=== PATIENT | male | born 1960 | race Hispanic/Latino ===

== ENCOUNTER 2016-08-20 01:03 | Inpatient (IN) | payer MEDICARE ==
[2016-08-20 01:54] LABS: BASO # 0.1 K/uL (0.0-0.2); BASO % 0.5 % (0.0-2.0); EOS # 0.1 K/uL (0.0-0.7); EOS % 0.5 % (0.0-4.0); HEMATOCRIT 34.7 % (35.0-51.0); LYMPH # 2.7 K/uL (1.0-4.3); LYMPH % 17.9 % (20.0-40.0); MEAN CELL VOLUME 91.5 fl (80.0-94.0); MEAN CORPUSCULAR HEMOGLOBIN 30.5 pg (27.0-31.0); MEAN CORPUSCULAR HGB CONC 33.3 g/dL (33.0-37.0); MEAN PLATELET VOLUME 7.9 fl (7.2-11.7); MONO # 0.9 K/uL (0.0-0.8); NEUT # 11.5 K/uL (1.8-7.0); NEUT % 75.1 % (50.0-75.0); RED CELL DISTRIBUTION WIDTH 14.1 % (11.5-14.5); WHITE BLOOD COUNT 15.3 K/uL (4.8-10.8)
[2016-08-20 02:01] LABS: CHLORIDE 97 mmol/L (98-107)
[2016-08-20 02:02] LABS: POTASSIUM 3.1 MMOL/L (3.6-5.0); SODIUM 140 mmol/l (132-148)
[2016-08-20 02:04] LABS: ALB/GLOB RATIO 1.5 (1.0-2.1); ALKALINE PHOSPHATASE 80 U/L (38-126); ALT/SGPT 110 U/L (21-72); AST/SGOT 222 U/L (17-59); BILIRUBIN,TOTAL 0.6 mg/dl (0.2-1.3); BLOOD UREA NITROGEN 22 mg/dl (9-20); CARBON DIOXIDE 22 mmol/L (22-30); GFR AFRICAN-AMERICAN > 60; GLUCOSE,RANDOM 97 mg/dL (75-110); TOTAL PROTEIN 7.7 G/DL (6.3-8.2)
[2016-08-20 02:05] LABS: ALCOHOL SERUM 119 mg/dl (0-10); CALCIUM 8.9 mg/dL (8.4-10.2)
[2016-08-20 02:12] LABS: PARTIAL THROMBOPLASTIN TIME 21.2 SECONDS (23.3-32.5)
--- NOTE | 2016-08-20 02:25 | CT ---
EXAM: CT Head Without Intravenous Contrast CLINICAL HISTORY: 56 years old, male; Injury or trauma; Fall; Initial encounter; Concussion / head injury TECHNIQUE: Axial computed tomography images of the head/brain without intravenous contrast. This CT exam was performed using one or more of the following dose reduction techniques: automated exposure control, adjustment of the mA and/or kV according to patient size, and/or use of iterative reconstruction technique. Coronal and sagittal reformatted images were created and reviewed. COMPARISON: No relevant prior studies available. FINDINGS: Brain: Mild atrophy. No intracranial hemorrhage. No mass. Hugk-ch-lduzneun encephalomalacia within LEFT frontal region with associated calcifications. No edema. Ventricles: No hydrocephalus. Bones/joints: No calvarial fracture. Craniotomy. Soft tissues: Unremarkable. Sinuses: No acute sinusitis. Mastoid air cells: No mastoid effusion. Orbits: Unremarkable as visualized. IMPRESSION: 1. No intracranial hemorrhage. 2. Incidental/non-acute findings are described above.
--- NOTE | 2016-08-20 02:26 | ED PDOC ---
HPI: General Adult Time Seen by Provider: 08/20/16 01:30 Chief Complaint (Nursing): Trauma Chief Complaint (Provider): fall History Per: Patient (56 y/o male h/o craniectomy for SAH in past here for fall and injury to left shoulder today. States he could not lift himself up due to shoulder pain and dragged self to neighbor's door. Unsure of head injury. ADmits drinking etoh today.) Past Medical History Reviewed: Historical Data, Nursing Documentation, Vital Signs Vital Signs: Last Vital Signs Temp 97.5 F L 08/20/16 01:15 Pulse 70 08/20/16 03:48 Resp 16 08/20/16 03:48 BP 109/65 08/20/16 03:48 Pulse Ox 97 08/20/16 03:48 - Medical History PMH: Anxiety, Depression, HTN - Family History Family History: States: Unknown Family Hx - Home Medications Home Medications: Ambulatory Orders Medication Instructions Recorded Amlodipine Besylate/Benazepril 1 tab PO DAILY 08/20/16 [Amlodipine-Benazepril 10-40 mg] Ammonium Lactate 12% [Lac-Hydrin 1 appl TD DAILY 08/20/16 12% Cream (140 g)] Budesonide/Formoterol Fumarate 1 puff PO BID 08/20/16 [Symbicort 160-4.5 Mcg Inhaler] Ca/D3/Mag#11/Zinc/Conference Services Manager/Kelvin/Bor 1 tab PO BID 08/20/16 [Caltrate 600+D Plus Tablet] Carvedilol [Coreg] 1 tab PO BID 08/20/16 Cyanocobalamin [Vitamin B12 100 1 tab PO DAILY 08/20/16 mcg Tab] Duloxetine HCl [Duloxetine HCl] 60 mg PO DAILY 08/20/16 Ergocalciferol (Vitamin D2) 1 tab PO QWK 08/20/16 [Vitamin D2] Fluticasone Propionate [Aller-Deejay] 1 spray IH DAILY 08/20/16 Levocetirizine Dihydrochloride 1 tab PO DAILY 08/20/16 [Xyzal] Lubiprostone [Amitiza] 1 cap PO DAILY 08/20/16 Carney-3/Dha/Epa/Fish Oil [Carney-3 2 cap PO DAILY 08/20/16 EC Softgel] Omeprazole [Omeprazole] 20 mg PO BID 08/20/16 Oxcarbazepine [Trileptal] 2 tab PO DAILY 08/20/16 Rosuvastatin Calcium [Crestor] 10 mg PO DAILY 08/20/16 - Allergies Allergies/Adverse Reactions: Allergies Allergy/AdvReac Type Severity Reaction Status Date / Time No Known Allergies Allergy Verified 04/11/16 22:32 Review of Systems ROS Statement: Except As Marked, All Systems Reviewed And Found Negative Physical Exam - Reviewed Nursing Documentation Reviewed: Yes Vital Signs Reviewed: Yes - Physical Exam Appears: Positive for: Well, Non-toxic, No Acute Distress Head Exam: Positive for: NORMAL INSPECTION, NORMOCEPHALIC. Negative for: ATRAUMATIC (left ear with dried blood noted.) Skin: Positive for: Normal Color, Warm, DRY Eye Exam: Positive for: EOMI, Normal appearance, PERRL ENT: Positive for: Normal ENT Inspection Neck: Positive for: Normal, Painless ROM Cardiovascular/Chest: Positive for: Regular Rate, Rhythm Respiratory: Positive for: CNT, Normal Breath Sounds Gastrointestinal/Abdominal: Positive for: Normal Exam, Bowel Sounds, Soft Back: Positive for: Normal Inspection Extremity: Positive for: Tenderness, Swelling (left arm with obvious deformity by humerus. Ecchymosis/swelling noted.). Negative for: Normal ROM Neurologic/Psych: Positive for: Alert, Oriented - Laboratory Results Result Diagrams: 08/20/16 01:45 08/20/16 01:45 - ECG O2 Sat by Pulse Oximetry: 100 - Progress ED Course And Treament: morphine 4mg iv x 1 dose xry of left shoulder/humeru: (+) proximal humerus comminuted fx d/w Dr. Negrete NS 1 liter 500 ml per hour x 1 liter KDUR 40 meq for potassium of 3.1 ekg: nsr 62bp;m; t wave noted V3 and V4 d/w Dr. Kimbrough. Will place in posterior splint and shoulder sling. CT of shoulder pending. CPK noted elevated. Urine myoglobin ordered as well. Disposition - Clinical Impression Clinical Impression: Humerus fracture, Fall - Patient ED Disposition Is Patient to be Admitted: Yes - Disposition Disposition Time: 03:00 Condition: FAIR
[2016-08-20] MEDS ORDERED: Sodium Chloride 0.9% 1,000 ML IV STA (02:36)
[2016-08-20] MEDS ORDERED: Potassium Chloride 20 mEq ER Tab PO ONE ×2 (02:36→03:00)
--- NOTE | 2016-08-20 03:23 | CT ---
EXAM: CT Left Upper Extremity Without Intravenous Contrast, Shoulder CLINICAL HISTORY: 56 years old, male; Pain and injury or trauma; Fall; Initial encounter TECHNIQUE: Axial computed tomography images of the left shoulder without intravenous contrast. This CT exam was performed using one or more of the following dose reduction techniques: automated exposure control, adjustment of the mA and/or kV according to patient size, and/or use of iterative reconstruction technique. Coronal and sagittal reformatted images were created and reviewed. COMPARISON: No relevant prior studies available. FINDINGS: Bones/joints: Comminuted, displaced fracture of proximal humeral metaphysis. Impaction at fracture site. No dislocation. Rotation of humeral head. Chronic deformity LEFT distal clavicle. Soft tissues: Soft tissue swelling/stranding about LEFT shoulder girdle. Vasculature: Mild atherosclerotic disease. Lung apices: Mild peripheral atelectasis/scarring. Other findings: Mild cardiomegaly.1.2 x 1.5 x 2.0 cm cyst or nodule within LEFT lobe of thyroid. IMPRESSION: 1. LEFT proximal humeral fracture. 2. Thyroid nodule. Followup as clinically warranted. 3. Incidental/non-acute findings are described above.
--- NOTE | 2016-08-20 08:43 | CP.PCM.HP ---
History of Present Illness - History of Present Illness History of Present Illness: This is a 56 y/o male with hx of seizure, hx of SAH from fall had another fall again last night sustaining a left femoral fracture. He apparently started drinking alcoholic beverages again. He has a hx of seizure, HTN and depression. Alcohol level was 119. He was also noted to have elevated AST ALT and CPK. He has one episode of vomiting during evaluation. Present on Admission - Present on Admission Any Indicators Present on Admission: No History of DVT/PE: No History of Uncontrolled Diabetes: No Urinary Catheter: No Decubitus Ulcer Present: No Review of Systems - Respiratory Respiratory: Cough - Gastrointestinal Gastrointestinal: Abdominal Pain - Psychiatric Psychiatric: Anxiety, Depression Past Patient History - Past Medical History & Family History Past Medical History?: Yes - Past Social History Smoking Status: Heavy Smoker > 10 Cigarettes Daily - CARDIAC Hx Cardiac Disorders: Yes Hx Hypertension: Yes - PULMONARY Hx Respiratory Disorders: No - NEUROLOGICAL Hx Neurological Disorder: Yes Other/Comment: Hx craniotomy x SAH - HEENT Hx HEENT Problems: No - RENAL Hx Chronic Kidney Disease: No - ENDOCRINE/METABOLIC Hx Endocrine Disorders: No - HEMATOLOGICAL/ONCOLOGICAL Hx Blood Disorders: No - INTEGUMENTARY Hx Dermatological Problems: No - MUSCULOSKELETAL/RHEUMATOLOGICAL Hx Musculoskeletal Disorders: Yes Hx Falls: Yes - GASTROINTESTINAL Hx Gastrointestinal Disorders: No - GENITOURINARY/GYNECOLOGICAL Hx Genitourinary Disorders: No - PSYCHIATRIC Hx Psychophysiologic Disorder: Yes Hx Anxiety: Yes Hx Depression: Yes Hx Substance Use: Yes Other/Comment: ETOH abuse - SURGICAL HISTORY Hx Surgeries: Yes Other/Comment: Craniotomy for SAH - ANESTHESIA Hx Anesthesia: Yes Hx Anesthesia Reactions: No Hx Malignant Hyperthermia: No Has any member of the family had a problem w/ anesthesia?: No Meds Allergies/Adverse Reactions: Allergies Allergy/AdvReac Type Severity Reaction Status Date / Time No Known Allergies Allergy Verified 04/11/16 22:32 Physical Exam - Head Exam Head Exam: NORMAL INSPECTION - Eye Exam Eye Exam: Normal appearance - ENT Exam ENT Exam: Mucous Membranes Moist - Respiratory Exam Respiratory Exam: Clear to Auscultation Bilateral - Cardiovascular Exam Cardiovascular Exam: REGULAR RHYTHM - GI/Abdominal Exam GI & Abdominal Exam: Tenderness - Extremities Exam Extremities exam: Positive for: joint swelling Additional comments: swelling and tenderness and limited motion of the left humerus/ shoulder. - Neurological Exam Neurological exam: CN II-XII Intact, Oriented x3 - Psychiatric Exam Psychiatric exam: Normal Mood - Skin Skin Exam: Dry Results - Vital Signs Recent Vital Signs: Last Vital Signs Temp 98.0 F 08/20/16 07:40 Pulse 65 08/20/16 07:40 Resp 18 08/20/16 07:40 BP 100/57 L 08/20/16 07:40 Pulse Ox 100 08/20/16 07:40 - Labs Result Diagrams: 08/21/16 06:30 08/21/16 06:30 Labs: Laboratory Results - last 24 hr 08/20/16 02:56 Total Creatine Kinase 4206 H Assessment & Plan (1) Fall Status: Acute (2) Humerus fracture Status: Acute (3) Alcohol abuse with intoxication Status: Acute (4) Gastritis Status: Acute (5) Depression Status: Acute (6) Seizure disorder Status: Acute - Assessment and Plan (Free Text) Plan: NPO for now IV fluids Pantoprazole resume meds in AM Ortho eval.recheck cbc cmp cpk
[2016-08-20] MEDS: Dextrose 5%/0.45% NS 1,000 ML IV SCH ×3 (09:30→21:38)
--- NOTE | 2016-08-20 11:19 | RAD ---
PROCEDURE: Radiographs of the Left Shoulder HISTORY: SHOULDER INJURY COMPARISON: August 20, 2016. CT left shoulder. FINDINGS: BONES: Impacted, comminuted fracture extending from the humeral neck to the humeral head. JOINTS: Normal. Glenohumeral and acromioclavicular joints preserved. No osteoarthritis. SOFT TISSUES: Soft tissue swelling attests to the acuity of the fracture. OTHER FINDINGS: None. IMPRESSION: Confirmation of impacted, comminuted fracture proximal left humerus. Findings better appreciated on comparison CT left shoulder.
--- NOTE | 2016-08-20 11:20 | RAD ---
PROCEDURE: Left humerus HISTORY: FX ARM COMPARISON: August 20, 2016. TECHNIQUE: Standard protocol for this study/examination. FINDINGS: Confirmation of comminuted impacted/ displaced fracture proximal left humerus. Soft tissue swelling attests to the acuity of the fracture. No abnormalities distal humerus. IMPRESSION: Acute/comminuted fracture with displacement proximal left humerus including humeral neck and head.
--- NOTE | 2016-08-20 11:22 | RAD ---
PROCEDURE: CHEST RADIOGRAPH, 1 VIEW. Technique: Single view portable semi erect @ 02:40. HISTORY: routine COMPARISON: 07/01/2008. FINDINGS: LUNGS: Clear. PLEURA: No pneumothorax or pleural fluid seen. CARDIOVASCULAR: No radiographic findings to suggest acute or significant cardiovascular disease. OSSEOUS STRUCTURES: No significant abnormalities. VISUALIZED UPPER ABDOMEN: Normal. OTHER FINDINGS: None. IMPRESSION: No active disease. No acute/significant interval changes.
--- NOTE | 2016-08-20 19:18 | CARD ---
APPROVED REPORT EKG Measurement Heart [id number] NV [id number] <Conclusion> Normal sinus rhythm Left axis deviation Right bundle branch block Moderate voltage criteria for LVH, may be normal variant T wave abnormality, consider lateral ischemia Abnormal ECG
--- NOTE | 2016-08-20 19:46 | CON ---
DATE: 08/20/2016 CHIEF COMPLAINT: Left proximal humerus fracture. HISTORY OF PRESENT ILLNESS: The patient is a 56-year-old male who is consulted for left proximal hum erus fracture. The patient has a history of alcohol abuse. The patient on admission, alcohol level was elevated to 109. Currently, the patient is comfortable, lying in bed, not in any acute pain. De nies any paresthesias or motor weakness. The patient cannot recall the event. Denies pain in any ot her extremity or joint. PAST MEDICAL HISTORY: Hypertension, alcohol abuse. PAST SURGICAL HISTORY: Craniotomy some for hematoma. ALLERGIES: Denies. PHYSICAL EXAMINATION: Examination of the patient's left shoulder is currently in a sling. There is some bruising and ecchymoses. He is neurovascularly intact distally. IMAGING: X-rays and CT scan of the patient's left shoulder showing a displaced proximal humerus frac ture at the surgical neck. ASSESSMENT: A 56-year-old male with history of alcohol abuse and a displaced left proximal humerus f racture. TREATMENT: I had a detailed discussion with the patient including history, physical exam and CT scan finding. I presented the patient with different treatment options, of operative versus nonoperative management. Based on the displaced nature of the fracture, I am recommending open reduction interna l fixation left proximal humerus fracture; however, I explained to the patient the postoperative comp liance would be crucial in wound healing and successful outcome of the surgery. The patient would li ke to consider treatment options. Currently, the patient will remain in a sling. He will remain non weightbearing left upper extremity. Continue medical management. If the patient elects to proceed w ith surgery, we will proceed to the OR on Monday. Jese Kimbrough MD cc: [id number] TT: 08/20/2016 19:45:34 Confirmation # [id number] Dictation # [id number] rubi
[2016-08-21] MEDS: Dextrose 5%/0.45% NS 1,000 ML IV SCH ×2 (05:16→08:53)
[2016-08-21 08:09] LABS: BASO % 0.5 % (0.0-2.0); EOS # 0.1 K/uL (0.0-0.7); EOS % 1.3 % (0.0-4.0); LYMPH # 1.9 K/uL (1.0-4.3); LYMPH % 23.1 % (20.0-40.0); MEAN CELL VOLUME 90.8 fl (80.0-94.0); MEAN CORPUSCULAR HEMOGLOBIN 31.8 pg (27.0-31.0); MEAN PLATELET VOLUME 8.1 fl (7.2-11.7); MONO # 0.9 K/uL (0.0-0.8); MONO % 10.7 % (0.0-10.0); NEUT # 5.2 K/uL (1.8-7.0); NEUT % 64.4 % (50.0-75.0); RED CELL DISTRIBUTION WIDTH 13.8 % (11.5-14.5); WHITE BLOOD COUNT 8.1 K/uL (4.8-10.8)
[2016-08-21 08:14] LABS: ALB/GLOB RATIO 1.3 (1.0-2.1); ALKALINE PHOSPHATASE 84 U/L (38-126); ALT/SGPT 76 U/L (21-72); AST/SGOT 81 U/L (17-59); BILIRUBIN,TOTAL 1.1 mg/dl (0.2-1.3); BLOOD UREA NITROGEN 7 mg/dl (9-20); CALCIUM 8.5 mg/dL (8.4-10.2); CARBON DIOXIDE 28 mmol/L (22-30); CHLORIDE 100 mmol/L (98-107); GFR AFRICAN-AMERICAN > 60; GLUCOSE,RANDOM 124 mg/dL (75-110); SODIUM 140 mmol/l (132-148); TOTAL PROTEIN 6.1 G/DL (6.3-8.2)
[2016-08-21 09:56] LABS: POTASSIUM 2.4 MMOL/L (3.6-5.0)
--- NOTE | 2016-08-21 10:39 | CP.PCM.PN ---
Subjective - Date & Time of Evaluation Date of Evaluation: 08/21/16 Time of Evaluation: 10:36 - Subjective Subjective: Patient feels a lot better. Had few episodes o vomiting yesterday Potassium to day is low. K 2.4 has no fever Has no abdominal pain CPK decreased [id number] AST ALT decreased to 81/76 Objective - Vital Signs/Intake and Output Vital Signs (last 24 hours): Temp Pulse Resp BP Pulse Ox 98.1 F 89 20 118/75 97 08/21/16 07:37 08/21/16 07:37 08/21/16 07:37 08/21/16 07:37 08/21/16 07:37 - Medications Medications: Current Medications Lorazepam (Ativan) 0.5 mg IV Q6 PRN PRN Reason: Agitation Last Admin: 08/21/16 05:14 Dose: 0.5 mg Morphine Sulfate (Morphine) 2 mg IVP Q6 PRN PRN Reason: Pain, moderate (4-7) Last Admin: 08/21/16 08:50 Dose: 2 mg Ondansetron HCl (Zofran Inj) 4 mg IVP Q6 PRN PRN Reason: Nausea/Vomiting Last Admin: 08/20/16 10:14 Dose: 4 mg Oxcarbazepine (Trileptal) 150 mg PO BID KIMBERLY Last Admin: 08/21/16 08:56 Dose: 150 mg - Labs Labs: 08/21/16 06:30 08/21/16 06:30 PT 10.0 SECONDS (9.6-11.2) 08/20/16 01:45 INR 0.96 (0.92-1.08) 08/20/16 01:45 APTT 21.2 SECONDS (23.3-32.5) L 08/20/16 01:45 - Head Exam Head Exam: NORMAL INSPECTION - Eye Exam Eye Exam: Normal appearance - ENT Exam ENT Exam: Mucous Membranes Moist - Respiratory Exam Respiratory Exam: Clear to Ausculation Bilateral - Cardiovascular Exam Cardiovascular Exam: REGULAR RHYTHM - GI/Abdominal Exam GI & Abdominal Exam: Normal Bowel Sounds - Extremities Exam Extremities Exam: Joint Swelling Additional comments: swelling and tenderness on the left shoulder - Neurological Exam Neurological Exam: CN II-XII Intact, Oriented x3 Assessment and Plan (1) Fall Status: Acute (2) Humerus fracture Status: Acute (3) Alcohol abuse with intoxication Status: Acute (4) Gastritis Status: Acute (5) Depression Status: Acute (6) Seizure disorder Status: Acute (7) Abnormal liver enzymes Status: Acute (8) Elevated CPK Status: Acute - Assessment and Plan (Free Text) Plan: Cont medsCot tx Cont fluids start soft diet pantoprazole potassium replacement.
[2016-08-21] MEDS ORDERED: OXCARBAZEPINE PO SCH (10:45)
[2016-08-21] MEDS: Potassium CL 10mEq/100ml 100 ML IVPB SCH ×2 (12:50→12:51)
[2016-08-21] MEDS: Pantoprazole 40 mg EC Tab PO SCH (14:30)
[2016-08-21] MEDS ORDERED: Alum-Mag Hydrox-Simethicone Susp (30 mL) PO ONE (21:00)
--- NOTE | 2016-08-21 21:22 | CP.PCM.CON ---
History of Present Illness - History of Present Illness History of Present Illness: I was asked to evaluate patient by Dr. Negrete. Patient is a 56 year old male with a PMH HTN who presents with a fall. He suffered a Left humeral fracture. The patient denies syncope. He denies previous chest pain. Review of Systems - Constitutional Constitutional: absent: As Per HPI, Anorexia, Chills, Daytime Sleepiness, Excessive Sweating, Fatigue, Fever, Frequent Falls, Headache, Increased Appetite , Lethargy, Malaise, Night Sweats, Snoring, Sleep Apnea, Weight Gain, Weight Loss, Weakness, Other - EENT Eyes: absent: As Per HPI, Blind Spots, Blurred Vision, Change in Vision, Decreased Night Vision, Diplopia, Discharge, Dry Eye, Exophthalmos, Floaters, Irritation, Itchy Eyes, Loss of Peripheral Vision, Pain, Photophobia, Requires Corrective Lenses, Sees Flashes, Spots in Vision, Tunnel Vision, Other Visual Disturbances, Loss of Vision, Other Ears: absent: As Per HPI, Decreased Hearing, Ear Discharge, Ear Pain, Tinnitus, Abnormal Hearing, Disequilibrium, Dizziness, Other Nose/Mouth/Throat: absent: As Per HPI, Epistaxis, Nasal Congestion, Nasal Discharge, Nasal Obstruction, Nasal Trauma, Nose Pain, Post Nasal Drip, Sinus Pain, Sinus Pressure, Bleeding Gums, Change in Voice, Dental Pain, Dry Mouth, Dysphagia, Halitosis, Hoarsness, Lip Swelling, Mouth Lesions, Mouth Pain, Odynophagia, Sore Throat, Throat Swelling, Tongue Swelling, Facial Pain, Neck Pain, Neck Mass, Other - Cardiovascular Cardiovascular: absent: As Per HPI, Acrocyanosis, Chest Pain, Chest Pain at Rest , Chest Pain with Activity, Claudication, Diaphoresis, Dyspnea, Dyspnea on Exertion, Edema, Irregular Heart Rhythm, Pain Radiating to Arm/Neck/Jaw, Leg Edema, Leg Ulcers, Lightheadedness, Orthopnea, Palpitations, Paroxysmal Nocturnal Dyspnea, Pedal Edema, Radiating Pain, Rapid Heart Rate, Slow Heart Rate, Syncope, Other - Respiratory Respiratory: absent: As Per HPI, Cough, Dyspnea, Hemoptysis, Dyspnea on Exertion , Wheezing, Snoring, Stridor, Pain on Inspiration, Chest Congestion, Excessive Mucous Production, Change in Mucous Color, Pain with Coughing, Other - Gastrointestinal Gastrointestinal: absent: As Per HPI, Abdominal Pain, Belching, Bloating, Change in Bowel Habits, Change in Stool Character, Coffee Ground Emesis, Constipation, Cramping, Diarrhea, Dyspepsia, Dysphagia, Early Satiety, Excessive Flatus, Fecal Incontinence, Heartburn, Hematemesis, Hematochezia, Loose Stools, Melena, Nausea, Odynophagia, Temesmus, Vomiting, Other - Genitourinary Genitourinary: absent: As Per HPI, Change in Urinary Stream, Difficulty Urinating, Dysuria, Flank Pain, Hematuria, Pyuria, Nocturia, Urinary Incontinence, Urinary Frequency, Urinary Hesitance, Urinary Urgency, Voiding Freq/Small Amts, Freq UTI, Hx Renal/Bladder Calculi, Hx /Renal Surgery, Bladder Distension, Other - Musculoskeletal Musculoskeletal: Radiating Pain into Limb - Integumentary Integumentary: absent: As Per HPI, Acne, Alopecia, Bleeding Lesions, Change in Hair, Change in Nails, Change in Pigmentation, Changing Lesions, Dry Skin, Erythema, Furuncle, Hirsutism, Lesions, New Lesions, Non-Healing Lesions, Photosensitivity, Pruritus, Rash, Skin Pain, Skin Ulcer, Sores, Striae, Swelling , Unusual Bruising, Wounds, Jaundice, Other - Neurological Neurological: absent: As Per HPI, Abnormal Gait, Abnormal Hearing, Abnormal Movements, Abnormal Speech, Behavioral Changes, Burning Sensations, Confusion, Convulsions, Disequilibrium, Dizziness, Numbness, Focal Weakness, Frequent Falls , Headaches, Lack of Coordination, Loss of Vision, Memory Loss, Paresthesias, Radicular Pain, Restless Legs, Sensory Deficit, Syncope, Tingling, Tremor, Vertigo, Weakness, Other Visual Disturbances, Other - Psychiatric Psychiatric: absent: As Per HPI, Abnormal Sleep Pattern, Anhedonia, Anxiety, Auditory Hallucinations, Behavioral Changes, Change in Appetite, Change in Libido, Confusion, Depression, Difficulty Concentrating, Hallucinations, Homicidal Ideation, Hopelessness, Irritability, Memory Loss, Mood Swings, Panic Attacks, Paranoia, Suicidal Ideation, Visual Hallucinations, Tactile Hallucinations, Other - Endocrine Endocrine: absent: As Per HPI, Change in Body Appearance, Change in Libido, Cold Intolorance, Deepening of Voice, Excessive Sweating, Fatigue, Flushing, Heat Intolorance, Increase in Ring/Shoe/Hat Size, Palpitations, Polydipsia, Polyphagia, Polyuria, Other - Hematologic/Lymphatic Hematologic: absent: As Per HPI, Easy Bleeding, Easy Bruising, Lymphadenopathy, Other Past Patient History - Past Medical History & Family History Past Medical History?: Yes - Past Social History Smoking Status: Heavy Smoker > 10 Cigarettes Daily - CARDIAC Hx Cardiac Disorders: Yes Hx Hypertension: Yes - PULMONARY Hx Respiratory Disorders: No - NEUROLOGICAL Hx Neurological Disorder: Yes Other/Comment: Hx craniotomy x SAH - HEENT Hx HEENT Problems: No - RENAL Hx Chronic Kidney Disease: No - ENDOCRINE/METABOLIC Hx Endocrine Disorders: No - HEMATOLOGICAL/ONCOLOGICAL Hx Blood Disorders: No - INTEGUMENTARY Hx Dermatological Problems: No - MUSCULOSKELETAL/RHEUMATOLOGICAL Hx Musculoskeletal Disorders: Yes Hx Falls: Yes - GASTROINTESTINAL Hx Gastrointestinal Disorders: No - GENITOURINARY/GYNECOLOGICAL Hx Genitourinary Disorders: No - PSYCHIATRIC Hx Psychophysiologic Disorder: Yes Hx Anxiety: Yes Hx Depression: Yes Hx Substance Use: Yes Other/Comment: ETOH abuse - SURGICAL HISTORY Hx Surgeries: Yes Other/Comment: Craniotomy for SAH - ANESTHESIA Hx Anesthesia: Yes Hx Anesthesia Reactions: No Hx Malignant Hyperthermia: No Has any member of the family had a problem w/ anesthesia?: No Meds Allergies/Adverse Reactions: Allergies Allergy/AdvReac Type Severity Reaction Status Date / Time No Known Allergies Allergy Verified 04/11/16 22:32 - Medications Medications: Current Medications Amlodipine Besylate (Norvasc) 10 mg PO DAILY [facility] Last Admin: 08/21/16 14:31 Dose: 10 mg Atorvastatin Calcium (Lipitor) 20 mg PO HS [facility] Carvedilol (Coreg) 1 mg PO BID [facility] Duloxetine HCl (Cymbalta) 60 mg PO DAILY [facility] Last Admin: 08/21/16 12:51 Dose: 60 mg Home Med (Oxcarbazepine [Trileptal]) 2 tab PO DAILY [facility] Lisinopril (Zestril) 40 mg PO DAILY [facility] Last Admin: 08/21/16 14:32 Dose: 40 mg Lorazepam (Ativan) 0.5 mg IV Q6 PRN PRN Reason: Agitation Last Admin: 08/21/16 20:14 Dose: 0.5 mg Morphine Sulfate (Morphine) 2 mg IVP Q6 PRN PRN Reason: Pain, moderate (4-7) Last Admin: 08/21/16 16:38 Dose: 2 mg Ondansetron HCl (Zofran Inj) 4 mg IVP Q6 PRN PRN Reason: Nausea/Vomiting Last Admin: 08/20/16 10:14 Dose: 4 mg Oxcarbazepine (Trileptal) 150 mg PO BID [facility] Last Admin: 08/21/16 08:56 Dose: 150 mg Pantoprazole Sodium (Protonix Ec Tab) 40 mg PO DAILY [facility] Last Admin: 08/21/16 14:30 Dose: 40 mg Physical Exam - Constitutional Appears: Non-toxic - Head Exam Head Exam: NORMAL INSPECTION - Eye Exam Eye Exam: Normal appearance - ENT Exam ENT Exam: Mucous Membranes Moist - Neck Exam Neck exam: Positive for: Full Rom - Respiratory Exam Respiratory Exam: NORMAL BREATHING PATTERN - Cardiovascular Exam Cardiovascular Exam: REGULAR RHYTHM - GI/Abdominal Exam GI & Abdominal Exam: Normal Bowel Sounds - Rectal Exam Rectal Exam: Deferred - Extremities Exam Extremities exam: Negative for: pedal edema - Back Exam Back exam: NORMAL INSPECTION - Neurological Exam Neurological exam: Alert, Oriented x3 - Psychiatric Exam Psychiatric exam: Normal Affect - Skin Skin Exam: Normal Color Results - Vital Signs Recent Vital Signs: Last Vital Signs Temp 98.6 F 08/21/16 17:06 Pulse 102 H 08/21/16 17:06 Resp 20 08/21/16 17:06 BP 160/90 H 08/21/16 17:06 Pulse Ox 98 08/21/16 17:06 - Labs Result Diagrams: 08/21/16 06:30 08/21/16 06:30 Labs: Laboratory Results - last 24 hr 08/21/16 06:30 WBC 8.1 RBC 3.41 L Hgb 10.8 L Hct 31.0 L MCV 90.8 MCH 31.8 H MCHC 35.0 RDW 13.8 Plt Count 156 MPV 8.1 Neut % (Auto) 64.4 Lymph % (Auto) 23.1 [place] % (Auto) 10.7 H Eos % (Auto) 1.3 Baso % (Auto) 0.5 Neut # 5.2 Lymph # 1.9 [place] # 0.9 H Eos # 0.1 Baso # 0.0 Sodium 140 Potassium 2.4 L* D Chloride 100 Carbon Dioxide 28 Anion Gap 14 BUN 7 L Creatinine 0.4 L Est GFR ( Amer) > 60 Est GFR (Non-Af Amer) > 60 Random Glucose 124 H Calcium 8.5 Total Bilirubin 1.1 AST 81 H D ALT 76 H D Alkaline Phosphatase 84 Total Creatine Kinase 1173 H Total Protein 6.1 L Albumin 3.4 L D Globulin 2.7 Albumin/Globulin Ratio 1.3 - EKG Data EKG Interpreted by: Myself EKG shows normal: Sinus rhythm Assessment & Plan (1) RBBB Assessment and Plan: will need evaluatio of ventricular function. patient may need surgery. Status: Acute (2) HTN (hypertension) Assessment and Plan: blood pressure control Status: Acute (3) Hypercholesterolemia Assessment and Plan: caution with statin use Status: Acute
--- NOTE | 2016-08-22 08:56 | CP.PCM.PN ---
Subjective - Date & Time of Evaluation Date of Evaluation: 08/22/16 Time of Evaluation: 08:55 - Subjective Subjective: patient complains of pain in the epigastric area last night Already on Pantoprazole Has no fever. Advised to have full cardiac work up by Dr Ellison. Has no chest pain or SOB. Objective - Vital Signs/Intake and Output Vital Signs (last 24 hours): Temp Pulse Resp BP Pulse Ox 99.7 F H 87 20 157/97 H 98 08/22/16 07:37 08/22/16 07:37 08/22/16 07:37 08/22/16 07:37 08/22/16 07:37 - Medications Medications: Current Medications Amlodipine Besylate (Norvasc) 10 mg PO DAILY [facility] Last Admin: 08/21/16 14:31 Dose: 10 mg Atorvastatin Calcium (Lipitor) 20 mg PO HS [facility] Carvedilol (Coreg) 12.5 mg PO BID [facility] Duloxetine HCl (Cymbalta) 60 mg PO DAILY [facility] Last Admin: 08/21/16 12:51 Dose: 60 mg Home Med (Oxcarbazepine [Trileptal]) 2 tab PO DAILY [facility] Lisinopril (Zestril) 40 mg PO DAILY [facility] Last Admin: 08/21/16 14:32 Dose: 40 mg Lorazepam (Ativan) 0.5 mg IV Q6 PRN PRN Reason: Agitation Last Admin: 08/22/16 02:07 Dose: 0.5 mg Morphine Sulfate (Morphine) 2 mg IVP Q6 PRN PRN Reason: Pain, moderate (4-7) Last Admin: 08/22/16 04:22 Dose: 2 mg Ondansetron HCl (Zofran Inj) 4 mg IVP Q6 PRN PRN Reason: Nausea/Vomiting Last Admin: 08/20/16 10:14 Dose: 4 mg Oxcarbazepine (Trileptal) 150 mg PO BID [facility] Last Admin: 08/21/16 08:56 Dose: 150 mg Pantoprazole Sodium (Protonix Ec Tab) 40 mg PO DAILY [facility] Last Admin: 08/21/16 14:30 Dose: 40 mg - Labs Labs: 08/21/16 06:30 08/21/16 06:30 PT 10.0 SECONDS (9.6-11.2) 08/20/16 01:45 INR 0.96 (0.92-1.08) 08/20/16 01:45 APTT 21.2 SECONDS (23.3-32.5) L 08/20/16 01:45 - Head Exam Head Exam: NORMAL INSPECTION - Eye Exam Eye Exam: Normal appearance - ENT Exam ENT Exam: Mucous Membranes Moist - Respiratory Exam Respiratory Exam: Clear to Ausculation Bilateral - Cardiovascular Exam Cardiovascular Exam: REGULAR RHYTHM - GI/Abdominal Exam GI & Abdominal Exam: Normal Bowel Sounds - Neurological Exam Neurological Exam: CN II-XII Intact, Oriented x3 - Psychiatric Exam Psychiatric exam: Normal Mood Assessment and Plan (1) Fall Status: Acute (2) Humerus fracture Status: Acute (3) Alcohol abuse with intoxication Status: Acute (4) Gastritis Status: Acute (5) Depression Status: Acute (6) Seizure disorder Status: Acute (7) Abnormal liver enzymes Status: Acute (8) Elevated CPK Status: Acute - Assessment and Plan (Free Text) Plan: Cont meds Cont tx Cont pain meds carafate
[2016-08-22] MEDS: Pantoprazole 40 mg EC Tab PO SCH (09:05)
[2016-08-22 10:54] LABS: BASO % 0.4 % (0.0-2.0); EOS # 0.1 K/uL (0.0-0.7); EOS % 1.3 % (0.0-4.0); HEMATOCRIT 26.3 % (35.0-51.0); LYMPH # 1.7 K/uL (1.0-4.3); LYMPH % 17.8 % (20.0-40.0); MEAN CELL VOLUME 89.5 fl (80.0-94.0); MEAN CORPUSCULAR HEMOGLOBIN 32.2 pg (27.0-31.0); MEAN PLATELET VOLUME 7.9 fl (7.2-11.7); MONO # 1.2 K/uL (0.0-0.8); MONO % 12.6 % (0.0-10.0); NEUT # 6.4 K/uL (1.8-7.0); NEUT % 67.9 % (50.0-75.0); RED CELL DISTRIBUTION WIDTH 13.7 % (11.5-14.5); WHITE BLOOD COUNT 9.4 K/uL (4.8-10.8)
[2016-08-22 11:08] LABS: ALKALINE PHOSPHATASE 68 U/L (38-126); ALT/SGPT 65 U/L (21-72); AST/SGOT 58 U/L (17-59); BILIRUBIN,TOTAL 0.3 mg/dl (0.2-1.3); BLOOD UREA NITROGEN 5 mg/dl (9-20); CALCIUM 8.5 mg/dL (8.4-10.2); CARBON DIOXIDE 31 mmol/L (22-30); CHLORIDE 98 mmol/L (98-107); GFR AFRICAN-AMERICAN > 60; GLUCOSE,RANDOM 148 mg/dL (75-110); POTASSIUM 2.8 MMOL/L (3.6-5.0); SODIUM 141 mmol/l (132-148); TOTAL PROTEIN 5.8 G/DL (6.3-8.2)
[2016-08-22 11:10] LABS: ALB/GLOB RATIO 1.1 (1.0-2.1)
[2016-08-22] MEDS: Sucralfate 1 gm/10 ml Oral Susp UD PO SCH ×2 (12:11→16:10)
[2016-08-22] MEDS ORDERED: Potassium Chloride 20 mEq ER Tab PO STA (13:44)
--- NOTE | 2016-08-22 15:44 | CARD ---
APPROVED REPORT EXAM: Two-dimensional and M-mode echocardiogram with Doppler and color Doppler. Other Information Quality : AverageRhythm : INDICATION Dyspnea 2D DIMENSIONS IVSd1.04 (0.7-1.1cm)LVDd4.05 (3.9-5.9cm) LVOT Diameter2.07 (1.8-2.4cm)PWd1.14 (0.7-1.1cm) IVSs1.30 (0.8-1.2cm)LVDs2.59 (2.5-4.0cm) FS (%) 36.1 %PWs1.38 (0.8-1.2cm) M-Mode DIMENSIONS Left Atrium (MM)2.38 (2.5-4.0cm)IVSd1.00 (0.7-1.1cm) Aortic Root3.38 (2.2-3.7cm)LVDd5.15 (4.0-5.6cm) Aortic Cusp Exc.2.09 (1.5-2.0cm)PWd1.32 (0.7-1.1cm) IVSs1.71 cmFS (%) 62 % LVDs1.97 (2.0-3.8cm)PWs2.06 cm Mitral Valve E/A ratio0.0 TDI E/Lateral E'0.0E/Medial E'0.0 LEFT VENTRICLE The left ventricle is normal size. There is normal left ventricular wall thickness. The left ventricular function is normal. The left ventricular ejection fraction is 65-70% There is normal LV segmental wall motion. The left ventricular diastolic function is normal. No left ventricle thrombus noted on this study. There is no ventricular septal defect visualized. There is no left ventricular aneurysm. There is no mass noted in the left ventricle. RIGHT VENTRICLE The right ventricle is normal size. There is normal right ventricular wall thickness. The right ventricular systolic function is normal. ATRIA The left atrium size is normal. The right atrium size is normal. The interatrial septum is intact with no evidence for an atrial septal defect. AORTIC VALVE The aortic valve is normal in structure and function. No aortic regurgitation is present. There is no aortic valvular stenosis. There is no aortic valvular vegetation. MITRAL VALVE The mitral valve is normal in structure and function. There is no evidence of mitral valve prolapse. There is no mitral valve stenosis. There is no mitral valve regurgitation noted. TRICUSPID VALVE The tricuspid valve is normal in structure and function. There is no tricuspid valve regurgitation noted. There is no tricuspid valve prolapse or vegetation. There is no tricuspid valve stenosis. PULMONIC VALVE The pulmonary valve is normal in structure and function. There is no pulmonic valvular regurgitation. There is no pulmonic valvular stenosis. GREAT VESSELS The aortic root is normal in size. The ascending aorta is normal in size. The IVC is normal in size and collapses >50% with inspiration. PERICARDIAL EFFUSION The pericardium appears normal. There is no pleural effusion. <Conclusion> Normal Echocardiogram
[2016-08-22] MEDS: Potassium CL 10mEq/100ml 100 ML IVPB SCH ×4 (16:00→20:25)
--- NOTE | 2016-08-22 18:42 | CP.PCM.PN ---
Subjective - Date & Time of Evaluation Date of Evaluation: 08/22/16 Time of Evaluation: 18:25 - Subjective Subjective: pateint is s/p echocardiogram. No chest pain Objective - Vital Signs/Intake and Output Vital Signs (last 24 hours): Temp Pulse Resp BP Pulse Ox 98.3 F 83 20 152/85 H 97 08/22/16 17:00 08/22/16 17:00 08/22/16 17:00 08/22/16 17:00 08/22/16 17:00 - Medications Medications: Current Medications Amlodipine Besylate (Norvasc) 10 mg PO DAILY [facility] Last Admin: 08/22/16 09:02 Dose: 10 mg Atorvastatin Calcium (Lipitor) 20 mg PO [facility] Carvedilol (Coreg) 12.5 mg PO BID [facility] Last Admin: 08/22/16 16:08 Dose: 12.5 mg Duloxetine HCl (Cymbalta) 60 mg PO DAILY [facility] Last Admin: 08/22/16 09:01 Dose: 60 mg Lisinopril (Zestril) 40 mg PO DAILY [facility] Last Admin: 08/22/16 09:03 Dose: 40 mg Lorazepam (Ativan) 0.5 mg IV Q6 PRN PRN Reason: Agitation Last Admin: 08/22/16 15:20 Dose: 0.5 mg Morphine Sulfate (Morphine) 2 mg IVP Q6 PRN PRN Reason: Pain, moderate (4-7) Last Admin: 08/22/16 17:25 Dose: 2 mg Ondansetron HCl (Zofran Inj) 4 mg IVP Q6 PRN PRN Reason: Nausea/Vomiting Last Admin: 08/20/16 10:14 Dose: 4 mg Oxcarbazepine (Trileptal) 150 mg PO BID [facility] Last Admin: 08/22/16 16:08 Dose: 150 mg Pantoprazole Sodium (Protonix Ec Tab) 40 mg PO DAILY [facility] Last Admin: 08/22/16 09:05 Dose: 40 mg Sucralfate (Carafate Oral Susp) 1 gm PO BID [facility] Last Admin: 08/22/16 16:10 Dose: 1 gm Zolpidem Tartrate (Ambien) 5 mg PO ONCE ONE Stop: 08/22/16 22:01 - Labs Labs: 08/22/16 10:43 08/22/16 10:43 PT 10.0 SECONDS (9.6-11.2) 08/20/16 01:45 INR 0.96 (0.92-1.08) 08/20/16 01:45 APTT 21.2 SECONDS (23.3-32.5) L 08/20/16 01:45 - Constitutional Appears: Non-toxic - Head Exam Head Exam: NORMAL INSPECTION - Eye Exam Eye Exam: Normal appearance - ENT Exam ENT Exam: Mucous Membranes Moist - Neck Exam Neck Exam: Full ROM - Cardiovascular Exam Cardiovascular Exam: REGULAR RHYTHM - GI/Abdominal Exam GI & Abdominal Exam: Normal Bowel Sounds - Rectal Exam Rectal Exam: Deferred - Extremities Exam Extremities Exam: absent: Pedal Edema - Back Exam Back Exam: NORMAL INSPECTION - Neurological Exam Neurological Exam: Alert - Psychiatric Exam Psychiatric exam: Normal Affect - Skin Skin Exam: Normal Color Assessment and Plan (1) RBBB Assessment & Plan: no evidence of ischemia Status: Acute (2) HTN (hypertension) Assessment & Plan: continue medical therapy Status: Acute (3) Hypercholesterolemia Assessment & Plan: statin therapy Status: Acute (4) Preoperative cardiovascular examination Assessment & Plan: normal left ventricular function. no cardiovascular contraindication to surgery. Status: Acute
[2016-08-23 05:30] LABS: HEMATOCRIT 27.1 % (35.0-51.0); MEAN CELL VOLUME 92.3 fl (80.0-94.0); MEAN CORPUSCULAR HEMOGLOBIN 31.7 pg (27.0-31.0); MEAN CORPUSCULAR HGB CONC 34.3 g/dL (33.0-37.0); WHITE BLOOD COUNT 9.4 K/uL (4.8-10.8)
[2016-08-23] MEDS: Dextrose 5%/0.45% NS 1,000 ML IV SCH ×2 (05:39→21:39)
[2016-08-23 05:40] LABS: BLOOD UREA NITROGEN 7 mg/dl (9-20); CALCIUM 9.2 mg/dL (8.4-10.2); CARBON DIOXIDE 29 mmol/L (22-30); CHLORIDE 99 mmol/L (98-107); GFR AFRICAN-AMERICAN > 60; GLUCOSE,RANDOM 161 mg/dL (75-110); POTASSIUM 3.1 MMOL/L (3.6-5.0); SODIUM 141 mmol/l (132-148)
--- NOTE | 2016-08-23 08:19 | CP.PCM.PN ---
Subjective - Date & Time of Evaluation Date of Evaluation: 08/23/16 Time of Evaluation: 08:00 - Subjective Subjective: 56 yo M with pmhx of alcohol abuse, htn and several cardiac issues presented with left displaced proximal humerus fx Pt was seen and examined at bedside with Dr. Kimbrough, pt comfortable in bed, currently in LUE sling Pt denies any SOB, chest pain, N/V/D, numbness/tingling in LUE Pt is scheduled for OR today for ORIF left proximal humerus vs. Left shoulder hemiarthroplasty Objective - Vital Signs/Intake and Output Vital Signs (last 24 hours): Temp Pulse Resp BP Pulse Ox 98.7 F 82 18 166/95 H 100 08/23/16 04:25 08/23/16 08:10 08/23/16 04:25 08/23/16 08:10 08/23/16 04:25 - Medications Medications: Current Medications Amlodipine Besylate (Norvasc) 10 mg PO DAILY [facility] Last Admin: 08/23/16 08:08 Dose: 10 mg Atorvastatin Calcium (Lipitor) 20 mg PO HS [facility] Last Admin: 08/22/16 22:06 Dose: 20 mg Carvedilol (Coreg) 12.5 mg PO BID [facility] Last Admin: 08/23/16 08:09 Dose: 12.5 mg Duloxetine HCl (Cymbalta) 60 mg PO DAILY [facility] Last Admin: 08/22/16 09:01 Dose: 60 mg Dextrose/Sodium Chloride (Dextrose 5%/0.45% Ns 1000 Ml) 1,000 mls @ 80 mls/hr IV .[id number] [facility] Stop: 08/24/16 06:01 Last Admin: 08/23/16 05:39 Dose: 80 mls/hr Potassium Chloride (Potassium Chloride 10 Meq/100 Ml) 100 mls @ 100 mls/hr IVPB Q1 [facility] Stop: 08/23/16 12:59 Lisinopril (Zestril) 40 mg PO DAILY [facility] Last Admin: 08/23/16 08:10 Dose: 40 mg Lorazepam (Ativan) 0.5 mg IV Q6 PRN PRN Reason: Agitation Last Admin: 08/23/16 04:43 Dose: 0.5 mg Morphine Sulfate (Morphine) 2 mg IVP Q4 PRN PRN Reason: Pain, moderate (4-7) Ondansetron HCl (Zofran Inj) 4 mg IVP Q6 PRN PRN Reason: Nausea/Vomiting Last Admin: 08/20/16 10:14 Dose: 4 mg Oxcarbazepine (Trileptal) 150 mg PO BID [facility] Last Admin: 08/22/16 16:08 Dose: 150 mg Pantoprazole Sodium (Protonix Ec Tab) 40 mg PO DAILY [facility] Last Admin: 08/22/16 09:05 Dose: 40 mg Sucralfate (Carafate Oral Susp) 1 gm PO BID [facility] Last Admin: 08/22/16 16:10 Dose: 1 gm - Labs Labs: 08/23/16 04:35 08/23/16 04:35 PT 10.0 SECONDS (9.6-11.2) 08/20/16 01:45 INR 0.96 (0.92-1.08) 08/20/16 01:45 APTT 21.2 SECONDS (23.3-32.5) L 08/20/16 01:45 - Additional Findings Additional findings: LUE: Dressing/Sling C/D/I Pt currently in sling N/V intact distally Assessment and Plan - Assessment and Plan (Free Text) Assessment: 56 yo M with h/o alcohol abuse and htn presents with left displaced proximal humerus fx Pt is scheduled for OR today for ORIF left proximal humerus fx vs. Left shoulder hemiarthroplasty Ct scan left shoulder 3D recon views pending- radiology called Pt is medically/surgically cleared F/U potassium level - last lab 3.1 (up from 2.4 08/21/16) Pt is to receive 4 runs of K+ prior to sx- will recheck labs prior to sx Discussed with Dr. Kimbrough
[2016-08-23] MEDS: Potassium CL 10mEq/100ml 100 ML IVPB SCH ×2 (08:28→10:50)
[2016-08-23 09:02] LABS: MAGNESIUM 1.3 MG/DL (1.6-2.3)
--- NOTE | 2016-08-23 09:33 | CP.PCM.PN ---
<Suzanne Sood - Last Filed: 08/23/16 17:50> Subjective - Date & Time of Evaluation Date of Evaluation: 08/23/16 Time of Evaluation: 08:10 - Subjective Subjective: 56M seen and examined at bedside with attending. Has no other complaints than pain to his LEFT arm c/w humeral fracture. Denies SOB, chest pain. Objective - Vital Signs/Intake and Output Vital Signs (last 24 hours): Temp Pulse Resp BP Pulse Ox 37.1 C 82 20 166/95 H 100 08/23/16 08:32 08/23/16 08:32 08/23/16 08:32 08/23/16 08:32 08/23/16 08:32 - Medications Medications: Current Medications Amlodipine Besylate (Norvasc) 10 mg PO DAILY [facility] Last Admin: 08/23/16 08:08 Dose: 10 mg Atorvastatin Calcium (Lipitor) 20 mg PO HS [facility] Last Admin: 08/22/16 22:06 Dose: 20 mg Carvedilol (Coreg) 12.5 mg PO BID [facility] Last Admin: 08/23/16 08:09 Dose: 12.5 mg Duloxetine HCl (Cymbalta) 60 mg PO DAILY [facility] Last Admin: 08/22/16 09:01 Dose: 60 mg Dextrose/Sodium Chloride (Dextrose 5%/0.45% Ns 1000 Ml) 1,000 mls @ 80 mls/hr IV .[id number] [facility] Stop: 08/24/16 06:01 Last Admin: 08/23/16 05:39 Dose: 80 mls/hr Potassium Chloride (Potassium Chloride 10 Meq/100 Ml) 100 mls @ 100 mls/hr IVPB Q1 [facility] Stop: 08/23/16 12:59 Last Admin: 08/23/16 08:28 Dose: 100 mls/hr Lisinopril (Zestril) 40 mg PO DAILY [facility] Last Admin: 08/23/16 08:10 Dose: 40 mg Lorazepam (Ativan) 0.5 mg IV Q6 PRN PRN Reason: Agitation Last Admin: 08/23/16 04:43 Dose: 0.5 mg Morphine Sulfate (Morphine) 2 mg IVP Q4 PRN PRN Reason: Pain, moderate (4-7) Last Admin: 08/23/16 08:27 Dose: 2 mg Ondansetron HCl (Zofran Inj) 4 mg IVP Q6 PRN PRN Reason: Nausea/Vomiting Last Admin: 08/20/16 10:14 Dose: 4 mg Oxcarbazepine (Trileptal) 150 mg PO BID [facility] Last Admin: 08/22/16 16:08 Dose: 150 mg Pantoprazole Sodium (Protonix Ec Tab) 40 mg PO DAILY [facility] Last Admin: 08/22/16 09:05 Dose: 40 mg Sucralfate (Carafate Oral Susp) 1 gm PO BID [facility] Last Admin: 08/22/16 16:10 Dose: 1 gm - Labs Labs: 08/23/16 04:35 08/23/16 04:35 PT 10.0 SECONDS (9.6-11.2) 08/20/16 01:45 INR 0.96 (0.92-1.08) 08/20/16 01:45 APTT 21.2 SECONDS (23.3-32.5) L 08/20/16 01:45 Assessment and Plan - Assessment and Plan (Free Text) Assessment: 56M with humeral fracture, planned surgery today by Dr Kimbrough. Plan: - Pain medication - NPO/IVF for surgical repair of LEFT humeral fracture - Hypokalemia: repleting - Hypomagnesemia: repleting - HTN: c/w home medication - Seizures: c/w home medication - DVT Prophylaxis: SCDs <Jatinder Negrete - Last Filed: 08/24/16 09:32> Objective - Vital Signs/Intake and Output Vital Signs (last 24 hours): Temp Pulse Resp BP Pulse Ox 98.7 F 70 20 186/98 H 98 08/24/16 08:21 08/24/16 08:33 08/24/16 08:21 08/24/16 08:21 08/24/16 08:21 - Medications Medications: Current Medications Amlodipine Besylate (Norvasc) 10 mg PO DAILY [facility] Last Admin: 08/24/16 08:34 Dose: 10 mg Aspirin (Aspirin) 325 mg PO DAILY [facility] Last Admin: 08/24/16 08:38 Dose: 325 mg Atorvastatin Calcium (Lipitor) 20 mg PO HS [facility] Last Admin: 08/23/16 21:56 Dose: 20 mg Carvedilol (Coreg) 12.5 mg PO BID [facility] Last Admin: 08/24/16 08:33 Dose: 12.5 mg Duloxetine HCl (Cymbalta) 60 mg PO DAILY [facility] Last Admin: 08/24/16 08:34 Dose: 60 mg Hydralazine HCl (Apresoline) 50 mg PO TID [facility] Last Admin: 08/24/16 08:33 Dose: 50 mg Hydromorphone HCl (Dilaudid 0.2 Mg/Ml Suppression Crew Leader) 0 mg IV PRN PRN; Protocol PRN Reason: Pain, moderate (4-7) Last Admin: 08/24/16 05:12 Dose: 6 mg Lisinopril (Zestril) 40 mg PO DAILY [facility] Last Admin: 08/24/16 08:34 Dose: 40 mg Lorazepam (Ativan) 1 mg PO BID PRN PRN Reason: Anxiety Last Admin: 08/24/16 09:27 Dose: 1 mg Morphine Sulfate (Morphine) 2 mg IVP Q4 PRN PRN Reason: Pain, moderate (4-7) Last Admin: 08/24/16 02:47 Dose: 2 mg Ondansetron HCl (Zofran Inj) 4 mg IVP Q6 PRN PRN Reason: Nausea/Vomiting Last Admin: 08/20/16 10:14 Dose: 4 mg Oxcarbazepine (Trileptal) 150 mg PO BID [facility] Last Admin: 08/24/16 08:34 Dose: 150 mg Pantoprazole Sodium (Protonix Ec Tab) 40 mg PO DAILY [facility] Last Admin: 08/24/16 08:34 Dose: 40 mg Potassium Chloride (K-Dur 20 Meq Er Tab) 40 meq PO DAILY [facility] Last Admin: 08/24/16 09:27 Dose: 40 meq Sucralfate (Carafate Oral Susp) 1 gm PO BID [facility] Last Admin: 08/24/16 08:34 Dose: 1 gm - Labs Labs: 08/23/16 04:35 08/24/16 08:21 PT 10.0 SECONDS (9.6-11.2) 08/20/16 01:45 INR 0.96 (0.92-1.08) 08/20/16 01:45 APTT 21.2 SECONDS (23.3-32.5) L 08/20/16 01:45 Assessment and Plan (1) Fall Status: Acute (2) Humerus fracture Status: Acute (3) Alcohol abuse with intoxication Status: Acute (4) Gastritis Status: Acute (5) Depression Status: Acute (6) Seizure disorder Status: Acute (7) Abnormal liver enzymes Status: Acute (8) Elevated CPK Status: Acute (9) Anxiety Status: Acute (10) Chronic pain due to trauma Status: Acute - Assessment and Plan (Free Text) Plan: I examined patient and discussed with Dr Barrie toro plans of care. jatinder Negrete M.D.
[2016-08-23] MEDS ORDERED: Rocuronium 10 mg/ml (5 ml) ONE ×2 (10:38→11:53)
[2016-08-23] MEDS ORDERED: ePHEDrine 50 mg/ml Inj ONE ×2 (10:38→11:47)
[2016-08-23] MEDS ORDERED: Midazolam 2 MG/2 ML VIAL ONE (10:38)
[2016-08-23] MEDS ORDERED: Propofol 10 mg/ml Inj (20 ML) ONE (10:38)
[2016-08-23] MEDS ORDERED: Ropivacaine 0.5% 30ML IV ONE (10:44)
[2016-08-23] MEDS: Pantoprazole 40 mg EC Tab PO SCH ×2 (10:51→18:52)
[2016-08-23] MEDS: Sucralfate 1 gm/10 ml Oral Susp UD PO SCH ×2 (10:51→18:47)
[2016-08-23] MEDS ORDERED: Lactated Ringer's 1,000 ML IV ONE ×2 (11:18→13:00)
[2016-08-23] MEDS ORDERED: Bupivacaine 0.5% Inj(30mL) ONE (11:24)
[2016-08-23] MEDS ORDERED: Lidocaine 2% w Epi 1:100,000 Inj IJ ONE ×3 (11:39→12:25)
[2016-08-23] MEDS ORDERED: Desflurane Inhalation Anesthetic Liq (240 ml) ONE (12:47)
--- NOTE | 2016-08-23 12:53 | PCM.ANESB1 ---
Interscalene Block - Brachial Plexus Date of Procedure: 08/23/16 Anesthesiologist: Juan Jose Pre-Procedure Diagnosis: Left arm fracture Post-Procedure Diagnosis: Same Procedure Performed: Interscalene Block of Brachial Plexus Left - Procedure Interscalene Block of Brachial Plexus: This procedure was explained to the patient that it is for post-operative pain management. Consent was obtained after a thorough discussion with the patient regarding the benefits and possible complications of local anesthetic block of the Brachial Plexus at the Interscalene area. The patient was brought to the Operating Room and standard monitors were applied. Time out was held with the circulating nurse to confirm the correct surgery and appropriate block. After applying Oxygen by nasal cannula and administering IV Sedation, the patient's head was gently rotated away from the __left____operative shoulder and the anterior scalene groove was carefully palpated. The ultrasound transducer was then applied to the skin in the transverse plane and the brachial plexus was visualized lateral to the carotid artery and in between the anterior and middle scalene muscles. After identification,the anterior lateral portion of the neck was prepped with Betadine solution three times and Lidocaine 1% was injected subcutaneously for topical analgesia. At this point, a # 22 gauge Stimuplex 2 inches insulated needle was inserted into the interscalene groove and directed in a caudal and midline direction. The needle was inserted lateral to the ultrasound transducer in-plane towards the brachial plexus in a [id number] direction. Needle advancement was performed carefully under direct ultrasound visualization. Nerve stimulator was used and twitched of the affected extremity including the hand brachialis muscles, biceps and the deltoid was obtained at a current of __0.4___MA. After repeated negative aspiration,__20___cc of__.5%___,____Ropivacaine were injected. Under ultrasound guidance the local anesthetics were observed surrounding the roots of the brachial plexus. The needle was removed intact and sterile dressing was applied. The patient had stable vital signs, was conscious and in no apparent distress. The patient tolerated the interscalene block of the bracheal plexus well with stable vital signs and was prepared for subsequent surgery.
[2016-08-23] MEDS ORDERED: POTASSIUM CHLORIDE 20 MEQ/10 ML IV ONE (13:00)
[2016-08-23] MEDS ORDERED: Neostigmine Methylsulfate 2 MG/2 ML ML IV ONE (13:29)
[2016-08-23] MEDS ORDERED: Neostigmine Methylsulfate 3mg/3ml Syringe IV ONE (13:29)
--- NOTE | 2016-08-23 14:29 | PCM.SURG1 ---
Surgeon's Initial Post Op Note - Surgeon's Notes Surgeon: Jese Kimbrough MD Burn Out Scarfing Operator: Addison Brunner PA-C Type of Anesthesia: General Endo Pre-Operative Diagnosis: Left displaced proximal humerus fx Operative Findings: See op report Post-Operative Diagnosis: Same as pre-op dx Operation Performed: Left shoulder hemiarthroplasty Specimen/Specimens Removed: Left shoulder humeral head Estimated Blood Loss: EBL {In ML}: 100 Date of Surgery/Procedure: 08/23/16 Time of Surgery/Procedure: 11:45
[2016-08-23] MEDS ORDERED: MAGNESIUM SULFATE 2 GM/50 ML IVPB ONE (14:40)
[2016-08-23] MEDS ORDERED: WATER IVPB ONE (14:40)
[2016-08-23] MEDS: HYDROmorphone 0.5 mg/0.5 ml ISec IVP PRN ×4 (15:20→16:10)
--- NOTE | 2016-08-23 17:21 | RAD ---
PROCEDURE: Fluoroscopy over 1 hour. HISTORY: LEFT SHOULDER COMPARISON: Preoperative examination 08/20/2016 CT shoulder. TECHNIQUE: Standard protocol for this study/examination. FINDINGS: Total fluoroscopic time (continuous mode) utilized during the procedure: 19.8 seconds. IMPRESSION: Submitted images from the current procedure: 5.0
[2016-08-23] MEDS ORDERED: ceFAZolin 1 GM in Sodium Chloride 0.9% 100 ML IVPB ONE (20:15)
[2016-08-24] MEDS ORDERED: ceFAZolin 1 GM in Sodium Chloride 0.9% 100 ML IVPB ONE (04:15)
--- NOTE | 2016-08-24 07:52 | CP.PCM.PN ---
Subjective - Date & Time of Evaluation Date of Evaluation: 08/24/16 Time of Evaluation: 07:30 - Subjective Subjective: S/P Left shoulder hemiarthroplasty POD#1 Pt seen and examined at bedside, comfortable in bed Pt c/o moderate left shoulder pain, states it is not well controlled with DIE MAKER ELECTRONIC pump Pt denies any SOB, chest pain, N/V/D, numbness/tingling LUE Objective - Vital Signs/Intake and Output Vital Signs (last 24 hours): Temp Pulse Resp BP Pulse Ox 98.2 F 84 15 187/97 H 100 08/24/16 05:26 08/24/16 06:54 08/24/16 05:26 08/24/16 06:54 08/24/16 05:26 - Medications Medications: Current Medications Amlodipine Besylate (Norvasc) 10 mg PO DAILY [facility] Last Admin: 08/23/16 08:08 Dose: 10 mg Aspirin (Aspirin) 325 mg PO DAILY [facility] Atorvastatin Calcium (Lipitor) 20 mg PO HS [facility] Last Admin: 08/23/16 21:56 Dose: 20 mg Carvedilol (Coreg) 12.5 mg PO BID [facility] Last Admin: 08/23/16 18:49 Dose: 12.5 mg Duloxetine HCl (Cymbalta) 60 mg PO DAILY [facility] Last Admin: 08/23/16 10:51 Dose: Not Given Hydralazine HCl (Apresoline) 50 mg PO TID [facility] Last Admin: 08/24/16 06:54 Dose: 50 mg Hydromorphone HCl (Dilaudid 0.2 Mg/Ml Bush Hog Operator) 0 mg IV PRN PRN; Protocol PRN Reason: Pain, moderate (4-7) Last Admin: 08/24/16 05:12 Dose: 6 mg Lisinopril (Zestril) 40 mg PO DAILY [facility] Last Admin: 08/23/16 08:10 Dose: 40 mg Lorazepam (Ativan) 0.5 mg IV Q6 PRN PRN Reason: Agitation Last Admin: 08/24/16 00:42 Dose: 0.5 mg Morphine Sulfate (Morphine) 2 mg IVP Q4 PRN PRN Reason: Pain, moderate (4-7) Last Admin: 08/24/16 02:47 Dose: 2 mg Ondansetron HCl (Zofran Inj) 4 mg IVP Q6 PRN PRN Reason: Nausea/Vomiting Last Admin: 08/20/16 10:14 Dose: 4 mg Oxcarbazepine (Trileptal) 150 mg PO BID [facility] Last Admin: 08/23/16 18:51 Dose: 150 mg Pantoprazole Sodium (Protonix Ec Tab) 40 mg PO DAILY [facility] Last Admin: 08/23/16 18:52 Dose: 40 mg Sucralfate (Carafate Oral Susp) 1 gm PO BID [facility] Last Admin: 08/23/16 18:47 Dose: 1 gm - Labs Labs: 08/23/16 04:35 08/23/16 04:35 PT 10.0 SECONDS (9.6-11.2) 08/20/16 01:45 INR 0.96 (0.92-1.08) 08/20/16 01:45 APTT 21.2 SECONDS (23.3-32.5) L 08/20/16 01:45 - Extremities Exam Additional comments: LUE: Shoulder dressing C/D/I N/V intact Radial and ulna pulses 2+ Cap refill <2sec Assessment and Plan - Assessment and Plan (Free Text) Assessment: S/P Left Shoulder Hemiarthroplasty POD#1 Abx to be stopped within 24hrs post op Pain Control- adjust pain meds; recommend pain mangement consult DVT ppx- aspirin 325mg daily PT/OT- NWB LUE, keep in sling and keep elevated F/U labs Continue current management as per primary team Discussed with Dr. Kimbrough
[2016-08-24] MEDS: Pantoprazole 40 mg EC Tab PO SCH (08:34)
[2016-08-24] MEDS: Sucralfate 1 gm/10 ml Oral Susp UD PO SCH ×2 (08:34→16:25)
[2016-08-24 08:48] LABS: ALB/GLOB RATIO 1.1 (1.0-2.1); ALKALINE PHOSPHATASE 61 U/L (38-126); ALT/SGPT 51 U/L (21-72); AST/SGOT 38 U/L (17-59); BILIRUBIN,TOTAL 0.6 mg/dl (0.2-1.3); BLOOD UREA NITROGEN 8 mg/dl (9-20); CALCIUM 8.7 mg/dL (8.4-10.2); CARBON DIOXIDE 28 mmol/L (22-30); CHLORIDE 97 mmol/L (98-107); GFR AFRICAN-AMERICAN > 60; GLUCOSE,RANDOM 126 mg/dL (75-110); MAGNESIUM 1.4 MG/DL (1.6-2.3); POTASSIUM 3.4 MMOL/L (3.6-5.0); SODIUM 137 mmol/l (132-148)
[2016-08-24] MEDS: Potassium Chloride 20 mEq ER Tab PO SCH (09:27)
--- NOTE | 2016-08-24 09:30 | CP.PCM.PN ---
Subjective - Date & Time of Evaluation Date of Evaluation: 08/24/16 Time of Evaluation: 09:28 - Subjective Subjective: Patient is doig well post op except for pain. Currently on CHIEF DEPUTY at 0.2 mg Dilaudid q 8 min very anxious No PT yet No fever. Objective - Vital Signs/Intake and Output Vital Signs (last 24 hours): Temp Pulse Resp BP Pulse Ox 98.7 F 70 20 186/98 H 98 08/24/16 08:21 08/24/16 08:33 08/24/16 08:21 08/24/16 08:21 08/24/16 08:21 - Medications Medications: Current Medications Amlodipine Besylate (Norvasc) 10 mg PO DAILY [facility] Last Admin: 08/24/16 08:34 Dose: 10 mg Aspirin (Aspirin) 325 mg PO DAILY [facility] Last Admin: 08/24/16 08:38 Dose: 325 mg Atorvastatin Calcium (Lipitor) 20 mg PO HS [facility] Last Admin: 08/23/16 21:56 Dose: 20 mg Carvedilol (Coreg) 12.5 mg PO BID [facility] Last Admin: 08/24/16 08:33 Dose: 12.5 mg Duloxetine HCl (Cymbalta) 60 mg PO DAILY [facility] Last Admin: 08/24/16 08:34 Dose: 60 mg Hydralazine HCl (Apresoline) 50 mg PO TID [facility] Last Admin: 08/24/16 08:33 Dose: 50 mg Hydromorphone HCl (Dilaudid 0.2 Mg/Ml Chemistry Technologist) 0 mg IV PRN PRN; Protocol PRN Reason: Pain, moderate (4-7) Last Admin: 08/24/16 05:12 Dose: 6 mg Lisinopril (Zestril) 40 mg PO DAILY [facility] Last Admin: 08/24/16 08:34 Dose: 40 mg Lorazepam (Ativan) 1 mg PO BID PRN PRN Reason: Anxiety Last Admin: 08/24/16 09:27 Dose: 1 mg Morphine Sulfate (Morphine) 2 mg IVP Q4 PRN PRN Reason: Pain, moderate (4-7) Last Admin: 08/24/16 02:47 Dose: 2 mg Ondansetron HCl (Zofran Inj) 4 mg IVP Q6 PRN PRN Reason: Nausea/Vomiting Last Admin: 08/20/16 10:14 Dose: 4 mg Oxcarbazepine (Trileptal) 150 mg PO BID [facility] Last Admin: 08/24/16 08:34 Dose: 150 mg Pantoprazole Sodium (Protonix Ec Tab) 40 mg PO DAILY [facility] Last Admin: 08/24/16 08:34 Dose: 40 mg Potassium Chloride (K-Dur 20 Meq Er Tab) 40 meq PO DAILY [facility] Last Admin: 08/24/16 09:27 Dose: 40 meq Sucralfate (Carafate Oral Susp) 1 gm PO BID [facility] Last Admin: 08/24/16 08:34 Dose: 1 gm - Labs Labs: 08/23/16 04:35 08/24/16 08:21 PT 10.0 SECONDS (9.6-11.2) 08/20/16 01:45 INR 0.96 (0.92-1.08) 08/20/16 01:45 APTT 21.2 SECONDS (23.3-32.5) L 08/20/16 01:45 - Head Exam Head Exam: NORMAL INSPECTION - Eye Exam Eye Exam: Normal appearance - Respiratory Exam Respiratory Exam: Clear to Ausculation Bilateral - Cardiovascular Exam Cardiovascular Exam: REGULAR RHYTHM - GI/Abdominal Exam GI & Abdominal Exam: Normal Bowel Sounds - Extremities Exam Additional comments: left shoulder wound clean on dressing. - Neurological Exam Neurological Exam: Awake, Oriented x3 - Psychiatric Exam Psychiatric exam: Anxious Assessment and Plan (1) Fall Status: Acute (2) Humerus fracture Status: Acute (3) Alcohol abuse with intoxication Status: Acute (4) Gastritis Status: Acute (5) Depression Status: Acute (6) Seizure disorder Status: Acute (7) Abnormal liver enzymes Status: Acute (8) Elevated CPK Status: Acute (9) Anxiety Status: Acute (10) Chronic pain due to trauma Status: Acute - Assessment and Plan (Free Text) Plan: cont pain meds try to switch to po meds start PT subacute rehab eval.
[2016-08-24 09:53] LABS: HEMATOCRIT 26.4 % (35.0-51.0); MEAN CELL VOLUME 92.6 fl (80.0-94.0); MEAN CORPUSCULAR HGB CONC 34.5 g/dL (33.0-37.0); RED CELL DISTRIBUTION WIDTH 14.1 % (11.5-14.5); WHITE BLOOD COUNT 9.1 K/uL (4.8-10.8)
--- NOTE | 2016-08-24 10:50 | RAD ---
Indication: Postop Comparison: Left shoulder radiograph performed 08/20/16 One view, left shoulder Findings: The patient is status post left total shoulder arthroplasty. Alignment cannot be adequately assessed without orthogonal views. Soft tissue swelling and surgical claritza compatible with recent postoperative history. Small probable ossific fragments noted medial to the proximal humerus. Impression: Status post left shoulder arthroplasty as above.
[2016-08-24] MEDS: HYDROmorphone 0.5 mg/0.5 ml ISec IVP PRN ×3 (11:21→20:03)
[2016-08-24] MEDS: Magnesium Oxide 400 mg Tab UD PO SCH (12:45)
[2016-08-24] MEDS ORDERED: Oxycodone/Acetaminophen 5/325 mg Tab PO PRN (13:33)
--- NOTE | 2016-08-24 17:09 | OP ---
PROCEDURE DATE: 08/24/2016 ATTENDING PHYSICIAN: Jese Kimbrough MD RUG CLEANER HELPER: Addison Rasmussen PA-C PREOPERATIVE DIAGNOSIS: Left shoulder 4 part proximal humerus fracture. POSTOPERATIVE DIAGNOSIS: Left shoulder 4 part proximal humerus fracture. PROCEDURE: Left shoulder hemiarthroplasty. ANESTHESIA TYPE: General. ESTIMATED BLOOD LOSS: 200 mL. IMPLANT SIZES: 1. BAKER left shoulder system, 19 mm pressfit humeral stem. 2. Medium proximal body. 3. A 48 mm humeral head. 4. Standard humeral head offset. COMPLICATIONS: None. HISTORY: The patient is a 56-year-old male, right hand dominant, who has a history of alcohol abuse, had a fall, landing onto his left shoulder. The patient was seen in the Emergency Room with the x-ray and CT scan showing a displaced 4 part proximal humerus fracture. The patient was admitted for preoperative clearance and optimization. I had explained the complex nature of the procedure to the patient. I had presented patient with the options of nonoperative management versus open reduction internal fixation versus hemiarthroplasty. I reviewed the risks and benefits of all treatment options with the patient and patient opted to proceed with the surgical management. I explained to the patient due to displaced nature, we will attempt reduction and fixation. However, if this poor bone quality and significant comminution, we will switch to hemiarthroplasty. I reviewed the risks and benefits of the surgery with the patient in detail. The risks included but not limited to bleeding, infection, nerve/vessel damage, continued pain, instability, need for further surgery, stiffness among others. The patient fully understood the risks and benefit and opted to proceed with the surgery. PROCEDURE: On the day of the surgery, patient was brought to preop holding area. A laterality sheet was completed, confirming patient's left side to be correct operative site. The patient was consented for open reduction internal fixation versus hemiarthroplasty. Informed consent was signed from the patient , once again reviewing the risks and benefits. Left shoulder was marked. The patient was brought on to operating room table. He underwent general anesthesia. The patient's left shoulder was draped and prepped in standard sterile manner. He was secured in a beachchair position with the head of bed at about 50 degrees. Further radiographs were taken showing the displaced nature of the humeral head in a varus collapse. Timeout was completed, confirming patient's left shoulder to be correct operative site. We proceeded with standard deltopectoral approach. The fracture was identified. There was significant comminution with poor bone quality and a posterior varus collapse of the humeral head. Due to poor quality, a decision was made to proceed with hemiarthroplasty. The humeral head was removed and it was noted that the size was determined to be 48. Multiple sutures were placed in the lesser tuberosity and the greater tuberosity for fixation. The humeral stem size was noted to be size 19 and a size 19 stem was pressfit in the humeral canal with medium proximal body and the trial head was placed. The head was reduced, taken through range of motion and the radiographs showing appropriate fit. Finally, the actual implants of 19 mm humeral stem with medium proximal body and a 48 mm head was secured into the stem and using multiple heavy fiber FiberWire sutures , the tuberosities were affixed to the humeral stem. Final radiographs were taken. Adequate reduction of tuberosity. The wound was copiously irrigated and all the debris was removed. The deep tissue was closed with #1 Vicryl suture, skin edges were brought together using 2-0 Vicryl and skin was closed using claritza. A sterile dressing was applied. The patient was extubated. He was placed in a sling. His postop instructions included nonweightbearing, pain control. There were no complications of surgery. Addison Rasmussen is a certified physician's assistant manager trainee who was present for the entirety of the case as her participation was crucial in patient positioning, retraction, protection of critical neurovascular structures and successful completion of the surgery. Jese Kimbrough MD cc: [id number] TT: 08/24/2016 17:08:53 sn OLIVARES
[2016-08-25] MEDS: HYDROmorphone 0.5 mg/0.5 ml ISec IVP PRN (00:53)
[2016-08-25 07:26] LABS: BLOOD UREA NITROGEN 8 mg/dl (9-20); CARBON DIOXIDE 26 mmol/L (22-30); CHLORIDE 97 mmol/L (98-107); GFR AFRICAN-AMERICAN > 60; GLUCOSE,RANDOM 109 mg/dL (75-110); MAGNESIUM 1.3 MG/DL (1.6-2.3); POTASSIUM 3.9 MMOL/L (3.6-5.0); SODIUM 136 mmol/l (132-148)
[2016-08-25 07:28] LABS: HEMATOCRIT 24.6 % (35.0-51.0); MEAN CELL VOLUME 92.5 fl (80.0-94.0); MEAN CORPUSCULAR HEMOGLOBIN 32.2 pg (27.0-31.0); MEAN CORPUSCULAR HGB CONC 34.8 g/dL (33.0-37.0); RED CELL DISTRIBUTION WIDTH 14.2 % (11.5-14.5); WHITE BLOOD COUNT 10.7 K/uL (4.8-10.8)
[2016-08-25 08:13] VITALS: RESP 20; TEMP 99; O2SAT 97
[2016-08-25] MEDS: Magnesium Oxide 400 mg Tab UD PO SCH (08:50)
[2016-08-25] MEDS: Potassium Chloride 20 mEq ER Tab PO SCH (08:51)
[2016-08-25] MEDS: Pantoprazole 40 mg EC Tab PO SCH (08:51)
[2016-08-25] MEDS: Sucralfate 1 gm/10 ml Oral Susp UD PO SCH (08:52)
[2016-08-25] MEDS ORDERED: Ferrous Sulfate 220 MG/5 ML PO SCH (09:30)
[2016-08-25] MEDS ORDERED: oxyCODONE 10 mg ER Tab (oxyCONTIN) PO SCH (10:15)
[2016-08-25 12:46] VITALS: BP 147/75; PULSE 81
--- NOTE | 2016-08-30 09:31 | CP.PCM.DIS ---
Provider - Provider Date of Admission: 08/20/16 02:45 Attending physician: Simone Negrete MD Time Spent in preparation of Discharge (in minutes): 30 Diagnosis - Discharge Diagnosis (1) Alcohol abuse with intoxication Status: Acute (2) Humerus fracture Status: Acute (3) Fall Status: Acute (4) Depression Status: Acute (5) Gastritis Status: Acute (6) Seizure disorder Status: Acute (7) Elevated CPK Status: Acute (8) Abnormal liver enzymes Status: Acute (9) Anxiety Status: Acute (10) Chronic pain due to trauma Status: Acute Hospital Course - Lab Results Lab Results: Most Recent Lab Values WBC 10.7 K/uL (4.8-10.8) 08/25/16 06:44 RBC 2.66 Mil/uL (4.40-5.90) L 08/25/16 06:44 Hgb 8.6 g/dL (12.0-18.0) L 08/25/16 06:44 Hct 24.6 % (35.0-51.0) L 08/25/16 06:44 MCV 92.5 fl (80.0-94.0) 08/25/16 06:44 MCH 32.2 pg (27.0-31.0) H 08/25/16 06:44 MCHC 34.8 g/dL (33.0-37.0) 08/25/16 06:44 RDW 14.2 % (11.5-14.5) 08/25/16 06:44 Plt Count 258 K/uL (130-400) 08/25/16 06:44 MPV 7.9 fl (7.2-11.7) 08/22/16 10:43 Neut % (Auto) 67.9 % (50.0-75.0) 08/22/16 10:43 Lymph % (Auto) 17.8 % (20.0-40.0) L 08/22/16 10:43 [place] % (Auto) 12.6 % (0.0-10.0) H 08/22/16 10:43 Eos % (Auto) 1.3 % (0.0-4.0) 08/22/16 10:43 Baso % (Auto) 0.4 % (0.0-2.0) 08/22/16 10:43 Neut # 6.4 K/uL (1.8-7.0) 08/22/16 10:43 Lymph # 1.7 K/uL (1.0-4.3) 08/22/16 10:43 [place] # 1.2 K/uL (0.0-0.8) H 08/22/16 10:43 Eos # 0.1 K/uL (0.0-0.7) 08/22/16 10:43 Baso # 0.0 K/uL (0.0-0.2) 08/22/16 10:43 PT 10.0 SECONDS (9.6-11.2) 08/20/16 01:45 INR 0.96 (0.92-1.08) 08/20/16 01:45 APTT 21.2 SECONDS (23.3-32.5) L 08/20/16 01:45 Sodium 136 mmol/l (132-148) 08/25/16 06:44 Potassium 3.9 MMOL/L (3.6-5.0) 08/25/16 06:44 Chloride 97 mmol/L (98-107) L 08/25/16 06:44 Carbon Dioxide 26 mmol/L (22-30) 08/25/16 06:44 Anion Gap 17 (10-20) 08/25/16 06:44 BUN 8 mg/dl (9-20) L 08/25/16 06:44 Creatinine 0.4 mg/dL (0.8-1.5) L 08/25/16 06:44 Est GFR ( Amer) > 60 08/25/16 06:44 Est GFR (Non-Af Amer) > 60 08/25/16 06:44 Random Glucose 109 mg/dL (75-110) 08/25/16 06:44 Calcium 9.0 mg/dL (8.4-10.2) 08/25/16 06:44 Magnesium 1.3 MG/DL (1.6-2.3) L 08/25/16 06:44 Total Bilirubin 0.6 mg/dl (0.2-1.3) 08/24/16 08:21 AST 38 U/L (17-59) 08/24/16 08:21 ALT 51 U/L (21-72) 08/24/16 08:21 Alkaline Phosphatase 61 U/L (38-126) 08/24/16 08:21 Total Creatine Kinase 762 U/L (55-170) H 08/22/16 10:43 Total Protein 6.0 G/DL (6.3-8.2) L 08/24/16 08:21 Albumin 3.1 g/dL (3.5-5.0) L 08/24/16 08:21 Globulin 2.8 gm/dL (2.2-3.9) 08/24/16 08:21 Albumin/Globulin Ratio 1.1 (1.0-2.1) 08/24/16 08:21 Urine Myoglobin TNP 08/20/16 09:01 Alcohol, Quantitative 119 mg/dl (0-10) H 08/20/16 01:45 Blood Type A POSITIVE 08/23/16 08:35 Blood Type Confirm A POSITIVE 08/23/16 10:48 Antibody Screen Negative 08/23/16 08:35 Crossmatch See Detail 08/23/16 08:35 BBK History Checked No verified bt 08/23/16 08:35 - Hospital Course Hospital Course: This is a 56 y/o male with hx of HTN seizure disorder anxiety and depression and on a lot of medications who had a binging episode ith alcohol and had a fall and sustained a fracture of the left humerus. He was stabilized and observed and finally had a surgery of the left humeral fracture. Postop period was uncomplicated except for increased need for pain medications. Eventually pain meds was switched to po and physical therapy was started and patient was transferred to TCU for further therapy. Discharge Exam - Head Exam Head Exam: NORMAL INSPECTION - Eye Exam Eye Exam: Normal appearance - Respiratory Exam Respiratory Exam: NORMAL BREATHING PATTERN - Cardiovascular Exam Cardiovascular Exam: REGULAR RHYTHM - GI/Abdominal Exam GI & Abdominal Exam: Normal Bowel Sounds - Neurological Exam Neurological exam: CN II-XII Intact - Psychiatric Exam Psychiatric exam: Normal Mood Discharge Plan - Discharge Medications Prescriptions: Aspirin 325 mg PO DAILY #30 tab LORazepam [Ativan] 1 mg PO BID PRN #20 tab PRN Reason: Anxiety Docusate [Colace] 100 mg PO BID #30 cap Ferrous Sulfate [Feosol] 325 mg PO BID #60 tab Potassium Chloride [K-Dur 20 mEq ER Tab] 40 meq PO DAILY #10 tab Magnesium Oxide [Mag-Ox] 400 mg PO DAILY #10 tab oxyCODONE [oxyCONTIN Extended Release Tab] 10 mg PO Q12 #14 tabsr oxyCODONE/Acetaminophen [Percocet 5/325 mg Tab] 2 tab PO Q4 PRN #20 tab PRN Reason: Pain, Moderate (4-7) - Follow Up Plan Condition: FAIR Disposition: TRANSF TO SNF Instructions: Arm Fracture in Adults (DC), Fall Prevention for Older Adults ( GEN) Additional Instructions: No Weight Bearing to left arm
== END 2016-08-25 13:46 | DRG 483 ==
LOC: H.ER 01:03 → H.ERHOLD 02:45 → H.MEDSURG1 04:37
PROVIDERS: ADMIT Family Medicine; ATTEND Family Medicine
PROC: 0RRK0J6 Replacement of Left Shoulder Joint with Synthetic Substitute, Humeral Surface, Open Approach (ICD-10-PCS; principal; 2016-08-23 13:30)
DX: S42.292A Other displaced fracture of upper end of left humerus, initial encounter for closed fracture (principal); I10 Essential (primary) hypertension; W19.XXXA Unspecified fall, initial encounter; G40.909 Epilepsy, unspecified, not intractable, without status epilepticus; Y93.9 Activity, unspecified; Y92.9 Unspecified place or not applicable; Y99.9 Unspecified external cause status; Z87.891 Personal history of nicotine dependence; F10.129 Alcohol abuse with intoxication, unspecified; Y90.5 Blood alcohol level of 100-119 mg/100 ml; F41.9 Anxiety disorder, unspecified; F32.9 Major depressive disorder, single episode, unspecified; K29.70 Gastritis, unspecified, without bleeding; I45.10 Unspecified right bundle-branch block; E78.00 Pure hypercholesterolemia, unspecified; Z91.81 History of falling

== ENCOUNTER 2017-10-07 04:16 | Emergency (ER) | payer MEDICARE, OTHER ==
[2017-10-07 04:16] VITALS: BMI 24.3
[2017-10-07 04:45] VITALS: RESP 14
[2017-10-07] MEDS ORDERED: Tdap Vaccine 0.5 ml Vial (10-64 yrs) IM ONE (04:55)
--- NOTE | 2017-10-07 04:55 | ED PDOC ---
HPI: Trauma/Fall - HPI Chief Complaint (Provider): Head trauma History Per: Patient History/Exam Limitations: no limitations Onset/Duration Of Symptoms: Hrs (x1 prior to arrival) Additional Complaint(s): 57 year old male presents to the emergency department complaining of sustaining a laceration to his right forehead after hitting it on a cabinet or wall corner one hour prior to arrival. He also notes feeling off balance after the incident. Patient admits to drinking last night. Otherwise, (-) loss of consciousness, (-) headache, (-) neck pain, (-) back pain, (-) other injuries, ( -) other complaints. Tetanus shot is not up to date. PMD: none provided <Farzana Braun PA-C - Last Filed: 10/07/17 05:36> <Rosendo Curran - Last Filed: 10/07/17 06:43> - HPI Time Seen by Provider: 10/07/17 04:37 Chief Complaint (Nursing): Trauma Past Medical History Reviewed: Historical Data, Nursing Documentation, Vital Signs Vital Signs: Last Vital Signs Temp 97.6 F 10/07/17 04:36 Pulse 77 10/07/17 04:36 Resp 14 10/07/17 04:36 BP 160/89 H 10/07/17 04:36 Pulse Ox 97 10/07/17 04:36 - Medical History PMH: Anxiety, Depression, HTN, Hypercholesterolemia Denies: Chronic Kidney Disease - Surgical History Other surgeries: Craniotomy for SAH - Family History Family History: States: Unknown Family Hx - Social History Current smoker - smoking cessation education provided: Yes (light <10 cigarettes daily) Alcohol: Social - Immunization History Hx Tetanus Toxoid Vaccination: No <Farzana Braun PA-C - Last Filed: 10/07/17 05:36> Vital Signs: Last Vital Signs Temp 97.6 F 10/07/17 04:36 Pulse 77 10/07/17 04:36 Resp 14 10/07/17 04:36 BP 160/89 H 10/07/17 04:36 Pulse Ox 97 10/07/17 05:39 <Rosendo Curran - Last Filed: 10/07/17 06:43> - Home Medications Home Medications: Ambulatory Orders Medication Instructions Recorded Amlodipine Besylate/Benazepril 1 tab PO DAILY 04/15/17 [Amlodipine-Benazepril 10-40 mg] Ammonium Lactate 12% [Lac-Hydrin 1 appl TD DAILY 08/20/16 12% Cream (140 g)] Budesonide/Formoterol Fumarate 1 puff PO BID 08/20/16 [Symbicort 160-4.5 Mcg Inhaler] Ca/D3/Mag#11/Zinc/Special Day Class Teacher/Kelvin/Bor 1 tab PO BID 08/20/16 [Caltrate 600+D Plus Tablet] Carvedilol [Coreg] 1 tab PO BID 08/20/16 Cyanocobalamin [Vitamin B12 100 1 tab PO DAILY 08/20/16 mcg Tab] Duloxetine HCl 60 mg PO DAILY 08/20/16 Ergocalciferol (Vitamin D2) 1 tab PO QWK 08/20/16 [Vitamin D2] Fluticasone Propionate [Aller-Deejay] 1 spray IH DAILY 08/20/16 Levocetirizine Dihydrochloride 1 tab PO DAILY 08/20/16 [Xyzal] Lubiprostone [Amitiza] 1 cap PO DAILY 08/20/16 [place]-3/Dha/Epa/Fish Oil [[place]-3 2 cap PO DAILY 08/20/16 EC Softgel] Omeprazole 20 mg PO BID 08/20/16 Oxcarbazepine [Trileptal] 2 tab PO DAILY 08/20/16 Rosuvastatin Calcium [Crestor] 10 mg PO DAILY 08/20/16 Zolpidem [Ambien] 10 mg PO HS 08/22/16 Aspirin 325 mg PO DAILY #30 tab 08/25/16 Docusate [Colace] 100 mg PO BID #30 cap 08/25/16 Ferrous Sulfate [Feosol] 325 mg PO BID #60 tab 08/25/16 LORazepam [Ativan] 1 mg PO BID PRN #20 tab 08/25/16 Magnesium Oxide [Mag-Ox] 400 mg PO DAILY #10 tab 08/25/16 Potassium Chloride [K-Dur 20 mEq 40 meq PO DAILY #10 tab 08/25/16 ER Tab] oxyCODONE [oxyCONTIN Extended 10 mg PO Q12 #14 tabsr 08/25/16 Release Tab] oxyCODONE/Acetaminophen [Percocet 2 tab PO Q4 PRN #20 tab 08/25/16 5/325 mg Tab] - Allergies Allergies/Adverse Reactions: Allergies Allergy/AdvReac Type Severity Reaction Status Date / Time seasonal Allergy ITCHING Uncoded 08/25/16 14:18 Review of Systems ROS Statement: Except As Marked, All Systems Reviewed And Found Negative Musculoskeletal: Negative for: Neck Pain, Back Pain Skin: Positive for: Other (laceration to right side of forehead) Neurological: Positive for: Incoordination (feels off balance). Negative for: Headache, Other (loss of consciousness) <Farzana Braun PA-C - Last Filed: 10/07/17 05:36> Physical Exam - Reviewed Nursing Documentation Reviewed: Yes Vital Signs Reviewed: Yes - Physical Exam Comments: GENERAL APPEARANCE: Patient is awake, alert, oriented x 3, in no acute distress. SKIN: Warm, dry; (-) cyanosis. HEAD: (-) swelling and tenderness, with no palpable bony defect, (+) 4cm superficial laceration to right forehead. EYES: (-) conjunctival pallor, (-) scleral icterus, (-) nystagmus. ENMT: Mucous membranes moist. Nose: (-) tenderness. No oral trauma. Pharynx clear. Airway patent: (-) stridor. Full ROM of mandible without pain. NECK: (-) tenderness, (-) lymphadenopathy. CHEST AND RESPIRATORY: (-) chest wall tenderness. Lungs: (-) rales, (-) rhonchi , (-) wheezes; breath sounds equal bilaterally. HEART AND CARDIOVASCULAR: (-) irregularity; (-) murmur, (-) gallop. ABDOMEN AND GI: Soft; (-) tenderness. BACK: (-) tenderness. EXTREMITIES: (-) deformity, (-) tenderness, (-) edema, (-) ecchymosis, (-) limitation of motion, distal pulses 2+. NEURO AND PSYCH: GCS=15. Mental status as above. 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 EOMI. (-) facial asymmetry. Tongue and uvula midline. Strength 5/5 in all extremities. No gross sensory deficits. (+) Unsteady gait <Farzana Braun PA-C - Last Filed: 10/07/17 05:36> - ECG O2 Sat by Pulse Oximetry: 97 (RA) Pulse Ox Interpretation: Normal <Farzana Braun PA-C - Last Filed: 10/07/17 05:36> - Laboratory Results Result Diagrams: 10/07/17 05:42 10/07/17 05:42 <MagdyRosendo - Last Filed: 10/07/17 06:43> Medical Decision Making Medical Decision Making: Time: 04:54 Initial Impression: Head trauma Initial Plan: --Head CT w/o contrast --Alcohol serum --CMP --CBC with differential --Tetanus/ Reduced Dipht/ Acell Pe 0.5ml IM --Dermabond Routine 0530 Laceration repair performed by LATESHA, patient tolerated the procedure well. CT head still pending. Lab results still pending. Scribe Attestation: Documented by Shanelle Segura, acting as a scribe for Farzana Braun PA-C. Provider Scribe Attestation: All medical record entries made by the Scribe were at my direction and personally dictated by me. I have reviewed the chart and agree that the record accurately reflects my personal performance of the history, physical exam, medical decision making, and the department course for this patient. I have also personally directed, reviewed, and agree with the discharge instructions and disposition. <Farzana Braun PA-C - Last Filed: 10/07/17 05:36> Medical Decision Makin EXAM: CT Head Without Intravenous Contrast CLINICAL HISTORY: 57 years old, male; Injury or trauma; Injury Head trauma; Initial encounter; Concussion / head injury; Consciousness not specified TECHNIQUE: Axial computed tomography images of the head/brain without intravenous contrast. All CT scans at this facility use one or more dose reduction techniques, viz.: automated exposure control; ma/kV adjustment per patient size (including targeted exams where dose is matched to indication; i.e. head); or iterative reconstruction technique. 298 images are submitted. Axial images are submitted in brain and bone windows. Coronal and sagittal reformatted images were created and reviewed. Axial reformatted images were created and reviewed. COMPARISON: No relevant prior studies available. FINDINGS: Brain: Left frontal encephalomalacia with dystrophic calcification. Prominent cisterna magna. Cerebral and cerebellar volume loss. Patchy hypodensity is seen in the periventricular and subcortical white matter. No hemorrhage. Ventricles: Unremarkable. No ventriculomegaly. Bones/joints: Left frontal craniectomy with osseous hardware. No acute fracture. Soft tissues: Unremarkable. Sinuses: Patchy sinus disease. Mastoid air cells: Unremarkable. No mastoid effusion. Orbits: The globe and lens are intact. IMPRESSION: No evidence of an acute intracranial hemorrhage, midline shift or mass effect is identified. Patient now stable, clinically sober, well appearing, gait normal, will d/c home. <Rosendo Curran - Last Filed: 10/07/17 06:43> Procedures - Laceration/Wound Repair Right Head Wound Length (cm): 4 Wound's Depth, Shape: superficial Wound Explored: clean Wound Repaired With: Skin adhesive Wound Complexity: Simple Progress: The wound was copiously irrigated with normal saline. The wound was prepped and draped in the normal sterile fashion. The wound was explored for foreign bodies and none were found. No anaesthetics were used and Dermabond was applied to the area. The patient tolerated the procedure well. <Farzana Braun PA-C - Last Filed: 10/07/17 05:36> Disposition - Disposition Disposition Time: 06:00 <Farzana Braun PA-C - Last Filed: 10/07/17 05:36> - Disposition Disposition: Routine/Home Disposition Time: 06:42 <Rosendo Curran - Last Filed: 10/07/17 06:43> - Clinical Impression Clinical Impression: Facial laceration, Head injury, Alcohol abuse - Disposition Condition: STABLE Instructions: Laceration Repair, Closed Head Injury, Effects of Alcohol on Your Health Forms: [facility] ([place])
[2017-10-07 05:48] LABS: BASO # 0.1 K/uL (0.0-0.2); BASO % 1.1 % (0.0-2.0); EOS # 0.1 K/uL (0.0-0.7); EOS % 1.5 % (0.0-4.0); HEMOGLOBIN 11.7 g/dL (12.0-18.0); LYMPH # 2.5 K/uL (1.0-4.3); LYMPH % 30.1 % (20.0-40.0); MEAN CELL VOLUME 94.8 fl (80.0-94.0); MEAN CORPUSCULAR HEMOGLOBIN 33.4 pg (27.0-31.0); MEAN CORPUSCULAR HGB CONC 35.2 g/dL (33.0-37.0); MEAN PLATELET VOLUME 8.7 fl (7.2-11.7); MONO # 0.8 K/uL (0.0-0.8); NEUT # 4.8 K/uL (1.8-7.0); NEUT % 57.3 % (50.0-75.0); NRBC % 0.1 % (0.0-0.0); RBC 3.51 Mil/uL (4.40-5.90); RED CELL DISTRIBUTION WIDTH 12.8 % (11.5-14.5); WHITE BLOOD COUNT 8.4 K/uL (4.8-10.8)
[2017-10-07 05:55] LABS: GFR AFRICAN-AMERICAN > 60; GFR NON-AFRICAN AMERICAN > 60
[2017-10-07 06:01] LABS: ALB/GLOB RATIO 1.2 (1.0-2.1); ALBUMIN 4.1 g/dL (3.5-5.0); ALT/SGPT 43 U/L (21-72); AST/SGOT 51 U/L (17-59); BLOOD UREA NITROGEN 17 mg/dl (9-20)
--- NOTE | 2017-10-07 06:33 | CT ---
EXAM: CT Head Without Intravenous Contrast CLINICAL HISTORY: 57 years old, male; Injury or trauma; Injury Head trauma; Initial encounter; Concussion / head injury; Consciousness not specified TECHNIQUE: Axial computed tomography images of the head/brain without intravenous contrast. All CT scans at this facility use one or more dose reduction techniques, viz.: automated exposure control; ma/kV adjustment per patient size (including targeted exams where dose is matched to indication; i.e. head); or iterative reconstruction technique. 298 images are submitted. Axial images are submitted in brain and bone windows. Coronal and sagittal reformatted images were created and reviewed. Axial reformatted images were created and reviewed. COMPARISON: No relevant prior studies available. FINDINGS: Brain: Left frontal encephalomalacia with dystrophic calcification. Prominent cisterna magna. Cerebral and cerebellar volume loss. Patchy hypodensity is seen in the periventricular and subcortical white matter. No hemorrhage. Ventricles: Unremarkable. No ventriculomegaly. Bones/joints: Left frontal craniectomy with osseous hardware. No acute fracture. Soft tissues: Unremarkable. Sinuses: Patchy sinus disease. Mastoid air cells: Unremarkable. No mastoid effusion. Orbits: The globe and lens are intact. IMPRESSION: No evidence of an acute intracranial hemorrhage, midline shift or mass effect is identified.
[2017-10-07 06:59] VITALS: BP 135/74; PULSE 87; TEMP 97.9; O2SAT 98
== END 2017-10-07 06:59 | disposition home or self-care (01) ==
LOC: H.ER 04:16
DX: S01.81XA Laceration without foreign body of other part of head, initial encounter (principal); F10.10 Alcohol abuse, uncomplicated; F17.210 Nicotine dependence, cigarettes, uncomplicated; Z86.59 Personal history of other mental and behavioral disorders; E78.00 Pure hypercholesterolemia, unspecified; I10 Essential (primary) hypertension; Z79.82 Long term (current) use of aspirin
CPT/HCPCS: 12013; 70450; 80053; 85025; 99284; G0480

== ENCOUNTER 2018-06-22 15:24 | Emergency (ER) | payer MEDICARE ==
[2018-06-22 15:24] VITALS: BMI 24.3
--- NOTE | 2018-06-22 16:10 | ED PDOC ---
HPI: Trauma/Fall - HPI Time Seen by Provider: 06/22/18 15:50 Chief Complaint (Nursing): Trauma Chief Complaint (Provider): Trauma History Per: Patient History/Exam Limitations: no limitations Onset/Duration Of Symptoms: Hrs (prior to arrival) Associated Symptoms: denies: Dizziness, LOC Additional Complaint(s): Mikel Villa is a 58 year old male, with a past medical history of HTN, who presents to the emergency department complaining of pain to hip and pelvis s/p fall prior to arrival. Patient states he was trying to catch up with the bus but it kept going, and he accidentally slipped and fell backwards. He hit the back of his head but did not lose consciousness. Patient admits drinking alcohol. He denies any back pain, leg pain, chest pain, abdominal pain, nausea, vomit, diarrhea, dizziness, neck pain, vision changes, weakness, numbness or tingling. No further medical complaints. PMD: None provided. - Fall Fall:Prior To Injury: Slipped Past Medical History Reviewed: Historical Data, Nursing Documentation, Vital Signs Vital Signs: Last Vital Signs Temp 98.0 F 06/22/18 15:42 Pulse 72 06/22/18 15:42 Resp 18 06/22/18 15:42 BP 105/72 06/22/18 15:42 Pulse Ox 99 06/22/18 15:42 - Medical History PMH: Anxiety, Depression, HTN, Hypercholesterolemia Denies: Chronic Kidney Disease - Surgical History Surgical History: No Surg Hx - Family History Family History: States: Unknown Family Hx - Social History Alcohol: Social - Immunization History Hx Tetanus Toxoid Vaccination: No - Home Medications Home Medications: Ambulatory Orders Medication Instructions Recorded Amlodipine Besylate/Benazepril 1 tab PO DAILY 08/20/16 [Amlodipine-Benazepril 10-40 mg] Ammonium Lactate 12% [Lac-Hydrin 1 appl TD DAILY 08/20/16 12% Cream (140 g)] Budesonide/Formoterol Fumarate 1 puff PO BID 08/20/16 [Symbicort 160-4.5 Mcg Inhaler] Ca/D3/Mag#11/Zinc/Unit Aid/Kelvin/Bor 1 tab PO BID 08/20/16 [Caltrate 600+D Plus Tablet] Carvedilol [Coreg] 1 tab PO BID 08/20/16 Cyanocobalamin [Vitamin B12 100 1 tab PO DAILY 08/20/16 mcg Tab] Duloxetine HCl 60 mg PO DAILY 08/20/16 Ergocalciferol (Vitamin D2) 1 tab PO QWK 08/20/16 [Vitamin D2] Fluticasone Propionate [Aller-Deejay] 1 spray IH DAILY 08/20/16 Levocetirizine Dihydrochloride 1 tab PO DAILY 08/20/16 [Xyzal] Lubiprostone [Amitiza] 1 cap PO DAILY 08/20/16 [place]-3/Dha/Epa/Fish Oil [[place]-3 2 cap PO DAILY 08/20/16 EC Softgel] Omeprazole 20 mg PO BID 08/20/16 Oxcarbazepine [Trileptal] 2 tab PO DAILY 08/20/16 Rosuvastatin Calcium [Crestor] 10 mg PO DAILY 08/20/16 Zolpidem [Ambien] 10 mg PO HS 08/22/16 Aspirin 325 mg PO DAILY #30 tab 08/25/16 Docusate [Colace] 100 mg PO BID #30 cap 08/25/16 Ferrous Sulfate [Feosol] 325 mg PO BID #60 tab 08/25/16 LORazepam [Ativan] 1 mg PO BID PRN #20 tab 08/25/16 Magnesium Oxide [Mag-Ox] 400 mg PO DAILY #10 tab 08/25/16 Potassium Chloride [K-Dur 20 mEq 40 meq PO DAILY #10 tab 08/25/16 ER Tab] oxyCODONE [oxyCONTIN Extended 10 mg PO Q12 #14 tabsr 08/25/16 Release Tab] oxyCODONE/Acetaminophen [Percocet 2 tab PO Q4 PRN #20 tab 08/25/16 5/325 mg Tab] - Allergies Allergies/Adverse Reactions: Allergies Allergy/AdvReac Type Severity Reaction Status Date / Time seasonal Allergy ITCHING Uncoded 06/22/18 15:42 Review of Systems ROS Statement: Except As Marked, All Systems Reviewed And Found Negative Eyes: Negative for: Vision Change Cardiovascular: Negative for: Chest Pain Respiratory: Negative for: Shortness of Breath Gastrointestinal: Negative for: Nausea, Vomiting, Abdominal Pain, Diarrhea Musculoskeletal: Positive for: Other (pelvic and hip pain). Negative for: Neck Pain, Back Pain, Leg Pain Neurological: Negative for: Weakness, Numbness (tingling), Dizziness Physical Exam - Reviewed Vital Signs Reviewed: Yes - Physical Exam Appears: Positive for: No Acute Distress Head Exam: Positive for: ATRAUMATIC (No signs of gross trauma), NORMAL INSPECTION, NORMOCEPHALIC Skin: Positive for: Normal Color, Warm, Dry Eye Exam: Positive for: Normal appearance, EOMI, PERRL ENT: Positive for: Normal ENT Inspection Neck: Positive for: Normal, Painless ROM, Supple Cardiovascular/Chest: Positive for: Regular Rate, Rhythm. Negative for: Murmur Respiratory: Positive for: Normal Breath Sounds. Negative for: Respiratory Distress Gastrointestinal/Abdominal: Positive for: Normal Exam, Soft. Negative for: Tenderness, Guarding, Rebound Back: Positive for: Normal Inspection (Lower back nontender). Negative for: L CVA Tenderness, R CVA Tenderness, Vertebral Tenderness Extremity: Positive for: Normal ROM (Full ROM with pain to hip), Tenderness (Right sided hip tenderness. No knee or left hip tenderness.), Other (6-7cm in diameter abrasions across right lower aspect of hip. ). Negative for: Deformity, Swelling Neurologic/Psych: Positive for: Alert, order department supervisor II-XII, Oriented. Negative for: Motor/Sensory Deficits, Aphasia - ECG O2 Sat by Pulse Oximetry: 99 (RA) Pulse Ox Interpretation: Normal - CT Scan/US ct Other Rad Studies (CT/US): Read By Radiologist Other Rad Interpretation: no acute - Progress ED Course And Treament: 165: Stable. AAOx3. Pain free. Tolerated PO. Ambulated with no issues. Medical Decision Making Medical Decision Making: Time: 15:50 Initial Impression: Hip pain s/p fall Initial Plan: --Head w/o contrast [CT] --Tylenol 325mg tab 975 mg PO --Hip Min 5V w/ Pelvis SIMONE [RAD] --Reevaluation Scribe Attestation: Documented by Albaro Sarabia, acting as a scribe for Jace Ugarte MD Provider Scribe Attestation: All medical record entries made by the Scribe were at my direction and personally dictated by me. I have reviewed the chart and agree that the record accurately reflects my personal performance of the history, physical exam, medical decision making, and the department course for this patient. I have also personally directed, reviewed, and agree with the discharge instructions and disposition. Disposition - Clinical Impression Clinical Impression: Fall - Patient ED Disposition Is Patient to be Admitted: Transfer of Care - Disposition Disposition: Transfer of Care Disposition Time: 16:04 Condition: STABLE Patient Signed Over To: Sam Busby III
--- NOTE | 2018-06-22 16:42 | CT ---
Date of service: 06/22/2018 PROCEDURE: CT HEAD WITHOUT CONTRAST. HISTORY: headache COMPARISON: 10/07/2017 TECHNIQUE: Axial computed tomography images were obtained through the head/brain without intravenous contrast. Radiation dose: Total exam DLP = 792.13 mGy-cm. This CT exam was performed using one or more of the following dose reduction techniques: Automated exposure control, adjustment of the mA and/or kV according to patient size, and/or use of iterative reconstruction technique. FINDINGS: HEMORRHAGE: No intracranial hemorrhage. BRAIN: There is left frontal encephalomalacia. The patient is status post left frontal craniotomy. No mass effect or edema. Mild diffuse atrophy slightly greater than expected for patient age. No evidence of acute infarct. VENTRICLES: No hydrocephalus. Minimal dilatation of the frontal horn of the left lateral ventricle secondary to left frontal encephalomalacia. CALVARIUM: Old left frontal craniotomy. No calvarial fracture. PARANASAL SINUSES: Unremarkable as visualized. No significant inflammatory changes. MASTOID AIR CELLS: Unremarkable as visualized. No inflammatory changes. OTHER FINDINGS: None. IMPRESSION: No intracranial mass, hemorrhage or evidence of acute infarct. Left frontal encephalomalacia status post left frontal craniotomy. Mild atrophy greater than expected for patient age. No additional abnormality.
--- NOTE | 2018-06-22 17:12 | ED PDOC ---
- Laboratory Results Result Diagrams: 06/22/18 21:17 06/22/18 19:01 - ECG O2 Sat by Pulse Oximetry: 99 (RA) Medical Decision Making Medical Decision Making: Time: 1700 --Patient endorsed to provider by Dr. Ugarte. CT head reviewed: no significant abnormality. Pending XR bilateral hip results and clinical sobriety. Time: 1734 --XR bilateral hip FINDINGS: Cortical disruption left pelvic ring. The finding is marked on the study for review. IMPRESSION: Acute fracture left pelvic ring including ischium and pubis. labs and CT abd pelv ordered additional pain meds ordered Abdominal exam mild LLQ tenderness no distension endorse Dr Curran 7[address] abd pelv and dispo Scribe Attestation: Documented by Jael Molina, acting as a scribe for Sam Busby III, DO. Provider Scribe Attestation: All medical record entries made by the Scribe were at my direction and personally dictated by me. I have reviewed the chart and agree that the record accurately reflects my personal performance of the history, physical exam, medical decision making, and the department course for this patient. I have also personally directed, reviewed, and agree with the discharge instructions and disposition. Disposition Counseled Patient/Family Regarding: Studies Performed, Diagnosis - Clinical Impression Clinical Impression: Fall, Pelvic fracture, Intraperitoneal hematoma - POA Present On Arrival: Falls Or Trauma - Disposition Disposition: Transfer of Care Disposition Time: 18:49 Condition: SERIOUS Forms: [facility] ([place]) Patient Signed Over To: Rosendo Curran
--- NOTE | 2018-06-22 17:37 | RAD ---
Date of service: 06/22/2018 PROCEDURE: Pelvis bilateral hips HISTORY: Posttraumatic pain COMPARISON: None TECHNIQUE: Standard protocol for this study/examination. FINDINGS: Cortical disruption left pelvic ring. The finding is marked on the study for review. IMPRESSION: Acute fracture left pelvic ring including ischium and pubis.
[2018-06-22] MEDS ORDERED: Iohexol 300 100 ML IJ ONE (19:04)
[2018-06-22] MEDS ORDERED: Sodium Chloride 0.9% 50 ML IV ONE (19:05)
[2018-06-22 19:10] LABS: BASO # 0.1 K/uL (0.0-0.2); BASO % 0.4 % (0.0-2.0); EOS % 0.1 % (0.0-4.0); HEMOGLOBIN 11.4 g/dL (12.0-18.0); LYMPH # 1.7 K/uL (1.0-4.3); LYMPH % 11.9 % (20.0-40.0); MEAN CELL VOLUME 98.5 fl (80.0-94.0); MEAN CORPUSCULAR HEMOGLOBIN 33.3 pg (27.0-31.0); MEAN CORPUSCULAR HGB CONC 33.8 g/dL (33.0-37.0); MEAN PLATELET VOLUME 8.2 fl (7.2-11.7); MONO # 0.7 K/uL (0.0-0.8); MONO % 5.1 % (0.0-10.0); NEUT % 82.5 % (50.0-75.0); RBC 3.41 Mil/uL (4.40-5.90); RED CELL DISTRIBUTION WIDTH 13.7 % (11.5-14.5); WHITE BLOOD COUNT 14.5 K/uL (4.8-10.8)
[2018-06-22 19:16] LABS: ALB/GLOB RATIO 1.5 (1.0-2.1); ALBUMIN 4.3 g/dL (3.5-5.0); ALT/SGPT 93 U/L (21-72); AST/SGOT 213 U/L (17-59); BLOOD UREA NITROGEN 21 mg/dl (9-20); CALCIUM 9.6 mg/dL (8.4-10.2); GFR NON-AFRICAN AMERICAN > 60; PROTHROMBIN TIME 11.4 Seconds (9.8-13.1)
[2018-06-22 19:18] LABS: PARTIAL THROMBOPLASTIN TIME 25.9 Seconds (25.6-37.1)
[2018-06-22] MEDS ORDERED: Morphine 4 MG/ML VIAL IVP STA ×2 (20:57→22:54)
[2018-06-22] MEDS ORDERED: Morphine 4 MG/ML VIAL ONE ×2 (21:01→22:51)
[2018-06-22 21:38] LABS: HEMOGLOBIN 10.4 g/dL (12.0-18.0); MEAN CELL VOLUME 96.7 fl (80.0-94.0); MEAN CORPUSCULAR HEMOGLOBIN 33.2 pg (27.0-31.0); MEAN CORPUSCULAR HGB CONC 34.3 g/dL (33.0-37.0); RBC 3.13 Mil/uL (4.40-5.90); RED CELL DISTRIBUTION WIDTH 13.3 % (11.5-14.5); WHITE BLOOD COUNT 12.1 K/uL (4.8-10.8)
[2018-06-22] MEDS ORDERED: Sodium Chloride 0.9% 1,000 ML IV STA (22:05)
[2018-06-22 23:08] VITALS: TEMP 99
--- NOTE | 2018-06-23 00:39 | ED PDOC ---
- Laboratory Results Result Diagrams: 06/22/18 21:17 06/22/18 19:01 Lab Results: PT 11.4 Seconds (9.8-13.1) 06/22/18 19: INR 1.0 06/22/18 19: APTT 25.9 Seconds (25.6-37.1) 06/22/18 19: Total Bilirubin 1.2 mg/dl (0.2-1.3) 06/22/18 19: AST 213 U/L (17-59) H D 06/22/18 19: ALT 93 U/L (21-72) H D 06/22/18 19: Alkaline Phosphatase 98 U/L (38-126) 06/22/18 19: Total Protein 7.2 G/DL (6.3-8.2) 06/22/18 19: Albumin 4.3 g/dL (3.5-5.0) 06/22/18 19: Globulin 2.8 gm/dL (2.2-3.9) 06/22/18: Albumin/Globulin Ratio 1.5 (1.0-2.1) 06/22/18 19: - ECG O2 Sat by Pulse Oximetry: 97 (RA) Pulse Ox Interpretation: Normal Medical Decision Making Medical Decision Making: Time: 1899 -- Patient endorsed to me by Dr. Busby, pending CT, re-evaluation and final ER disposition. Time: 2029 CT ABD/PELVIS COMMENTS: There is hepatic hypoattenuation compatible with fatty infiltration. Note is made of hypo-enhancing area in the anterior segment of the right hepatic lobe measuring approximately 2.5 x 2 cm of unclear etiology consider follow-up with CT or MRI hepatic protocol. There is no intra or extrahepatic biliary ductal dilatation. The spleen is normal. The gallbladder is within normal limits. The pancreas is of normal contour and attenuation characteristics. There is no evidence of adrenal mass. Both kidneys are markedly lobulated demonstrating cortical thinning and cortical scarring. Small fat containing umbilical hernia is seen. There is a large intraperitoneal hematoma involving the lower abdomen and pelvis which measures approximately 20 cm in transverse x 7 cm in AP x 10 cm in craniocaudal dimension. No evidence for appendicitis. There is no bowel wall thickening. No evidence for small or large bowel obstruction. There is no evidence of abdominal ascites or lymphadenopathy. There is no pelvic ascites or lymphadenopathy. Images of the lung bases show no evidence of pleural or parenchymal mass. There are no pleural effusions. Small hiatal hernia is seen. Increased interstitial lung markings present right greater than left suggesting pulmonary fibrosis. Note is made of comminuted fractures involving the left inferior and superior pubic rami which are displaced. Urinary bladder injury is not excluded. IMPRESSION: 1. Comminuted fractures involving the left inferior and superior pubic rami which are displaced. Urinary bladder injury is not excluded. Large intraperitoneal hematoma involving the lower abdomen and pelvis. 2. Both kidneys are markedly lobulated demonstrating cortical thinning and cortical scarring. 3. Small fat containing umbilical hernia. 4. Pulmonary fibrosis. 5. Fatty liver with hypo-enhancing area in the anterior segment of the right hepatic lobe of unclear etiology consider follow-up with CT or MRI hepatic protocol. Discussed with Dr. Busby 8-40pm EST. Electronically signed on Jun 22, 2018 8:46:50 PM EST by: Jerry Cordero M.D., MBA Certified By ABR & CBCCT Fellowship Trained MRI and CT Specialist -- On re-evaluation, patient reports of persistent abdominal pain. Patient is stable with normal vital signs. Repeat CBC ordered. Patient to be transferred [place] [facility] Time: 2057 Plan: -- NPO Diet -- CBC -- CXR Portable -- Morphine 4 mg IVP -- Toradol 15 mg IVP Time: 2101 Plan: -- Type and Screen -- CT Cervical Spine w/o contrast Time: 2129 Plan: -- Spoke with Asim CHARLTON who directly spoke with attending Dr. Ahumada regarding case. LATESHA states that Dr. Ahumada did not require further discussion with me at this time. Time: 2232 Plan: -- Morphine 4 mg IVP -- Transfer to [facility] Time: 2250 CT CERVICAL RESULTS FINDINGS: ALIGNMENT: Bony alignment is anatomic. DEGENERATIVE CHANGES: No significant canal stenosis or neural foraminal narrowing evident. Some bilateral uncovertebral facet arthropathy is noted at C3-4, C4-5, C5-6, C6-7. 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 Marginal hyperostotic osteophytic spurring arises from the C5-C7 vertebrae. SOFT TISSUES: The prevertebral soft tissues are within normal limits. BONES: No acute fracture or aggressive appearing osseous lesion. IMPRESSION: 1. No acute cervical spine abnormality. 2. Some bilateral uncovertebral facet arthropathy is noted at C3-4, C4-5, C5-6, C6-7. 3. Hyperostotic spurring arises from the C5, C6, C7 vertebrae. 4. 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 Electronically signed on Jun 22, 2018 10:51:23 PM EST by: Jerry Cordero M.D., MBA Certified By ABR & CBCCT Fellowship Trained MRI and CT Specialist Time: 38 -- Patient transferred and in stable condition. Scribe Attestation: Documented by Liseth Oliveros, acting as a scribe for Rosendo Curran MD. Provider Scribe Attestation: All medical record entries made by the Scribe were at my direction and personally dictated by me. I have reviewed the chart and agree that the record accurately reflects my personal performance of the history, physical exam, medical decision making, and the department course for this patient. I have also personally directed, reviewed, and agree with the discharge instructions and disposition. Disposition Counseled Patient/Family Regarding: Studies Performed, Diagnosis - Clinical Impression Clinical Impression: Fall, Pelvic fracture, Intraperitoneal hematoma - POA Present On Arrival: None, Falls Or Trauma - Disposition Disposition: Other Institution ([facility] Disposition Time: 00:39 Condition: SERIOUS Forms: [employer] (Kyrgyz)
[2018-06-23] MEDS ORDERED: Morphine 4 MG/ML VIAL IVP ONE (01:05)
[2018-06-23 01:08] VITALS: RESP 16
[2018-06-23] MEDS ORDERED: Morphine 4 MG/ML VIAL ONE ×2 (01:19→03:17)
[2018-06-23 01:56] LABS: SQUAMOUS EPITHIAL 2 /hpf (0-5); URINE BACTERIA RARE (<OCC); URINE BILIRUBIN NEGATIVE (NEGATIVE); URINE BLOOD NEGATIVE (NEGATIVE); URINE CLARITY CLOUDY (Clear); URINE COLOR AMBER (YELLOW); URINE GLUCOSE (UA) NEG (NEGATIVE); URINE LEUKOCYTE ESTERASE NEG Leu/uL (Negative); URINE PROTEIN 100 mg/dL (NEGATIVE)
[2018-06-23 03:01] VITALS: BP 115/77; PULSE 81
[2018-06-23] MEDS ORDERED: Morphine 4 MG/ML VIAL IVP STA (03:13)
--- NOTE | 2018-06-23 07:41 | CT ---
Date of service: 06/22/2018 PROCEDURE: CT Cervical Spine without contrast HISTORY: fracture COMPARISON: None available. TECHNIQUE: Axial computed tomography images were obtained of the cervical spine without the use of intravenous contrast. Coronal and sagittal reformatted images were created and reviewed. Radiation dose: Total exam DLP = 320.94 mGy-cm. This CT exam was performed using one or more of the following dose reduction techniques: Automated exposure control, adjustment of the mA and/or kV according to patient size, and/or use of iterative reconstruction technique. FINDINGS: VERTEBRAE: No fracture. Normal alignment. No destructive bony lesion. DISCS/SPINAL CANAL/NEURAL FORAMINA: Multilevel severe degenerative disc disease and spondylosis. Spondylotic foraminal stenosis most notably at C6-7. PARASPINAL SOFT TISSUES: Unremarkable. OTHER FINDINGS: None. IMPRESSION: No acute fracture.
--- NOTE | 2018-06-23 07:45 | CT ---
Date of service: 06/22/2018 PROCEDURE: CT Abdomen and Pelvis with contrast HISTORY: pelvic fracture COMPARISON: None. TECHNIQUE: Contrast dose: Radiation dose: Total exam DLP = 611.2 mGy-cm. This CT exam was performed using one or more of the following dose reduction techniques: Automated exposure control, adjustment of the mA and/or kV according to patient size, and/or use of iterative reconstruction technique. FINDINGS: LOWER THORAX: Unremarkable. LIVER: Fatty liver. Hypodense region near the falciform ligament, unchanged from prior examination, nonspecific in appearance. GALLBLADDER AND BILE DUCTS: Unremarkable. PANCREAS: Unremarkable. No gross lesion or ductal dilatation. SPLEEN: Unremarkable. ADRENALS: Unremarkable. No mass. KIDNEYS AND URETERS: Unremarkable. No hydronephrosis. No solid mass. VASCULATURE: Unremarkable. No aortic aneurysm. No aortic atherosclerotic calcification or mural plaque present. BOWEL: Unremarkable. No obstruction. No gross mural thickening. APPENDIX: Normal appendix. PERITONEUM: Unremarkable. No free fluid. No free air. LYMPH NODES: Unremarkable. No enlarged lymph nodes. BLADDER: Unremarkable. REPRODUCTIVE: Unremarkable. BONES: Comminuted fractures of the left inferior and superior pubic rami with displacement. Urinary bladder injury not excluded. Intraperitoneal hematoma involving the lower abdomen pelvis. OTHER FINDINGS: None. IMPRESSION: Comminuted fractures of the left inferior and superior pubic rami with displacement. Urinary bladder injury not excluded. Intraperitoneal hematoma involving the lower abdomen pelvis.
--- NOTE | 2018-06-23 08:28 | RAD ---
Date of service: 06/22/2018 HISTORY: fall COMPARISON: No prior. FINDINGS: LUNGS: No active pulmonary disease. PLEURA: No significant pleural effusion identified, no pneumothorax apparent. CARDIOVASCULAR: No aortic atherosclerotic calcification present. Normal cardiac size. No pulmonary vascular congestion. OSSEOUS STRUCTURES: No significant abnormalities. VISUALIZED UPPER ABDOMEN: Normal. OTHER FINDINGS: None. IMPRESSION: No active disease.
[2018-06-23 15:49] VITALS: O2SAT 99
--- NOTE | 2018-06-24 01:22 | CARD ---
APPROVED REPORT Date of service: 06/22/2018 EKG Measurement Heart [id number] <Conclusion> Normal sinus rhythm Left axis deviation Right bundle branch block Abnormal ECG
== END 2018-06-23 03:25 | disposition home or self-care (01) ==
LOC: H.ER 15:24
DX: S32.592A Other specified fracture of left pubis, initial encounter for closed fracture (principal); K66.1 Hemoperitoneum; W19.XXXA Unspecified fall, initial encounter; Y92.89 Other specified places as the place of occurrence of the external cause; E78.00 Pure hypercholesterolemia, unspecified; I10 Essential (primary) hypertension; J84.10 Pulmonary fibrosis, unspecified; K42.9 Umbilical hernia without obstruction or gangrene; Z79.899 Other long term (current) drug therapy
CPT/HCPCS: 70450; 71045; 72125; 73523; 74177; 80053; 81003; 85025; 85027; 85610; 85730; 86850; 86900; 93005; 96372; 96374; 96375; 96376; 99285; G0480; J1885; J2270; J7030; Q9967

== ENCOUNTER 2018-06-27 16:10 | Inpatient (IN) | payer MEDICARE ==
[2018-06-27] MEDS ORDERED: Albuterol-Ipratrop 3 mg / 0.5 (3 ml) UD IH PRN (22:31)
[2018-06-27] MEDS ORDERED: oxyCODONE 5 mg Immediate Release Tab PO PRN (22:40)
[2018-06-27] MEDS ORDERED: Ergocalciferol 50,000 Intl Units Cap PO SCH (22:45)
[2018-06-27] MEDS: oxyCODONE 10 mg ER Tab (oxyCONTIN) PO SCH (23:08)
[2018-06-28] MEDS ORDERED: Ergocalciferol 50,000 Intl Units Cap PO SCH ×2 (00:27→05:15)
[2018-06-28] MEDS: Oxycodone/Acetaminophen 5/325 mg Tab PO PRN ×4 (02:11→16:37)
[2018-06-28 06:22] LABS: HEMOGLOBIN 9.3 g/dL (12.0-18.0); MEAN CELL VOLUME 96.8 fl (80.0-94.0); MEAN CORPUSCULAR HEMOGLOBIN 32.7 pg (27.0-31.0); MEAN CORPUSCULAR HGB CONC 33.8 g/dL (33.0-37.0); RBC 2.85 Mil/uL (4.40-5.90); RED CELL DISTRIBUTION WIDTH 15.4 % (11.5-14.5); WHITE BLOOD COUNT 7.9 K/uL (4.8-10.8)
[2018-06-28 06:58] LABS: ALB/GLOB RATIO 1.2 (1.0-2.1); ALBUMIN 3.6 g/dL (3.5-5.0); ALT/SGPT 86 U/L (21-72); AST/SGOT 86 U/L (17-59); BLOOD UREA NITROGEN 8 mg/dl (9-20); CALCIUM 9.3 mg/dL (8.4-10.2); GFR NON-AFRICAN AMERICAN > 60
[2018-06-28] MEDS: Fluticasone-Salmeterol 250-50mcg Diskus IH SCH ×2 (08:15→16:39)
[2018-06-28] MEDS: Multivitamin With Minerals Tab PO SCH (08:16)
[2018-06-28] MEDS: Magnesium Oxide 400 mg Tab UD PO SCH (08:16)
[2018-06-28] MEDS: Potassium Chloride 10 mEq ER Tab PO SCH (08:17)
[2018-06-28] MEDS: Lidocaine 5% Patch TD SCH (08:19)
[2018-06-28] MEDS: oxyCODONE 10 mg ER Tab (oxyCONTIN) PO SCH (08:21)
[2018-06-28] MEDS: Ergocalciferol 50,000 Intl Units Cap PO SCH (08:34)
[2018-06-28] MEDS: Ammonium Lactate 12% Cream (140 g) TOP SCH (09:49)
[2018-06-28] MEDS: Methocarbamol 500 MG Tab PO SCH ×3 (09:50→16:41)
--- NOTE | 2018-06-28 17:54 | PCM.OPOC ---
Physiatry Overall Plan of Care - Overall Plan of Care Estimated Length of Stay in Weeks: 2 Rehab Impairment: Mobility, Gait, Balance, Coordination Etiologic Diagnosis: Other (pelvic fracture) Rehab/Medical Prognosis: Good - Anticipated Interventions Physical Therapy:: Yes Occupational Therapy:: Yes Speech Therapy:: No Recreational Therapy:: Yes - Therapy Goals Bed Mobility: Independent Ambulation: Independent Functional Positional Changes:: Independent - Discharge Plan Identification of Barriers to Discharge: Home Situation Discharge Destination: Home
--- NOTE | 2018-06-28 17:57 | CP.PCM.CON ---
History of Present Illness - History of Present Illness History of Present Illness: Dr Bear PMR consultation on Mikel Villa, born 1960 who has been admitted to [facility] for acute inpatient rehabilitation. He had been known to me for many years for chronic pain. He suffered multiple closed pubic fractures after a fall. Non-operative treatment. Has right lumbar radicular pain and pelvic pain with significant ecchymosis on the left flank. Review of Systems - Constitutional Constitutional: absent: Chills - EENT Eyes: absent: Blurred Vision, Change in Vision Ears: absent: Ear Discharge, Ear Pain Nose/Mouth/Throat: absent: Nasal Congestion, Nasal Discharge - Cardiovascular Cardiovascular: absent: Chest Pain, Chest Pain at Rest - Respiratory Respiratory: absent: Cough, Dyspnea, Dyspnea on Exertion - Gastrointestinal Gastrointestinal: absent: Coffee Ground Emesis, Cramping, Diarrhea, Fecal Incontinence - Musculoskeletal Musculoskeletal: Back Pain - Neurological Neurological: Burning Sensations. absent: Disequilibrium, Dizziness - Psychiatric Psychiatric: absent: Anxiety Past Patient History - Infectious Disease Hx of Infectious Diseases: None - Past Medical History & Family History Past Medical History?: Yes - Past Social History Smoking Status: Light Smoker < 10 Cigarettes Daily Alcohol: < 2 Drinks/Day (but can be more) Drugs: Denies Home Situation {Lives}: Alone - CARDIAC Hx Cardiac Disorders: Yes Hx Hypercholesterolemia: Yes Hx Hypertension: Yes - PULMONARY Hx Respiratory Disorders: No - NEUROLOGICAL Hx Neurological Disorder: Yes Other/Comment: Hx craniotomy x SAH - HEENT Hx HEENT Problems: No - RENAL Hx Chronic Kidney Disease: No - ENDOCRINE/METABOLIC Hx Endocrine Disorders: No - HEMATOLOGICAL/ONCOLOGICAL Hx AIDS: No Hx Blood Transfusions: Yes Hx Blood Transfusion Reaction: No Hx Human Immunodeficiency Virus (HIV): No - INTEGUMENTARY Hx Dermatological Problems: No - MUSCULOSKELETAL/RHEUMATOLOGICAL Hx Falls: Yes Hx Fractures: Yes (Left pubic fracture) - GASTROINTESTINAL Hx Gastrointestinal Disorders: No - GENITOURINARY/GYNECOLOGICAL Hx Genitourinary Disorders: No - PSYCHIATRIC Hx Substance Use: No - SURGICAL HISTORY Hx Surgeries: Yes Other/Comment: Craniotomy for SAH - ANESTHESIA Hx Anesthesia: Yes Hx Anesthesia Reactions: No Hx Malignant Hyperthermia: No Meds Allergies/Adverse Reactions: Allergies Allergy/AdvReac Type Severity Reaction Status Date / Time seasonal Allergy Mild ITCHING Uncoded 06/27/18 20:21 - Medications Medications: Current Medications Acetaminophen (Tylenol 325mg Tab) 650 mg PO Q6 PRN PRN Reason: pain 1-3 Albuterol/Ipratropium (Duoneb 3 Mg/0.5 Mg (3 Ml) Ud) 3 ml IH RTID PRN PRN Reason: SOB Amlodipine Besylate (Norvasc) 10 mg PO DAILY [facility] Last Admin: 06/28/18 08:17 Dose: 10 mg Aspirin (Aspirin) 325 mg PO DAILY [facility] Last Admin: 06/28/18 08:17 Dose: 325 mg Atorvastatin Calcium (Lipitor) 40 mg PO HS [facility] Last Admin: 06/27/18 23:07 Dose: 40 mg Carvedilol (Coreg) 12.5 mg PO Q12 [facility] Last Admin: 06/28/18 08:17 Dose: 12.5 mg Docusate Sodium (Colace) 100 mg PO BID [facility] Last Admin: 06/28/18 16:40 Dose: 100 mg Duloxetine HCl (Cymbalta) 60 mg PO DAILY [facility] Last Admin: 06/28/18 12:24 Dose: 60 mg Ergocalciferol (Drisdol 50,000 Intl Units Cap) 1 cap PO Th [facility] Last Admin: 06/28/18 08:34 Dose: 1 cap Ferrous Sulfate (Feosol) 325 mg PO BID [facility] Last Admin: 06/28/18 16:40 Dose: 325 mg Folic Acid (Folic Acid) 1 mg PO DAILY [facility] Last Admin: 06/28/18 08:17 Dose: 1 mg Gabapentin (Neurontin) 300 mg PO TID [facility] Last Admin: 06/28/18 17:13 Dose: 300 mg Lactic Acid (Lac-Hydrin 12% Cream (140 G)) 1 ea TOP DAILY [facility] Last Admin: 06/28/18 09:49 Dose: 1 applic Lidocaine (Lidoderm) 1 ea TD DAILY [facility] Last Admin: 06/28/18 08:19 Dose: 1 ea Lisinopril (Zestril) 40 mg PO DAILY [facility] Last Admin: 06/28/18 09:51 Dose: 40 mg Lorazepam (Ativan) 1 mg PO BID PRN PRN Reason: Anxiety Last Admin: 06/28/18 09:57 Dose: 1 mg Magnesium Oxide (Mag-Ox) 400 mg PO DAILY [facility] Last Admin: 06/28/18 08:16 Dose: 400 mg Methocarbamol (Robaxin) 500 mg PO TID [facility] Last Admin: 06/28/18 16:41 Dose: 500 mg Montelukast Sodium (Singulair) 10 mg PO DAILY [facility] Last Admin: 06/28/18 08:15 Dose: 10 mg Multivitamins/Minerals (Therapeutic-M Tab) 1 tab PO DAILY [facility] Last Admin: 06/28/18 08:16 Dose: 1 tab Oxcarbazepine (Trileptal) 900 mg PO DAILY [facility] Last Admin: 06/28/18 08:18 Dose: 900 mg Oxycodone HCl (Oxycodone Immediate Release Tab) 5 mg PO Q4 PRN PRN Reason: pain 4-7 Oxycodone HCl (Oxycontin Extended Release Tab) 20 mg PO Q12 [facility] Oxycodone/Acetaminophen (Percocet 5/325 Mg Tab) 2 tab PO Q4 PRN PRN Reason: pain 8-10 Stop: 06/30/18 22:32 Last Admin: 06/28/18 16:37 Dose: 2 tab Polyethylene Glycol (Miralax) 17 gm PO DAILY PRN PRN Reason: Constipation Potassium Chloride (Klor-Con 10) 10 meq PO DAILY [facility] Last Admin: 06/28/18 08:17 Dose: 10 meq Prednisone (Prednisone Tab) 40 mg PO Q24H [facility] Stop: 06/29/18 18:01 Prednisone (Prednisone Tab) 30 mg PO Q24H [facility] Stop: 07/01/18 17:52 Prednisone (Prednisone Tab) 20 mg PO Q24H [facility] Stop: 07/03/18 17:52 Prednisone (Prednisone Tab) 10 mg PO Q24H [facility] Stop: 07/05/18 17:53 Fluticasone/Salmeterol (Advair Diskus 250/50) 1 puff IH BID [facility] Last Admin: 06/28/18 16:39 Dose: 1 puff Thiamine HCl (Vitamin B1 Tab) 100 mg PO DAILY [facility] Last Admin: 06/28/18 08:18 Dose: 100 mg Zolpidem Tartrate (Ambien) 5 mg PO HS PRN PRN Reason: for sleep Last Admin: 06/27/18 23:42 Dose: 5 mg Physical Exam - Constitutional Appears: Non-toxic, No Acute Distress - Head Exam Head Exam: ATRAUMATIC, NORMAL INSPECTION, NORMOCEPHALIC - Eye Exam Eye Exam: Normal appearance, Periorbital swelling, PERRL - Respiratory Exam Respiratory Exam: NORMAL BREATHING PATTERN - Cardiovascular Exam Cardiovascular Exam: REGULAR RHYTHM. absent: Bradycardia - GI/Abdominal Exam GI & Abdominal Exam: absent: Distended, Firm Results - Vital Signs Recent Vital Signs: Last Vital Signs Temp 97.8 F 06/28/18 09:42 Pulse 82 06/28/18 11:50 Resp 20 06/28/18 09:42 BP 133/77 06/28/18 09:51 Pulse Ox 100 06/28/18 11:50 - Labs Result Diagrams: 06/28/18 06:00 06/28/18 06:00 Labs: Laboratory Results - last 24 hr 06/28/18 06/28/18 06:00 06:00 WBC 7.9 RBC 2.85 L Hgb 9.3 L Hct 27.6 L MCV 96.8 H MCH 32.7 H MCHC 33.8 RDW 15.4 H Plt Count 225 Sodium 133 Potassium 4.3 Chloride 95 L Carbon Dioxide 29 Anion Gap 13 BUN 8 L Creatinine 0.5 L Est GFR ( Amer) > 60 Est GFR (Non-Af Amer) > 60 Random Glucose 117 H Calcium 9.3 Total Bilirubin 0.8 AST 86 H D ALT 86 H Alkaline Phosphatase 149 H D Total Protein 6.4 Albumin 3.6 Globulin 2.9 Albumin/Globulin Ratio 1.2 Assessment & Plan - Assessment and Plan (Free Text) Assessment: 58 year old male with mechanical fall and pubic fracture. Chronic pain issues I will start prednisone for the radicular pain on the right I will increase oxycontin to 20mg q12 no GI disturbance
[2018-06-28] MEDS: oxyCODONE 20 mg ER Tab (oxyCONTIN) PO SCH (21:01)
[2018-06-29] MEDS: Oxycodone/Acetaminophen 5/325 mg Tab PO PRN ×3 (00:46→13:19)
[2018-06-29] MEDS: Fluticasone-Salmeterol 250-50mcg Diskus IH SCH ×2 (08:14→17:00)
[2018-06-29] MEDS: Multivitamin With Minerals Tab PO SCH (08:16)
[2018-06-29] MEDS: Lidocaine 5% Patch TD SCH (08:17)
[2018-06-29] MEDS: Magnesium Oxide 400 mg Tab UD PO SCH (08:17)
[2018-06-29] MEDS: Ammonium Lactate 12% Cream (140 g) TOP SCH (08:18)
[2018-06-29] MEDS: Potassium Chloride 10 mEq ER Tab PO SCH (08:19)
[2018-06-29] MEDS: Methocarbamol 500 MG Tab PO SCH ×3 (08:20→17:03)
[2018-06-29] MEDS: oxyCODONE 20 mg ER Tab (oxyCONTIN) PO SCH ×2 (08:24→21:59)
--- NOTE | 2018-06-29 18:39 | CP.PCM.PN ---
Subjective - Date & Time of Evaluation Date of Evaluation: 06/29/18 Time of Evaluation: 18:36 - Subjective Subjective: pain, can you increase my narcotics Objective - Vital Signs/Intake and Output Vital Signs (last 24 hours): Temp Pulse Resp BP Pulse Ox 98.1 F 73 18 122/70 99 06/29/18 08:57 06/29/18 10:42 06/29/18 08:57 06/29/18 08:57 06/29/18 10:42 - Medications Medications: Current Medications Acetaminophen (Tylenol 325mg Tab) 650 mg PO Q6 PRN PRN Reason: pain 1-3 Albuterol/Ipratropium (Duoneb 3 Mg/0.5 Mg (3 Ml) Ud) 3 ml IH RTID PRN PRN Reason: SOB Amlodipine Besylate (Norvasc) 10 mg PO DAILY [facility] Last Admin: 06/29/18 08:19 Dose: 10 mg Aspirin (Aspirin) 325 mg PO DAILY [facility] Last Admin: 06/29/18 08:15 Dose: 325 mg Atorvastatin Calcium (Lipitor) 40 mg PO HS [facility] Last Admin: 06/28/18 21:00 Dose: 40 mg Carvedilol (Coreg) 12.5 mg PO Q12 [facility] Last Admin: 06/29/18 08:16 Dose: 12.5 mg Docusate Sodium (Colace) 100 mg PO BID [facility] Last Admin: 06/29/18 17:02 Dose: 100 mg Duloxetine HCl (Cymbalta) 60 mg PO DAILY [facility] Last Admin: 06/29/18 08:20 Dose: 60 mg Ergocalciferol (Drisdol 50,000 Intl Units Cap) 1 cap PO Th [facility] Last Admin: 06/28/18 08:34 Dose: 1 cap Ferrous Sulfate (Feosol) 325 mg PO BID [facility] Last Admin: 06/29/18 17:02 Dose: 325 mg Folic Acid (Folic Acid) 1 mg PO DAILY [facility] Last Admin: 06/29/18 08:19 Dose: 1 mg Gabapentin (Neurontin) 300 mg PO TID [facility] Last Admin: 06/29/18 17:02 Dose: 300 mg Lactic Acid (Lac-Hydrin 12% Cream (140 G)) 1 ea TOP DAILY [facility] Last Admin: 06/29/18 08:18 Dose: 1 applic Lidocaine (Lidoderm) 1 ea TD DAILY [facility] Last Admin: 06/29/18 08:17 Dose: 1 ea Lisinopril (Zestril) 40 mg PO DAILY [facility] Last Admin: 06/29/18 08:21 Dose: 40 mg Lorazepam (Ativan) 1 mg PO BID PRN PRN Reason: Anxiety Last Admin: 06/28/18 09:57 Dose: 1 mg Magnesium Oxide (Mag-Ox) 400 mg PO DAILY [facility] Last Admin: 06/29/18 08:17 Dose: 400 mg Methocarbamol (Robaxin) 500 mg PO TID [facility] Last Admin: 06/29/18 17:03 Dose: 500 mg Montelukast Sodium (Singulair) 10 mg PO DAILY [facility] Last Admin: 06/29/18 08:20 Dose: 10 mg Multivitamins/Minerals (Therapeutic-M Tab) 1 tab PO DAILY [facility] Last Admin: 06/29/18 08:16 Dose: 1 tab Oxcarbazepine (Trileptal) 900 mg PO DAILY [facility] Last Admin: 06/29/18 08:20 Dose: 900 mg Oxycodone HCl (Oxycodone Immediate Release Tab) 5 mg PO Q4 PRN PRN Reason: pain 4-7 Oxycodone HCl (Oxycontin Extended Release Tab) 20 mg PO Q12 [facility] Last Admin: 06/29/18 08:24 Dose: 20 mg Oxycodone/Acetaminophen (Percocet 5/325 Mg Tab) 2 tab PO Q4 PRN PRN Reason: pain 8-10 Stop: 06/30/18 22:32 Last Admin: 06/29/18 13:19 Dose: 2 tab Polyethylene Glycol (Miralax) 17 gm PO DAILY PRN PRN Reason: Constipation Potassium Chloride (Klor-Con 10) 10 meq PO DAILY [facility] Last Admin: 06/29/18 08:19 Dose: 10 meq Prednisone (Prednisone Tab) 30 mg PO Q24H [facility] Stop: 07/01/18 17:52 Prednisone (Prednisone Tab) 20 mg PO Q24H [facility] Stop: 07/03/18 17:52 Prednisone (Prednisone Tab) 10 mg PO Q24H [facility] Stop: 07/05/18 17:53 Fluticasone/Salmeterol (Advair Diskus 250/50) 1 puff IH BID [facility] Last Admin: 06/29/18 17:00 Dose: 1 puff Thiamine HCl (Vitamin B1 Tab) 100 mg PO DAILY [facility] Last Admin: 06/29/18 08:21 Dose: 100 mg Zolpidem Tartrate (Ambien) 5 mg PO HS PRN PRN Reason: for sleep Last Admin: 06/28/18 21:00 Dose: 5 mg - Labs Labs: 06/28/18 06:00 06/28/18 06:00 - Constitutional Appears: Well, Non-toxic, No Acute Distress - Head Exam Head Exam: ATRAUMATIC, NORMAL INSPECTION, NORMOCEPHALIC - Eye Exam Eye Exam: EOMI - ENT Exam ENT Exam: Mucous Membranes Moist - Respiratory Exam Respiratory Exam: NORMAL BREATHING PATTERN - GI/Abdominal Exam GI & Abdominal Exam: absent: Distended (has ecchymosis in flank) - Neurological Exam Neurological Exam: Alert, Awake, CN II-XII Intact, Oriented x3 - Psychiatric Exam Psychiatric exam: Normal Affect, Normal Mood - Skin Skin Exam: Warm Assessment and Plan - Assessment and Plan (Free Text) Assessment: Patient is 58 year old male with fall and non-displaced pelvic fracture PT/OT to continue to help increase functional independence Team conference for d/c planning Pain: controlled in spite of patient's request for more narcotics. I know him from outpatient chronic pain management and the combination of steroid and Oxycontin is more than sufficient for this injury Vascular: no evidence of DVT GI: No evidence of constipation or diarrhea Patient continues to be an excellent acute rehabilitation candidate and will have continued PT, OT and recreational therapy to help facilitate a safe and appropriate d/c plan
[2018-06-30] MEDS: Oxycodone/Acetaminophen 5/325 mg Tab PO PRN ×3 (03:16→14:20)
[2018-06-30] MEDS: oxyCODONE 20 mg ER Tab (oxyCONTIN) PO SCH ×2 (08:23→21:29)
[2018-06-30] MEDS: Fluticasone-Salmeterol 250-50mcg Diskus IH SCH ×2 (08:26→17:16)
[2018-06-30] MEDS: POLYETHYLENE GLYCOL 3350 17 GM/Dose PACKET PO PRN (08:26)
[2018-06-30] MEDS: Methocarbamol 500 MG Tab PO SCH ×3 (08:27→17:16)
[2018-06-30] MEDS: Lidocaine 5% Patch TD SCH (08:28)
[2018-06-30] MEDS: Ammonium Lactate 12% Cream (140 g) TOP SCH (08:30)
[2018-06-30] MEDS: Multivitamin With Minerals Tab PO SCH (08:30)
[2018-06-30] MEDS: Potassium Chloride 10 mEq ER Tab PO SCH (08:31)
[2018-06-30] MEDS: Magnesium Oxide 400 mg Tab UD PO SCH (08:33)
--- NOTE | 2018-06-30 10:39 | CP.PCM.HP ---
History of Present Illness - History of Present Illness History of Present Illness: 58 yo male admitted due to pelvic fracture, non operative treatment to acute rehab for further rehabilitations patient states feels well though requests increase in pain medications history of chronic pain managed by dr valdez denies chest pain, sob, abdominal pain, headache. allergies: as per chart meds: as per chart fam hx: non contributory Present on Admission - Present on Admission Any Indicators Present on Admission: No Review of Systems - Review of Systems All systems: reviewed and no additional remarkable complaints except (mentioned above) Past Patient History - Infectious Disease Hx of Infectious Diseases: None - Past Medical History & Family History Past Medical History?: Yes - Past Social History Smoking Status: Light Smoker < 10 Cigarettes Daily Alcohol: < 2 Drinks/Day (but can be more) Drugs: Denies Home Situation {Lives}: Alone - CARDIAC Hx Cardiac Disorders: Yes Hx Hypercholesterolemia: Yes Hx Hypertension: Yes - PULMONARY Hx Respiratory Disorders: No - NEUROLOGICAL Hx Neurological Disorder: Yes Other/Comment: Hx craniotomy x SAH - HEENT Hx HEENT Problems: No - RENAL Hx Chronic Kidney Disease: No - ENDOCRINE/METABOLIC Hx Endocrine Disorders: No - HEMATOLOGICAL/ONCOLOGICAL Hx AIDS: No Hx Blood Transfusions: Yes Hx Blood Transfusion Reaction: No Hx Human Immunodeficiency Virus (HIV): No - INTEGUMENTARY Hx Dermatological Problems: No - MUSCULOSKELETAL/RHEUMATOLOGICAL Hx Falls: Yes Hx Fractures: Yes (Left pubic fracture) - GASTROINTESTINAL Hx Gastrointestinal Disorders: No - GENITOURINARY/GYNECOLOGICAL Hx Genitourinary Disorders: No - PSYCHIATRIC Hx Substance Use: No - SURGICAL HISTORY Hx Surgeries: Yes Other/Comment: Craniotomy for SAH - ANESTHESIA Hx Anesthesia: Yes Hx Anesthesia Reactions: No Hx Malignant Hyperthermia: No Meds Allergies/Adverse Reactions: Allergies Allergy/AdvReac Type Severity Reaction Status Date / Time seasonal Allergy Mild ITCHING Uncoded 06/27/18 20:21 Physical Exam - Constitutional Appears: Non-toxic, No Acute Distress - Head Exam Head Exam: NORMAL INSPECTION - Eye Exam Eye Exam: Normal appearance - Respiratory Exam Respiratory Exam: NORMAL BREATHING PATTERN - Cardiovascular Exam Cardiovascular Exam: +S1, +S2 - GI/Abdominal Exam GI & Abdominal Exam: Soft - Neurological Exam Neurological exam: Alert, Oriented x3 - Psychiatric Exam Psychiatric exam: Normal Affect, Normal Mood - Skin Skin Exam: Normal Color, Warm Results - Vital Signs Recent Vital Signs: Last Vital Signs Temp 98.4 F 06/30/18 07:30 Pulse 67 06/30/18 08:33 Resp 20 06/30/18 07:30 BP 153/86 H 06/30/18 08:33 Pulse Ox 97 06/30/18 07:30 - Labs Result Diagrams: 06/28/18 06:00 06/28/18 06:00 Assessment & Plan (1) Pelvic fracture Status: Acute - Assessment and Plan (Free Text) Assessment: cont therapy dr valdez consulted pain management meds reconciled monitor vitals rest of plan as ordered
--- NOTE | 2018-06-30 17:54 | CP.PCM.PN ---
Subjective - Date & Time of Evaluation Date of Evaluation: 06/30/18 Time of Evaluation: 11:00 - Subjective Subjective: patient seen and examined at bedside. Interim events noted No complaints offered at this time, requests increase of pain meds denies cp/sob/fever/chills. available diagnostic data reviewed Review of Systems All systems: reviewed and no additional remarkable complaints except mentioned above Objective Vital Signs Stable - Constitutional Appears: Non-toxic, No Acute Distress Head Exam: NORMAL INSPECTION Eye Exam: Normal appearance Respiratory Exam: NORMAL BREATHING PATTERN Cardiovascular Exam: +S1, +S2 GI & Abdominal Exam: Soft Neurological Exam: Alert, Awake Psychiatric exam: Normal Affect, Normal Mood Skin Exam: Normal Color, Warm Assessment and Plan monitor vitals monitor labs Cont meds Cont tx consultants appreciated input increase gabapentin will defer further pain medication recommendations to dr valdez rest of plan as ordered Assessment and Plan (1) Pelvic fracture Status: Acute
[2018-07-01] MEDS ORDERED: Oxycodone/Acetaminophen 5/325 mg Tab PO PRN (01:55)
[2018-07-01] MEDS: Oxycodone/Acetaminophen 5/325 mg Tab PO PRN ×4 (02:17→18:57)
[2018-07-01] MEDS: oxyCODONE 20 mg ER Tab (oxyCONTIN) PO SCH ×2 (08:55→21:13)
[2018-07-01] MEDS: Fluticasone-Salmeterol 250-50mcg Diskus IH SCH ×2 (08:55→17:34)
[2018-07-01] MEDS: Multivitamin With Minerals Tab PO SCH (08:55)
[2018-07-01] MEDS: Ammonium Lactate 12% Cream (140 g) TOP SCH (08:56)
[2018-07-01] MEDS: Lidocaine 5% Patch TD SCH (08:56)
[2018-07-01] MEDS: Magnesium Oxide 400 mg Tab UD PO SCH (08:57)
[2018-07-01] MEDS: Potassium Chloride 10 mEq ER Tab PO SCH (08:57)
[2018-07-01] MEDS: Methocarbamol 500 MG Tab PO SCH ×3 (08:58→17:37)
[2018-07-01] MEDS: POLYETHYLENE GLYCOL 3350 17 GM/Dose PACKET PO PRN (09:00)
[2018-07-02] MEDS: Oxycodone/Acetaminophen 5/325 mg Tab PO PRN ×3 (02:56→17:35)
--- NOTE | 2018-07-02 07:38 | CP.PCM.PN ---
Subjective - Date & Time of Evaluation Date of Evaluation: 06/29/18 Time of Evaluation: 10:45 - Subjective Subjective: Patient is doing well with PT Asks for a lot of pain meds Has no headaches no chest pain or dizziness or SOB Noted elevated liver enzymes Objective - Vital Signs/Intake and Output Vital Signs (last 24 hours): Temp Pulse Resp BP Pulse Ox 97.9 F 63 20 130/78 95 07/01/18 21:16 07/01/18 21:16 07/01/18 21:16 07/01/18 21:16 07/01/18 21:16 - Medications Medications: Current Medications Acetaminophen (Tylenol 325mg Tab) 650 mg PO Q6 PRN PRN Reason: pain 1-3 Albuterol/Ipratropium (Duoneb 3 Mg/0.5 Mg (3 Ml) Ud) 3 ml IH RTID PRN PRN Reason: SOB Amlodipine Besylate (Norvasc) 10 mg PO DAILY [facility] Last Admin: 07/01/18 08:59 Dose: 10 mg Aspirin (Aspirin) 325 mg PO DAILY [facility] Last Admin: 07/01/18 09:00 Dose: 325 mg Atorvastatin Calcium (Lipitor) 40 mg PO HS [facility] Last Admin: 07/01/18 21:16 Dose: 40 mg Carvedilol (Coreg) 12.5 mg PO Q12 [facility] Last Admin: 07/01/18 21:16 Dose: 12.5 mg Docusate Sodium (Colace) 100 mg PO BID [facility] Last Admin: 07/01/18 17:34 Dose: 100 mg Duloxetine HCl (Cymbalta) 60 mg PO DAILY [facility] Last Admin: 07/01/18 08:57 Dose: 60 mg Ergocalciferol (Drisdol 50,000 Intl Units Cap) 1 cap PO Th [facility] Last Admin: 06/28/18 08:34 Dose: 1 cap Ferrous Sulfate (Feosol) 325 mg PO BID [facility] Last Admin: 07/01/18 17:35 Dose: 325 mg Folic Acid (Folic Acid) 1 mg PO DAILY [facility] Last Admin: 07/01/18 08:59 Dose: 1 mg Gabapentin (Neurontin) 600 mg PO TID [facility] Last Admin: 07/01/18 17:35 Dose: 600 mg Lactic Acid (Lac-Hydrin 12% Cream (140 G)) 1 ea TOP DAILY [facility] Last Admin: 07/01/18 08:56 Dose: 1 applic Lidocaine (Lidoderm) 1 ea TD DAILY [facility] Last Admin: 07/01/18 08:56 Dose: 1 ea Lisinopril (Zestril) 40 mg PO DAILY [facility] Last Admin: 07/01/18 09:01 Dose: 40 mg Lorazepam (Ativan) 1 mg PO BID PRN PRN Reason: Anxiety Last Admin: 06/28/18 09:57 Dose: 1 mg Magnesium Oxide (Mag-Ox) 400 mg PO DAILY [facility] Last Admin: 07/01/18 08:57 Dose: 400 mg Methocarbamol (Robaxin) 500 mg PO TID [facility] Last Admin: 07/01/18 17:37 Dose: 500 mg Montelukast Sodium (Singulair) 10 mg PO DAILY [facility] Last Admin: 07/01/18 08:56 Dose: 10 mg Multivitamins/Minerals (Therapeutic-M Tab) 1 tab PO DAILY [facility] Last Admin: 07/01/18 08:55 Dose: 1 tab Oxcarbazepine (Trileptal) 900 mg PO DAILY [facility] Last Admin: 07/01/18 08:57 Dose: 900 mg Oxycodone HCl (Oxycontin Extended Release Tab) 20 mg PO Q12 [facility] Last Admin: 07/01/18 21:13 Dose: 20 mg Oxycodone/Acetaminophen (Percocet 5/325 Mg Tab) 2 tab PO Q4 PRN PRN Reason: Pain, severe (8-10) Stop: 07/04/18 14:29 Last Admin: 07/02/18 07:31 Dose: 2 tab Polyethylene Glycol (Miralax) 17 gm PO DAILY PRN PRN Reason: Constipation Last Admin: 07/01/18 09:00 Dose: 17 gm Potassium Chloride (Klor-Con 10) 10 meq PO DAILY [facility] Last Admin: 07/01/18 08:57 Dose: 10 meq Prednisone (Prednisone Tab) 20 mg PO Q24H [facility] Stop: 07/03/18 17:52 Prednisone (Prednisone Tab) 10 mg PO Q24H [facility] Stop: 07/05/18 17:53 Fluticasone/Salmeterol (Advair Diskus 250/50) 1 puff IH BID [facility] Last Admin: 07/01/18 17:34 Dose: 1 puff Thiamine HCl (Vitamin B1 Tab) 100 mg PO DAILY [facility] Last Admin: 07/01/18 08:58 Dose: 100 mg Zolpidem Tartrate (Ambien) 5 mg PO HS PRN PRN Reason: for sleep Last Admin: 07/01/18 22:56 Dose: 5 mg - Labs Labs: 06/28/18 06:00 06/28/18 06:00 - Head Exam Head Exam: NORMAL INSPECTION - Eye Exam Eye Exam: Normal appearance - ENT Exam ENT Exam: Mucous Membranes Moist - Respiratory Exam Respiratory Exam: Clear to Ausculation Bilateral - GI/Abdominal Exam GI & Abdominal Exam: Normal Bowel Sounds Assessment and Plan (1) Pelvic fracture Status: Acute (2) Abnormal liver enzymes Status: Acute (3) Anxiety Status: Acute (4) Depression Status: Acute (5) HTN (hypertension) Status: Acute (6) Hypercholesterolemia Status: Acute - Assessment and Plan (Free Text) Plan: Cont meds decrease atorvastatin zetia US of the liver gb
[2018-07-02] MEDS: oxyCODONE 20 mg ER Tab (oxyCONTIN) PO SCH ×2 (08:43→21:35)
[2018-07-02] MEDS: Methocarbamol 500 MG Tab PO SCH ×3 (08:45→17:37)
[2018-07-02] MEDS: Fluticasone-Salmeterol 250-50mcg Diskus IH SCH ×2 (08:46→17:37)
[2018-07-02] MEDS: Multivitamin With Minerals Tab PO SCH (08:46)
[2018-07-02] MEDS: Magnesium Oxide 400 mg Tab UD PO SCH (08:49)
[2018-07-02] MEDS: Ammonium Lactate 12% Cream (140 g) TOP SCH (08:49)
[2018-07-02] MEDS: Lidocaine 5% Patch TD SCH (08:50)
[2018-07-02 09:07] LABS: ALB/GLOB RATIO 1.2 (1.0-2.1); ALT/SGPT 56 U/L (21-72); AST/SGOT 48 U/L (17-59); BLOOD UREA NITROGEN 15 mg/dl (9-20); CALCIUM 9.8 mg/dL (8.4-10.2); GFR NON-AFRICAN AMERICAN > 60
[2018-07-02 13:33] LABS: HEPATITIS C ANTIBODY NEGATIVE (NEGATIVE)
--- NOTE | 2018-07-02 15:50 | CP.PCM.PN ---
Subjective - Date & Time of Evaluation Date of Evaluation: 07/02/18 Time of Evaluation: 10:00 - Subjective Subjective: patient seen and examined at bedside. Interim events noted No complaints offered at this time, requests increase of pain meds due to right ankle pain denies cp/sob/fever/chills. available diagnostic data reviewed Review of Systems All systems: reviewed and no additional remarkable complaints except mentioned above Objective Vital Signs Stable - Constitutional Appears: Non-toxic, No Acute Distress Head Exam: NORMAL INSPECTION Eye Exam: Normal appearance Respiratory Exam: NORMAL BREATHING PATTERN Cardiovascular Exam: +S1, +S2 GI & Abdominal Exam: Soft Neurological Exam: Alert, Awake Psychiatric exam: Normal Affect, Normal Mood Skin Exam: Normal Color, Warm Assessment and Plan monitor vitals monitor labs Cont meds Cont therapy consultants appreciated input increased gabapentin, will defer further pain medication recommendations to dr valdez rest of plan as ordered Assessment and Plan (1) Pelvic fracture Status: Acute
[2018-07-02] MEDS: Potassium Chloride 10 mEq ER Tab PO SCH (17:36)
--- NOTE | 2018-07-02 17:45 | CP.PCM.PN ---
Subjective - Date & Time of Evaluation Date of Evaluation: 07/02/18 Time of Evaluation: 17:44 - Subjective Subjective: Patient seen in the room still c/o pain I do not want to increase narcotics he appears quite comfortable I will increase neurontin to 800mg tid as his pain is more burning in nature Prednisone taper has not seemingly been that beneficial Objective - Vital Signs/Intake and Output Vital Signs (last 24 hours): Temp Pulse Resp BP Pulse Ox 97.9 F 68 20 146/87 98 07/02/18 07:40 07/02/18 08:52 07/02/18 07:40 07/02/18 08:52 07/02/18 07:40 - Medications Medications: Current Medications Acetaminophen (Tylenol 325mg Tab) 650 mg PO Q6 PRN PRN Reason: pain 1-3 Albuterol/Ipratropium (Duoneb 3 Mg/0.5 Mg (3 Ml) Ud) 3 ml IH RTID PRN PRN Reason: SOB Amlodipine Besylate (Norvasc) 10 mg PO DAILY [facility] Last Admin: 07/02/18 08:49 Dose: 10 mg Aspirin (Aspirin) 325 mg PO DAILY [facility] Last Admin: 07/02/18 08:46 Dose: 325 mg Carvedilol (Coreg) 12.5 mg PO Q12 [facility] Last Admin: 07/02/18 08:52 Dose: 12.5 mg Docusate Sodium (Colace) 100 mg PO BID [facility] Last Admin: 07/02/18 17:37 Dose: 100 mg Duloxetine HCl (Cymbalta) 60 mg PO DAILY [facility] Last Admin: 07/02/18 08:52 Dose: 60 mg Ezetimibe (Zetia) 10 mg PO DAILY [facility] Last Admin: 07/02/18 17:36 Dose: 10 mg Ergocalciferol (Drisdol 50,000 Intl Units Cap) 1 cap PO Th [facility] Last Admin: 06/28/18 08:34 Dose: 1 cap Ferrous Sulfate (Feosol) 325 mg PO BID [facility] Last Admin: 07/02/18 17:37 Dose: 325 mg Folic Acid (Folic Acid) 1 mg PO DAILY [facility] Last Admin: 07/02/18 08:47 Dose: 1 mg Lactic Acid (Lac-Hydrin 12% Cream (140 G)) 1 ea TOP DAILY [facility] Last Admin: 07/02/18 08:49 Dose: 1 applic Lidocaine (Lidoderm) 1 ea TD DAILY [facility] Last Admin: 07/02/18 08:50 Dose: 1 ea Lisinopril (Zestril) 40 mg PO DAILY [facility] Last Admin: 07/02/18 08:48 Dose: 40 mg Lorazepam (Ativan) 1 mg PO BID PRN PRN Reason: Anxiety Last Admin: 06/28/18 09:57 Dose: 1 mg Magnesium Oxide (Mag-Ox) 400 mg PO DAILY [facility] Last Admin: 07/02/18 08:49 Dose: 400 mg Methocarbamol (Robaxin) 500 mg PO TID [facility] Last Admin: 07/02/18 17:37 Dose: 500 mg Montelukast Sodium (Singulair) 10 mg PO DAILY [facility] Last Admin: 07/02/18 08:49 Dose: 10 mg Multivitamins/Minerals (Therapeutic-M Tab) 1 tab PO DAILY [facility] Last Admin: 07/02/18 08:46 Dose: 1 tab Oxcarbazepine (Trileptal) 900 mg PO DAILY [facility] Last Admin: 07/02/18 08:46 Dose: 900 mg Oxycodone HCl (Oxycontin Extended Release Tab) 20 mg PO Q12 [facility] Last Admin: 07/02/18 08:43 Dose: 20 mg Oxycodone/Acetaminophen (Percocet 5/325 Mg Tab) 2 tab PO Q4 PRN PRN Reason: Pain, severe (8-10) Stop: 07/04/18 14:29 Last Admin: 07/02/18 17:35 Dose: 2 tab Polyethylene Glycol (Miralax) 17 gm PO DAILY PRN PRN Reason: Constipation Last Admin: 07/01/18 09:00 Dose: 17 gm Potassium Chloride (Klor-Con 10) 10 meq PO DAILY [facility] Last Admin: 07/02/18 17:36 Dose: 10 meq Prednisone (Prednisone Tab) 20 mg PO Q24H [facility] Stop: 07/03/18 17:52 Last Admin: 07/02/18 17:38 Dose: 20 mg Prednisone (Prednisone Tab) 10 mg PO Q24H [facility] Stop: 07/05/18 17:53 Fluticasone/Salmeterol (Advair Diskus 250/50) 1 puff IH BID [facility] Last Admin: 07/02/18 17:37 Dose: 1 puff Thiamine HCl (Vitamin B1 Tab) 100 mg PO DAILY [facility] Last Admin: 07/02/18 08:48 Dose: 100 mg Zolpidem Tartrate (Ambien) 5 mg PO HS PRN PRN Reason: for sleep Last Admin: 07/01/18 22:56 Dose: 5 mg - Labs Labs: 06/28/18 06:00 07/02/18 08:37
[2018-07-03] MEDS: Oxycodone/Acetaminophen 5/325 mg Tab PO PRN ×4 (01:47→18:37)
[2018-07-03] MEDS: oxyCODONE 20 mg ER Tab (oxyCONTIN) PO SCH ×2 (08:14→21:25)
[2018-07-03] MEDS: Lidocaine 5% Patch TD SCH (08:15)
[2018-07-03] MEDS: Potassium Chloride 10 mEq ER Tab PO SCH (08:16)
[2018-07-03] MEDS: Methocarbamol 500 MG Tab PO SCH ×3 (08:16→17:26)
[2018-07-03] MEDS: Multivitamin With Minerals Tab PO SCH (08:17)
[2018-07-03] MEDS: Fluticasone-Salmeterol 250-50mcg Diskus IH SCH ×2 (08:19→17:26)
[2018-07-03] MEDS: Magnesium Oxide 400 mg Tab UD PO SCH (08:20)
[2018-07-03] MEDS: POLYETHYLENE GLYCOL 3350 17 GM/Dose PACKET PO PRN (08:20)
[2018-07-03] MEDS: Ammonium Lactate 12% Cream (140 g) TOP SCH (08:21)
--- NOTE | 2018-07-03 12:00 | US ---
Date of service: 07/02/2018 HISTORY: abnormal liver enzymes COMPARISON: None. TECHNIQUE: Sonographic evaluation of the abdomen. FINDINGS: LIVER: Measures 17.8 cm. Hepatopedal blood flow. Fatty infiltration manifest ultrasonographically as increased echogenicity of the liver parenchyma. No mass. No intrahepatic bile duct dilatation. GALLBLADDER: Unremarkable. No gallstones. COMMON BILE DUCT: Measures 3.2 mm. No stones. No dilatation. PANCREAS: Unremarkable as visualized. No mass. No ductal dilatation. RIGHT KIDNEY: Measures 5.0 x 10.0cm. Normal echogenicity. No calculus, mass, or hydronephrosis. LEFT KIDNEY: Measures 5.9 x 11.5cm. Normal echogenicity. No calculus, mass, or hydronephrosis. SPLEEN: Normal in size and contour. No mass. AORTA: No aneurysmal dilatation. IVC: Unremarkable. OTHER FINDINGS: None. IMPRESSION: Unremarkable abdominal sonogram.
--- NOTE | 2018-07-03 13:17 | PCM.PSYTMC ---
Acute Rehab Team Conference - - Vital Signs: Vital Signs (Last 8 Hours): Vital Signs 07/03/18 07/03/18 07/03/18 07:35 08:18 08:19 Temperature 97.9 F Pulse Rate 74 74 74 Respiratory 18 Rate Blood Pressure 152/93 H 152/93 H 152/93 H O2 Sat by Pulse 100 Oximetry 07/03/18 07/03/18 08:22 09:00 Temperature 97.9 F Pulse Rate 74 74 Respiratory 18 Rate Blood Pressure 152/93 H 152/93 H O2 Sat by Pulse Oximetry Pain: 8 - Precautions: Precautions: Fall Prevention, Hip Precautions - Medications/Other Issues: Comment: patient have pain all the time especially when sitting in the chair sometimes pain goes to 15 as said, awaiting for abdominal ultrasound report for elevated liver enzymes - Consults: Comment: Dr Bear - Toileting: Toileting: Supervision - Bladder Management: Bladder Pattern: Normal Voiding Method: Toilet, Urinal Bladder Management: Modified Independent - Transfers: Transfers: Supervision - ADL's: ADL's: Supervision - Pain Management: Other Intervention:: patient on oxycontin extended release ,percocet 2 tab breakthrough pain neurontin ,robaxin lidoderm - Patient/Family Teaching: Other Intervention:: medication teaching ,safety fall precaution pain management - Goals/Time Frame: Comment: as per multidiciplinary plan of care - Provider: Registered Nurse:: Joan Bauer Physical Therapy - Bed Mobility Bed Mobility: Verbal Cues, Minimal Assistance Comment: Pt w/ difficulty sequencing during bed mob due to pain and weakness. Pt used trapeze during sit to supine - Transfers Wheelchair to Mat: Verbal Cues, Minimal Assistance Sit to Stand: Verbal Cues, Contact Guard Comment: mod vc for safe hand placement during t/f - Ambulation Level of Assistance: Supervision, Verbal Cues, Contact Guard Distance (ft.): 200 Orthoses: N/A Comment: x6, w/ w/c follow iniitally discontinued. CG/CS. vc/tc to incr B step length, initial contact B heel strike, upright posture, decr'd excessive WB BUE. Quality of gait improved w/ incr amb. distance and bouts. Pt requested to incr bouts of amb secondary to decr'd pain during amb compared to sitting in w/c. - Stair Negotiation Stairs: Level of Assistance: Verbal Cues, Minimal Assistance Number of Stairs: 4 Comment: 4-6 in steps, step to pattern. asc leading w/ LLE, desc leading w/ RLE provided less pain compared to traditional method (asc w/ RLE, desc w/ LLE) - Standing Balance Static Stand: Contact Guard Assist Comment: w/ RW - Pain Pain (assessed during therapy session): 10 Alleviating Techniques: Medication, Ice, Position Change, Distraction, Relaxation Techniques, Exercise, Inactivity Comment: pt dx L pubic fx. pt c/o pain BLE (pelvic/hip region) R > L and coccyx - Insight/Carryover Insight/Carryover: Good - Patient/Family Education Comment: pain mgmt, edema mgmt, pelvic fx recovery related topics, posture, DME, fxnl mob, PT goals, balance, activity pacing, effects of prolonged bed rest - Assessment/Plan Assessment: 58 yo male admitted to [facility] acute rehab s/p L pelvic fx. Currently, pt requires CG/CS for RW, CG/min A for t/f and bed mob and min A for stairs. Pt cont's to complain of severe pain (coccyx and B pelvis R > L), which is worse during fxnl mob and when sitting upright (w/c, EOB). Pt has multiple pain medications being used to address sx, but sx persist. Pt likely has poor tolerance to pain meds due to hx of ETOH abuse possibly exacerbated by use of psych meds. Pt also presents w/ significant edema/inflammation, B ecchymosis and intraperitoneal hematoma from L pelvic fx and subsequent soft tissue injuries. Pt w/ large quanity of increased fluids in his abdominal/pelvic regions due to the aforementioned issues. This may be causing excess pressure on all the structures in these areas, further exacerbating his pain. Pt may also benefit from lumbar MRI to r/o disc pathology. The above issues are negatively impacting pt's tolerance to sessions and his progress. Pt requires freq extended rest periods and multiple interventions to address pain each session. Cont'd skilled PT recommended to maximize fxnl mob, balance, activity tolerance and safety awareness. - Goals Timeframe: 3 weeks Goals: Sit < > supine mod I. All functional tranfsers mod I. Pt will ambulate 1000 ft mod I with SPC. Pt will ascend/descend flight of stairs mod I with handrail - Provider Physical Therapist:: Deedee Rodriguez License Number:: [id number] Occupational Therapy - Arousal/Attention/Orientation Level of Consciousness: Awake, Alert Patient Orientation: Person, Place, Time, Appropriate to Age, Appropriate to Situation Assessment Comment: +anxious - ADL/IADL Self Feeding: Modified Independent Grooming: Set-up Help Bathing-Upper Ext: Supervision, Verbal Cues, Set-up Help Bathing-Lower Ext: Contact Guard, Minimal Assistance Dressing-Upper Ext: Set-up Help Dressing-Lower Ext: Set-up Help, Contact Guard, Minimal Assistance - Sitting Balance Static Sitting: Independent with upper extremity support Dynamic Sitting: Reaches across midline, Reaches out of base of support, Reaches within base of support, Requires supervision, Contact Guard Assist Comment: limited by BLES pain - Transfers Wheelchair to Bed Transfers: Supervision, Verbal Cues, Set-up Help Toilet Transfers: Supervision, Verbal Cues, Set-up Help Comment: shower transfers: CS - Upper Extremity Status Right Upper Extremity Comment: AROM is WNLS Left Upper Extremity Comment: L shoulder flex/abduction limited by old injury, L elbow, L forearm/L wrist & L hand WFLS - Pain Pain (assessed during therapy session): 10 Alleviating Techniques: Medication, Heat, Ice, Massage, Position Change, Inactivity Comment: R low back, Hip, coccyx - Insight/Carryover Insight/Carryover: Fair - Patient/Family Education Comment: -adl, transfer/mobility training with compesnsatory/adaptive strategies. -pain management. -w/c and bed positioning to alleviate pain. - adl particiation encouragement. -rehab/OT goals, plan of care. -encourage OOB activities for recovery process. -further training /education warranted to increase carryover - Assessment/Plan Assessment: Pt continues to have difficulty maintaining seated position in w/c 2' cocccyx pain, R low back pain . Pt mentions more comfortable standing OR supine in bed. Pt needs encouragement to fully engage in therapy. Pt with increase comfort with bolster under B LES to off load back. Pt will continue skilled OT for adls/transfers/mobillity & homemaking training using compensatory strtategies/adaptive devices, pain manangement, DME needs assessment for safe transition home. Pt may benefit from psychology consult for coping strategies. Pt responds well to biofreeze massage & moist heat R low back area. Pt may like ly need 3 in one commode, RW, transfer tub bench and hip kit. Pt's insurance does not cover bathing equipment thus pt can sponge bathe for safety since unable to step in tub. To further assess needs as pt progresses. *PROGRESS LIMITED BY PAIN AND ANXIETY - Goals Timeframe: 8 days Comment: *GROOMING: Supervision/standing at sink. *UPPER BODY DRESSING: I/setup. *LOWER BODY DRESSING: Supervision with assistive devices. *TOILETING: Supervision & verbal cues. *TRANSFERS:<->bed, commode, chair and other surfaces with Supervision with RW. *BATHING: Supervision and verbal cues seated intermittently - Provider Occupational Therapist:: Yanet Livingston License Number: [id number] Recreational Therapy - Participation Participation: Participates in Individual and/or Group Sessions - Attendance Attendance: 3-5 times per week - Activities Leisure Activities: Reading - Socialization Level of Socialization: Initiates/interacts freely with care givers and peer - Diversional Time Diversional Time: reading, television - Assessment Assessment/Plan: Pt receives daily room visits for social support and encouragement to participate in recreation therapy sessions. Pt enjoys socializing with therapists and peers during room visits or therapy sessions. Pt provided with book to read during his free time as well. Pt's barriers to participation are pain and decrease activity tolerance level. Pt will continue t o be encouraged to participate in sessions to improve diversion from pain and activity tolerance level. Problems Currently Limiting Participation: Pt will be encouraged to participate and tolerate at least 20 minutes of leisure task for diversion purposes and improve leisure awareness level for two consecutive days by date of discharge. Goals and Time Frame: Pt will be encouraged to participate and tolerate at least 20 minutes of leisure task for diversion purposes and improve leisure awareness level for two consecutive days by date of discharge. - Provider Therapist: Dorothy Kruse Nutrition - Current Diet Current Diet/Supplement/Feedings: 2 gram Na diet - Appetite Percent Meal Consumed: 75-100% - Assessment/Goals/Time Frame Assessments/Goals/Time Frame: Pt at moderate nutritional risk. goal: 1. Pt to consume 75-100% of meals. Follow-up due on 07/05/2018 - Provider Provider: Suzanne Goncalves Case Management - Psychosocial Assessment Support Systems: Presley donis) - [phone] Psychological Interventions/Needs: Patient is AAOx3 and able to verbalize needs. Discharge Concerns: Patient lives alone in a building with 8 steps to enter and elevator access. Patient/Family Meeting: CM met with patient and rehab team. Intervention/Goal/Outcome: 1. Goal: Intermittent Supervision 2. Plan: home with VNS 3. DME needs 4. schedule follow up appts 5. continued emotional support - Discharge Plan Discharge Plan: Home with services Home Services: [facility] - Provider Provider: Chari Delaney License Number: [id number] Rehabilitation Plan - Treatment Plan Treatment Plan: Physical Therapy, Occupational Therapy, Dietary, Pain Management, Patient/Family Education - Discharge Plan Estimated Date of Discharge: 07/09/18 Discharge to: Home
--- NOTE | 2018-07-03 13:42 | CP.PCM.PN ---
Subjective - Date & Time of Evaluation Date of Evaluation: 07/03/18 Time of Evaluation: 13:39 - Subjective Subjective: Patient with non-displaced pelvic fracture. Pain and numbness radiating into the right leg though. He has increased pain as steroid taper has worn off Objective - Vital Signs/Intake and Output Vital Signs (last 24 hours): Temp Pulse Resp BP Pulse Ox 97.9 F 74 18 152/93 H 100 07/03/18 09:00 07/03/18 09:00 07/03/18 09:00 07/03/18 09:00 07/03/18 07:35 - Medications Medications: Current Medications Acetaminophen (Tylenol 325mg Tab) 650 mg PO Q6 PRN PRN Reason: pain 1-7 Albuterol/Ipratropium (Duoneb 3 Mg/0.5 Mg (3 Ml) Ud) 3 ml IH RTID PRN PRN Reason: SOB Amlodipine Besylate (Norvasc) 10 mg PO DAILY [facility] Last Admin: 07/03/18 08:19 Dose: 10 mg Aspirin (Aspirin) 325 mg PO DAILY [facility] Last Admin: 07/03/18 08:21 Dose: 325 mg Carvedilol (Coreg) 12.5 mg PO Q12 [facility] Last Admin: 07/03/18 08:18 Dose: 12.5 mg Docusate Sodium (Colace) 100 mg PO BID [facility] Last Admin: 07/03/18 08:17 Dose: 100 mg Duloxetine HCl (Cymbalta) 60 mg PO DAILY [facility] Last Admin: 07/03/18 08:21 Dose: 60 mg Ezetimibe (Zetia) 10 mg PO DAILY [facility] Last Admin: 07/03/18 09:00 Dose: 10 mg Ergocalciferol (Drisdol 50,000 Intl Units Cap) 1 cap PO Th [facility] Last Admin: 06/28/18 08:34 Dose: 1 cap Ferrous Sulfate (Feosol) 325 mg PO BID [facility] Last Admin: 07/03/18 08:20 Dose: 325 mg Folic Acid (Folic Acid) 1 mg PO DAILY [facility] Last Admin: 07/03/18 08:20 Dose: 1 mg Gabapentin (Neurontin) 800 mg PO TID [facility] Last Admin: 07/03/18 08:16 Dose: 800 mg Lactic Acid (Lac-Hydrin 12% Cream (140 G)) 1 ea TOP DAILY [facility] Last Admin: 07/03/18 08:21 Dose: 1 applic Lidocaine (Lidoderm) 1 ea TD DAILY [facility] Last Admin: 07/03/18 08:15 Dose: 1 ea Lisinopril (Zestril) 40 mg PO DAILY [facility] Last Admin: 07/03/18 08:22 Dose: 40 mg Lorazepam (Ativan) 1 mg PO BID PRN PRN Reason: Anxiety Last Admin: 06/28/18 09:57 Dose: 1 mg Magnesium Oxide (Mag-Ox) 400 mg PO DAILY [facility] Last Admin: 07/03/18 08:20 Dose: 400 mg Methocarbamol (Robaxin) 500 mg PO TID [facility] Last Admin: 07/03/18 08:16 Dose: 500 mg Montelukast Sodium (Singulair) 10 mg PO DAILY [facility] Last Admin: 07/03/18 08:16 Dose: 10 mg Multivitamins/Minerals (Therapeutic-M Tab) 1 tab PO DAILY [facility] Last Admin: 07/03/18 08:17 Dose: 1 tab Oxcarbazepine (Trileptal) 900 mg PO DAILY [facility] Last Admin: 07/03/18 08:17 Dose: 900 mg Oxycodone HCl (Oxycontin Extended Release Tab) 20 mg PO Q12 [facility] Last Admin: 07/03/18 08:14 Dose: 20 mg Oxycodone/Acetaminophen (Percocet 5/325 Mg Tab) 2 tab PO Q4 PRN PRN Reason: Pain, severe (8-10) Stop: 07/04/18 14:29 Last Admin: 07/03/18 12:17 Dose: 2 tab Polyethylene Glycol (Miralax) 17 gm PO DAILY PRN PRN Reason: Constipation Last Admin: 07/03/18 08:20 Dose: 17 gm Potassium Chloride (Klor-Con 10) 10 meq PO DAILY [facility] Last Admin: 07/03/18 08:16 Dose: 10 meq Prednisone (Prednisone Tab) 60 mg PO Q24H [facility] Stop: 07/04/18 13:46 Prednisone (Prednisone Tab) 50 mg PO Q24H [facility] Stop: 07/06/18 13:38 Prednisone (Prednisone Tab) 40 mg PO Q24H [facility] Stop: 07/08/18 13:38 Prednisone (Prednisone Tab) 30 mg PO Q24H [facility] Stop: 07/10/18 13:38 Prednisone (Prednisone Tab) 20 mg PO Q24H [facility] Stop: 07/12/18 13:38 Prednisone (Prednisone Tab) 10 mg PO Q24H [facility] Stop: 07/14/18 13:38 Fluticasone/Salmeterol (Advair Diskus 250/50) 1 puff IH BID [facility] Last Admin: 07/03/18 08:19 Dose: 1 puff Thiamine HCl (Vitamin B1 Tab) 100 mg PO DAILY [facility] Last Admin: 07/03/18 08:17 Dose: 100 mg Zolpidem Tartrate (Ambien) 5 mg PO HS PRN PRN Reason: for sleep Last Admin: 07/02/18 21:35 Dose: 5 mg - Labs Labs: 06/28/18 06:00 07/02/18 08:37 - Constitutional Appears: Non-toxic, No Acute Distress - Head Exam Head Exam: ATRAUMATIC, NORMAL INSPECTION - Eye Exam Eye Exam: EOMI - ENT Exam ENT Exam: Mucous Membranes Moist - Respiratory Exam Respiratory Exam: NORMAL BREATHING PATTERN - GI/Abdominal Exam GI & Abdominal Exam: absent: Distended (+ ecchymosis) - Neurological Exam Neurological Exam: Alert, Awake, CN II-XII Intact, Oriented x3 - Psychiatric Exam Psychiatric exam: Normal Affect, Normal Mood - Skin Skin Exam: Warm Assessment and Plan - Assessment and Plan (Free Text) Assessment: 58 year old non-displaced pelvic fracture PT/OT to continue to help increase functional independence Team conference for d/c planning Pain: notes right radicular symptoms I will restart a higher prednisone taper. Marked ETOH abuse in the past drinking 2 pints of ETOH and has an admission in ER 04/2016 Vascular: no evidence of DVT GI: No evidence of constipation or diarrhea Patient is an excellent acute rehabilitation candidate and will have focused pain management, wound care, PT, OT and recreational therapy to help facilitate a safe and appropriate d/c plan
--- NOTE | 2018-07-03 18:29 | CP.PCM.PN ---
Subjective - Date & Time of Evaluation Date of Evaluation: 07/03/18 Time of Evaluation: 12:00 - Subjective Subjective: Patient is doing well with PT. However noted to have right foot drop. Has no chest pain or SOB. Objective - Vital Signs/Intake and Output Vital Signs (last 24 hours): Temp Pulse Resp BP Pulse Ox 97.9 F 74 18 152/93 H 100 07/03/18 09:00 07/03/18 09:00 07/03/18 09:00 07/03/18 09:00 07/03/18 07:35 - Medications Medications: Current Medications Acetaminophen (Tylenol 325mg Tab) 650 mg PO Q6 PRN PRN Reason: pain 1-7 Albuterol/Ipratropium (Duoneb 3 Mg/0.5 Mg (3 Ml) Ud) 3 ml IH RTID PRN PRN Reason: SOB Amlodipine Besylate (Norvasc) 10 mg PO DAILY [facility] Last Admin: 07/03/18 08:19 Dose: 10 mg Aspirin (Aspirin) 325 mg PO DAILY [facility] Last Admin: 07/03/18 08:21 Dose: 325 mg Carvedilol (Coreg) 12.5 mg PO Q12 [facility] Last Admin: 07/03/18 08:18 Dose: 12.5 mg Docusate Sodium (Colace) 100 mg PO BID [facility] Last Admin: 07/03/18 17:33 Dose: 100 mg Duloxetine HCl (Cymbalta) 60 mg PO DAILY [facility] Last Admin: 07/03/18 08:21 Dose: 60 mg Ezetimibe (Zetia) 10 mg PO DAILY [facility] Last Admin: 07/03/18 09:00 Dose: 10 mg Ergocalciferol (Drisdol 50,000 Intl Units Cap) 1 cap PO Th [facility] Last Admin: 06/28/18 08:34 Dose: 1 cap Ferrous Sulfate (Feosol) 325 mg PO BID [facility] Last Admin: 07/03/18 17:26 Dose: 325 mg Folic Acid (Folic Acid) 1 mg PO DAILY [facility] Last Admin: 07/03/18 08:20 Dose: 1 mg Gabapentin (Neurontin) 800 mg PO TID [facility] Last Admin: 07/03/18 17:27 Dose: 800 mg Lactic Acid (Lac-Hydrin 12% Cream (140 G)) 1 ea TOP DAILY [facility] Last Admin: 07/03/18 08:21 Dose: 1 applic Lidocaine (Lidoderm) 1 ea TD DAILY [facility] Last Admin: 07/03/18 08:15 Dose: 1 ea Lisinopril (Zestril) 40 mg PO DAILY [facility] Last Admin: 07/03/18 08:22 Dose: 40 mg Lorazepam (Ativan) 1 mg PO BID PRN PRN Reason: Anxiety Last Admin: 06/28/18 09:57 Dose: 1 mg Magnesium Oxide (Mag-Ox) 400 mg PO DAILY [facility] Last Admin: 07/03/18 08:20 Dose: 400 mg Methocarbamol (Robaxin) 500 mg PO TID [facility] Last Admin: 07/03/18 17:26 Dose: 500 mg Montelukast Sodium (Singulair) 10 mg PO DAILY [facility] Last Admin: 07/03/18 08:16 Dose: 10 mg Multivitamins/Minerals (Therapeutic-M Tab) 1 tab PO DAILY [facility] Last Admin: 07/03/18 08:17 Dose: 1 tab Oxcarbazepine (Trileptal) 900 mg PO DAILY [facility] Last Admin: 07/03/18 08:17 Dose: 900 mg Oxycodone HCl (Oxycontin Extended Release Tab) 20 mg PO Q12 [facility] Last Admin: 07/03/18 08:14 Dose: 20 mg Oxycodone/Acetaminophen (Percocet 5/325 Mg Tab) 2 tab PO Q4 PRN PRN Reason: Pain, severe (8-10) Stop: 07/04/18 14:29 Last Admin: 07/03/18 12:17 Dose: 2 tab Polyethylene Glycol (Miralax) 17 gm PO DAILY PRN PRN Reason: Constipation Last Admin: 07/03/18 08:20 Dose: 17 gm Potassium Chloride (Klor-Con 10) 10 meq PO DAILY [facility] Last Admin: 07/03/18 08:16 Dose: 10 meq Prednisone (Prednisone Tab) 60 mg PO Q24H [facility] Stop: 07/04/18 13:46 Last Admin: 07/03/18 15:00 Dose: 60 mg Prednisone (Prednisone Tab) 50 mg PO Q24H [facility] Stop: 07/06/18 13:38 Prednisone (Prednisone Tab) 40 mg PO Q24H [facility] Stop: 07/08/18 13:38 Prednisone (Prednisone Tab) 30 mg PO Q24H [facility] Stop: 07/10/18 13:38 Prednisone (Prednisone Tab) 20 mg PO Q24H [facility] Stop: 07/12/18 13:38 Prednisone (Prednisone Tab) 10 mg PO Q24H [facility] Stop: 07/14/18 13:38 Fluticasone/Salmeterol (Advair Diskus 250/50) 1 puff IH BID [facility] Last Admin: 07/03/18 17:26 Dose: 1 puff Thiamine HCl (Vitamin B1 Tab) 100 mg PO DAILY [facility] Last Admin: 07/03/18 08:17 Dose: 100 mg Zolpidem Tartrate (Ambien) 5 mg PO HS PRN PRN Reason: for sleep Last Admin: 07/02/18 21:35 Dose: 5 mg - Labs Labs: 06/28/18 06:00 07/02/18 08:37 - Head Exam Head Exam: NORMAL INSPECTION - Eye Exam Eye Exam: Normal appearance - ENT Exam ENT Exam: Mucous Membranes Moist - Respiratory Exam Respiratory Exam: Clear to Ausculation Bilateral - Cardiovascular Exam Cardiovascular Exam: REGULAR RHYTHM - GI/Abdominal Exam GI & Abdominal Exam: Normal Bowel Sounds Assessment and Plan (1) Pelvic fracture Status: Acute (2) Abnormal liver enzymes Status: Acute (3) Anxiety Status: Acute (4) Depression Status: Acute (5) HTN (hypertension) Status: Acute (6) Hypercholesterolemia Status: Acute - Assessment and Plan (Free Text) Plan: Cont meds Follow up with Dr Marianela Cordero PT cont meds.
[2018-07-04] MEDS: Oxycodone/Acetaminophen 5/325 mg Tab PO PRN ×5 (00:12→23:46)
[2018-07-04] MEDS: oxyCODONE 20 mg ER Tab (oxyCONTIN) PO SCH ×2 (08:42→21:26)
[2018-07-04] MEDS: Multivitamin With Minerals Tab PO SCH (08:43)
[2018-07-04] MEDS: Fluticasone-Salmeterol 250-50mcg Diskus IH SCH ×2 (08:43→16:45)
[2018-07-04] MEDS: Methocarbamol 500 MG Tab PO SCH ×3 (08:44→16:45)
[2018-07-04] MEDS: Lidocaine 5% Patch TD SCH ×2 (08:46→12:26)
[2018-07-04] MEDS: Magnesium Oxide 400 mg Tab UD PO SCH (08:46)
[2018-07-04] MEDS: Potassium Chloride 10 mEq ER Tab PO SCH (08:47)
[2018-07-04] MEDS: Ammonium Lactate 12% Cream (140 g) TOP SCH (08:50)
--- NOTE | 2018-07-04 15:25 | CT ---
Date of service: 07/04/2018 PROCEDURE: CT pelvis HISTORY: r/o pelvic fracture COMPARISON: CT abdomen/pelvis 04/21/2019 TECHNIQUE: 2.5 mm contiguous axial sections were acquired through the pelvis. Sagittal and coronal images were reformatted from the axial scan. Total exam DLP: 424.73 mGy-cm. This CT exam was performed using 1 or more of the following dose reduction techniques: Automated exposure control, adjustment of the mA and/or kV according to patient size, and/or use of iterative reconstruction technique. FINDINGS: There is a nondisplaced fracture through the right sacral ala possibly extending through the S2 and S3 foraminae as well. No other sacral fracture is appreciated. The sacroiliac joints appear preserved. There is a comminuted fracture through the left superior pubic ramus and left pubic symphysis. There is a minimally displaced fracture through the left inferior pubic ramus. There is no additional fracture identified. IMPRESSION: Nondisplaced right sacral ala fracture. This may extend through the S2 and S3 sacral foramina E. comminuted fracture left superior pubic ramus and left pubic symphysis. Minimally displaced fracture left inferior pubic ramus.
--- NOTE | 2018-07-04 19:21 | CP.PCM.PN ---
Subjective - Date & Time of Evaluation Date of Evaluation: 07/04/18 Time of Evaluation: 19:20 - Subjective Subjective: Patient seen in the room had some relief with the prednisone but still with right radicular symptoms and has right ankle weakness will get MRI ortho has been called given sacral fracture and ankle weakness Objective - Vital Signs/Intake and Output Vital Signs (last 24 hours): Temp Pulse Resp BP Pulse Ox 97.9 F 86 20 151/87 H 98 07/04/18 08:04 07/04/18 08:50 07/04/18 08:04 07/04/18 08:50 07/04/18 08:41 - Medications Medications: Current Medications Acetaminophen (Tylenol 325mg Tab) 650 mg PO Q6 PRN PRN Reason: pain 1-7 Albuterol/Ipratropium (Duoneb 3 Mg/0.5 Mg (3 Ml) Ud) 3 ml IH RTID PRN PRN Reason: SOB Amlodipine Besylate (Norvasc) 10 mg PO DAILY [facility] Last Admin: 07/04/18 08:47 Dose: 10 mg Aspirin (Aspirin) 325 mg PO DAILY [facility] Last Admin: 07/04/18 08:49 Dose: 325 mg Carvedilol (Coreg) 12.5 mg PO Q12 [facility] Last Admin: 07/04/18 08:49 Dose: 12.5 mg Docusate Sodium (Colace) 100 mg PO BID [facility] Last Admin: 07/04/18 16:46 Dose: 100 mg Duloxetine HCl (Cymbalta) 60 mg PO DAILY [facility] Last Admin: 07/04/18 08:49 Dose: 60 mg Ezetimibe (Zetia) 10 mg PO DAILY [facility] Last Admin: 07/04/18 08:49 Dose: 10 mg Ergocalciferol (Drisdol 50,000 Intl Units Cap) 1 cap PO Th [facility] Last Admin: 06/28/18 08:34 Dose: 1 cap Ferrous Sulfate (Feosol) 325 mg PO BID [facility] Last Admin: 07/04/18 16:45 Dose: 325 mg Folic Acid (Folic Acid) 1 mg PO DAILY [facility] Last Admin: 07/04/18 08:43 Dose: 1 mg Gabapentin (Neurontin) 800 mg PO TID [facility] Last Admin: 07/04/18 16:45 Dose: 800 mg Lactic Acid (Lac-Hydrin 12% Cream (140 G)) 1 ea TOP DAILY [facility] Last Admin: 07/04/18 08:50 Dose: 1 applic Lidocaine (Lidoderm) 2 ea TD DAILY [facility] Last Admin: 07/04/18 12:26 Dose: Not Given Lisinopril (Zestril) 40 mg PO DAILY [facility] Last Admin: 07/04/18 08:50 Dose: 40 mg Lorazepam (Ativan) 1 mg PO BID PRN PRN Reason: Anxiety Last Admin: 06/28/18 09:57 Dose: 1 mg Magnesium Oxide (Mag-Ox) 400 mg PO DAILY [facility] Last Admin: 07/04/18 08:46 Dose: 400 mg Methocarbamol (Robaxin) 500 mg PO TID [facility] Last Admin: 07/04/18 16:45 Dose: 500 mg Montelukast Sodium (Singulair) 10 mg PO DAILY [facility] Last Admin: 07/04/18 08:43 Dose: 10 mg Multivitamins/Minerals (Therapeutic-M Tab) 1 tab PO DAILY [facility] Last Admin: 07/04/18 08:43 Dose: 1 tab Oxcarbazepine (Trileptal) 900 mg PO DAILY [facility] Last Admin: 07/04/18 08:44 Dose: 900 mg Oxycodone HCl (Oxycontin Extended Release Tab) 20 mg PO Q12 [facility] Last Admin: 07/04/18 08:42 Dose: 20 mg Oxycodone/Acetaminophen (Percocet 5/325 Mg Tab) 2 tab PO Q4 PRN PRN Reason: Pain, severe (8-10) Stop: 07/07/18 09:21 Last Admin: 07/04/18 17:27 Dose: 2 tab Polyethylene Glycol (Miralax) 17 gm PO DAILY PRN PRN Reason: Constipation Last Admin: 07/03/18 08:20 Dose: 17 gm Potassium Chloride (Klor-Con 10) 10 meq PO DAILY [facility] Last Admin: 07/04/18 08:47 Dose: 10 meq Prednisone (Prednisone Tab) 50 mg PO Q24H [facility] Stop: 07/06/18 13:38 Prednisone (Prednisone Tab) 40 mg PO Q24H [facility] Stop: 07/08/18 13:38 Prednisone (Prednisone Tab) 30 mg PO Q24H [facility] Stop: 07/10/18 13:38 Prednisone (Prednisone Tab) 20 mg PO Q24H [facility] Stop: 07/12/18 13:38 Prednisone (Prednisone Tab) 10 mg PO Q24H [facility] Stop: 07/14/18 13:38 Fluticasone/Salmeterol (Advair Diskus 250/50) 1 puff IH BID [facility] Last Admin: 07/04/18 16:45 Dose: 1 puff Thiamine HCl (Vitamin B1 Tab) 100 mg PO DAILY [facility] Last Admin: 07/04/18 08:44 Dose: 100 mg Zolpidem Tartrate (Ambien) 5 mg PO HS PRN PRN Reason: for sleep Last Admin: 07/03/18 21:25 Dose: 5 mg - Labs Labs: 06/28/18 06:00 07/02/18 08:37
[2018-07-05] MEDS: Oxycodone/Acetaminophen 5/325 mg Tab PO PRN ×4 (03:49→22:05)
[2018-07-05] MEDS: oxyCODONE 20 mg ER Tab (oxyCONTIN) PO SCH ×2 (08:53→21:14)
[2018-07-05] MEDS: Ammonium Lactate 12% Cream (140 g) TOP SCH (08:54)
[2018-07-05] MEDS: Fluticasone-Salmeterol 250-50mcg Diskus IH SCH ×2 (08:54→16:27)
[2018-07-05] MEDS: Multivitamin With Minerals Tab PO SCH (08:54)
[2018-07-05] MEDS: Lidocaine 5% Patch TD SCH (08:55)
[2018-07-05] MEDS: Ergocalciferol 50,000 Intl Units Cap PO SCH (08:56)
[2018-07-05] MEDS: Magnesium Oxide 400 mg Tab UD PO SCH (08:57)
[2018-07-05] MEDS: Potassium Chloride 10 mEq ER Tab PO SCH (08:57)
[2018-07-05] MEDS: Methocarbamol 500 MG Tab PO SCH ×3 (08:57→16:27)
--- NOTE | 2018-07-05 09:42 | MRI ---
Date of service: 07/05/2018 PROCEDURE: MR LUMBAR SPINE WITHOUT CONTRAST HISTORY: right foot drop COMPARISON: Pelvis CT without contrast 07/04/2018. TECHNIQUE: Multiecho multiplanar sequences were performed through the lumbar spine without the use of intravenous contrast. FINDINGS: Normal lumbar lordosis. Vertebral body heights are preserved. Abnormal Marrow signal change identified at the mid to inferior sacrum suspicious for potential contusions related to known sacral ala fractures. Presacral soft tissue thickening is suggested as well may reflect hematoma. Conus medullaris unremarkable at the level of L1. T12-L1: No disc herniation, spinal canal stenosis or neural foraminal narrowing. L1-2: No disc herniation, spinal canal stenosis or neural foraminal narrowing. L2-3: No disc herniation, spinal canal stenosis or neural foraminal narrowing. L3-4: No disc herniation. Minimal circumferential disc bulge is appreciated with moderate facet degenerative changes resulting in borderline central stenosis. Borderline bilateral neural foraminal stenosis also evident. L4-5: No disc herniation. A large circumferential disc bulge combines with marked facet joint degenerative changes to cause moderate central canal stenosis and moderate bilateral neural foraminal stenosis. L5-S1: No disc herniation. A large circumferential disc osteophyte complex results in moderate bilateral neural foraminal stenosis and only encroaching the bilateral lateral recesses with rather capacious central canal nevertheless identified. OTHER FINDINGS: None. IMPRESSION: 1. Moderate degenerative central stenosis L4-5. No severe stenosis or definite disc herniation throughout the examination. Multilevel degenerative neural foraminal stenoses bilateral inferior lumbar spine. 2. Posttraumatic contusions involving the bilateral sacrum, some of which is likely related to sacral ala fractures and others reflecting simply posttraumatic contusions. Presacral hematoma/edema identified. Posterior paraspinal hematoma is also likely overlying the left stephen sacrum related to sacral ala fracture.
--- NOTE | 2018-07-05 13:55 | CP.PCM.CON ---
History of Present Illness - History of Present Illness History of Present Illness: Orthopedic consultation Dr. Kimbrough 58M complains of back pain and left groin pain after fall whle trying to catch bus 06/22/18. He says that he fell backwards and was unable to walk due to pain after the fall. He has been in rehab slowly progressing with PT, but starting approx 6 days ago he started to notice his right foot was feeling different little by little and now he is unable to move his ankle. He did not have this problem in the past. He has a history of cervical stenosis and surgery by Dr. Madeline Correa in the past. He says his neck pain is chronic and no increase in neck pain after fall. Denies any upper extremity symptoms. No change in bowel/bladder. THe bruising to his sides and leg is improving. Review of Systems - Review of Systems All systems: reviewed and no additional remarkable complaints except - Constitutional Additional comments: no fever/chills - Genitourinary Genitourinary: As Per HPI - Musculoskeletal Musculoskeletal: As Per HPI - Integumentary Integumentary: As Per HPI - Neurological Neurological: As Per HPI - Hematologic/Lymphatic Additional comments: bruising after fall Past Patient History - Infectious Disease Hx of Infectious Diseases: None - Past Medical History & Family History Past Medical History?: Yes Past Family History: Reviewed and not pertinent - Past Social History Smoking Status: Light Smoker < 10 Cigarettes Daily Alcohol: < 2 Drinks/Day (but can be more) Drugs: Denies Home Situation {Lives}: Alone - CARDIAC Hx Cardiac Disorders: Yes Hx Hypercholesterolemia: Yes Hx Hypertension: Yes - PULMONARY Hx Respiratory Disorders: No - NEUROLOGICAL Hx Neurological Disorder: Yes Other/Comment: Hx craniotomy x SAH - HEENT Hx HEENT Problems: No - RENAL Hx Chronic Kidney Disease: No - ENDOCRINE/METABOLIC Hx Endocrine Disorders: No - HEMATOLOGICAL/ONCOLOGICAL Hx AIDS: No Hx Blood Transfusions: Yes Hx Blood Transfusion Reaction: No Hx Human Immunodeficiency Virus (HIV): No - INTEGUMENTARY Hx Dermatological Problems: No - MUSCULOSKELETAL/RHEUMATOLOGICAL Hx Falls: Yes Hx Fractures: Yes (Left pubic fracture) - GASTROINTESTINAL Hx Gastrointestinal Disorders: No - GENITOURINARY/GYNECOLOGICAL Hx Genitourinary Disorders: No - PSYCHIATRIC Hx Substance Use: No - SURGICAL HISTORY Hx Surgeries: Yes Other/Comment: Craniotomy for SAH - ANESTHESIA Hx Anesthesia: Yes Hx Anesthesia Reactions: No Hx Malignant Hyperthermia: No Meds Allergies/Adverse Reactions: Allergies Allergy/AdvReac Type Severity Reaction Status Date / Time seasonal Allergy Mild ITCHING Uncoded 06/27/18 20:21 - Medications Medications: Current Medications Acetaminophen (Tylenol 325mg Tab) 650 mg PO Q6 PRN PRN Reason: pain 1-7 Albuterol/Ipratropium (Duoneb 3 Mg/0.5 Mg (3 Ml) Ud) 3 ml IH RTID PRN PRN Reason: SOB Amlodipine Besylate (Norvasc) 10 mg PO DAILY [facility] Last Admin: 07/05/18 08:56 Dose: 10 mg Aspirin (Aspirin) 325 mg PO DAILY [facility] Last Admin: 07/05/18 08:57 Dose: 325 mg Carvedilol (Coreg) 12.5 mg PO Q12 [facility] Last Admin: 07/05/18 08:58 Dose: 12.5 mg Docusate Sodium (Colace) 100 mg PO BID [facility] Last Admin: 07/05/18 08:58 Dose: 100 mg Duloxetine HCl (Cymbalta) 60 mg PO DAILY [facility] Last Admin: 07/05/18 08:57 Dose: 60 mg Ezetimibe (Zetia) 10 mg PO DAILY [facility] Last Admin: 07/05/18 08:57 Dose: 10 mg Ergocalciferol (Drisdol 50,000 Intl Units Cap) 1 cap PO Th [facility] Last Admin: 07/05/18 08:56 Dose: 1 cap Ferrous Sulfate (Feosol) 325 mg PO BID [facility] Last Admin: 07/05/18 08:58 Dose: 325 mg Folic Acid (Folic Acid) 1 mg PO DAILY [facility] Last Admin: 07/05/18 08:57 Dose: 1 mg Gabapentin (Neurontin) 800 mg PO TID [facility] Last Admin: 07/05/18 12:32 Dose: 800 mg Lactic Acid (Lac-Hydrin 12% Cream (140 G)) 1 ea TOP DAILY [facility] Last Admin: 07/05/18 08:54 Dose: 1 applic Lidocaine (Lidoderm) 2 ea TD DAILY [facility] Last Admin: 07/05/18 08:55 Dose: 2 ea Lisinopril (Zestril) 40 mg PO DAILY [facility] Last Admin: 07/05/18 10:00 Dose: 40 mg Lorazepam (Ativan) 1 mg PO BID PRN PRN Reason: Anxiety Last Admin: 06/28/18 09:57 Dose: 1 mg Magnesium Oxide (Mag-Ox) 400 mg PO DAILY [facility] Last Admin: 07/05/18 08:57 Dose: 400 mg Methocarbamol (Robaxin) 500 mg PO TID [facility] Last Admin: 07/05/18 12:32 Dose: 500 mg Montelukast Sodium (Singulair) 10 mg PO DAILY [facility] Last Admin: 07/05/18 08:59 Dose: 10 mg Multivitamins/Minerals (Therapeutic-M Tab) 1 tab PO DAILY [facility] Last Admin: 07/05/18 08:54 Dose: 1 tab Oxcarbazepine (Trileptal) 900 mg PO DAILY [facility] Last Admin: 07/05/18 08:56 Dose: 900 mg Oxycodone HCl (Oxycontin Extended Release Tab) 20 mg PO Q12 [facility] Last Admin: 07/05/18 08:53 Dose: 20 mg Oxycodone/Acetaminophen (Percocet 5/325 Mg Tab) 2 tab PO Q4 PRN PRN Reason: Pain, severe (8-10) Stop: 07/07/18 09:21 Last Admin: 07/05/18 10:00 Dose: 2 tab Polyethylene Glycol (Miralax) 17 gm PO DAILY PRN PRN Reason: Constipation Last Admin: 07/03/18 08:20 Dose: 17 gm Potassium Chloride (Klor-Con 10) 10 meq PO DAILY [facility] Last Admin: 07/05/18 08:57 Dose: 10 meq Prednisone (Prednisone Tab) 50 mg PO Q24H [facility] Stop: 07/06/18 13:38 Last Admin: 07/05/18 12:37 Dose: 50 mg Prednisone (Prednisone Tab) 40 mg PO Q24H [facility] Stop: 07/08/18 13:38 Prednisone (Prednisone Tab) 30 mg PO Q24H [facility] Stop: 07/10/18 13:38 Prednisone (Prednisone Tab) 20 mg PO Q24H [facility] Stop: 07/12/18 13:38 Prednisone (Prednisone Tab) 10 mg PO Q24H [facility] Stop: 07/14/18 13:38 Pregabalin (Lyrica) 50 mg PO BID [facility] Fluticasone/Salmeterol (Advair Diskus 250/50) 1 puff IH BID [facility] Last Admin: 07/05/18 08:54 Dose: 1 puff Thiamine HCl (Vitamin B1 Tab) 100 mg PO DAILY [facility] Last Admin: 07/05/18 08:57 Dose: 100 mg Zolpidem Tartrate (Ambien) 5 mg PO HS PRN PRN Reason: for sleep Last Admin: 07/04/18 22:15 Dose: 5 mg Physical Exam - Constitutional Appears: Well, In Acute Distress (during exam and when moving in bed patient complains of back and RLE pain) - Head Exam Additional comments: old healed scars to head - Respiratory Exam Respiratory Exam: NORMAL BREATHING PATTERN - Cardiovascular Exam Additional comments: +DP/PT pulses - Extremities Exam Additional comments: sensation intact to LLE c/o numbness to right 1st dorsal webspace and lateral foot, plantar aspect of foot. admits to tingling to medial foot and medial lower leg, tingling to l ateral lower leg, intact to thigh - Expanded Lower Extremities Exam Right Ankle exam: NORMAL INSPECTION (no active DF of ankle or great toe extension, +PF, +Knee flexion/extension/hip flex/ext) Gait: antalgic (able to ambulate with walker) - Expanded Back Exam Expanded Back exam: Negative Straight Leg Raising: Right, Sciatic Notch Tenderness: Right (c/o tingling to r gluteal area) - Neurological Exam Neurological exam: Alert, Oriented x3 - Psychiatric Exam Psychiatric exam: Normal Affect, Normal Mood - Skin Skin Exam: Dry, Intact, Warm Additional comments: ecchymosis (resolving) to posterior medial left leg, left and right flank Results - Vital Signs Recent Vital Signs: Last Vital Signs Temp 97.7 F 07/05/18 10:00 Pulse 85 07/05/18 10:00 Resp 18 07/05/18 10:00 BP 136/73 07/05/18 10:00 Pulse Ox 96 07/05/18 10:00 - Labs Result Diagrams: 06/28/18 06:00 07/02/18 08:37 - Impressions Impression: atient Name / ID : JENAE DRUMMOND / [id number] Exam Date : 07/04/2018 14:47:36 ( Approved ) Study Comment : Sex / Age : M / 58Y Creator : Arnaldo Wilhelm MD Dictator : Arnaldo Wilhelm MD Seo Associate : Dry Cleaning Checker : Arnaldo Wilhelm MD Approver2 : Report Date : 07/04/2018 15:19:45 My Comment : Date of service: 07/04/2018 PROCEDURE: CT pelvis HISTORY: r/o pelvic fracture COMPARISON: CT abdomen/pelvis 04/21/2019 TECHNIQUE: 2.5 mm contiguous axial sections were acquired through the pelvis. Sagittal and coronal images were reformatted from the axial scan. Total exam DLP: 424.73 mGy-cm. This CT exam was performed using 1 or more of the following dose reduction techniques: Automated exposure control, adjustment of the mA and/or kV according to patient size, and/or use of iterative reconstruction technique. FINDINGS: There is a nondisplaced fracture through the right sacral ala possibly extending through the S2 and S3 foraminae as well. No other sacral fracture is appreciated. The sacroiliac joints appear preserved. There is a comminuted fracture through the left superior pubic ramus and left pubic symphysis. There is a minimally displaced fracture through the left inferior pubic ramus. There is no additional fracture identified. IMPRESSION: Nondisplaced right sacral ala fracture. This may extend through the S2 and S3 sacral foramina E. comminuted fracture left superior pubic ramus and left pubic symphysis. Minimally displaced fracture left inferior pubic ramus. atient Name / ID : JENAE DRUMMOND / [id number] Exam Date : 07/05/2018 07:37:37 ( Approved ) Study Comment : Sex / Age : M / 58Y Creator : Jerry Harmon MD Dictator : Jerry Harmon MD Seo Associate : Dry Cleaning Checker : Jerry Harmon MD Approver2 : Report Date : 07/05/2018 09:38:40 My Comment : Date of service: 07/05/2018 PROCEDURE: MR LUMBAR SPINE WITHOUT CONTRAST HISTORY: right foot drop COMPARISON: Pelvis CT without contrast 07/04/2018. TECHNIQUE: Multiecho multiplanar sequences were performed through the lumbar spine without the use of intravenous contrast. FINDINGS: Normal lumbar lordosis. Vertebral body heights are preserved. Abnormal Marrow signal change identified at the mid to inferior sacrum suspicio us for potential contusions related to known sacral ala fractures. Presacral soft tissue thickening is suggested as well may reflect hematoma. Conus medullaris unremarkable at the level of L1. T12-L1: No disc herniation, spinal canal stenosis or neural foraminal narrowing. L1-2: No disc herniation, spinal canal stenosis or neural foraminal narrowing. L2-3: No disc herniation, spinal canal stenosis or neural foraminal narrowing. L3-4: No disc herniation. Minimal circumferential disc bulge is appreciated with moderate facet degenerative changes resulting in borderline central stenosis. Borderline bilateral neural foraminal stenosis also evident. L4-5: No disc herniation. A large circumferential disc bulge combines with marked facet joint degenerative changes to cause moderate central canal stenosis and moderate bilateral neural foraminal stenosis. L5-S1: No disc herniation. A large circumferential disc osteophyte complex results in moderate bilateral neural foraminal stenosis and only encroaching the bilateral lateral recesses with rather capacious central canal nevertheless identified. OTHER FINDINGS: None. IMPRESSION: 1. Moderate degenerative central stenosis L4-5. No severe stenosis or definite disc herniation throughout the examination. Multilevel degenerative neural foraminal stenoses bilateral inferior lumbar spine. 2. Posttraumatic contusions involving the bilateral sacrum, some of which is likely related to sacral ala fractures and others reflecting simply posttraumatic contusions. Presacral hematoma/edema identified. Posterior paraspinal hematoma is also likely overlying the left stephen sacrum related to sacral ala fracture. Assessment & Plan (1) Fracture of sacrum Assessment and Plan: non operative sacral and rami fractures pain mgmt PT/OT d/w Dr. Ugarte radiologist regarding left flank indurated area, she states it appears hematoma (which correlates with history of fall) and will f/u addendum by radiologist who read study when in house (Dr. Peterson) new onset drop foot and RLE numbness recommend neurosurgery/spine consult (Dr. Gutierrez consultation ordered this am) as this is outside scope of Dr. Kimbrough No orthopedic intervention indicated monitor ecchymosis, VTE proph/PT/OT from ortho standpoint d/w Dr. Kimbrough, agrees with above Status: Acute (2) Fracture of left superior pubic ramus Status: Acute (3) Fracture of left inferior pubic ramus Status: Acute (4) Right leg weakness Assessment and Plan: new onset drop foot recommend spine consult per Dr. Kimbrough Status: Acute
--- NOTE | 2018-07-05 18:19 | CP.PCM.PN ---
Subjective - Date & Time of Evaluation Date of Evaluation: 07/05/18 Time of Evaluation: 11:00 - Subjective Subjective: patient seen and examined at bedside. Interim events noted No complaints offered at this time, requests increase of pain meds denies cp/sob/fever/chills. available diagnostic data reviewed Review of Systems All systems: reviewed and no additional remarkable complaints except mentioned above Objective Vital Signs Stable - Constitutional Appears: Non-toxic, No Acute Distress Head Exam: NORMAL INSPECTION Eye Exam: Normal appearance Respiratory Exam: NORMAL BREATHING PATTERN Cardiovascular Exam: +S1, +S2 GI & Abdominal Exam: Soft Neurological Exam: Alert, Awake Psychiatric exam: Normal Affect, Normal Mood Skin Exam: Normal Color, Warm Assessment and Plan monitor vitals monitor labs Cont meds Cont therapy consultants appreciated input gabapentin now 800mg tid, add lyrica 50mg bid, will defer further pain medication recommendations to dr valdez neurosurgery and ortho consulted rest of plan as ordered Assessment and Plan (1) Pelvic fracture Status: Acute (2) Right leg weakness Status: Acute (3) Spinal stenosis Status: Acute
[2018-07-05] MEDS: POLYETHYLENE GLYCOL 3350 17 GM/Dose PACKET PO PRN (18:21)
[2018-07-06] MEDS: Oxycodone/Acetaminophen 5/325 mg Tab PO PRN ×4 (02:22→23:10)
[2018-07-06] MEDS: Lidocaine 5% Patch TD SCH (08:34)
[2018-07-06] MEDS: oxyCODONE 20 mg ER Tab (oxyCONTIN) PO SCH ×2 (08:35→21:23)
[2018-07-06] MEDS: Fluticasone-Salmeterol 250-50mcg Diskus IH SCH ×2 (08:37→17:25)
[2018-07-06] MEDS: Potassium Chloride 10 mEq ER Tab PO SCH (08:38)
[2018-07-06] MEDS: Magnesium Oxide 400 mg Tab UD PO SCH (08:40)
[2018-07-06] MEDS: Multivitamin With Minerals Tab PO SCH (08:40)
[2018-07-06] MEDS: Methocarbamol 500 MG Tab PO SCH ×3 (08:40→17:24)
[2018-07-06] MEDS: Ammonium Lactate 12% Cream (140 g) TOP SCH (08:44)
[2018-07-06] MEDS: POLYETHYLENE GLYCOL 3350 17 GM/Dose PACKET PO PRN (09:37)
[2018-07-06] MEDS: Pantoprazole 40 mg EC Tab PO SCH (17:23)
--- NOTE | 2018-07-06 18:01 | CP.PCM.PN ---
Subjective - Date & Time of Evaluation Date of Evaluation: 07/06/18 Time of Evaluation: 18:00 - Subjective Subjective: Patient seen in the room appreciate ortho and neurosx consultations still with pain in spite of increase in neuropathic meds and prednisone pending conclusion of neurosx Objective - Vital Signs/Intake and Output Vital Signs (last 24 hours): Temp Pulse Resp BP Pulse Ox 98.8 F 82 21 142/81 98 07/06/18 10:00 07/06/18 10:00 07/06/18 10:00 07/06/18 10:00 07/06/18 10:00 - Medications Medications: Current Medications Acetaminophen (Tylenol 325mg Tab) 650 mg PO Q6 PRN PRN Reason: pain 1-7 Albuterol/Ipratropium (Duoneb 3 Mg/0.5 Mg (3 Ml) Ud) 3 ml IH RTID PRN PRN Reason: SOB Amlodipine Besylate (Norvasc) 10 mg PO DAILY [facility] Last Admin: 07/06/18 08:52 Dose: 10 mg Aspirin (Aspirin) 325 mg PO DAILY [facility] Last Admin: 07/06/18 08:37 Dose: 325 mg Carvedilol (Coreg) 12.5 mg PO Q12 [facility] Last Admin: 07/06/18 08:38 Dose: 12.5 mg Docusate Sodium (Colace) 100 mg PO BID [facility] Last Admin: 07/06/18 17:24 Dose: 100 mg Duloxetine HCl (Cymbalta) 60 mg PO DAILY [facility] Last Admin: 07/06/18 08:42 Dose: 60 mg Ezetimibe (Zetia) 10 mg PO DAILY [facility] Last Admin: 07/06/18 08:41 Dose: 10 mg Ergocalciferol (Drisdol 50,000 Intl Units Cap) 1 cap PO Th [facility] Last Admin: 07/05/18 08:56 Dose: 1 cap Ferrous Sulfate (Feosol) 325 mg PO BID [facility] Last Admin: 07/06/18 17:24 Dose: 325 mg Folic Acid (Folic Acid) 1 mg PO DAILY [facility] Last Admin: 07/06/18 08:41 Dose: 1 mg Gabapentin (Neurontin) 800 mg PO TID [facility] Last Admin: 07/06/18 17:24 Dose: 800 mg Lactic Acid (Lac-Hydrin 12% Cream (140 G)) 1 ea TOP DAILY [facility] Last Admin: 07/06/18 08:44 Dose: 1 applic Lidocaine (Lidoderm) 2 ea TD DAILY [facility] Last Admin: 07/06/18 08:34 Dose: 2 ea Lisinopril (Zestril) 40 mg PO DAILY [facility] Last Admin: 07/06/18 08:43 Dose: 40 mg Lorazepam (Ativan) 1 mg PO BID PRN PRN Reason: Anxiety Last Admin: 07/06/18 09:52 Dose: 1 mg Magnesium Oxide (Mag-Ox) 400 mg PO DAILY [facility] Last Admin: 07/06/18 08:40 Dose: 400 mg Methocarbamol (Robaxin) 500 mg PO TID [facility] Last Admin: 07/06/18 17:24 Dose: 500 mg Montelukast Sodium (Singulair) 10 mg PO DAILY [facility] Last Admin: 07/06/18 08:41 Dose: 10 mg Multivitamins/Minerals (Therapeutic-M Tab) 1 tab PO DAILY [facility] Last Admin: 07/06/18 08:40 Dose: 1 tab Oxcarbazepine (Trileptal) 900 mg PO DAILY [facility] Last Admin: 07/06/18 08:41 Dose: 900 mg Oxycodone HCl (Oxycontin Extended Release Tab) 20 mg PO Q12 [facility] Last Admin: 07/06/18 08:35 Dose: 20 mg Oxycodone/Acetaminophen (Percocet 5/325 Mg Tab) 2 tab PO Q4 PRN PRN Reason: Pain, severe (8-10) Stop: 07/07/18 09:21 Last Admin: 07/06/18 11:13 Dose: 2 tab Pantoprazole Sodium (Protonix Ec Tab) 40 mg PO DAILY [facility] Last Admin: 07/06/18 17:23 Dose: 40 mg Polyethylene Glycol (Miralax) 17 gm PO DAILY PRN PRN Reason: Constipation Last Admin: 07/06/18 09:37 Dose: 17 gm Potassium Chloride (Klor-Con 10) 10 meq PO DAILY [facility] Last Admin: 07/06/18 08:38 Dose: 10 meq Prednisone (Prednisone Tab) 40 mg PO Q24H [facility] Stop: 07/08/18 13:38 Prednisone (Prednisone Tab) 30 mg PO Q24H [facility] Stop: 07/10/18 13:38 Prednisone (Prednisone Tab) 20 mg PO Q24H [facility] Stop: 07/12/18 13:38 Prednisone (Prednisone Tab) 10 mg PO Q24H [facility] Stop: 07/14/18 13:38 Pregabalin (Lyrica) 50 mg PO BID [facility] Last Admin: 07/06/18 17:23 Dose: 50 mg Fluticasone/Salmeterol (Advair Diskus 250/50) 1 puff IH BID [facility] Last Admin: 07/06/18 17:25 Dose: 1 puff Thiamine HCl (Vitamin B1 Tab) 100 mg PO DAILY [facility] Last Admin: 07/06/18 08:39 Dose: 100 mg Zolpidem Tartrate (Ambien) 5 mg PO HS PRN PRN Reason: for sleep Last Admin: 07/05/18 22:38 Dose: 5 mg - Labs Labs: 06/28/18 06:00 07/02/18 08:37
[2018-07-07] MEDS: Oxycodone/Acetaminophen 5/325 mg Tab PO PRN ×2 (06:02→14:05)
[2018-07-07] MEDS: Fluticasone-Salmeterol 250-50mcg Diskus IH SCH ×2 (09:03→17:00)
[2018-07-07] MEDS: Pantoprazole 40 mg EC Tab PO SCH (09:04)
[2018-07-07] MEDS: Multivitamin With Minerals Tab PO SCH (09:08)
[2018-07-07] MEDS: Ammonium Lactate 12% Cream (140 g) TOP SCH (09:11)
[2018-07-07] MEDS: Potassium Chloride 10 mEq ER Tab PO SCH (09:11)
[2018-07-07] MEDS: Magnesium Oxide 400 mg Tab UD PO SCH (09:12)
[2018-07-07] MEDS: Methocarbamol 500 MG Tab PO SCH ×3 (09:12→18:22)
[2018-07-07] MEDS: Lidocaine 5% Patch TD SCH (09:17)
[2018-07-07] MEDS: oxyCODONE 20 mg ER Tab (oxyCONTIN) PO SCH ×2 (09:20→21:28)
[2018-07-08] MEDS: Oxycodone/Acetaminophen 5/325 mg Tab PO PRN ×5 (00:53→23:41)
[2018-07-08] MEDS: Fluticasone-Salmeterol 250-50mcg Diskus IH SCH ×2 (08:49→16:51)
[2018-07-08] MEDS: Magnesium Oxide 400 mg Tab UD PO SCH (08:49)
[2018-07-08] MEDS: Ammonium Lactate 12% Cream (140 g) TOP SCH (08:49)
[2018-07-08] MEDS: Potassium Chloride 10 mEq ER Tab PO SCH (08:50)
[2018-07-08] MEDS: Methocarbamol 500 MG Tab PO SCH ×3 (08:51→16:52)
[2018-07-08] MEDS: Pantoprazole 40 mg EC Tab PO SCH (08:51)
[2018-07-08] MEDS: Multivitamin With Minerals Tab PO SCH (08:51)
[2018-07-08] MEDS: oxyCODONE 20 mg ER Tab (oxyCONTIN) PO SCH ×2 (08:59→21:37)
[2018-07-08] MEDS: Lidocaine 5% Patch TD SCH (09:00)
--- NOTE | 2018-07-09 02:11 | CP.PCM.PN ---
Subjective - Date & Time of Evaluation Date of Evaluation: 07/04/18 Time of Evaluation: 07:45 - Subjective Subjective: Pt seen and assessed at bedside. 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 Of note, pt has a mild right foot drop. Review of Systems - Review of Systems All systems: reviewed and no additional remarkable complaints except (pain and insomnia) - Constitutional Constitutional: Weakness Objective - Vital Signs/Intake and Output Vital Signs (last 24 hours): Temp Pulse Resp BP Pulse Ox 98.2 F 77 20 117/66 97 07/08/18 20:36 07/08/18 21:37 07/08/18 20:36 07/08/18 21:37 07/08/18 20:36 - Medications Medications: Current Medications Acetaminophen (Tylenol 325mg Tab) 650 mg PO Q6 PRN PRN Reason: pain 1-7 Albuterol/Ipratropium (Duoneb 3 Mg/0.5 Mg (3 Ml) Ud) 3 ml IH RTID PRN PRN Reason: SOB Amlodipine Besylate (Norvasc) [address] [facility] Last Admin: 07/08/18 08:49 Dose: 10 mg Aspirin (Aspirin) [address] [facility] Last Admin: 07/08/18 08:49 Dose: 325 mg Carvedilol (Coreg) 12.[address] [facility] Last Admin: 07/08/18 21:37 Dose: 12.5 mg Docusate Sodium (Colace) [address] [facility] Last Admin: 07/08/18 16:52 Dose: 100 mg Duloxetine HCl (Cymbalta) [address] [facility] Last Admin: 07/08/18 08:51 Dose: 60 mg Ezetimibe (Zetia) [address] [facility] Last Admin: 07/08/18 08:49 Dose: 10 mg Ergocalciferol (Drisdol 50,000 Intl Units Cap) [address] [facility] Last Admin: 07/05/18 08:56 Dose: 1 cap Ferrous Sulfate (Feosol) [address] [facility] Last Admin: 07/08/18 16:52 Dose: 325 mg Folic Acid (Folic Acid) [address] [facility] Last Admin: 07/08/18 08:50 Dose: 1 mg Gabapentin (Neurontin) [address] [facility] Last Admin: 07/08/18 16:52 Dose: 800 mg Lactic Acid (Lac-Hydrin 12% Cream (140 G)) [address] [facility] Last Admin: 07/08/18 08:49 Dose: 1 applic Lidocaine (Lidoderm) [address] [facility] Last Admin: 07/08/18 09:00 Dose: 2 ea Lisinopril (Zestril) [address] [facility] Last Admin: 07/08/18 08:50 Dose: 40 mg Lorazepam (Ativan) 1 mg PO BID PRN PRN Reason: Anxiety Last Admin: 07/08/18 20:14 Dose: 1 mg Magnesium Oxide (Mag-Ox) [address] [facility] Last Admin: 07/08/18 08:49 Dose: 400 mg Methocarbamol (Robaxin) [address] [facility] Last Admin: 07/08/18 16:52 Dose: 500 mg Montelukast Sodium (Singulair) [address] [facility] Last Admin: 07/08/18 08:52 Dose: 10 mg Multivitamins/Minerals (Therapeutic-M Tab) [address] [facility] Last Admin: 07/08/18 08:51 Dose: 1 tab Oxcarbazepine (Trileptal) [address] [facility] Last Admin: 07/08/18 08:50 Dose: 900 mg Oxycodone HCl (Oxycontin Extended Release Tab) [address] [facility] Last Admin: 07/08/18 21:37 Dose: 20 mg Oxycodone/Acetaminophen (Percocet 5/325 Mg Tab) 2 tab PO Q4 PRN PRN Reason: for pain scale 8-10 Stop: 07/10/18 13:44 Last Admin: 07/08/18 23:41 Dose: 2 tab Pantoprazole Sodium (Protonix Ec Tab) [address] [facility] Last Admin: 07/08/18 08:51 Dose: 40 mg Polyethylene Glycol (Miralax) 17 gm PO DAILY PRN PRN Reason: Constipation Last Admin: 07/06/18 09:37 Dose: 17 gm Potassium Chloride (Klor-Con 10) [address] [facility] Last Admin: 07/08/18 08:50 Dose: 10 meq Prednisone (Prednisone Tab) [address] [facility] Stop: 07/10/18 13:38 Prednisone (Prednisone Tab) [address] [facility] Stop: 07/12/18 13:38 Prednisone (Prednisone Tab) [address] [facility] Stop: 07/14/18 13:38 Pregabalin (Lyrica) [address] [facility] Last Admin: 07/08/18 16:51 Dose: 50 mg Fluticasone/Salmeterol (Advair Diskus 250/50) [address] [facility] Last Admin: 07/08/18 16:51 Dose: 1 puff Thiamine HCl (Vitamin B1 Tab) [address] [facility] Last Admin: 07/08/18 08:48 Dose: 100 mg Trazodone HCl (Desyrel) [address] [facility] Last Admin: 07/08/18 21:36 Dose: 100 mg Zolpidem Tartrate (Ambien) 5 mg PO HS PRN PRN Reason: for sleep Last Admin: 07/08/18 21:36 Dose: 5 mg - Labs Labs: 06/28/18 06:00 07/02/18 08:37 - Head Exam Head Exam: ATRAUMATIC, NORMAL INSPECTION, NORMOCEPHALIC - Eye Exam Eye Exam: EOMI, Normal appearance, PERRL Pupil Exam: NORMAL ACCOMODATION, PERRL - ENT Exam ENT Exam: Mucous Membranes Moist - Neck Exam Neck Exam: Full ROM, Normal Inspection - Respiratory Exam Respiratory Exam: Clear to Ausculation Bilateral - Cardiovascular Exam Cardiovascular Exam: REGULAR RHYTHM, +S1, +S2 - GI/Abdominal Exam GI & Abdominal Exam: Soft, Normal Bowel Sounds - Extremities Exam Extremities Exam: Normal Capillary Refill, Normal Inspection Additional comments: right foot drop noted. Painful and weakened ROM to pelvis/hips, as well as lower back noted. Mild weakness to bilateral legs observed. - Back Exam Back Exam: NORMAL INSPECTION - Neurological Exam Neurological Exam: Alert, Awake, Oriented x3 - Psychiatric Exam Psychiatric exam: Normal Affect, Normal Mood - Skin Skin Exam: Dry, Normal Color, Warm Assessment and Plan (1) Pelvic fracture Assessment & Plan: 1.) pelvic fracture -persistent pain noted; on multiple pain meds. -consults input appreciated. -Pelvic CT ordered for futher evaluation of fracture. -Orthopedic consult added. -consider neurosurgery consult for evaluation of foot drop. -continue current tx and PT. Status: Acute
[2018-07-09] MEDS: Oxycodone/Acetaminophen 5/325 mg Tab PO PRN ×4 (05:03→22:35)
--- NOTE | 2018-07-09 08:10 | CON ---
DATE: 07/06/2018 REASON FOR CONSULTATION: Weakness, right leg. HISTORY OF PRESENT ILLNESS: The patient is a 58-year-old young gentleman who fell while trying to catch a bus two weeks ago on 06/22/2018. He is complaining lot of pelvic pain at the time. X-rays diagnosed a pubic ramus fracture and subsequently sacral ala fracture. The pubic ramus fracture is on the left, and the sacral ala is on the right. He was progressing with therapy, but last weekend, started to feel some tightness in his right ankle. It gradually progressed to the point that he cannot really actively move the ankle on the right side. He has no complaints at all on the left side. Does not describe any true radicular complaints. He complaints of lot of pain in the right side of his flank and lower back where he fell. No loss of bowel or bladder control. He has seen Dr. Bear for chronic neck pain, but has not had anything like this in the past. PAST MEDICAL HISTORY: Significant for hypertension as well as hypercholesterolemia. MEDICATIONS: As listed on the chart. ALLERGIES: HE IS NOT ALLERGIES TO ANY MEDICINES HE KNOWS OF. PAST SURGICAL HISTORY: Significant for craniotomy, for subarachnoid hemorrhage in the past. FAMILY HISTORY: He is a half pack a day smoker or so. He states he takes two drinks a day but it can be more at times. PHYSICAL EXAMINATION: On examination, he has negative straight leg raising bilaterally to 90 degrees. He has excellent sensation to light touch and strength in the left lower extremity. On the right side, he has weakness of his quads and hamstrings. He has decreased sensation to light touch over the first webspace of his foot as well as in the lateral border of his foot, but the medial border he states is ok compared to the left. Knee and ankle reflexes are present but definitely depressed compared to the left side. No clonus is present. Babinski shows toes are downgoing. He has no active dorsiflexion of the ankle nor of the great toe on the right side. I do not really see any changes in muscle tendon contraction either when I ask to try and dorsiflex it, cannot really invert or monica the ankle either compared to the left side. He had an MRI of the lumbar spine which is already showing moderate central stenosis at L4-5. However, while there is some facet hypertrophy and thickened ligamentum, the thecal sac itself is not really distorted at all. The neuroforamen do not look that bad if you go and cut it to above the disk where the L4 roots were exiting and even below where the 5 roots are. There is certainly nothing to explain how all three levels just on the right side would be affected. IMPRESSION: L4 through S1 right nerve root dysfunction. Obviously the question is something with a sacral fracture on the right side might be irritating or affecting the lumbar sacral plexus. I am going to get in touch with the radiologist to see if the studies he has done thus far (lumbar spine MRI, pelvic CT) might be able to give us any of that information or if he needs another study such as an MRI dedicated to the pelvis to look further into that. I am waiting his call back. In the meantime Mr. Villa can still be mobilized as tolerated, and we will follow up with him once we hear from the radiologist. Thank you for allowing me to participate in the care of your patient. Froylan Haynes MD
[2018-07-09] MEDS: oxyCODONE 20 mg ER Tab (oxyCONTIN) PO SCH ×2 (09:05→20:52)
[2018-07-09] MEDS: Fluticasone-Salmeterol 250-50mcg Diskus IH SCH ×2 (09:09→16:34)
[2018-07-09] MEDS: Ammonium Lactate 12% Cream (140 g) TOP SCH (09:10)
[2018-07-09] MEDS: Methocarbamol 500 MG Tab PO SCH ×3 (09:10→16:34)
[2018-07-09] MEDS: Multivitamin With Minerals Tab PO SCH (09:12)
[2018-07-09] MEDS: Potassium Chloride 10 mEq ER Tab PO SCH (09:12)
[2018-07-09] MEDS: Pantoprazole 40 mg EC Tab PO SCH (09:13)
[2018-07-09] MEDS: Magnesium Oxide 400 mg Tab UD PO SCH (09:14)
[2018-07-09] MEDS: Lidocaine 5% Patch TD SCH (09:14)
--- NOTE | 2018-07-09 11:29 | CP.PCM.PN ---
Subjective - Date & Time of Evaluation Date of Evaluation: 07/06/18 Time of Evaluation: 11:30 - Subjective Subjective: Patient feels a lot better with therapy. Still with a lot of neuropathic pain Has less foot drop. Has no headaches fever chest pain or SOB Sleeps well. Noted increasing demand for anxiolytics, pain meds. Objective - Vital Signs/Intake and Output Vital Signs (last 24 hours): Temp Pulse Resp BP Pulse Ox 98.1 F 72 19 134/83 98 07/09/18 07:57 07/09/18 09:14 07/09/18 07:57 07/09/18 09:14 07/09/18 07:57 - Medications Medications: Current Medications Acetaminophen (Tylenol 325mg Tab) 650 mg PO Q6 PRN PRN Reason: pain 1-7 Albuterol/Ipratropium (Duoneb 3 Mg/0.5 Mg (3 Ml) Ud) 3 ml IH RTID PRN PRN Reason: SOB Amlodipine Besylate (Norvasc) 10 mg PO DAILY [facility] Last Admin: 07/09/18 09:14 Dose: 10 mg Aspirin (Aspirin) 325 mg PO DAILY [facility] Last Admin: 07/09/18 09:11 Dose: 325 mg Carvedilol (Coreg) 12.5 mg PO Q12 [facility] Last Admin: 07/09/18 09:12 Dose: 12.5 mg Docusate Sodium (Colace) 100 mg PO BID [facility] Last Admin: 07/09/18 09:13 Dose: 100 mg Duloxetine HCl (Cymbalta) 60 mg PO DAILY [facility] Last Admin: 07/09/18 09:12 Dose: 60 mg Ezetimibe (Zetia) 10 mg PO DAILY [facility] Last Admin: 07/09/18 09:13 Dose: 10 mg Ergocalciferol (Drisdol 50,000 Intl Units Cap) 1 cap PO Th [facility] Last Admin: 07/05/18 08:56 Dose: 1 cap Ferrous Sulfate (Feosol) 325 mg PO BID [facility] Last Admin: 07/09/18 09:12 Dose: 325 mg Folic Acid (Folic Acid) 1 mg PO DAILY [facility] Last Admin: 07/09/18 09:11 Dose: 1 mg Gabapentin (Neurontin) 800 mg PO TID [facility] Last Admin: 07/09/18 09:10 Dose: 800 mg Lactic Acid (Lac-Hydrin 12% Cream (140 G)) 1 ea TOP DAILY [facility] Last Admin: 07/09/18 09:10 Dose: 1 applic Lidocaine (Lidoderm) 2 ea TD DAILY [facility] Last Admin: 07/09/18 09:14 Dose: 2 ea Lisinopril (Zestril) 40 mg PO DAILY [facility] Last Admin: 07/09/18 09:10 Dose: 40 mg Lorazepam (Ativan) 1 mg PO BID PRN PRN Reason: Anxiety Last Admin: 07/09/18 09:09 Dose: 1 mg Magnesium Oxide (Mag-Ox) 400 mg PO DAILY [facility] Last Admin: 07/09/18 09:14 Dose: 400 mg Methocarbamol (Robaxin) 500 mg PO TID [facility] Last Admin: 07/09/18 09:10 Dose: 500 mg Montelukast Sodium (Singulair) 10 mg PO DAILY [facility] Last Admin: 07/09/18 09:11 Dose: 10 mg Multivitamins/Minerals (Therapeutic-M Tab) 1 tab PO DAILY [facility] Last Admin: 07/09/18 09:12 Dose: 1 tab Oxcarbazepine (Trileptal) 900 mg PO DAILY [facility] Last Admin: 07/09/18 09:13 Dose: 900 mg Oxycodone HCl (Oxycontin Extended Release Tab) 20 mg PO Q12 [facility] Last Admin: 07/09/18 09:05 Dose: 20 mg Oxycodone/Acetaminophen (Percocet 5/325 Mg Tab) 2 tab PO Q4 PRN PRN Reason: for pain scale 8-10 Stop: 07/10/18 13:44 Last Admin: 07/09/18 05:03 Dose: 2 tab Pantoprazole Sodium (Protonix Ec Tab) 40 mg PO DAILY [facility] Last Admin: 07/09/18 09:13 Dose: 40 mg Polyethylene Glycol (Miralax) 17 gm PO DAILY PRN PRN Reason: Constipation Last Admin: 07/06/18 09:37 Dose: 17 gm Potassium Chloride (Klor-Con 10) 10 meq PO DAILY [facility] Last Admin: 07/09/18 09:12 Dose: 10 meq Prednisone (Prednisone Tab) 30 mg PO Q24H [facility] Stop: 07/10/18 13:38 Prednisone (Prednisone Tab) 20 mg PO Q24H [facility] Stop: 07/12/18 13:38 Prednisone (Prednisone Tab) 10 mg PO Q24H [facility] Stop: 07/14/18 13:38 Pregabalin (Lyrica) 50 mg PO BID [facility] Last Admin: 07/09/18 09:05 Dose: 50 mg Fluticasone/Salmeterol (Advair Diskus 250/50) 1 puff IH BID [facility] Last Admin: 07/09/18 09:09 Dose: 1 puff Thiamine HCl (Vitamin B1 Tab) 100 mg PO DAILY [facility] Last Admin: 07/09/18 09:12 Dose: 100 mg Trazodone HCl (Desyrel) 100 mg PO HS [facility] Last Admin: 07/08/18 21:36 Dose: 100 mg Zolpidem Tartrate (Ambien) 5 mg PO HS PRN PRN Reason: for sleep Last Admin: 07/08/18 21:36 Dose: 5 mg - Labs Labs: 06/28/18 06:00 07/02/18 08:37 - Head Exam Head Exam: NORMAL INSPECTION - Eye Exam Eye Exam: Normal appearance - ENT Exam ENT Exam: Mucous Membranes Moist - Respiratory Exam Respiratory Exam: Clear to Ausculation Bilateral - Cardiovascular Exam Cardiovascular Exam: REGULAR RHYTHM - GI/Abdominal Exam GI & Abdominal Exam: Normal Bowel Sounds Assessment and Plan (1) Pelvic fracture Status: Acute (2) Abnormal liver enzymes Status: Acute (3) Anxiety Status: Acute (4) Depression Status: Acute (5) HTN (hypertension) Status: Acute (6) Hypercholesterolemia Status: Acute - Assessment and Plan (Free Text) Plan: Cont meds Cont PT advised nurses to be mindful of patient's tendency to ask for more pain meds and anxiolytics.
--- NOTE | 2018-07-09 16:28 | RAD ---
Date of service: 07/09/2018 PROCEDURE: RIGHT HIP RADIOGRAPHS HISTORY: r/o fracture s/p fall COMPARISON: right hip radiographs 06/22/2018. TECHNIQUE: AP view of the right pelvis and hip joint of been submitted with frog-leg lateral view right hip. FINDINGS: No acute fracture or dislocation identified related to the right hip joint. Advanced osteoarthritis is reiterated manifest by articular cortical sclerosis and osteophyte development. Joint space narrowing is worse at the right than the left hip joint. Degenerative sacroiliac joint changes are also identified once again. Incidental note is made of fracture at intermediate stage of healing at the distal left horizontal and vertical pubic rami. Right-sided phlebolith like calcifications again seen the right pelvic soft tissues. IMPRESSION: No acute fracture or dislocation identified right hip joint with fracture of entered added intermediate stage of healing noted at the left pubic bones as discussed above. Degenerative changes are seen at the right greater than left hip joints and are again noted at the bilateral sacroiliac joints.
--- NOTE | 2018-07-09 17:12 | CP.PCM.PN ---
Subjective - Date & Time of Evaluation Date of Evaluation: 07/09/18 Time of Evaluation: 17:10 - Subjective Subjective: Patient seen in the room doing ok complaining of pain and again I told him that I do not feel comfortable increasing the dose of narcotics for him He is on prn and standing dose narcotics with prenisone and high dose neurontin improved right ankle strength had a fall today no acute injury noted Objective - Vital Signs/Intake and Output Vital Signs (last 24 hours): Temp Pulse Resp BP Pulse Ox 98.1 F 84 19 134/83 98 07/09/18 07:57 07/09/18 14:55 07/09/18 07:57 07/09/18 09:14 07/09/18 07:57 - Medications Medications: Current Medications Acetaminophen (Tylenol 325mg Tab) 650 mg PO Q6 PRN PRN Reason: pain 1-7 Albuterol/Ipratropium (Duoneb 3 Mg/0.5 Mg (3 Ml) Ud) 3 ml IH RTID PRN PRN Reason: SOB Amlodipine Besylate (Norvasc) 10 mg PO DAILY [facility] Last Admin: 07/09/18 09:14 Dose: 10 mg Aspirin (Aspirin) 325 mg PO DAILY [facility] Last Admin: 07/09/18 09:11 Dose: 325 mg Carvedilol (Coreg) 12.5 mg PO Q12 [facility] Last Admin: 07/09/18 09:12 Dose: 12.5 mg Docusate Sodium (Colace) 100 mg PO BID [facility] Last Admin: 07/09/18 16:35 Dose: 100 mg Duloxetine HCl (Cymbalta) 60 mg PO DAILY [facility] Last Admin: 07/09/18 09:12 Dose: 60 mg Ezetimibe (Zetia) 10 mg PO DAILY [facility] Last Admin: 07/09/18 09:13 Dose: 10 mg Ergocalciferol (Drisdol 50,000 Intl Units Cap) 1 cap PO Th [facility] Last Admin: 07/05/18 08:56 Dose: 1 cap Ferrous Sulfate (Feosol) 325 mg PO BID [facility] Last Admin: 07/09/18 16:34 Dose: 325 mg Folic Acid (Folic Acid) 1 mg PO DAILY [facility] Last Admin: 07/09/18 09:11 Dose: 1 mg Gabapentin (Neurontin) 800 mg PO TID [facility] Last Admin: 07/09/18 16:34 Dose: 800 mg Lactic Acid (Lac-Hydrin 12% Cream (140 G)) 1 ea TOP DAILY [facility] Last Admin: 07/09/18 09:10 Dose: 1 applic Lidocaine (Lidoderm) 2 ea TD DAILY [facility] Last Admin: 07/09/18 09:14 Dose: 2 ea Lisinopril (Zestril) 40 mg PO DAILY [facility] Last Admin: 07/09/18 09:10 Dose: 40 mg Lorazepam (Ativan) 1 mg PO BID PRN PRN Reason: Anxiety Last Admin: 07/09/18 09:09 Dose: 1 mg Magnesium Oxide (Mag-Ox) 400 mg PO DAILY [facility] Last Admin: 07/09/18 09:14 Dose: 400 mg Methocarbamol (Robaxin) 500 mg PO TID [facility] Last Admin: 07/09/18 16:34 Dose: 500 mg Montelukast Sodium (Singulair) 10 mg PO DAILY [facility] Last Admin: 07/09/18 09:11 Dose: 10 mg Multivitamins/Minerals (Therapeutic-M Tab) 1 tab PO DAILY [facility] Last Admin: 07/09/18 09:12 Dose: 1 tab Oxcarbazepine (Trileptal) 900 mg PO DAILY [facility] Last Admin: 07/09/18 09:13 Dose: 900 mg Oxycodone HCl (Oxycontin Extended Release Tab) 20 mg PO Q12 [facility] Last Admin: 07/09/18 09:05 Dose: 20 mg Oxycodone/Acetaminophen (Percocet 5/325 Mg Tab) 2 tab PO Q4 PRN PRN Reason: for pain scale 8-10 Stop: 07/10/18 13:44 Last Admin: 07/09/18 17:06 Dose: 2 tab Pantoprazole Sodium (Protonix Ec Tab) 40 mg PO DAILY [facility] Last Admin: 07/09/18 09:13 Dose: 40 mg Polyethylene Glycol (Miralax) 17 gm PO DAILY PRN PRN Reason: Constipation Last Admin: 07/06/18 09:37 Dose: 17 gm Potassium Chloride (Klor-Con 10) 10 meq PO DAILY [facility] Last Admin: 07/09/18 09:12 Dose: 10 meq Prednisone (Prednisone Tab) 30 mg PO Q24H [facility] Stop: 07/10/18 13:38 Last Admin: 07/09/18 13:02 Dose: 30 mg Prednisone (Prednisone Tab) 20 mg PO Q24H [facility] Stop: 07/12/18 13:38 Prednisone (Prednisone Tab) 10 mg PO Q24H [facility] Stop: 07/14/18 13:38 Pregabalin (Lyrica) 50 mg PO BID [facility] Last Admin: 07/09/18 16:34 Dose: 50 mg Fluticasone/Salmeterol (Advair Diskus 250/50) 1 puff IH BID [facility] Last Admin: 07/09/18 16:34 Dose: 1 puff Thiamine HCl (Vitamin B1 Tab) 100 mg PO DAILY [facility] Last Admin: 07/09/18 09:12 Dose: 100 mg Trazodone HCl (Desyrel) 100 mg PO HS [facility] Last Admin: 07/08/18 21:36 Dose: 100 mg Zolpidem Tartrate (Ambien) 5 mg PO HS PRN PRN Reason: for sleep Last Admin: 07/08/18 21:36 Dose: 5 mg - Labs Labs: 06/28/18 06:00 07/02/18 08:37
--- NOTE | 2018-07-09 18:42 | CP.PCM.PN ---
Subjective - Date & Time of Evaluation Date of Evaluation: 07/09/18 Time of Evaluation: 11:00 - Subjective Subjective: patient seen and examined at bedside. Interim events noted No complaints offered at this time, requests increase of pain meds due to vikki oting pain down right leg denies cp/sob/fever/chills. available diagnostic data reviewed Review of Systems All systems: reviewed and no additional remarkable complaints except mentioned above Objective Vital Signs Stable - Constitutional Appears: Non-toxic, No Acute Distress Head Exam: NORMAL INSPECTION Eye Exam: Normal appearance Respiratory Exam: NORMAL BREATHING PATTERN Cardiovascular Exam: +S1, +S2 GI & Abdominal Exam: Soft Neurological Exam: Alert, Awake Psychiatric exam: Normal Affect, Normal Mood Skin Exam: Normal Color, Warm Assessment and Plan monitor vitals monitor labs Cont meds Cont therapy consultants appreciated input patient on steroids, narcotics, lyrica, gabapentin, will defer further pain medication recommendations to dr valdez pending neurosurgery recommendations rest of plan as ordered Objective - Vital Signs/Intake and Output Vital Signs (last 24 hours): Temp Pulse Resp BP Pulse Ox 98.1 F 84 19 134/83 98 07/09/18 07:57 07/09/18 14:55 07/09/18 07:57 07/09/18 09:14 07/09/18 07:57 - Medications Medications: Current Medications Acetaminophen (Tylenol 325mg Tab) 650 mg PO Q6 PRN PRN Reason: pain 1-7 Albuterol/Ipratropium (Duoneb 3 Mg/0.5 Mg (3 Ml) Ud) 3 ml IH RTID PRN PRN Reason: SOB Amlodipine Besylate (Norvasc) 10 mg PO DAILY [facility] Last Admin: 07/09/18 09:14 Dose: 10 mg Aspirin (Aspirin) 325 mg PO DAILY [facility] Last Admin: 07/09/18 09:11 Dose: 325 mg Carvedilol (Coreg) 12.5 mg PO Q12 [facility] Last Admin: 07/09/18 09:12 Dose: 12.5 mg Docusate Sodium (Colace) 100 mg PO BID [facility] Last Admin: 07/09/18 16:35 Dose: 100 mg Duloxetine HCl (Cymbalta) 60 mg PO DAILY [facility] Last Admin: 07/09/18 09:12 Dose: 60 mg Ezetimibe (Zetia) 10 mg PO DAILY [facility] Last Admin: 07/09/18 09:13 Dose: 10 mg Ergocalciferol (Drisdol 50,000 Intl Units Cap) 1 cap PO Th [facility] Last Admin: 07/05/18 08:56 Dose: 1 cap Ferrous Sulfate (Feosol) 325 mg PO BID [facility] Last Admin: 07/09/18 16:34 Dose: 325 mg Folic Acid (Folic Acid) 1 mg PO DAILY [facility] Last Admin: 07/09/18 09:11 Dose: 1 mg Gabapentin (Neurontin) 800 mg PO TID [facility] Last Admin: 07/09/18 16:34 Dose: 800 mg Lactic Acid (Lac-Hydrin 12% Cream (140 G)) 1 ea TOP DAILY [facility] Last Admin: 07/09/18 09:10 Dose: 1 applic Lidocaine (Lidoderm) 2 ea TD DAILY [facility] Last Admin: 07/09/18 09:14 Dose: 2 ea Lisinopril (Zestril) 40 mg PO DAILY [facility] Last Admin: 07/09/18 09:10 Dose: 40 mg Lorazepam (Ativan) 1 mg PO BID PRN PRN Reason: Anxiety Last Admin: 07/09/18 09:09 Dose: 1 mg Magnesium Oxide (Mag-Ox) 400 mg PO DAILY [facility] Last Admin: 07/09/18 09:14 Dose: 400 mg Methocarbamol (Robaxin) 500 mg PO TID [facility] Last Admin: 07/09/18 16:34 Dose: 500 mg Montelukast Sodium (Singulair) 10 mg PO DAILY [facility] Last Admin: 07/09/18 09:11 Dose: 10 mg Multivitamins/Minerals (Therapeutic-M Tab) 1 tab PO DAILY [facility] Last Admin: 07/09/18 09:12 Dose: 1 tab Oxcarbazepine (Trileptal) 900 mg PO DAILY [facility] Last Admin: 07/09/18 09:13 Dose: 900 mg Oxycodone HCl (Oxycontin Extended Release Tab) 20 mg PO Q12 [facility] Last Admin: 07/09/18 09:05 Dose: 20 mg Oxycodone/Acetaminophen (Percocet 5/325 Mg Tab) 2 tab PO Q4 PRN PRN Reason: for pain scale 8-10 Stop: 07/10/18 13:44 Last Admin: 07/09/18 17:06 Dose: 2 tab Pantoprazole Sodium (Protonix Ec Tab) 40 mg PO DAILY [facility] Last Admin: 07/09/18 09:13 Dose: 40 mg Polyethylene Glycol (Miralax) 17 gm PO DAILY PRN PRN Reason: Constipation Last Admin: 07/06/18 09:37 Dose: 17 gm Potassium Chloride (Klor-Con 10) 10 meq PO DAILY [facility] Last Admin: 07/09/18 09:12 Dose: 10 meq Prednisone (Prednisone Tab) 30 mg PO Q24H [facility] Stop: 07/10/18 13:38 Last Admin: 07/09/18 13:02 Dose: 30 mg Prednisone (Prednisone Tab) 20 mg PO Q24H [facility] Stop: 07/12/18 13:38 Prednisone (Prednisone Tab) 10 mg PO Q24H [facility] Stop: 07/14/18 13:38 Pregabalin (Lyrica) 50 mg PO BID [facility] Last Admin: 07/09/18 16:34 Dose: 50 mg Fluticasone/Salmeterol (Advair Diskus 250/50) 1 puff IH BID [facility] Last Admin: 07/09/18 16:34 Dose: 1 puff Thiamine HCl (Vitamin B1 Tab) 100 mg PO DAILY [facility] Last Admin: 07/09/18 09:12 Dose: 100 mg Trazodone HCl (Desyrel) 100 mg PO HS [facility] Last Admin: 07/08/18 21:36 Dose: 100 mg Zolpidem Tartrate (Ambien) 5 mg PO HS PRN PRN Reason: for sleep Last Admin: 07/08/18 21:36 Dose: 5 mg - Labs Labs: 06/28/18 06:00 07/02/18 08:37 Assessment and Plan (1) Pelvic fracture Status: Acute (2) Right leg weakness Status: Acute (3) Spinal stenosis Status: Acute
[2018-07-09] MEDS: POLYETHYLENE GLYCOL 3350 17 GM/Dose PACKET PO PRN (22:38)
--- NOTE | 2018-07-10 00:07 | CP.PCM.PN ---
Subjective - Date & Time of Evaluation Date of Evaluation: 07/07/18 Time of Evaluation: 13:30 - Subjective Subjective: Pt seen and assessed at bedside. Reports chronic pain, however the pt states he is having more neuropathy in recent days- he is currently on gabapentin TID. Right foot drop is noted, orthopedics and neurosurgery have both been consulted. Review of Systems - Review of Systems All systems: reviewed and no additional remarkable complaints except (neuropathy and right foot drop) Objective - Vital Signs/Intake and Output Vital Signs (last 24 hours): Temp Pulse Resp BP Pulse Ox 98.2 F 81 20 129/74 97 07/09/18 22:00 07/09/18 22:00 07/09/18 22:00 07/09/18 22:00 07/09/18 22:00 - Medications Medications: Current Medications Acetaminophen (Tylenol 325mg Tab) 650 mg PO Q6 PRN PRN Reason: pain 1-7 Albuterol/Ipratropium (Duoneb 3 Mg/0.5 Mg (3 Ml) Ud) 3 ml IH RTID PRN PRN Reason: SOB Amlodipine Besylate (Norvasc) 10 mg PO DAILY [facility] Last Admin: 07/09/18 09:14 Dose: 10 mg Aspirin (Aspirin) 325 mg PO DAILY [facility] Last Admin: 07/09/18 09:11 Dose: 325 mg Carvedilol (Coreg) 12.5 mg PO Q12 [facility] Last Admin: 07/09/18 20:52 Dose: 12.5 mg Docusate Sodium (Colace) 100 mg PO BID [facility] Last Admin: 07/09/18 16:35 Dose: 100 mg Duloxetine HCl (Cymbalta) 60 mg PO DAILY [facility] Last Admin: 07/09/18 09:12 Dose: 60 mg Ezetimibe (Zetia) 10 mg PO DAILY [facility] Last Admin: 07/09/18 09:13 Dose: 10 mg Ergocalciferol (Drisdol 50,000 Intl Units Cap) 1 cap PO Th [facility] Last Admin: 07/05/18 08:56 Dose: 1 cap Ferrous Sulfate (Feosol) 325 mg PO BID [facility] Last Admin: 07/09/18 16:34 Dose: 325 mg Folic Acid (Folic Acid) 1 mg PO DAILY [facility] Last Admin: 07/09/18 09:11 Dose: 1 mg Gabapentin (Neurontin) 800 mg PO TID [facility] Last Admin: 07/09/18 16:34 Dose: 800 mg Lactic Acid (Lac-Hydrin 12% Cream (140 G)) 1 ea TOP DAILY [facility] Last Admin: 07/09/18 09:10 Dose: 1 applic Lidocaine (Lidoderm) 2 ea TD DAILY [facility] Last Admin: 07/09/18 09:14 Dose: 2 ea Lisinopril (Zestril) 40 mg PO DAILY [facility] Last Admin: 07/09/18 09:10 Dose: 40 mg Lorazepam (Ativan) 1 mg PO BID PRN PRN Reason: Anxiety Last Admin: 07/09/18 09:09 Dose: 1 mg Magnesium Oxide (Mag-Ox) 400 mg PO DAILY [facility] Last Admin: 07/09/18 09:14 Dose: 400 mg Methocarbamol (Robaxin) 500 mg PO TID [facility] Last Admin: 07/09/18 16:34 Dose: 500 mg Montelukast Sodium (Singulair) 10 mg PO DAILY [facility] Last Admin: 07/09/18 09:11 Dose: 10 mg Multivitamins/Minerals (Therapeutic-M Tab) 1 tab PO DAILY [facility] Last Admin: 07/09/18 09:12 Dose: 1 tab Oxcarbazepine (Trileptal) 900 mg PO DAILY [facility] Last Admin: 07/09/18 09:13 Dose: 900 mg Oxycodone HCl (Oxycontin Extended Release Tab) 20 mg PO Q12 [facility] Last Admin: 07/09/18 20:52 Dose: 20 mg Oxycodone/Acetaminophen (Percocet 5/325 Mg Tab) 2 tab PO Q4 PRN PRN Reason: for pain scale 8-10 Stop: 07/10/18 13:44 Last Admin: 07/09/18 22:35 Dose: 2 tab Pantoprazole Sodium (Protonix Ec Tab) 40 mg PO DAILY [facility] Last Admin: 07/09/18 09:13 Dose: 40 mg Polyethylene Glycol (Miralax) 17 gm PO DAILY PRN PRN Reason: Constipation Last Admin: 07/09/18 22:38 Dose: 17 gm Potassium Chloride (Klor-Con 10) 10 meq PO DAILY [facility] Last Admin: 07/09/18 09:12 Dose: 10 meq Prednisone (Prednisone Tab) 30 mg PO Q24H [facility] Stop: 07/10/18 13:38 Last Admin: 07/09/18 13:02 Dose: 30 mg Prednisone (Prednisone Tab) 20 mg PO Q24H [facility] Stop: 07/12/18 13:38 Prednisone (Prednisone Tab) 10 mg PO Q24H [facility] Stop: 07/14/18 13:38 Pregabalin (Lyrica) 50 mg PO BID [facility] Last Admin: 07/09/18 16:34 Dose: 50 mg Fluticasone/Salmeterol (Advair Diskus 250/50) 1 puff IH BID [facility] Last Admin: 07/09/18 16:34 Dose: 1 puff Thiamine HCl (Vitamin B1 Tab) 100 mg PO DAILY [facility] Last Admin: 07/09/18 09:12 Dose: 100 mg Trazodone HCl (Desyrel) 100 mg PO HS [facility] Last Admin: 07/09/18 21:39 Dose: 100 mg Zolpidem Tartrate (Ambien) 5 mg PO HS PRN PRN Reason: for sleep Last Admin: 07/09/18 21:39 Dose: 5 mg - Labs Labs: 06/28/18 06:00 07/02/18 08:37 - Head Exam Head Exam: ATRAUMATIC, NORMAL INSPECTION, NORMOCEPHALIC - Eye Exam Eye Exam: EOMI, Normal appearance, PERRL Pupil Exam: NORMAL ACCOMODATION - ENT Exam ENT Exam: Mucous Membranes Moist, Normal Exam - Neck Exam Neck Exam: Full ROM, Normal Inspection - Respiratory Exam Respiratory Exam: Clear to Ausculation Bilateral, NORMAL BREATHING PATTERN - Cardiovascular Exam Cardiovascular Exam: REGULAR RHYTHM, +S1, +S2 - GI/Abdominal Exam GI & Abdominal Exam: Soft, Normal Bowel Sounds - Extremities Exam Extremities Exam: Normal Capillary Refill, Normal Inspection Additional comments: right foot drop. - Back Exam Additional comments: weakness and tenderness to cervical and lumbar spine. - Neurological Exam Neurological Exam: Alert, Awake, CN II-XII Intact, Oriented x3 - Psychiatric Exam Psychiatric exam: Normal Affect, Normal Mood - Skin Skin Exam: Dry, Normal Color, Warm Assessment and Plan (1) Pelvic fracture Assessment & Plan: 1.) pelvic fracture -persistent pain noted. Pt is on multiple pain meds and neuropathic medication. -consults input appreciated. -Pelvic CT showed pubic rami fractures, right sacral fracture extending through the S2 and S3 foraminae. -Neurosurgery consult for evaluation of foot drop. -It is my recommendation that an EMG study be done. -r/o potential lumbar/sacral nerve injury as etiology of right foot drop. -continue current tx and Physical therapy as tolerated. Status: Acute
--- NOTE | 2018-07-10 00:15 | CP.PCM.PN ---
Subjective - Date & Time of Evaluation Date of Evaluation: 07/08/18 Time of Evaluation: 14:50 - Subjective Subjective: Pt seen and assessed at bedside. No new changes. Pelvic + back pain, as well as right foot drop remain. Review of Systems - Review of Systems All systems: reviewed and no additional remarkable complaints except Review of Systems: neuropathy to BLE, widespread body pain, right foot drop. Objective - Vital Signs/Intake and Output Vital Signs (last 24 hours): Temp Pulse Resp BP Pulse Ox 98.2 F 81 20 129/74 97 07/09/18 22:00 07/09/18 22:00 07/09/18 22:00 07/09/18 22:00 07/09/18 22:00 - Medications Medications: Current Medications Acetaminophen (Tylenol 325mg Tab) 650 mg PO Q6 PRN PRN Reason: pain 1-7 Albuterol/Ipratropium (Duoneb 3 Mg/0.5 Mg (3 Ml) Ud) 3 ml IH RTID PRN PRN Reason: SOB Amlodipine Besylate (Norvasc) 10 mg PO DAILY [facility] Last Admin: 07/09/18 09:14 Dose: 10 mg Aspirin (Aspirin) 325 mg PO DAILY [facility] Last Admin: 07/09/18 09:11 Dose: 325 mg Carvedilol (Coreg) 12.5 mg PO Q12 [facility] Last Admin: 07/09/18 20:52 Dose: 12.5 mg Docusate Sodium (Colace) 100 mg PO BID [facility] Last Admin: 07/09/18 16:35 Dose: 100 mg Duloxetine HCl (Cymbalta) 60 mg PO DAILY [facility] Last Admin: 07/09/18 09:12 Dose: 60 mg Ezetimibe (Zetia) 10 mg PO DAILY [facility] Last Admin: 07/09/18 09:13 Dose: 10 mg Ergocalciferol (Drisdol 50,000 Intl Units Cap) 1 cap PO Th [facility] Last Admin: 07/05/18 08:56 Dose: 1 cap Ferrous Sulfate (Feosol) 325 mg PO BID [facility] Last Admin: 07/09/18 16:34 Dose: 325 mg Folic Acid (Folic Acid) 1 mg PO DAILY [facility] Last Admin: 07/09/18 09:11 Dose: 1 mg Gabapentin (Neurontin) 800 mg PO TID [facility] Last Admin: 07/09/18 16:34 Dose: 800 mg Lactic Acid (Lac-Hydrin 12% Cream (140 G)) 1 ea TOP DAILY [facility] Last Admin: 07/09/18 09:10 Dose: 1 applic Lidocaine (Lidoderm) 2 ea TD DAILY [facility] Last Admin: 07/09/18 09:14 Dose: 2 ea Lisinopril (Zestril) 40 mg PO DAILY [facility] Last Admin: 07/09/18 09:10 Dose: 40 mg Lorazepam (Ativan) 1 mg PO BID PRN PRN Reason: Anxiety Last Admin: 07/09/18 09:09 Dose: 1 mg Magnesium Oxide (Mag-Ox) 400 mg PO DAILY [facility] Last Admin: 07/09/18 09:14 Dose: 400 mg Methocarbamol (Robaxin) 500 mg PO TID [facility] Last Admin: 07/09/18 16:34 Dose: 500 mg Montelukast Sodium (Singulair) 10 mg PO DAILY [facility] Last Admin: 07/09/18 09:11 Dose: 10 mg Multivitamins/Minerals (Therapeutic-M Tab) 1 tab PO DAILY [facility] Last Admin: 07/09/18 09:12 Dose: 1 tab Oxcarbazepine (Trileptal) 900 mg PO DAILY [facility] Last Admin: 07/09/18 09:13 Dose: 900 mg Oxycodone HCl (Oxycontin Extended Release Tab) 20 mg PO Q12 [facility] Last Admin: 07/09/18 20:52 Dose: 20 mg Oxycodone/Acetaminophen (Percocet 5/325 Mg Tab) 2 tab PO Q4 PRN PRN Reason: for pain scale 8-10 Stop: 07/10/18 13:44 Last Admin: 07/09/18 22:35 Dose: 2 tab Pantoprazole Sodium (Protonix Ec Tab) 40 mg PO DAILY [facility] Last Admin: 07/09/18 09:13 Dose: 40 mg Polyethylene Glycol (Miralax) 17 gm PO DAILY PRN PRN Reason: Constipation Last Admin: 07/09/18 22:38 Dose: 17 gm Potassium Chloride (Klor-Con 10) 10 meq PO DAILY [facility] Last Admin: 07/09/18 09:12 Dose: 10 meq Prednisone (Prednisone Tab) 30 mg PO Q24H [facility] Stop: 07/10/18 13:38 Last Admin: 07/09/18 13:02 Dose: 30 mg Prednisone (Prednisone Tab) 20 mg PO Q24H [facility] Stop: 07/12/18 13:38 Prednisone (Prednisone Tab) 10 mg PO Q24H [facility] Stop: 07/14/18 13:38 Pregabalin (Lyrica) 50 mg PO BID [facility] Last Admin: 07/09/18 16:34 Dose: 50 mg Fluticasone/Salmeterol (Advair Diskus 250/50) 1 puff IH BID [facility] Last Admin: 07/09/18 16:34 Dose: 1 puff Thiamine HCl (Vitamin B1 Tab) 100 mg PO DAILY [facility] Last Admin: 07/09/18 09:12 Dose: 100 mg Trazodone HCl (Desyrel) 100 mg PO HS [facility] Last Admin: 07/09/18 21:39 Dose: 100 mg Zolpidem Tartrate (Ambien) 5 mg PO HS PRN PRN Reason: for sleep Last Admin: 07/09/18 21:39 Dose: 5 mg - Labs Labs: 06/28/18 06:00 07/02/18 08:37 - Head Exam Head Exam: ATRAUMATIC, NORMAL INSPECTION, NORMOCEPHALIC - Eye Exam Eye Exam: EOMI, Normal appearance, PERRL Pupil Exam: NORMAL ACCOMODATION, PERRL - ENT Exam ENT Exam: Mucous Membranes Moist, Normal Exam - Neck Exam Neck Exam: Full ROM, Normal Inspection - Respiratory Exam Respiratory Exam: Clear to Ausculation Bilateral, NORMAL BREATHING PATTERN - Cardiovascular Exam Cardiovascular Exam: REGULAR RHYTHM, +S1, +S2 - GI/Abdominal Exam GI & Abdominal Exam: Soft, Normal Bowel Sounds - Extremities Exam Extremities Exam: Normal Capillary Refill Additional comments: Right foot drop noted. - Back Exam Additional comments: painful ROM in the back and pelvis. - Neurological Exam Neurological Exam: Alert, Awake, CN II-XII Intact, Oriented x3 - Psychiatric Exam Psychiatric exam: Normal Affect, Normal Mood - Skin Skin Exam: Dry, Intact, Warm Assessment and Plan (1) Pelvic fracture Assessment & Plan: 1.) pelvic fracture -pain and tenderness to pelvic area; on multiple pain meds. -hematoma to left flank is improving (s/p fall prior to admission) -consults input appreciated. -Pelvic CT showed pubic rami fractures, right sacral fracture extending through the S2 and S3 foraminae. -Neurosurgery for eval of potential nerve involvement. -It is my recommendation that an EMG study be done. -r/o potential lumbar/sacral nerve injury as cause of right foot drop. -continue current tx and Physical therapy. Status: Acute
[2018-07-10] MEDS: Oxycodone/Acetaminophen 5/325 mg Tab PO PRN ×4 (02:34→18:32)
[2018-07-10] MEDS: Fluticasone-Salmeterol 250-50mcg Diskus IH SCH ×2 (09:04→17:47)
[2018-07-10] MEDS: oxyCODONE 20 mg ER Tab (oxyCONTIN) PO SCH ×2 (09:04→21:29)
[2018-07-10] MEDS: Ammonium Lactate 12% Cream (140 g) TOP SCH (09:05)
[2018-07-10] MEDS: Lidocaine 5% Patch TD SCH (09:07)
[2018-07-10] MEDS: Methocarbamol 500 MG Tab PO SCH ×3 (09:08→17:48)
[2018-07-10] MEDS: Potassium Chloride 10 mEq ER Tab PO SCH (09:09)
[2018-07-10] MEDS: Multivitamin With Minerals Tab PO SCH (09:09)
[2018-07-10] MEDS: Pantoprazole 40 mg EC Tab PO SCH (09:10)
[2018-07-10] MEDS: Magnesium Oxide 400 mg Tab UD PO SCH (09:11)
--- NOTE | 2018-07-10 13:15 | PCM.PSYTMC ---
Acute Rehab Team Conference - - Vital Signs: Vital Signs (Last 8 Hours): Vital Signs 07/10/18 07/10/18 07/10/18 08:33 09:00 09:08 Temperature 98.0 F 98 F Pulse Rate 61 61 61 Respiratory 20 20 Rate Blood Pressure 137/74 137/74 137/74 O2 Sat by Pulse 99 Oximetry 07/10/18 07/10/18 09:09 09:12 Temperature Pulse Rate 61 61 Respiratory Rate Blood Pressure 137/74 137/74 O2 Sat by Pulse Oximetry Pain: 0 - Precautions: Precautions: Fall Prevention, Cardiac/Pulmonary, Pressure Ulcer, Seizure - Medications/Other Issues: Comment: patient continues to complained of pain despite meds ordered had fall yesterday xray done with result all md's aware - Consults: Comment: Dr Bear,Dr Kimbrough,Dr Haynes - Toileting: Toileting: Contact Guard - Bladder Management: Bladder Pattern: Normal Voiding Method: Toilet, Urinal Bladder Management: Supervision - Transfers: Transfers: Supervision - ADL's: ADL's: Supervision - Pain Management: Other Intervention:: on lyrica bid ,oxycontin extended release neurontin nd prn percocet prn lidoderm patch - Patient/Family Teaching: Other Intervention:: reinforce safety and medication teaching and the use of divertional activity for pain - Goals/Time Frame: Comment: as per multidiciplinary plan of care - Provider: Registered Nurse:: Joan Bauer Physical Therapy - Bed Mobility Bed Mobility: Supervision - Transfers Wheelchair to Mat: Supervision Sit to Stand: Supervision - Ambulation Level of Assistance: Supervision, Verbal Cues Distance (ft.): 150 Assistive Devices: Rolling Walker Orthoses: trialing posterior leaf splint on RLE - Stair Negotiation Stairs: Level of Assistance: Contact Guard, Minimal Assistance Number of Stairs: 12 Handrails: Left - Standing Balance Static Stand: Modified [place] with assistive device Comment: w/ RW - Pain Pain (assessed during therapy session): 10 Alleviating Techniques: Medication, Heat, Ice, Position Change Comment: R low back, R hip, L hip, RLE radiating pain, coccyx - Insight/Carryover Insight/Carryover: Good - Patient/Family Education Comment: Safety, POC, d/c recommendations - Assessment/Plan Assessment: Pt performs bed mobility and transfers with supervision. Pt with recent onset R foot drop; ortho and neurosurgery consulted with recommendations of no surgical intervention at this time. Trialing R AFO to promote normalized gait pattern and increased safety. Contacted [employer] to assess pt for R AFO. Pt ambulates with RW and close S ; requires CGA/min A to negotiate flight of stairs. Requesting family training with pts brother for stair negotiation. Pts barrier to functonal independence is reports of pain and noted R ankle weakness. - Goals Timeframe: 1 week Goals: Sit < > supine mod I. Pt will perform all functional transfers mod I with RW. Pt will ambulate 500 ft mod I with RW. Pt will ascend/descend flight of stairs with supervision. - Provider Physical Therapist:: Zenia Blancas License Number:: [id number] Occupational Therapy - Arousal/Attention/Orientation Level of Consciousness: Awake, Alert Patient Orientation: Person, Time - ADL/IADL Self Feeding: Set-up Help Grooming: Set-up Help Bathing-Upper Ext: Supervision Bathing-Lower Ext: Supervision, Verbal Cues, Contact Guard Dressing-Upper Ext: Supervision Dressing-Lower Ext: Supervision, Contact Guard Comment: pt uses LB AE for dressing/bathing - Sitting Balance Static Sitting: Independent without upper extremity support Dynamic Sitting: Reaches across midline, Reaches out of base of support - Transfers Wheelchair to Bed Transfers: Supervision Toilet Transfers: Supervision Tub Transfers: Supervision, Verbal Cues Comment: using rw for transfers. uses tub transfer bench for bathing - Wheelchair Management Level of Assistance: Supervision Distance (ft.): 75 - Upper Extremity Status Right Upper Extremity Comment: WFL Left Upper Extremity Comment: WFL - Pain Pain (assessed during therapy session): 7 Alleviating Techniques: Medication, Position Change Comment: -patient reports diminshed pain when in supine or standing position. pt reports discomfort when seated. pt reports pain in R lower back/flank area, buttocks (coccyx) and intermittnt shooting pain along R medial LE. pain is relieved only with medicaiton, biofreeze and/or position change - Insight/Carryover Insight/Carryover: Good - Patient/Family Education Comment: AE/DME education, safety awareness, fall prevention, energy conservation - Assessment/Plan Assessment: Patient is making gains towards set goals in therapy. However-pt now presents with impaired strength in R foot; pt unable to dorsiflex impacting pt's dynamic standing balance/coordination. Pelvis CT on 07/04/18 (+) nondisplaced R sacral ala fx. Lumbar Spine MRI 07/05/18: moderate degenerative central stenosis L4-L5; multilevel degenerative neural foraminal stenoses B inferior lumbar spine; post traumatic contusions involving B sacrum; presacral hematoma/edema identified; posterior paraspinal hematoma. Ortho consulted (Dr. Kimbrough), per MD note: recommends non-operative tx; recommends neurosurgery/spine consults for new onset drop foot and RLE numbness (Dr. Gutierrez consulted); "no orthopedic intervention indicated". *MIRELLA Mena spoke to Ortho-- reports pt can continue WBAT BLEs. patient still with reports of pain ranging from 7-9/10 in R posterior hip/coccyx . pt always agreeable to tX even when in pain . pt is able to complete ub adls with s/u/I, lb adls with cga using lb ae PRN and, toiletigm with cga and transfers/mobility with cs using rw. recommend d/c home with intermittent supervision/assist for adls and iadls as needed. recommended dme: tub transfer bench, 3 in 1 commode , rw and hip kit - Goals Timeframe: 1 week Comment: mod I transfers, mobility, toileting, ADLS, - Provider Occupational Therapist:: Adela Mejia License Number: [id number] Recreational Therapy - Participation Participation: Monitors His/Her Own Leisure Time - Attendance Attendance: 10-11 times per week - Activities Leisure Activities: Reading - Socialization Level of Socialization: Initiates/interacts freely with care givers and peer - Diversional Time Diversional Time: reading, watching television - Assessment Assessment/Plan: Pt receives daily room visits for social support and encouragement to participate in recreation therapy sessions. Pt has received daily bedside visits as pt would often be in bed for testing or pt expressing pain or discomfort. Pt provided with book to read during his free itme and verbalized that he enjoys reading book. Will continue to encourage pt to participate in sessions for diversion. Problems Currently Limiting Participation: pain, discomfort, decrease leisure awareness level Goals and Time Frame: Pt will be encouraged to participate and tolerate at least 20 minutes of leisure task for diversion purposes and improve leisure awareness level for two consecutive days by date of discharge. - Provider Therapist: Dorothy Kruse Nutrition - Current Diet Current Diet/Supplement/Feedings: 2 gram Na diet - Appetite Percent Meal Consumed: 75-100% - Assessment/Goals/Time Frame Assessments/Goals/Time Frame: Pt at moderate nutritional risk. goal: 1. Pt to consume 75-100% of meals(partially met, continue). Follow-up due on 07/13/2018 - Provider Provider: Suzanne Goncalves Case Management - Psychosocial Assessment Support Systems: [facility] () - [phone] Psychological Interventions/Needs: Patient is AAOx3 and able to verbalize needs. Discharge Concerns: Patient lives alone and has a hx of excessive ETOH use, indicating poor insight and safety. Patient/Family Meeting: CM met with patient and rehab team. Intervention/Goal/Outcome: 1. Goal: Intermittent Supervision 2. Plan: home with VNS for home visiting nurse and home PT/OT 3. f/u appts 4. DME needs 5. caregiver training with /6 @ 2PM 6. continued emotional support - Discharge Plan Discharge Plan: Home with services Home Services: [facility] - Provider Provider: Chari Delaney License Number: [id number] Rehabilitation Plan - Treatment Plan Treatment Plan: Physical Therapy, Occupational Therapy, Dietary, Pain Management, Patient/Family Education - Discharge Plan Estimated Date of Discharge: 07/12/18 Discharge to: Home
--- NOTE | 2018-07-10 13:36 | CP.PCM.PN ---
Subjective - Date & Time of Evaluation Date of Evaluation: 07/10/18 Time of Evaluation: 13:35 - Subjective Subjective: Patient seen in the room he was again made aware that he is on multiple pain medications and that if I did not think he had pain I would not have started all of these medications. He is not satisfied and I told him again that this is all that is appropriate and all that I feel comfortable prescribing for him. He is comfortable and in NAD Objective - Vital Signs/Intake and Output Vital Signs (last 24 hours): Temp Pulse Resp BP Pulse Ox 98 F 61 20 137/74 99 07/10/18 09:00 07/10/18 09:12 07/10/18 09:00 07/10/18 09:12 07/10/18 08:33 - Medications Medications: Current Medications Acetaminophen (Tylenol 325mg Tab) 650 mg PO Q6 PRN PRN Reason: pain 1-7 Albuterol/Ipratropium (Duoneb 3 Mg/0.5 Mg (3 Ml) Ud) 3 ml IH RTID PRN PRN Reason: SOB Amlodipine Besylate (Norvasc) 10 mg PO DAILY [facility] Last Admin: 07/10/18 09:09 Dose: 10 mg Aspirin (Aspirin) 325 mg PO DAILY [facility] Last Admin: 07/10/18 09:10 Dose: 325 mg Carvedilol (Coreg) 12.5 mg PO Q12 [facility] Last Admin: 07/10/18 09:08 Dose: 12.5 mg Docusate Sodium (Colace) 100 mg PO BID [facility] Last Admin: 07/10/18 09:05 Dose: 100 mg Duloxetine HCl (Cymbalta) 60 mg PO DAILY [facility] Last Admin: 07/10/18 09:13 Dose: 60 mg Ezetimibe (Zetia) 10 mg PO DAILY [facility] Last Admin: 07/10/18 09:11 Dose: 10 mg Ergocalciferol (Drisdol 50,000 Intl Units Cap) 1 cap PO Th [facility] Last Admin: 07/05/18 08:56 Dose: 1 cap Ferrous Sulfate (Feosol) 325 mg PO BID [facility] Last Admin: 07/10/18 09:09 Dose: 325 mg Folic Acid (Folic Acid) 1 mg PO DAILY [facility] Last Admin: 07/10/18 09:06 Dose: 1 mg Gabapentin (Neurontin) 800 mg PO TID [facility] Last Admin: 07/10/18 13:31 Dose: 800 mg Lactic Acid (Lac-Hydrin 12% Cream (140 G)) 1 ea TOP DAILY [facility] Last Admin: 07/10/18 09:05 Dose: 1 applic Lidocaine (Lidoderm) 2 ea TD DAILY [facility] Last Admin: 07/10/18 09:07 Dose: 2 ea Lisinopril (Zestril) 40 mg PO DAILY [facility] Last Admin: 07/10/18 09:12 Dose: 40 mg Lorazepam (Ativan) 1 mg PO BID PRN PRN Reason: Anxiety Last Admin: 07/09/18 09:09 Dose: 1 mg Magnesium Oxide (Mag-Ox) 400 mg PO DAILY [facility] Last Admin: 07/10/18 09:11 Dose: 400 mg Methocarbamol (Robaxin) 500 mg PO TID [facility] Last Admin: 07/10/18 13:30 Dose: 500 mg Montelukast Sodium (Singulair) 10 mg PO DAILY [facility] Last Admin: 07/10/18 09:11 Dose: 10 mg Multivitamins/Minerals (Therapeutic-M Tab) 1 tab PO DAILY [facility] Last Admin: 07/10/18 09:09 Dose: 1 tab Oxcarbazepine (Trileptal) 900 mg PO DAILY [facility] Last Admin: 07/10/18 09:05 Dose: 900 mg Oxycodone HCl (Oxycontin Extended Release Tab) 20 mg PO Q12 [facility] Last Admin: 07/10/18 09:04 Dose: 20 mg Oxycodone/Acetaminophen (Percocet 5/325 Mg Tab) 2 tab PO Q4 PRN PRN Reason: for pain scale 8-10 Stop: 07/10/18 13:44 Last Admin: 07/10/18 13:33 Dose: 2 tab Pantoprazole Sodium (Protonix Ec Tab) 40 mg PO DAILY [facility] Last Admin: 07/10/18 09:10 Dose: 40 mg Polyethylene Glycol (Miralax) 17 gm PO DAILY PRN PRN Reason: Constipation Last Admin: 07/09/18 22:38 Dose: 17 gm Potassium Chloride (Klor-Con 10) 10 meq PO DAILY [facility] Last Admin: 07/10/18 09:09 Dose: 10 meq Prednisone (Prednisone Tab) 30 mg PO Q24H [facility] Stop: 07/10/18 13:38 Last Admin: 07/09/18 13:02 Dose: 30 mg Prednisone (Prednisone Tab) 20 mg PO Q24H [facility] Stop: 07/12/18 13:38 Prednisone (Prednisone Tab) 10 mg PO Q24H [facility] Stop: 07/14/18 13:38 Pregabalin (Lyrica) 50 mg PO BID [facility] Last Admin: 07/10/18 09:04 Dose: 50 mg Fluticasone/Salmeterol (Advair Diskus 250/50) 1 puff IH BID [facility] Last Admin: 07/10/18 09:04 Dose: 1 puff Thiamine HCl (Vitamin B1 Tab) 100 mg PO DAILY [facility] Last Admin: 07/10/18 09:06 Dose: 100 mg Trazodone HCl (Desyrel) 100 mg PO HS [facility] Last Admin: 07/09/18 21:39 Dose: 100 mg Zolpidem Tartrate (Ambien) 5 mg PO HS PRN PRN Reason: for sleep Last Admin: 07/09/18 21:39 Dose: 5 mg - Labs Labs: 06/28/18 06:00 07/02/18 08:37
[2018-07-10] MEDS: POLYETHYLENE GLYCOL 3350 17 GM/Dose PACKET PO PRN (17:48)
--- NOTE | 2018-07-10 22:24 | CP.PCM.PN ---
Subjective - Date & Time of Evaluation Date of Evaluation: 07/10/18 Time of Evaluation: 11:50 - Subjective Subjective: Patient continues to do well with PT However noted persistent foot drop. Has no fever. Objective - Vital Signs/Intake and Output Vital Signs (last 24 hours): Temp Pulse Resp BP Pulse Ox 98.2 F 71 20 115/71 97 07/10/18 20:32 07/10/18 21:30 07/10/18 20:32 07/10/18 21:30 07/10/18 20:32 - Medications Medications: Current Medications Acetaminophen (Tylenol 325mg Tab) 650 mg PO Q6 PRN PRN Reason: pain 1-7 Albuterol/Ipratropium (Duoneb 3 Mg/0.5 Mg (3 Ml) Ud) 3 ml IH RTID PRN PRN Reason: SOB Amlodipine Besylate (Norvasc) 10 mg PO DAILY [facility] Last Admin: 07/10/18 09:09 Dose: 10 mg Aspirin (Aspirin) 325 mg PO DAILY [facility] Last Admin: 07/10/18 09:10 Dose: 325 mg Carvedilol (Coreg) 12.5 mg PO Q12 [facility] Last Admin: 07/10/18 21:30 Dose: 12.5 mg Docusate Sodium (Colace) 100 mg PO BID [facility] Last Admin: 07/10/18 17:49 Dose: 100 mg Duloxetine HCl (Cymbalta) 60 mg PO DAILY [facility] Last Admin: 07/10/18 09:13 Dose: 60 mg Ezetimibe (Zetia) 10 mg PO DAILY [facility] Last Admin: 07/10/18 09:11 Dose: 10 mg Ergocalciferol (Drisdol 50,000 Intl Units Cap) 1 cap PO Th [facility] Last Admin: 07/05/18 08:56 Dose: 1 cap Ferrous Sulfate (Feosol) 325 mg PO BID [facility] Last Admin: 07/10/18 17:49 Dose: 325 mg Folic Acid (Folic Acid) 1 mg PO DAILY [facility] Last Admin: 07/10/18 09:06 Dose: 1 mg Gabapentin (Neurontin) 800 mg PO TID [facility] Last Admin: 07/10/18 17:48 Dose: 800 mg Lactic Acid (Lac-Hydrin 12% Cream (140 G)) 1 ea TOP DAILY [facility] Last Admin: 07/10/18 09:05 Dose: 1 applic Lidocaine (Lidoderm) 2 ea TD DAILY [facility] Last Admin: 07/10/18 09:07 Dose: 2 ea Lisinopril (Zestril) 40 mg PO DAILY [facility] Last Admin: 07/10/18 09:12 Dose: 40 mg Lorazepam (Ativan) 1 mg PO BID PRN PRN Reason: Anxiety Magnesium Oxide (Mag-Ox) 400 mg PO DAILY [facility] Last Admin: 07/10/18 09:11 Dose: 400 mg Methocarbamol (Robaxin) 500 mg PO TID [facility] Last Admin: 07/10/18 17:48 Dose: 500 mg Montelukast Sodium (Singulair) 10 mg PO DAILY [facility] Last Admin: 07/10/18 09:11 Dose: 10 mg Multivitamins/Minerals (Therapeutic-M Tab) 1 tab PO DAILY [facility] Last Admin: 07/10/18 09:09 Dose: 1 tab Oxcarbazepine (Trileptal) 900 mg PO DAILY [facility] Last Admin: 07/10/18 09:05 Dose: 900 mg Oxycodone HCl (Oxycontin Extended Release Tab) 20 mg PO Q12 [facility] Last Admin: 07/10/18 21:29 Dose: 20 mg Oxycodone/Acetaminophen (Percocet 5/325 Mg Tab) 2 tab PO Q4 PRN PRN Reason: Pain, severe (8-10) Stop: 07/13/18 17:36 Last Admin: 07/10/18 18:32 Dose: 2 tab Pantoprazole Sodium (Protonix Ec Tab) 40 mg PO DAILY [facility] Last Admin: 07/10/18 09:10 Dose: 40 mg Polyethylene Glycol (Miralax) 17 gm PO DAILY PRN PRN Reason: Constipation Last Admin: 07/10/18 17:48 Dose: 17 gm Potassium Chloride (Klor-Con 10) 10 meq PO DAILY [facility] Last Admin: 07/10/18 09:09 Dose: 10 meq Prednisone (Prednisone Tab) 20 mg PO Q24H [facility] Stop: 07/12/18 13:38 Prednisone (Prednisone Tab) 10 mg PO Q24H [facility] Stop: 07/14/18 13:38 Pregabalin (Lyrica) 50 mg PO BID [facility] Fluticasone/Salmeterol (Advair Diskus 250/50) 1 puff IH BID [facility] Last Admin: 07/10/18 17:47 Dose: 1 puff Thiamine HCl (Vitamin B1 Tab) 100 mg PO DAILY [facility] Last Admin: 07/10/18 09:06 Dose: 100 mg Trazodone HCl (Desyrel) 100 mg PO HS [facility] Last Admin: 07/10/18 21:35 Dose: 100 mg Zolpidem Tartrate (Ambien) 5 mg PO HS PRN PRN Reason: Insomnia - Labs Labs: 06/28/18 06:00 07/02/18 08:37 - Head Exam Head Exam: NORMAL INSPECTION - Eye Exam Eye Exam: Normal appearance - ENT Exam ENT Exam: Mucous Membranes Moist - Respiratory Exam Respiratory Exam: Decreased Breath Sounds - Cardiovascular Exam Cardiovascular Exam: REGULAR RHYTHM - GI/Abdominal Exam GI & Abdominal Exam: Normal Bowel Sounds - Neurological Exam Additional comments: right foot drop Assessment and Plan (1) Pelvic fracture Status: Acute (2) Abnormal liver enzymes Status: Acute (3) Anxiety Status: Acute (4) Depression Status: Acute (5) HTN (hypertension) Status: Acute (6) Hypercholesterolemia Status: Acute (7) Foot drop, right Status: Acute - Assessment and Plan (Free Text) Plan: Con tmeds Cont tx Cont PT follow up with neurosurgeon.
[2018-07-11] MEDS: Oxycodone/Acetaminophen 5/325 mg Tab PO PRN ×4 (01:38→15:48)
[2018-07-11] MEDS: Fluticasone-Salmeterol 250-50mcg Diskus IH SCH ×2 (08:39→16:49)
[2018-07-11] MEDS: Potassium Chloride 10 mEq ER Tab PO SCH (08:40)
[2018-07-11] MEDS: Magnesium Oxide 400 mg Tab UD PO SCH (08:40)
[2018-07-11] MEDS: Pantoprazole 40 mg EC Tab PO SCH (08:41)
[2018-07-11] MEDS: Multivitamin With Minerals Tab PO SCH (08:42)
[2018-07-11] MEDS: Methocarbamol 500 MG Tab PO SCH ×3 (08:42→16:55)
[2018-07-11] MEDS: Ammonium Lactate 12% Cream (140 g) TOP SCH (08:46)
[2018-07-11] MEDS: Lidocaine 5% Patch TD SCH (08:47)
[2018-07-11] MEDS: oxyCODONE 20 mg ER Tab (oxyCONTIN) PO SCH ×2 (08:58→21:54)
--- NOTE | 2018-07-11 17:02 | CP.PCM.PN ---
Subjective - Date & Time of Evaluation Date of Evaluation: 07/11/18 Time of Evaluation: 17:01 - Subjective Subjective: patient had family training today and was able to ambulate 500' went downstairs and practiced the ramp he is as well trained as possible for the upcoming discharge again asking for medications which I will not change for him he will not follow up with me as an outpatient Objective - Vital Signs/Intake and Output Vital Signs (last 24 hours): Temp Pulse Resp BP Pulse Ox 98.0 F 73 18 142/79 96 07/11/18 08:14 07/11/18 08:44 07/11/18 08:14 07/11/18 08:44 07/11/18 08:14 - Medications Medications: Current Medications Acetaminophen (Tylenol 325mg Tab) 650 mg PO Q6 PRN PRN Reason: pain 1-7 Albuterol/Ipratropium (Duoneb 3 Mg/0.5 Mg (3 Ml) Ud) 3 ml IH RTID PRN PRN Reason: SOB Amlodipine Besylate (Norvasc) 10 mg PO DAILY [facility] Last Admin: 07/11/18 08:42 Dose: 10 mg Aspirin (Aspirin) 325 mg PO DAILY [facility] Last Admin: 07/11/18 08:44 Dose: 325 mg Bisacodyl (Dulcolax) 10 mg [place] DAILY PRN PRN Reason: Constipation Carvedilol (Coreg) 12.5 mg PO Q12 [facility] Last Admin: 07/11/18 08:44 Dose: 12.5 mg Clotrimazole (Lotrimin 1% Cream) 1 applic TOP BID [facility] Docusate Sodium (Colace) 100 mg PO BID [facility] Last Admin: 07/11/18 16:50 Dose: 100 mg Duloxetine HCl (Cymbalta) 60 mg PO DAILY [facility] Last Admin: 07/11/18 08:45 Dose: 60 mg Ezetimibe (Zetia) 10 mg PO DAILY [facility] Last Admin: 07/11/18 08:49 Dose: 10 mg Ergocalciferol (Drisdol 50,000 Intl Units Cap) 1 cap PO Th [facility] Last Admin: 07/05/18 08:56 Dose: 1 cap Ferrous Sulfate (Feosol) 325 mg PO BID [facility] Last Admin: 07/11/18 16:54 Dose: 325 mg Folic Acid (Folic Acid) 1 mg PO DAILY [facility] Last Admin: 07/11/18 08:46 Dose: 1 mg Gabapentin (Neurontin) 800 mg PO TID [facility] Last Admin: 07/11/18 16:54 Dose: 800 mg Lactic Acid (Lac-Hydrin 12% Cream (140 G)) 1 ea TOP DAILY [facility] Last Admin: 07/11/18 08:46 Dose: 1 applic Lidocaine (Lidoderm) 2 ea TD DAILY [facility] Last Admin: 07/11/18 08:47 Dose: 2 ea Lisinopril (Zestril) 40 mg PO DAILY [facility] Last Admin: 07/11/18 08:41 Dose: 40 mg Lorazepam (Ativan) 1 mg PO BID PRN PRN Reason: Anxiety Last Admin: 07/11/18 02:58 Dose: 1 mg Magnesium Oxide (Mag-Ox) 400 mg PO DAILY [facility] Last Admin: 07/11/18 08:40 Dose: 400 mg Methocarbamol (Robaxin) 500 mg PO TID [facility] Last Admin: 07/11/18 16:55 Dose: 500 mg Montelukast Sodium (Singulair) 10 mg PO DAILY [facility] Last Admin: 07/11/18 08:41 Dose: 10 mg Multivitamins/Minerals (Therapeutic-M Tab) 1 tab PO DAILY [facility] Last Admin: 07/11/18 08:42 Dose: 1 tab Oxcarbazepine (Trileptal) 900 mg PO DAILY [facility] Last Admin: 07/11/18 08:49 Dose: 900 mg Oxycodone HCl (Oxycontin Extended Release Tab) 20 mg PO Q12 [facility] Last Admin: 07/11/18 08:58 Dose: 20 mg Oxycodone/Acetaminophen (Percocet 5/325 Mg Tab) 2 tab PO Q4 PRN PRN Reason: Pain, severe (8-10) Stop: 07/13/18 17:36 Last Admin: 07/11/18 15:48 Dose: 2 tab Pantoprazole Sodium (Protonix Ec Tab) 40 mg PO DAILY [facility] Last Admin: 07/11/18 08:41 Dose: 40 mg Polyethylene Glycol (Miralax) 17 gm PO DAILY PRN PRN Reason: Constipation Last Admin: 07/10/18 17:48 Dose: 17 gm Potassium Chloride (Klor-Con 10) 10 meq PO DAILY [facility] Last Admin: 07/11/18 08:40 Dose: 10 meq Prednisone (Prednisone Tab) 20 mg PO Q24H [facility] Stop: 07/12/18 13:38 Last Admin: 07/11/18 12:36 Dose: 20 mg Prednisone (Prednisone Tab) 10 mg PO Q24H [facility] Stop: 07/14/18 13:38 Pregabalin (Lyrica) 50 mg PO BID [facility] Last Admin: 07/11/18 16:54 Dose: 50 mg Fluticasone/Salmeterol (Advair Diskus 250/50) 1 puff IH BID [facility] Last Admin: 07/11/18 16:49 Dose: 1 puff Thiamine HCl (Vitamin B1 Tab) 100 mg PO DAILY [facility] Last Admin: 07/11/18 08:40 Dose: 100 mg Trazodone HCl (Desyrel) 100 mg PO HS [facility] Last Admin: 07/10/18 21:35 Dose: 100 mg Zolpidem Tartrate (Ambien) 5 mg PO HS PRN PRN Reason: Insomnia - Labs Labs: 06/28/18 06:00 07/02/18 08:37
[2018-07-12] MEDS: Oxycodone/Acetaminophen 5/325 mg Tab PO PRN ×3 (01:20→11:08)
[2018-07-12 06:07] VITALS: BMI 22.7
[2018-07-12 08:30] VITALS: BP 129/81; PULSE 83; RESP 19; TEMP 98.1; O2SAT 98
[2018-07-12] MEDS: oxyCODONE 20 mg ER Tab (oxyCONTIN) PO SCH (08:34)
[2018-07-12] MEDS: Magnesium Oxide 400 mg Tab UD PO SCH (08:38)
[2018-07-12] MEDS: Multivitamin With Minerals Tab PO SCH (08:38)
[2018-07-12] MEDS: Ergocalciferol 50,000 Intl Units Cap PO SCH (08:39)
[2018-07-12] MEDS: Potassium Chloride 10 mEq ER Tab PO SCH (08:40)
[2018-07-12] MEDS: Pantoprazole 40 mg EC Tab PO SCH (08:41)
[2018-07-12] MEDS: Methocarbamol 500 MG Tab PO SCH ×2 (08:42→12:42)
[2018-07-12] MEDS: Ammonium Lactate 12% Cream (140 g) TOP SCH (08:43)
[2018-07-12] MEDS: Fluticasone-Salmeterol 250-50mcg Diskus IH SCH (08:43)
[2018-07-12] MEDS: Lidocaine 5% Patch TD SCH (08:44)
--- NOTE | 2018-07-13 00:15 | CP.PCM.PN ---
Subjective - Date & Time of Evaluation Date of Evaluation: 07/11/18 Time of Evaluation: 08:30 - Subjective Subjective: Pt seen and assessed at bedside. c/o chronic pain, however notes improved strength. Review of Systems - Review of Systems All systems: reviewed and no additional remarkable complaints except (chronic pain) Objective - Vital Signs/Intake and Output Vital Signs (last 24 hours): Temp Pulse Resp BP Pulse Ox 98.1 F 83 19 129/81 98 07/12/18 08:30 07/12/18 08:41 07/12/18 08:30 07/12/18 08:41 07/12/18 08:30 - Labs Labs: 06/28/18 06:00 07/02/18 08:37 - Head Exam Head Exam: ATRAUMATIC, NORMAL INSPECTION, NORMOCEPHALIC - Eye Exam Eye Exam: EOMI, Normal appearance, PERRL Pupil Exam: NORMAL ACCOMODATION, PERRL - ENT Exam ENT Exam: Mucous Membranes Moist - Neck Exam Neck Exam: Normal Inspection - Respiratory Exam Respiratory Exam: Clear to Ausculation Bilateral, NORMAL BREATHING PATTERN - Cardiovascular Exam Cardiovascular Exam: REGULAR RHYTHM, +S1, +S2 - GI/Abdominal Exam GI & Abdominal Exam: Soft, Normal Bowel Sounds - Extremities Exam Extremities Exam: Normal Capillary Refill Additional comments: painful ROM to BLE. Right foot drop noted. - Back Exam Back Exam: NORMAL INSPECTION Additional comments: painful ROM in the lower back. - Neurological Exam Neurological Exam: Alert, Awake, CN II-XII Intact, Oriented x3 - Psychiatric Exam Psychiatric exam: Normal Affect, Normal Mood - Skin Skin Exam: Dry, Normal Color, Warm Assessment and Plan (1) Pelvic fracture Assessment & Plan: 1.) pelvic fracture -pain and tenderness to pelvic area, back, and legs. The pt is on multiple pain meds and requesting stronger medication. Reminded pt that he is on multiple, strong, pain meds. -consults input appreciated. -r/o potential lumbar/sacral nerve injury as cause of right foot drop; can follow up with neurosurgery outpatient, possible EMG may be necessary. -continue current tx and Physical therapy- prepare for discharge. Status: Acute
== END 2018-07-12 15:00 | disposition home health service (06) | DRG 561 ==
PROVIDERS: ADMIT Family Medicine; ATTEND Family Medicine
PROC: F07Z9FZ Gait Training/Functional Ambulation Treatment using Assistive, Adaptive, Supportive or Protective Equipment (ICD-10-PCS; principal; 2018-06-27)
PROC: F08Z4FZ Home Management Treatment using Assistive, Adaptive, Supportive or Protective Equipment (ICD-10-PCS; 2018-06-27)
PROC: F07L6FZ Therapeutic Exercise Treatment of Musculoskeletal System - Lower Back / Lower Extremity using Assistive, Adaptive, Supportive or Protective Equipment (ICD-10-PCS; 2018-06-27)
DX: S32.592D Other specified fracture of left pubis, subsequent encounter for fracture with routine healing (principal); S32.110D Nondisplaced Zone I fracture of sacrum, subsequent encounter for fracture with routine healing; G89.29 Other chronic pain; M21.371 Foot drop, right foot; M48.061 Spinal stenosis, lumbar region without neurogenic claudication; I10 Essential (primary) hypertension; E78.00 Pure hypercholesterolemia, unspecified; W18.39XD Other fall on same level, subsequent encounter; G62.9 Polyneuropathy, unspecified; R94.5 Abnormal results of liver function studies; F41.9 Anxiety disorder, unspecified; F32.9 Major depressive disorder, single episode, unspecified; F17.210 Nicotine dependence, cigarettes, uncomplicated

== ENCOUNTER 2018-07-28 04:00 | Inpatient (IN) | payer MEDICARE ==
[2018-07-28 04:00] VITALS: BMI 22.7
[2018-07-28] MEDS ORDERED: Morphine 4 MG/ML VIAL IVP ONE (04:41)
--- NOTE | 2018-07-28 04:41 | ED PDOC ---
Lower Extremity Pain/Injury Time Seen by Provider: 07/28/18 04:18 Chief Complaint (Nursing): Back Pain Chief Complaint (Provider): Lower Extremity pain and weakness History Per: Patient History/Exam Limitations: no limitations Onset/Duration Of Symptoms: Days (x1 week) Additional Complaint(s): 58 y/o male with history of anxiety, depression, hypertension and hypercholesterolemia, presents to the ED with lower extremity pain and weakness. Patient was seen in this ED on the 23 of June when he was diagnosed with coccygeal fracture and pubic ramus fracture. Patient was then transferred to [facility] [place] [facility] trauma center. Patient subsequently had 16 days of acute rehabilitation ending on the 11 of July and it was determined that he did not require surgery. Patient states that since discharge he feels as though his legs are getting weaker associated with swelling and difficulty walking. Today he states that is legs are becoming increasingly more uncomfortable. Hugo chest pain, vikki rtness of breath, fever, cough. Patient states he has been taking Percocet with little to no relief. Past Medical History Reviewed: Historical Data, Nursing Documentation, Vital Signs Vital Signs: Last Vital Signs Temp 97.2 F L 07/28/18 04:11 Pulse 88 07/28/18 04:11 Resp 16 07/28/18 04:11 BP 152/89 H 07/28/18 04:11 Pulse Ox 98 07/28/18 04:11 - Medical History PMH: Anxiety, Depression, Fractures (Left pubic fracture), HTN, Hypercholester olemia Denies: HIV, Chronic Kidney Disease - Family History Family History: States: Unknown Family Hx - Social History Alcohol: Other (chart review indicates alcoholism) - Immunization History Hx Tetanus Toxoid Vaccination: No - Home Medications Home Medications: Ambulatory Orders Medication Instructions Recorded Aspirin 325 mg PO DAILY #30 tab 08/25/16 Ferrous Sulfate [Feosol] 325 mg PO BID #60 tab 08/25/16 Acetaminophen [Tylenol] 650 mg PO Q6 PRN 06/27/18 Albuterol/Ipratropium [Duoneb 3 3 ml IH TID PRN 06/27/18 MG/3 Ml-0.5 MG/3 Ml 3 Ml] Atorvastatin [Lipitor] 40 mg PO HS #30 tab 07/12/18 Carvedilol [Coreg] 12.5 mg PO Q12 #60 tab 07/12/18 DULoxetine [Cymbalta] 60 mg PO DAILY #30 ecc 07/12/18 Docusate [Colace] 100 mg PO BID 60 Days #30 cap 07/12/18 Ergocalciferol (Vitamin D2) 1 tab PO QWK 4 Days #4 capsule 07/12/18 [Vitamin D2] Ezetimibe [Zetia] 10 mg PO DAILY #30 tab 07/12/18 Fluticasone/Salmeterol 250/50 1 puff IH BID #1 puff 07/12/18 [Advair Diskus 250/50] Folic Acid 1 mg PO DAILY #30 tab 07/12/18 Gabapentin [Neurontin] 800 mg PO TID #180 cap 07/12/18 Lidocaine 5% [Lidoderm] 5 % TP DAILY #30 07/12/18 Lisinopril [Zestril] 40 mg PO DAILY #30 tablet 07/12/18 Magnesium Oxide [Mag-Ox] 400 mg PO DAILY 30 Days #10 tab 07/12/18 Methocarbamol [Robaxin] 500 mg PO TID #180 07/12/18 Montelukast [Singulair] 10 mg PO DAILY #30 tab 07/12/18 Multivit-Min/FA/Lycopen/Lutein 1 each PO DAILY #30 tablet 07/12/18 [Adults 50 Plus Multivitamin] OXcarbazepine [Trileptal] 900 mg PO DAILY #60 tab 07/12/18 Pantoprazole [Protonix EC Tab] 40 mg PO DAILY #30 ect 07/12/18 Potassium Chloride [K-Tab ER] 10 meq PO DAILY #30 tablet.er 07/12/18 Pregabalin [Lyrica] 50 mg PO BID #60 cap 07/12/18 Thiamine [Vitamin B1 Tab] 100 mg PO DAILY #30 tab 07/12/18 Zolpidem [Ambien] 10 mg PO HS PRN #30 tab 07/12/18 amLODIPine [Norvasc] 10 mg PO DAILY #60 tab 07/12/18 oxyCODONE [oxyCONTIN Extended 20 mg PO Q12 #10 tabsr 07/12/18 Release Tab] traZODone [Desyrel] 100 mg PO HS #30 tab 07/12/18 - Allergies Allergies/Adverse Reactions: Allergies Allergy/AdvReac Type Severity Reaction Status Date / Time seasonal Allergy Mild ITCHING Uncoded 06/27/18 20:21 Review of Systems ROS Statement: Except As Marked, All Systems Reviewed And Found Negative Constitutional: Negative for: Fever Cardiovascular: Negative for: Chest Pain Respiratory: Negative for: Cough, Shortness of Breath Musculoskeletal: Positive for: Leg Pain Neurological: Positive for: Weakness Physical Exam - Reviewed Nursing Documentation Reviewed: Yes Vital Signs Reviewed: Yes - Physical Exam Appears: Positive for: Well, Non-toxic, No Acute Distress Head Exam: Positive for: ATRAUMATIC, NORMAL INSPECTION, NORMOCEPHALIC Skin: Positive for: Normal Color, Warm, DRY Eye Exam: Positive for: EOMI, Normal appearance, PERRL ENT: Positive for: Normal ENT Inspection Neck: Positive for: Normal, Painless ROM Cardiovascular/Chest: Positive for: Regular Rate, Rhythm. Negative for: Murmur Respiratory: Positive for: Normal Breath Sounds. Negative for: Respiratory Distress Gastrointestinal/Abdominal: Positive for: Normal Exam, Soft. Negative for: Tenderness Back: Positive for: Normal Inspection Extremity: Positive for: Normal ROM, Pedal Edema (Left lower extremity: 3+ pitting edema; right lower extremity: 1+ pitting edema), Swelling (Left lower extremity: 3+ pitting edema; right lower extremity: 1+ pitting edema). Negative for: Deformity Neurological/Psych: Positive for: Awake, Alert, Normal Tone. Negative for: Motor/Sensory Deficits - Laboratory Results Result Diagrams: 07/28/18 04:47 07/28/18 04:47 - ECG O2 Sat by Pulse Oximetry: 98 (RA) Pulse Ox Interpretation: Normal Medical Decision Making Medical Decision Making: Time: 04:28 Impression: 58 y/o with lower extremity pain and swelling in setting of recent coccygeal fracture and pelvic ramus fracture Initial Plan: * Labs * Morphine * US Duplex LE 07:00 Patient care endorsed to Dr. Marcos pending US Duplex Lower Extremities. Scribe Attestation: Documented by Daniel Mason, acting as a scribe Jovita Lombardi MD Provider Scribe Attestation: All medical record entries made by the Scribe were at my direction and personally dictated by me. I have reviewed the chart and agree that the record accurately reflects my personal performance of the history, physical exam, medical decision making, and the department course for this patient. I have also personally directed, reviewed, and agree with the discharge instructions and disposition Disposition - Clinical Impression Clinical Impression: Chronic back pain, Lower extremity edema - Patient ED Disposition Is Patient to be Admitted: Transfer of Care - Disposition Disposition: Transfer of Care Disposition Time: 07:00 Condition: FAIR Patient Signed Over To: Alma Marcos Handoff Comments: US
[2018-07-28] MEDS ORDERED: Morphine 4 MG/ML VIAL ONE ×2 (04:43→13:49)
[2018-07-28 05:23] LABS: BASO % 0.8 % (0.0-2.0); EOS # 0.2 K/uL (0.0-0.7); EOS % 4.5 % (0.0-4.0); HEMOGLOBIN 10.5 g/dL (12.0-18.0); LYMPH # 0.9 K/uL (1.0-4.3); LYMPH % 17.1 % (20.0-40.0); MEAN CORPUSCULAR HEMOGLOBIN 32.2 pg (27.0-31.0); MEAN CORPUSCULAR HGB CONC 33.9 g/dL (33.0-37.0); MEAN PLATELET VOLUME 7.5 fl (7.2-11.7); MONO # 0.5 K/uL (0.0-0.8); MONO % 8.5 % (0.0-10.0); NEUT # 3.8 K/uL (1.8-7.0); NEUT % 69.1 % (50.0-75.0); RBC 3.25 Mil/uL (4.40-5.90); RED CELL DISTRIBUTION WIDTH 14.4 % (11.5-14.5); WHITE BLOOD COUNT 5.5 K/uL (4.8-10.8)
[2018-07-28 05:26] LABS: PROTHROMBIN TIME 10.8 Seconds (9.8-13.1)
[2018-07-28 05:29] LABS: PARTIAL THROMBOPLASTIN TIME 34.3 Seconds (25.6-37.1)
[2018-07-28 05:43] LABS: B-TYPE NATRIURETIC PEPTIDE 334 pg/ml (0-900)
[2018-07-28 05:47] LABS: ALB/GLOB RATIO 1.2 (1.0-2.1); ALBUMIN 3.7 g/dL (3.5-5.0); ALT/SGPT 64 U/L (21-72); AST/SGOT 59 U/L (17-59); BLOOD UREA NITROGEN 12 mg/dl (9-20); CALCIUM 9.5 mg/dL (8.4-10.2); GFR NON-AFRICAN AMERICAN > 60
--- NOTE | 2018-07-28 07:28 | ED PDOC ---
- Laboratory Results Result Diagrams: 07/29/18 06:30 07/29/18 06:30 Lab Results: PT 10.8 Seconds (9.8-13.1) 07/28/18 04:47 INR 1.0 07/28/18 04:47 APTT 34.3 Seconds (25.6-37.1) 07/28/18 04:47 Troponin I < 0.0120 ng/mL (0.00-0.120) 07/28/18 04:47 NT-Pro-B Natriuret Pep 334 pg/ml (0-900) 07/28/18 04:47 Total Bilirubin 0.3 mg/dl (0.2-1.3) 07/28/18 04:47 AST 59 U/L (17-59) D 07/28/18 04:47 ALT 64 U/L (21-72) 07/28/18 04:47 Alkaline Phosphatase 281 U/L (38-126) H D 07/28/18 04:47 Total Protein 6.7 G/DL (6.3-8.2) 07/28/18 04:47 Albumin 3.7 g/dL (3.5-5.0) 07/28/18 04:47 Globulin 3.1 gm/dL (2.2-3.9) 07/28/18 04:47 Albumin/Globulin Ratio 1.2 (1.0-2.1) 07/28/18 04:47 - ECG O2 Sat by Pulse Oximetry: 98 (RA) Pulse Ox Interpretation: Normal Medical Decision Making Medical Decision Making: Time: 7:00 Patient presenting for evaluation of leg swelling s/p fall was signed out to me by Dr. Lombardi pending ultrasound. 1205 Patient claims he is unable to ambulate secondary to pain. Discussed with Preet Anderson MD and patient is to be placed in observation. --------- -------- Scribe Attestation: Documented by Ronda Nieves, acting as a scribe for Alma Marcos MD. Provider Scribe Attestation: All medical record entries made by the Scribe were at my direction and personally dictated by me. I have reviewed the chart and agree that the record accurately reflects my personal performance of the history, physical exam, medical decision making, and the department course for this patient. I have also personally directed, reviewed, and agree with the discharge instructions and disposition. Disposition - Clinical Impression Clinical Impression: Chronic back pain, Lower extremity edema - POA Present On Arrival: Falls Or Trauma - Disposition Disposition: Hospitalized as Observation Patient Disposition Time: 12:08 Condition: STABLE
--- NOTE | 2018-07-28 12:18 | US ---
Date of service: 07/28/2018 PROCEDURE: Bilateral lower extremity venous duplex Doppler. HISTORY: B/L LE swelling L>R COMPARISON: None available. TECHNIQUE: Bilateral common femoral, superficial femoral, popliteal and posterior tibial veins were evaluated. Flow was assessed with color Doppler, compressibility, assessment of phasic flow and augmentation response. FINDINGS: COMMON FEMORAL VEIN: Right CFV: Unremarkable. Left CFV: Unremarkable. SUPERFICIAL FEMORAL VEIN: Right SFV: Unremarkable. Left SFV: Unremarkable. POPLITEAL VEIN: Right Popliteal: Unremarkable. Left Popliteal: Unremarkable. POSTERIOR TIBIAL VEIN: Right PTV: Unremarkable. Left PTV: Unremarkable. OTHER FINDINGS: None. IMPRESSION: No evidence of deep venous thrombosis.
--- NOTE | 2018-07-28 13:24 | CT ---
Date of service: 07/28/2018 PROCEDURE: CT Lumbar Spine without contrast HISTORY: Low back pain COMPARISON: None available. TECHNIQUE: Axial computed tomography images were obtained of the lumbar spine without the use of intravenous contrast. Coronal and sagittal reformatted images were created and reviewed. Radiation dose: Total exam DLP = 875.05 mGy-cm. This CT exam was performed using one or more of the following dose reduction techniques: Automated exposure control, adjustment of the mA and/or kV according to patient size, and/or use of iterative reconstruction technique. FINDINGS: VERTEBRAE: There is a fractures seen traversing the right aspect of the sacrum and right L5 transverse process. Findings are likely chronic however clinical correlation with history recommended. The remaining lumbar vertebral bodies however appear intact. DISCS/SPINAL CANAL/NEURAL FORAMINA: L1-2: Unremarkable. L2-3: Minor broad-based disc bulging.. Central canal and exit foramina adequate. L3-4: Mild broad-based disc bulge minimally flattens the ventral surface of the thecal sac. Facets are hypertrophic. Central canal and exit foramina adequate. L4-5: Minor posterior disc space narrowing. Broad-based disc bulge ridge complex extends into the proximal inferior margins of both exit foramina. Facets are hypertrophic and flavum buckled. There is resultant bilateral lateral recess stenosis. The proximal exit foramina are slightly narrowed. L5-S1: Small broad broad-based disc ridge complex extends into the proximal inferior margins of both exit foramina. Central canal appears adequate. Facets are hypertrophic. Exit foramina are stenotic bilaterally. PARASPINAL SOFT TISSUES: Unremarkable. OTHER FINDINGS: None. IMPRESSION: Probable chronic fractures fracture of the extending through the right lateral aspect of the sacrum in cc orientation, and right L5 transverse process.
[2018-07-28] MEDS ORDERED: Morphine 4 MG/ML VIAL IVP PRN (13:37)
--- NOTE | 2018-07-28 15:06 | RAD ---
Date of service: 07/28/2018 HISTORY: Admission COMPARISON: Comparison made with prior chest radiograph dated 06/22/2018 TECHNIQUE: 1 view obtained. FINDINGS: LUNGS: No active pulmonary disease. Note that the inferior tip of the right CP angle has been excluded from the film. Mild hyperinflation. Rule out underlying changes of COPD PLEURA: No significant pleural effusion identified, no pneumothorax apparent. CARDIOVASCULAR: No aortic atherosclerotic calcification present. Normal cardiac size. No pulmonary vascular congestion. OSSEOUS STRUCTURES: Left shoulder arthroplasty again noted. Old of healed right-sided rib fracture deformities again noted VISUALIZED UPPER ABDOMEN: Normal. OTHER FINDINGS: None. IMPRESSION: Slightly limited study. No acute infiltrates. Mild hyperinflation; rule out underlying changes of COPD
[2018-07-28] MEDS ORDERED: Albuterol-Ipratrop 3 mg / 0.5 (3 ml) UD IH PRN (15:36)
[2018-07-28] MEDS ORDERED: Ergocalciferol 50,000 Intl Units Cap PO SCH (15:45)
[2018-07-28] MEDS: Fluticasone-Salmeterol 250-50mcg Diskus IH SCH (16:29)
[2018-07-28] MEDS: Methocarbamol 500 MG Tab PO SCH (16:32)
[2018-07-28] MEDS: oxyCODONE 20 mg ER Tab (oxyCONTIN) PO SCH (20:40)
[2018-07-29] MEDS: Fluticasone-Salmeterol 250-50mcg Diskus IH SCH ×2 (08:25→17:20)
[2018-07-29] MEDS: Pantoprazole 40 mg EC Tab PO SCH (08:27)
[2018-07-29] MEDS: Multivitamin With Minerals Tab PO SCH (08:27)
[2018-07-29] MEDS: Methocarbamol 500 MG Tab PO SCH ×3 (08:29→17:21)
[2018-07-29 08:47] LABS: BASO # 0.1 K/uL (0.0-0.2); EOS # 0.1 K/uL (0.0-0.7); EOS % 1.9 % (0.0-4.0); HEMOGLOBIN 11.1 g/dL (12.0-18.0); LYMPH # 1.2 K/uL (1.0-4.3); LYMPH % 17.7 % (20.0-40.0); MEAN CELL VOLUME 94.7 fl (80.0-94.0); MEAN CORPUSCULAR HEMOGLOBIN 32.8 pg (27.0-31.0); MEAN CORPUSCULAR HGB CONC 34.6 g/dL (33.0-37.0); MEAN PLATELET VOLUME 7.6 fl (7.2-11.7); MONO # 0.7 K/uL (0.0-0.8); MONO % 9.8 % (0.0-10.0); NEUT # 4.6 K/uL (1.8-7.0); NEUT % 69.6 % (50.0-75.0); NRBC % 0.1 % (0.0-0.0); RBC 3.38 Mil/uL (4.40-5.90); RED CELL DISTRIBUTION WIDTH 14.6 % (11.5-14.5); WHITE BLOOD COUNT 6.7 K/uL (4.8-10.8)
[2018-07-29 09:05] LABS: ALB/GLOB RATIO 1.2 (1.0-2.1); ALBUMIN 3.7 g/dL (3.5-5.0); ALT/SGPT 56 U/L (21-72); AST/SGOT 48 U/L (17-59); BLOOD UREA NITROGEN 9 mg/dl (9-20); CALCIUM 9.8 mg/dL (8.4-10.2); GFR NON-AFRICAN AMERICAN > 60
[2018-07-29] MEDS: Lidocaine 5% Patch TD SCH (10:09)
[2018-07-29] MEDS: oxyCODONE 20 mg ER Tab (oxyCONTIN) PO SCH ×2 (10:14→21:04)
[2018-07-29] MEDS: Magnesium Oxide 400 mg Tab UD PO SCH (13:15)
--- NOTE | 2018-07-29 16:46 | CARD ---
APPROVED REPORT Date of service: 07/28/2018 EKG Measurement Heart [id number] <Conclusion> Normal sinus rhythm Left axis deviation Right bundle branch block Abnormal ECG
--- NOTE | 2018-07-30 01:09 | CP.PCM.HP ---
History of Present Illness - History of Present Illness History of Present Illness: CC: Back pain and inability to walk. HPI: 58 y/o male patient with a PMH of fractures, chronic pain, and HTN presented to the ED with acute on chronic lower back pain, with inability to ambulate. As per the pt, he was using his inhaler when he suddenly felt a sudden tightness in the back, rendering him unable to walk. PMH: Anxiety, Depression, Fractures (Left pubic fracture), HTN, Hypercholesterolemia. PSH: Multiple orthopedic surgeries in the past, as per pt, this includes shoulder and back surgeries (unspecified). Social History: Alcoholism. Allergies: Seasonal. Subjective Review of Systems: Reviewed; c/o pain in the lower back, right foot drop, and inability to walk. Objective Vital Signs Stable Appears: Non-toxic, No Acute Distress. Head Exam: NORMAL INSPECTION, normocephalic. Eye Exam: Normal appearance, EOMI, PERRLA. Respiratory Exam: NORMAL BREATHING PATTERN, breath sounds clear to auscultation. Cardiovascular Exam: +S1, +S2. RRR. GI & Abdominal Exam: Soft, non-tender, non-distended. Musculoskeletal Exam: 3+ edema in the LLE, 1+ edema in the RLE. Right foot drop noted. Generalized weakness observed. Neurological Exam: Alert, Awake, Oriented x3. Psychiatric exam: Normal Affect, Normal Mood Skin Exam: Normal, Warm, Dry. Assessment/Impression/Plan: -Lumbar CT scan ordered. -Added pain mgmt consult; long history of opioid pain med use and high tolerance (as per pt). -Morphine 4 mg Q4h. -Physical therapy eval. -Bilateral lower extremity doppler was negative for DVT. Present on Admission - Present on Admission Any Indicators Present on Admission: No Past Patient History - Infectious Disease Hx of Infectious Diseases: None - Past Medical History & Family History Past Medical History?: Yes - Past Social History Alcohol: Other (chart review indicates alcoholism) - CARDIAC Hx Hypercholesterolemia: Yes Hx Hypertension: Yes - PULMONARY Hx Respiratory Disorders: No - NEUROLOGICAL Hx Neurological Disorder: Yes Other/Comment: Hx craniotomy x SAH - HEENT Hx HEENT Problems: No - RENAL Hx Chronic Kidney Disease: No - ENDOCRINE/METABOLIC Hx Endocrine Disorders: No - HEMATOLOGICAL/ONCOLOGICAL Hx Human Immunodeficiency Virus (HIV): No - INTEGUMENTARY Hx Dermatological Problems: No - MUSCULOSKELETAL/RHEUMATOLOGICAL Hx Fractures: Yes (Left pubic fracture) - GASTROINTESTINAL Hx Gastrointestinal Disorders: No - GENITOURINARY/GYNECOLOGICAL Hx Genitourinary Disorders: No - PSYCHIATRIC Hx Anxiety: Yes Hx Depression: Yes - SURGICAL HISTORY Hx Surgeries: Yes Other/Comment: Craniotomy for SAH - ANESTHESIA Hx Anesthesia: Yes Hx Anesthesia Reactions: No Hx Malignant Hyperthermia: No Meds Allergies/Adverse Reactions: Allergies Allergy/AdvReac Type Severity Reaction Status Date / Time seasonal Allergy Mild ITCHING Uncoded 06/27/18 20:21 Results - Vital Signs Recent Vital Signs: Last Vital Signs Temp 97.8 F 07/29/18 23:52 Pulse 74 07/29/18 23:52 Resp 20 07/29/18 23:52 BP 112/66 07/29/18 23:52 Pulse Ox 96 07/29/18 23:52 - Labs Result Diagrams: 07/29/18 06:30 07/29/18 06:30 Labs: Laboratory Results - last 24 hr 07/29/18 07/29/18 06:30 06:30 WBC 6.7 RBC 3.38 L Hgb 11.1 L Hct 32.0 L MCV 94.7 H MCH 32.8 H MCHC 34.6 RDW 14.6 H Plt Count 301 MPV 7.6 Neut % (Auto) 69.6 Lymph % (Auto) 17.7 L [place] % (Auto) 9.8 Eos % (Auto) 1.9 Baso % (Auto) 1.0 Neut # (Auto) 4.6 Lymph # (Auto) 1.2 [place] # (Auto) 0.7 Eos # (Auto) 0.1 Baso # (Auto) 0.1 Sodium 138 Potassium 4.1 Chloride 100 Carbon Dioxide 29 Anion Gap 13 BUN 9 Creatinine 0.5 L Est GFR ( Amer) > 60 Est GFR (Non-Af Amer) > 60 Random Glucose 111 H Calcium 9.8 Total Bilirubin 0.3 AST 48 ALT 56 Alkaline Phosphatase 291 H Total Protein 6.8 Albumin 3.7 Globulin 3.1 Albumin/Globulin Ratio 1.2 Assessment & Plan (1) Chronic back pain Status: Acute
--- NOTE | 2018-07-30 01:13 | CP.PCM.PN ---
Subjective - Date & Time of Evaluation Date of Evaluation: 07/29/18 Time of Evaluation: 15:00 - Subjective Subjective: CC: Back pain and inability to walk. HPI: 58 y/o male patient with a PMH of fractures, chronic pain, and HTN presented to the ED with acute on chronic lower back pain, with inability to ambulate. As per the pt, he was using his inhaler when he suddenly felt a sudden tightness in the back, rendering him unable to walk. PMH: Anxiety, Depression, Fractures (Left pubic fracture), HTN, Hypercholesterolemia. PSH: Multiple orthopedic surgeries in the past, as per pt, this includes shoulder and back surgeries (unspecified). Social History: Alcoholism. Allergies: Seasonal. Subjective Review of Systems: Reviewed; c/o pain in the lower back, right foot drop, and difficulty ambulating. Objective Vital Signs Stable Appears: Non-toxic, No Acute Distress. Head Exam: NORMAL INSPECTION, normocephalic. Eye Exam: Normal appearance, EOMI, PERRLA. Respiratory Exam: NORMAL BREATHING PATTERN, breath sounds clear to auscultation. Cardiovascular Exam: +S1, +S2. RRR. GI & Abdominal Exam: Soft, non-tender, non-distended. Musculoskeletal Exam: 3+ edema in the LLE, 1+ edema in the RLE. Right foot drop noted. Generalized weakness observed. Neurological Exam: Alert, Awake, Oriented x3. Psychiatric exam: Normal Affect, Normal Mood Skin Exam: Normal, Warm, Dry. Assessment/Impression/Plan: -Lumbar CT scan ordered revealed chronic fractures; no acute findings noted. -Pain mgmt consult input appreciated. -Continue Morphine 4 mg Q4h. -Physical therapy eval in the morning. -Medically stable at this time; pending physical therapy eval in the morning, pt for possible discharge. -Arrange for rehabilitation services. Objective - Vital Signs/Intake and Output Vital Signs (last 24 hours): Temp Pulse Resp BP Pulse Ox 97.8 F 74 20 112/66 96 07/29/18 23:52 07/29/18 23:52 07/29/18 23:52 07/29/18 23:52 07/29/18 23:52 - Medications Medications: Current Medications Acetaminophen (Tylenol 325mg Tab) 650 mg PO Q6 PRN PRN Reason: pain 1-3 Albuterol/Ipratropium (Duoneb 3 Mg/0.5 Mg (3 Ml) Ud) 3 ml IH RTID PRN PRN Reason: SOB Amlodipine Besylate (Norvasc) 5 mg PO BID [facility] Last Admin: 07/29/18 17:35 Dose: 5 mg Aspirin (Aspirin) 325 mg PO DAILY [facility] Last Admin: 07/29/18 10:09 Dose: 325 mg Atorvastatin Calcium (Lipitor) 40 mg PO HS [facility] Last Admin: 07/29/18 21:03 Dose: 40 mg Carvedilol (Coreg) 12.5 mg PO Q12 [facility] Last Admin: 07/29/18 21:03 Dose: 12.5 mg Docusate Sodium (Colace) 100 mg PO BID [facility] Last Admin: 07/29/18 17:20 Dose: 100 mg Duloxetine HCl (Cymbalta) 60 mg PO DAILY [facility] Last Admin: 07/29/18 08:28 Dose: 60 mg Ezetimibe (Zetia) 10 mg PO DAILY [facility] Last Admin: 07/29/18 08:28 Dose: 10 mg Ergocalciferol (Drisdol 50,000 Intl Units Cap) 1 cap PO QWK [facility] Ferrous Sulfate (Feosol) 325 mg PO BID [facility] Last Admin: 07/29/18 17:20 Dose: 325 mg Folic Acid (Folic Acid) 1 mg PO DAILY [facility] Last Admin: 07/29/18 08:30 Dose: 1 mg Furosemide (Lasix) 20 mg PO DAILY [facility] Last Admin: 07/29/18 13:15 Dose: 20 mg Gabapentin (Neurontin) 800 mg PO TID [facility] Last Admin: 07/29/18 17:21 Dose: 800 mg Lidocaine (Lidoderm) 1 ea TD DAILY [facility] Last Admin: 07/29/18 10:09 Dose: 1 ea Lisinopril (Zestril) 40 mg PO DAILY [facility] Last Admin: 07/29/18 08:29 Dose: 40 mg Magnesium Oxide (Mag-Ox) 400 mg PO DAILY [facility] Last Admin: 07/29/18 13:15 Dose: 400 mg Methocarbamol (Robaxin) 500 mg PO TID [facility] Last Admin: 07/29/18 17:21 Dose: 500 mg Montelukast Sodium (Singulair) 10 mg PO DAILY [facility] Last Admin: 07/29/18 08:28 Dose: 10 mg Morphine Sulfate (Morphine) 4 mg IVP Q4 PRN PRN Reason: Pain, moderate (4-7) Last Admin: 07/29/18 22:38 Dose: 4 mg Multivitamins/Minerals (Therapeutic-M Tab) 1 tab PO DAILY [facility] Last Admin: 07/29/18 08:27 Dose: 1 tab Oxcarbazepine (Trileptal) 900 mg PO DAILY [facility] Last Admin: 07/29/18 08:28 Dose: 900 mg Oxycodone HCl (Oxycontin Extended Release Tab) 20 mg PO Q12 [facility] Last Admin: 07/29/18 21:04 Dose: 20 mg Pantoprazole Sodium (Protonix Ec Tab) 40 mg PO DAILY [facility] Last Admin: 07/29/18 08:27 Dose: 40 mg Pregabalin (Lyrica) 50 mg PO BID [facility] Last Admin: 07/29/18 17:20 Dose: 50 mg Fluticasone/Salmeterol (Advair Diskus 250/50) 1 puff IH BID [facility] Last Admin: 07/29/18 17:20 Dose: 1 puff Thiamine HCl (Vitamin B1 Tab) 100 mg PO DAILY [facility] Last Admin: 07/29/18 08:27 Dose: 100 mg Trazodone HCl (Desyrel) 100 mg PO HS [facility] Last Admin: 07/29/18 21:03 Dose: 100 mg Zolpidem Tartrate (Ambien) 5 mg PO HS PRN PRN Reason: Sleep Last Admin: 07/29/18 21:10 Dose: 5 mg - Labs Labs: 07/29/18 06:30 07/29/18 06:30 PT 10.8 Seconds (9.8-13.1) 07/28/18 04:47 INR 1.0 07/28/18 04:47 APTT 34.3 Seconds (25.6-37.1) 07/28/18 04:47 Assessment and Plan (1) Chronic back pain Status: Acute
[2018-07-30] MEDS: oxyCODONE 20 mg ER Tab (oxyCONTIN) PO SCH ×2 (08:42→21:27)
[2018-07-30] MEDS: Fluticasone-Salmeterol 250-50mcg Diskus IH SCH ×2 (08:44→17:21)
[2018-07-30] MEDS: Multivitamin With Minerals Tab PO SCH (08:48)
[2018-07-30] MEDS: Methocarbamol 500 MG Tab PO SCH ×3 (08:51→17:25)
[2018-07-30] MEDS: Magnesium Oxide 400 mg Tab UD PO SCH (08:54)
[2018-07-30] MEDS: Pantoprazole 40 mg EC Tab PO SCH (10:06)
[2018-07-30] MEDS: Lidocaine 5% Patch TD SCH (10:19)
--- NOTE | 2018-07-30 19:54 | CP.PCM.PN ---
Subjective - Date & Time of Evaluation Date of Evaluation: 07/30/18 Time of Evaluation: 10:00 - Subjective Subjective: patient seen and examined at bedside. Interim events noted complaint of pain, controlled with opioids, and right foot weakness denies cp/sob/fever/chills. available diagnostic data reviewed Review of Systems All systems: reviewed and no additional remarkable complaints except mentioned above Objective Vital Signs Stable - Constitutional Appears: Non-toxic, No Acute Distress Head Exam: NORMAL INSPECTION Eye Exam: Normal appearance Respiratory Exam: NORMAL BREATHING PATTERN Cardiovascular Exam: +S1, +S2 GI & Abdominal Exam: Soft Neurological Exam: Alert, Awake, right foot weakness/sensation diminished Psychiatric exam: Normal Affect, Normal Mood Skin Exam: Normal Color, Warm Assessment and Plan monitor vitals monitor labs Cont meds Cont tx PT pending rest of plan as ordered Objective - Vital Signs/Intake and Output Vital Signs (last 24 hours): Temp Pulse Resp BP Pulse Ox 98.5 F 76 20 157/88 H 98 07/30/18 17:00 07/30/18 17:23 07/30/18 17:00 07/30/18 17:23 07/30/18 17:00 - Medications Medications: Current Medications Acetaminophen (Tylenol 325mg Tab) 650 mg PO Q6 PRN PRN Reason: pain 1-3 Albuterol/Ipratropium (Duoneb 3 Mg/0.5 Mg (3 Ml) Ud) 3 ml IH RTID PRN PRN Reason: SOB Amlodipine Besylate (Norvasc) 5 mg PO BID [facility] Last Admin: 07/30/18 17:23 Dose: 5 mg Aspirin (Aspirin) 325 mg PO DAILY [facility] Last Admin: 07/30/18 10:20 Dose: 325 mg Atorvastatin Calcium (Lipitor) 40 mg PO HS [facility] Last Admin: 07/29/18 21:03 Dose: 40 mg Carvedilol (Coreg) 12.5 mg PO Q12 [facility] Last Admin: 07/30/18 08:46 Dose: 12.5 mg Docusate Sodium (Colace) 100 mg PO BID [facility] Last Admin: 07/30/18 17:21 Dose: 100 mg Duloxetine HCl (Cymbalta) 60 mg PO DAILY [facility] Last Admin: 07/30/18 08:55 Dose: 60 mg Ezetimibe (Zetia) 10 mg PO DAILY [facility] Last Admin: 07/30/18 08:53 Dose: 10 mg Ergocalciferol (Drisdol 50,000 Intl Units Cap) 1 cap PO QWK [facility] Ferrous Sulfate (Feosol) 325 mg PO BID [facility] Last Admin: 07/30/18 17:22 Dose: 325 mg Folic Acid (Folic Acid) 1 mg PO DAILY [facility] Last Admin: 07/30/18 10:19 Dose: 1 mg Furosemide (Lasix) 20 mg PO DAILY [facility] Last Admin: 07/30/18 08:51 Dose: 20 mg Gabapentin (Neurontin) 800 mg PO TID [facility] Last Admin: 07/30/18 17:23 Dose: 800 mg Lidocaine (Lidoderm) 1 ea TD DAILY [facility] Last Admin: 07/30/18 10:19 Dose: 1 ea Lisinopril (Zestril) 40 mg PO DAILY [facility] Last Admin: 07/30/18 08:49 Dose: 40 mg Magnesium Oxide (Mag-Ox) 400 mg PO DAILY [facility] Last Admin: 07/30/18 08:54 Dose: 400 mg Methocarbamol (Robaxin) 500 mg PO TID [facility] Last Admin: 07/30/18 17:25 Dose: 500 mg Montelukast Sodium (Singulair) 10 mg PO DAILY [facility] Last Admin: 07/30/18 08:48 Dose: 10 mg Morphine Sulfate (Morphine) 4 mg IVP Q4 PRN PRN Reason: Pain, severe (8-10) Last Admin: 07/30/18 19:14 Dose: 4 mg Morphine Sulfate (Morphine) 2 mg IVP Q4 PRN PRN Reason: Pain, moderate (4-7) Last Admin: 07/30/18 04:05 Dose: 2 mg Multivitamins/Minerals (Therapeutic-M Tab) 1 tab PO DAILY [facility] Last Admin: 07/30/18 08:48 Dose: 1 tab Oxcarbazepine (Trileptal) 900 mg PO DAILY [facility] Last Admin: 07/30/18 08:51 Dose: 900 mg Oxycodone HCl (Oxycontin Extended Release Tab) 20 mg PO Q12 [facility] Last Admin: 07/30/18 08:42 Dose: 20 mg Pantoprazole Sodium (Protonix Ec Tab) 40 mg PO DAILY [facility] Last Admin: 07/30/18 10:06 Dose: 40 mg Pregabalin (Lyrica) 50 mg PO BID [facility] Last Admin: 07/30/18 17:33 Dose: 50 mg Fluticasone/Salmeterol (Advair Diskus 250/50) 1 puff IH BID [facility] Last Admin: 07/30/18 17:21 Dose: 1 puff Thiamine HCl (Vitamin B1 Tab) 100 mg PO DAILY [facility] Last Admin: 07/30/18 08:53 Dose: 100 mg Trazodone HCl (Desyrel) 100 mg PO HS [facility] Last Admin: 07/29/18 21:03 Dose: 100 mg Zolpidem Tartrate (Ambien) 5 mg PO HS PRN PRN Reason: Sleep Last Admin: 07/29/18 21:10 Dose: 5 mg - Labs Labs: 07/29/18 06:30 07/29/18 06:30 PT 10.8 Seconds (9.8-13.1) 07/28/18 04:47 INR 1.0 07/28/18 04:47 APTT 34.3 Seconds (25.6-37.1) 07/28/18 04:47 Assessment and Plan (1) Pelvic fracture Status: Acute (2) Right leg weakness Status: Acute
[2018-07-31] MEDS: Fluticasone-Salmeterol 250-50mcg Diskus IH SCH ×2 (09:11→16:40)
[2018-07-31] MEDS: Multivitamin With Minerals Tab PO SCH (09:13)
[2018-07-31] MEDS: Pantoprazole 40 mg EC Tab PO SCH (09:13)
[2018-07-31] MEDS: Methocarbamol 500 MG Tab PO SCH ×3 (09:14→18:29)
[2018-07-31] MEDS: Lidocaine 5% Patch TD SCH (09:25)
[2018-07-31] MEDS: Magnesium Oxide 400 mg Tab UD PO SCH (09:27)
[2018-07-31] MEDS: oxyCODONE 20 mg ER Tab (oxyCONTIN) PO SCH ×2 (10:48→20:53)
--- NOTE | 2018-07-31 21:05 | PQF ---
PROVIDER RESPONSE TEXT: Subacute pelvic fracture treated non-operatively with exacerbation REVIEWER QUERY TEXT: Condition Necessitating Admission Please clarify the medical conditions and the associated clinical risk factors necessitating admissio n. Documentation of chronic back pain, pelvic fractures status acute and CT Lumbar findings of Probable chronic fractures, fracture of the extending through the right lateral aspect of the sacrum in cc o rientation, and right L5 transverse process. Please clarify which of the above conditions is the necessitating this admission. ER: Patient was seen in this ED on the 23 of June when he was diagnosed with coccygeal fracture and pubic ramus fracture. Patient was then transferred [place] [facility] [place] [facility]. Patient subsequently h ad 16 days of acute rehabilitation ending on the 11 of July and it was determined that he did not r equire surgery. Patient states that since discharge he feels as though his legs are getting weaker as sociated with swelling and difficulty walking. The patient's Clinical Indicators include: ER: Patient was seen in this ED on the 23 of June when he was diagnosed with coccygeal fracture and pubic ramus fracture. Patient was then transferred to [facility] [place] [facility]. Patient subsequently h ad 16 days of acute rehabilitation ending on the 11 of July and it was determined that he did not r equire surgery. Patient states that since discharge he feels as though his legs are getting weaker as sociated with swelling and difficulty walking. EMPLOYMENT CONSULTANT: Chronic Back pain PN: Pelvic fracture status acute, R leg weakness Query created by: Ksenia Souza on 07/31/2018 9:11 AM Electronically signed by: Eligio Uribe 07/31/2018 9:03 PM
--- NOTE | 2018-08-01 07:06 | CP.PCM.PN ---
Subjective - Date & Time of Evaluation Date of Evaluation: 07/31/18 Time of Evaluation: 10:50 - Subjective Subjective: Patient complains of persistent pain in the lower back. Started on phys therapy Still with foot drop. Objective - Vital Signs/Intake and Output Vital Signs (last 24 hours): Temp Pulse Resp BP Pulse Ox 98.1 F 73 18 93/57 L 94 L 08/01/18 00:42 08/01/18 00:42 08/01/18 00:42 08/01/18 00:42 08/01/18 00:42 - Medications Medications: Current Medications Acetaminophen (Tylenol 325mg Tab) 650 mg PO Q6 PRN PRN Reason: pain 1-3 Albuterol/Ipratropium (Duoneb 3 Mg/0.5 Mg (3 Ml) Ud) 3 ml IH RTID PRN PRN Reason: SOB Amlodipine Besylate (Norvasc) 5 mg PO BID [facility] Last Admin: 07/31/18 16:45 Dose: 5 mg Aspirin (Aspirin) 325 mg PO DAILY [facility] Last Admin: 07/31/18 09:15 Dose: 325 mg Atorvastatin Calcium (Lipitor) 40 mg PO HS [facility] Last Admin: 07/31/18 23:38 Dose: 40 mg Carvedilol (Coreg) 12.5 mg PO Q12 [facility] Last Admin: 07/31/18 20:55 Dose: 12.5 mg Docusate Sodium (Colace) 100 mg PO BID [facility] Last Admin: 07/31/18 16:40 Dose: 100 mg Duloxetine HCl (Cymbalta) 60 mg PO DAILY [facility] Last Admin: 07/31/18 09:12 Dose: 60 mg Ezetimibe (Zetia) 10 mg PO DAILY [facility] Last Admin: 07/31/18 09:13 Dose: 10 mg Ergocalciferol (Drisdol 50,000 Intl Units Cap) 1 cap PO QWK [facility] Ferrous Sulfate (Feosol) 325 mg PO BID [facility] Last Admin: 07/31/18 16:41 Dose: 325 mg Folic Acid (Folic Acid) 1 mg PO DAILY [facility] Last Admin: 07/31/18 09:12 Dose: 1 mg Furosemide (Lasix) 20 mg PO DAILY [facility] Last Admin: 07/31/18 09:23 Dose: 20 mg Gabapentin (Neurontin) 800 mg PO TID [facility] Last Admin: 07/31/18 16:40 Dose: 800 mg Lidocaine (Lidoderm) 1 ea TD DAILY [facility] Last Admin: 07/31/18 09:25 Dose: 1 ea Lisinopril (Zestril) 40 mg PO DAILY [facility] Last Admin: 07/31/18 09:37 Dose: 40 mg Magnesium Oxide (Mag-Ox) 400 mg PO DAILY [facility] Last Admin: 07/31/18 09:27 Dose: 400 mg Methocarbamol (Robaxin) 500 mg PO TID [facility] Last Admin: 07/31/18 18:29 Dose: 500 mg Montelukast Sodium (Singulair) 10 mg PO DAILY [facility] Last Admin: 07/31/18 09:13 Dose: 10 mg Morphine Sulfate (Morphine) 4 mg IVP Q4 PRN PRN Reason: Pain, severe (8-10) Last Admin: 08/01/18 06:55 Dose: 4 mg Morphine Sulfate (Morphine) 2 mg IVP Q4 PRN PRN Reason: Pain, moderate (4-7) Last Admin: 07/30/18 04:05 Dose: 2 mg Multivitamins/Minerals (Therapeutic-M Tab) 1 tab PO DAILY [facility] Last Admin: 07/31/18 09:13 Dose: 1 tab Oxcarbazepine (Trileptal) 900 mg PO DAILY [facility] Last Admin: 07/31/18 09:28 Dose: 900 mg Oxycodone HCl (Oxycontin Extended Release Tab) 20 mg PO Q12 [facility] Last Admin: 07/31/18 20:53 Dose: 20 mg Pantoprazole Sodium (Protonix Ec Tab) 40 mg PO DAILY [facility] Last Admin: 07/31/18 09:13 Dose: 40 mg Pregabalin (Lyrica) 50 mg PO BID [facility] Last Admin: 07/31/18 16:57 Dose: 50 mg Fluticasone/Salmeterol (Advair Diskus 250/50) 1 puff IH BID [facility] Last Admin: 07/31/18 16:40 Dose: 1 puff Thiamine HCl (Vitamin B1 Tab) 100 mg PO DAILY [facility] Last Admin: 07/31/18 09:14 Dose: 100 mg Trazodone HCl (Desyrel) 100 mg PO HS [facility] Last Admin: 07/31/18 23:38 Dose: 100 mg Zolpidem Tartrate (Ambien) 5 mg PO HS PRN PRN Reason: Sleep Last Admin: 07/31/18 21:08 Dose: 5 mg - Labs Labs: 07/29/18 06:30 07/29/18 06:30 PT 10.8 Seconds (9.8-13.1) 07/28/18 04:47 INR 1.0 07/28/18 04:47 APTT 34.3 Seconds (25.6-37.1) 07/28/18 04:47
[2018-08-01] MEDS: Fluticasone-Salmeterol 250-50mcg Diskus IH SCH ×2 (08:56→16:53)
[2018-08-01] MEDS: Lidocaine 5% Patch TD SCH (08:58)
[2018-08-01] MEDS: Magnesium Oxide 400 mg Tab UD PO SCH (09:03)
[2018-08-01] MEDS: Pantoprazole 40 mg EC Tab PO SCH (09:04)
[2018-08-01] MEDS: Multivitamin With Minerals Tab PO SCH (09:05)
[2018-08-01] MEDS: Methocarbamol 500 MG Tab PO SCH ×3 (09:05→16:53)
[2018-08-01] MEDS: oxyCODONE 20 mg ER Tab (oxyCONTIN) PO SCH ×2 (09:11→21:11)
[2018-08-02 06:38] LABS: HEMOGLOBIN 10.3 g/dL (12.0-18.0); MEAN CORPUSCULAR HEMOGLOBIN 32.4 pg (27.0-31.0); MEAN CORPUSCULAR HGB CONC 34.1 g/dL (33.0-37.0); RBC 3.18 Mil/uL (4.40-5.90); RED CELL DISTRIBUTION WIDTH 14.8 % (11.5-14.5); WHITE BLOOD COUNT 6.8 K/uL (4.8-10.8)
[2018-08-02 07:03] LABS: BLOOD UREA NITROGEN 23 mg/dl (9-20); CALCIUM 9.2 mg/dL (8.4-10.2); GFR NON-AFRICAN AMERICAN > 60
[2018-08-02] MEDS ORDERED: Enoxaparin 40 mg Syringe SC SCH (09:00)
[2018-08-02] MEDS: oxyCODONE 20 mg ER Tab (oxyCONTIN) PO SCH ×2 (09:27→20:34)
[2018-08-02] MEDS: Fluticasone-Salmeterol 250-50mcg Diskus IH SCH ×2 (09:45→16:12)
[2018-08-02] MEDS: Methocarbamol 500 MG Tab PO SCH ×3 (09:47→16:14)
[2018-08-02] MEDS: Pantoprazole 40 mg EC Tab PO SCH (09:48)
[2018-08-02] MEDS: Lidocaine 5% Patch TD SCH (10:00)
[2018-08-02] MEDS: Multivitamin With Minerals Tab PO SCH (10:01)
[2018-08-02] MEDS: Magnesium Oxide 400 mg Tab UD PO SCH (10:01)
[2018-08-02] MEDS ORDERED: Oxycodone/Acetaminophen 5/325 mg Tab PO PRN (11:27)
[2018-08-02] MEDS: Oxycodone/Acetaminophen 5/325 mg Tab PO PRN ×3 (12:39→21:43)
[2018-08-02 16:10] VITALS: PULSE 69; RESP 18; TEMP 97.6; O2SAT 98
--- NOTE | 2018-08-02 18:36 | CP.PCM.DIS ---
Provider - Provider Date of Admission: 07/30/18 14:45 Attending physician: Simone Negrete MD Primary care physician: Eligio Uribe MD Consults: 08/01/18 08:53 Anesthesiology Consult Routine Comment: Consulting Provider: Ramin Ingram Consulting Physician: Ramin Ingram Reason for Consult: PAIN MANAGEMENT CONSULT Time Spent in preparation of Discharge (in minutes): 30 Diagnosis - Discharge Diagnosis (1) Pelvic fracture Status: Acute (2) Right leg weakness Status: Acute Hospital Course - Lab Results Lab Results: Most Recent Lab Values WBC 6.8 K/uL (4.8-10.8) 08/02/18 05:45 RBC 3.18 Mil/uL (4.40-5.90) L 08/02/18 05:45 Hgb 10.3 g/dL (12.0-18.0) L 08/02/18 05:45 Hct 30.2 % (35.0-51.0) L 08/02/18 05:45 MCV 95.0 fl (80.0-94.0) H 08/02/18 05:45 MCH 32.4 pg (27.0-31.0) H 08/02/18 05:45 MCHC 34.1 g/dL (33.0-37.0) 08/02/18 05:45 RDW 14.8 % (11.5-14.5) H 08/02/18 05:45 Plt Count 362 K/uL (130-400) 08/02/18 05:45 MPV 7.6 fl (7.2-11.7) 07/29/18 06:30 Neut % (Auto) 69.6 % (50.0-75.0) 07/29/18 06:30 Lymph % (Auto) 17.7 % (20.0-40.0) L 07/29/18 06:30 [place] % (Auto) 9.8 % (0.0-10.0) 07/29/18 06:30 Eos % (Auto) 1.9 % (0.0-4.0) 07/29/18 06:30 Baso % (Auto) 1.0 % (0.0-2.0) 07/29/18 06:30 Neut # (Auto) 4.6 K/uL (1.8-7.0) 07/29/18 06:30 Lymph # (Auto) 1.2 K/uL (1.0-4.3) 07/29/18 06:30 [place] # (Auto) 0.7 K/uL (0.0-0.8) 07/29/18 06:30 Eos # (Auto) 0.1 K/uL (0.0-0.7) 07/29/18 06:30 Baso # (Auto) 0.1 K/uL (0.0-0.2) 07/29/18 06:30 PT 10.8 Seconds (9.8-13.1) 07/28/18 04:47 INR 1.0 07/28/18 04:47 APTT 34.3 Seconds (25.6-37.1) 07/28/18 04:47 Sodium 135 mmol/l (132-148) 08/02/18 05:45 Potassium 4.2 MMOL/L (3.6-5.0) 08/02/18 05:45 Chloride 98 mmol/L (98-107) 08/02/18 05:45 Carbon Dioxide 29 mmol/L (22-30) 08/02/18 05:45 Anion Gap 12 (10-20) 08/02/18 05:45 BUN 23 mg/dl (9-20) H 08/02/18 05:45 Creatinine 0.6 mg/dl (0.8-1.5) L 08/02/18 05:45 Est GFR ( Amer) > 60 08/02/18 05:45 Est GFR (Non-Af Amer) > 60 08/02/18 05:45 Random Glucose 105 mg/dL (75-110) 08/02/18 05:45 Calcium 9.2 mg/dL (8.4-10.2) 08/02/18 05:45 Total Bilirubin 0.3 mg/dl (0.2-1.3) 07/29/18 06:30 AST 48 U/L (17-59) 07/29/18 06:30 ALT 56 U/L (21-72) 07/29/18 06:30 Alkaline Phosphatase 291 U/L (38-126) H 07/29/18 06:30 Troponin I < 0.0120 ng/mL (0.00-0.120) 07/28/18 04:47 NT-Pro-B Natriuret Pep 334 pg/ml (0-900) 07/28/18 04:47 Total Protein 6.8 G/DL (6.3-8.2) 07/29/18 06:30 Albumin 3.7 g/dL (3.5-5.0) 07/29/18 06:30 Globulin 3.1 gm/dL (2.2-3.9) 07/29/18 06:30 Albumin/Globulin Ratio 1.2 (1.0-2.1) 07/29/18 06:30 - Hospital Course Hospital Course: 58 y/o male patient with a PMH of fractures, chronic pain, and HTN presented to the ED with acute on chronic lower back pain, with inability to ambulate. Imaging done. Patient was treated. Patient will be discharged to TCU for further rehabilitation. Discharge Exam - Head Exam Head Exam: ATRAUMATIC, NORMAL INSPECTION, NORMOCEPHALIC - Eye Exam Eye Exam: Normal appearance - Respiratory Exam Respiratory Exam: UNREMARKABLE - Cardiovascular Exam Cardiovascular Exam: +S1, +S2 - GI/Abdominal Exam GI & Abdominal Exam: Unremarkable - Neurological Exam Neurological exam: Alert, Oriented x3 - Psychiatric Exam Psychiatric exam: Normal Affect, Normal Mood - Skin Skin Exam: Normal Color, Warm Discharge Plan - Follow Up Plan Condition: STABLE Disposition: REHAB FACILITY/REHAB UNIT Instructions: Low Back Pain (DC), Coccyx Injury (DC) Additional Instructions: follow up with primary MD 1 week Referrals: Simone Negrete MD [Family Provider] - Eligio Uribe MD [Primary Care Provider] -
[2018-08-02 20:34] VITALS: BP 111/62
--- NOTE | 2018-08-02 23:18 | CP.PCM.PN ---
Subjective - Date & Time of Evaluation Date of Evaluation: 08/01/18 Time of Evaluation: 09:00 - Subjective Subjective: Pt seen and assessed at bedside. No new changes, reports chronic pain in the lower back and legs. Subjective Review of Systems: Reviewed and unremarkable other than chronic pain in the lower back, persistent right foot drop, and difficulty ambulating. Objective Vital Signs Stable Appears: Non-toxic, No Acute Distress. Head Exam: NORMAL INSPECTION, normocephalic. Eye Exam: Normal appearance, EOMI, PERRLA. Respiratory Exam: NORMAL BREATHING PATTERN, breath sounds clear to auscultation. Cardiovascular Exam: +S1, +S2. RRR. GI & Abdominal Exam: Soft, non-tender, non-distended. Musculoskeletal Exam: 3+ edema in the LLE, 1+ edema in the RLE. Right foot drop observed. Generalized weakness observed. Neurological Exam: Alert, Awake, Oriented x3. Psychiatric exam: Normal Affect, Normal Mood Skin Exam: Normal, Warm, Dry. Assessment/Impression/Plan: -Pain mgmt consult input appreciated. -Continue current tx. -Continue PT/OT to improve strength. -Arrange for possible d/c to TCU. Objective - Vital Signs/Intake and Output Vital Signs (last 24 hours): Temp Pulse Resp BP Pulse Ox 97.6 F 69 18 111/62 98 08/02/18 16:10 08/02/18 20:33 08/02/18 16:10 08/02/18 20:33 08/02/18 16:10 - Labs Labs: 08/02/18 05:45 08/02/18 05:45 PT 10.8 Seconds (9.8-13.1) 07/28/18 04:47 INR 1.0 07/28/18 04:47 APTT 34.3 Seconds (25.6-37.1) 07/28/18 04:47 Assessment and Plan (1) Chronic back pain Status: Acute
== END 2018-08-02 21:43 | DRG 561 ==
LOC: H.ER 04:00 → H.ERHOLD 12:08 → H.MEDSURG1 14:02 → OBSVTOIN 07-30 14:45
PROVIDERS: ADMIT Family Medicine; ATTEND Family Medicine
DX: S32.8 Fracture of other parts of pelvis (principal); F10.20 Alcohol dependence, uncomplicated; M21.371 Foot drop, right foot; G89.29 Other chronic pain; R26.2 Difficulty in walking, not elsewhere classified; I10 Essential (primary) hypertension; E78.00 Pure hypercholesterolemia, unspecified; F32.9 Major depressive disorder, single episode, unspecified; F41.9 Anxiety disorder, unspecified; Z79.82 Long term (current) use of aspirin; W19.XXXD Unspecified fall, subsequent encounter

== ENCOUNTER 2018-08-02 16:19 | Inpatient (IN) | payer OTHER ==
[2018-08-02] MEDS ORDERED: Albuterol-Ipratrop 3 mg / 0.5 (3 ml) UD IH PRN (22:41)
[2018-08-02] MEDS ORDERED: Oxycodone/Acetaminophen 5/325 mg Tab PO PRN (22:48)
[2018-08-02 22:58] VITALS: BMI 24.7
[2018-08-03] MEDS: Oxycodone/Acetaminophen 5/325 mg Tab PO PRN ×6 (02:51→23:41)
[2018-08-03 06:51] LABS: HEMOGLOBIN 10.5 g/dL (12.0-18.0); MEAN CELL VOLUME 94.9 fl (80.0-94.0); MEAN CORPUSCULAR HEMOGLOBIN 32.5 pg (27.0-31.0); MEAN CORPUSCULAR HGB CONC 34.3 g/dL (33.0-37.0); RBC 3.24 Mil/uL (4.40-5.90); RED CELL DISTRIBUTION WIDTH 14.7 % (11.5-14.5); WHITE BLOOD COUNT 6.6 K/uL (4.8-10.8)
[2018-08-03 07:02] LABS: ALB/GLOB RATIO 1.1 (1.0-2.1); ALBUMIN 3.6 g/dL (3.5-5.0); ALT/SGPT 40 U/L (21-72); AST/SGOT 30 U/L (17-59); BLOOD UREA NITROGEN 21 mg/dl (9-20); CALCIUM 9.3 mg/dL (8.4-10.2); GFR NON-AFRICAN AMERICAN > 60
[2018-08-03 07:16] LABS: PROTHROMBIN TIME 11.9 Seconds (9.8-13.1)
[2018-08-03] MEDS: Enoxaparin 40 mg Syringe SC SCH (09:25)
[2018-08-03] MEDS: Ergocalciferol 50,000 Intl Units Cap PO SCH (09:26)
[2018-08-03] MEDS: Fluticasone-Salmeterol 250-50mcg Diskus IH SCH ×2 (09:26→16:05)
[2018-08-03] MEDS: Lidocaine 5% Patch TD SCH (09:26)
[2018-08-03] MEDS: Pantoprazole 40 mg EC Tab PO SCH (09:27)
[2018-08-03] MEDS: Multivitamin With Minerals Tab PO SCH (09:28)
[2018-08-03] MEDS: Methocarbamol 500 MG Tab PO SCH ×3 (09:29→16:07)
[2018-08-03] MEDS: oxyCODONE 20 mg ER Tab (oxyCONTIN) PO SCH ×2 (09:50→22:09)
[2018-08-03] MEDS: Magnesium Oxide 400 mg Tab UD PO SCH (09:51)
--- NOTE | 2018-08-03 10:37 | CP.PCM.CON ---
History of Present Illness - History of Present Illness History of Present Illness: SPINE Pt was seen last month when an inpatient in the Acute Rehab unit. Advised then for PT and observation. No evidence foot drop is spinal in origin as pt has bilat foraminal stenosis and not severe at that. 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 Pt should be in AFO to maintain R ankle in neutral (functional) position awaiting possible neural return. Past Patient History - Infectious Disease Hx of Infectious Diseases: None - Past Medical History & Family History Past Medical History?: Yes - Past Social History Smoking Status: Light Smoker < 10 Cigarettes Daily - CARDIAC Hx Hypercholesterolemia: Yes Hx Hypertension: Yes - PULMONARY Hx Respiratory Disorders: No - NEUROLOGICAL Hx Neurological Disorder: Yes Other/Comment: Hx craniotomy x SAH - HEENT Hx HEENT Problems: No - RENAL Hx Chronic Kidney Disease: No - ENDOCRINE/METABOLIC Hx Endocrine Disorders: No - HEMATOLOGICAL/ONCOLOGICAL Hx AIDS: No Hx Blood Transfusions: Yes Hx Blood Transfusion Reaction: No Hx Human Immunodeficiency Virus (HIV): No - INTEGUMENTARY Hx Dermatological Problems: No - MUSCULOSKELETAL/RHEUMATOLOGICAL Hx Falls: Yes Hx Fractures: Yes (Left pubic fracture,L shoulder,R ankle) - GASTROINTESTINAL Hx Gastrointestinal Disorders: No - GENITOURINARY/GYNECOLOGICAL Hx Genitourinary Disorders: No - PSYCHIATRIC Hx Anxiety: Yes Hx Depression: Yes Hx Substance Use: No - SURGICAL HISTORY Hx Surgeries: Yes Hx Orthopedic Surgery: Yes (L shoulder, R ankle) Other/Comment: Craniotomy for SAH - ANESTHESIA Hx Anesthesia: Yes Hx Anesthesia Reactions: No Hx Malignant Hyperthermia: No Meds Allergies/Adverse Reactions: Allergies Allergy/AdvReac Type Severity Reaction Status Date / Time seasonal Allergy Mild ITCHING Uncoded 06/27/18 20:21 - Medications Medications: Current Medications Acetaminophen (Tylenol 325mg Tab) 650 mg PO Q6 PRN PRN Reason: pain 1-3 Albuterol/Ipratropium (Duoneb 3 Mg/0.5 Mg (3 Ml) Ud) 3 ml IH RTID PRN PRN Reason: SOB Amlodipine Besylate (Norvasc) 5 mg PO BID [facility] Last Admin: 08/03/18 09:29 Dose: Not Given Aspirin (Aspirin) 325 mg PO DAILY [facility] Last Admin: 08/03/18 09:29 Dose: 325 mg Atorvastatin Calcium (Lipitor) 40 mg PO [facility] Carvedilol (Coreg) 12.5 mg PO Q12 [facility] Last Admin: 08/03/18 09:26 Dose: 12.5 mg Docusate Sodium (Colace) 100 mg PO BID [facility] Duloxetine HCl (Cymbalta) 60 mg PO DAILY [facility] Last Admin: 08/03/18 09:28 Dose: 60 mg Ezetimibe (Zetia) 10 mg PO DAILY [facility] Last Admin: 08/03/18 09:27 Dose: 10 mg Enoxaparin Sodium (Lovenox) 40 mg SC DAILY [facility]; Protocol Last Admin: 08/03/18 09:25 Dose: 40 mg Ergocalciferol (Drisdol 50,000 Intl Units Cap) 1 cap PO QWK [facility] Last Admin: 08/03/18 09:26 Dose: 1 cap Ferrous Sulfate (Feosol) 325 mg PO BID [facility] Last Admin: 08/03/18 09:28 Dose: 325 mg Folic Acid (Folic Acid) 1 mg PO DAILY [facility] Last Admin: 08/03/18 09:30 Dose: 1 mg Furosemide (Lasix) 20 mg PO DAILY [facility] Last Admin: 08/03/18 09:30 Dose: 20 mg Gabapentin (Neurontin) 800 mg PO TID [facility] Last Admin: 08/03/18 09:27 Dose: 800 mg Lidocaine (Lidoderm) 1 ea TD DAILY [facility] Last Admin: 08/03/18 09:26 Dose: 1 ea Lisinopril (Zestril) 40 mg PO DAILY [facility] Last Admin: 08/03/18 09:29 Dose: Not Given Magnesium Oxide (Mag-Ox) 400 mg PO DAILY [facility] Last Admin: 08/03/18 09:51 Dose: 400 mg Methocarbamol (Robaxin) 500 mg PO TID [facility] Last Admin: 08/03/18 09:29 Dose: 500 mg Montelukast Sodium (Singulair) 10 mg PO DAILY [facility] Last Admin: 08/03/18 09:30 Dose: 10 mg Multivitamins/Minerals (Therapeutic-M Tab) 1 tab PO DAILY [facility] Last Admin: 08/03/18 09:28 Dose: 1 tab Oxcarbazepine (Trileptal) 900 mg PO DAILY [facility] Last Admin: 08/03/18 09:27 Dose: 900 mg Oxycodone HCl (Oxycontin Extended Release Tab) 20 mg PO Q12 [facility] Last Admin: 08/03/18 09:50 Dose: 20 mg Oxycodone/Acetaminophen (Percocet 5/325 Mg Tab) 2 tab PO Q4 PRN PRN Reason: Pain, severe (8-10) Stop: 08/05/18 22:49 Last Admin: 08/03/18 06:59 Dose: 2 tab Oxycodone/Acetaminophen (Percocet 5/325 Mg Tab) 1 tab PO Q4 PRN PRN Reason: Pain, moderate (4-7) Stop: 08/05/18 22:49 Pantoprazole Sodium (Protonix Ec Tab) 40 mg PO DAILY [facility] Last Admin: 08/03/18 09:27 Dose: 40 mg Pregabalin (Lyrica) 50 mg PO BID [facility] Last Admin: 08/03/18 09:53 Dose: 50 mg Fluticasone/Salmeterol (Advair Diskus 250/50) 1 puff IH BID [facility] Last Admin: 08/03/18 09:26 Dose: 1 inhaler Thiamine HCl (Vitamin B1 Tab) 100 mg PO DAILY [facility] Last Admin: 08/03/18 09:28 Dose: 100 mg Trazodone HCl (Desyrel) 100 mg PO HS [facility] Zolpidem Tartrate (Ambien) 5 mg PO HS PRN PRN Reason: for sleep Last Admin: 08/02/18 23:31 Dose: 5 mg Results - Vital Signs Recent Vital Signs: Last Vital Signs Temp 98.4 F 08/03/18 09:24 Pulse 75 08/03/18 09:26 Resp 20 08/03/18 09:24 BP 121/53 L 08/03/18 09:30 Pulse Ox 96 08/03/18 09:24 - Labs Result Diagrams: 08/03/18 05:55 08/03/18 05:55 Labs: Laboratory Results - last 24 hr 08/03/18 08/03/18 08/03/18 05:55 05:55 05:55 WBC 6.6 RBC 3.24 L Hgb 10.5 L Hct 30.7 L MCV 94.9 H MCH 32.5 H MCHC 34.3 RDW 14.7 H Plt Count 343 PT 11.9 INR 1.0 Sodium 135 Potassium 4.2 Chloride 99 Carbon Dioxide 29 Anion Gap 11 BUN 21 H Creatinine 0.6 L Est GFR ( Amer) > 60 Est GFR (Non-Af Amer) > 60 Random Glucose 129 H Calcium 9.3 Total Bilirubin 0.2 AST 30 ALT 40 Alkaline Phosphatase 186 H D Total Protein 6.7 Albumin 3.6 Globulin 3.1 Albumin/Globulin Ratio 1.1
[2018-08-04] MEDS: Oxycodone/Acetaminophen 5/325 mg Tab PO PRN ×5 (05:23→23:48)
[2018-08-04] MEDS: Fluticasone-Salmeterol 250-50mcg Diskus IH SCH ×2 (08:38→17:32)
[2018-08-04] MEDS: Enoxaparin 40 mg Syringe SC SCH (08:38)
[2018-08-04] MEDS: oxyCODONE 20 mg ER Tab (oxyCONTIN) PO SCH ×2 (08:39→22:30)
[2018-08-04] MEDS: Multivitamin With Minerals Tab PO SCH (08:41)
[2018-08-04] MEDS: Magnesium Oxide 400 mg Tab UD PO SCH (08:41)
[2018-08-04] MEDS: Methocarbamol 500 MG Tab PO SCH ×3 (08:42→17:34)
[2018-08-04] MEDS: Pantoprazole 40 mg EC Tab PO SCH (08:42)
[2018-08-04] MEDS: Lidocaine 5% Patch TD SCH (09:38)
[2018-08-05] MEDS: Oxycodone/Acetaminophen 5/325 mg Tab PO PRN ×5 (04:45→22:46)
[2018-08-05] MEDS: Lidocaine 5% Patch TD SCH ×3 (06:20→11:20)
[2018-08-05] MEDS: Fluticasone-Salmeterol 250-50mcg Diskus IH SCH ×2 (08:35→17:43)
[2018-08-05] MEDS: Pantoprazole 40 mg EC Tab PO SCH (08:38)
[2018-08-05] MEDS: Multivitamin With Minerals Tab PO SCH (08:40)
[2018-08-05] MEDS: Methocarbamol 500 MG Tab PO SCH ×3 (08:44→17:47)
[2018-08-05] MEDS: Enoxaparin 40 mg Syringe SC SCH (08:44)
[2018-08-05] MEDS: Magnesium Oxide 400 mg Tab UD PO SCH (08:45)
[2018-08-05] MEDS ORDERED: Lidocaine 5% Patch TD SCH (09:00)
[2018-08-05] MEDS: oxyCODONE 20 mg ER Tab (oxyCONTIN) PO SCH ×2 (11:35→21:20)
[2018-08-05] MEDS ORDERED: Oxycodone/Acetaminophen 5/325 mg Tab PO PRN (23:24)
--- NOTE | 2018-08-05 23:34 | CP.PCM.HP ---
History of Present Illness - History of Present Illness History of Present Illness: This is a 58 y/o male with hx of HTn hyperlipidemia chronic pain , depression and anxiety who was recently sent home after an inpatient rehab for pelvic fracture and foot drop. 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 He was stable at home till he had another fall at home hence was brought to ER, Present on Admission - Present on Admission Any Indicators Present on Admission: No History of DVT/PE: No History of Uncontrolled Diabetes: No Urinary Catheter: No Decubitus Ulcer Present: No Review of Systems - Constitutional Constitutional: Fatigue - Neurological Neurological: Numbness, Paresthesias, Radicular Pain Past Patient History - Infectious Disease Hx of Infectious Diseases: None - Past Medical History & Family History Past Medical History?: Yes - Past Social History Smoking Status: Light Smoker < 10 Cigarettes Daily - CARDIAC Hx Hypercholesterolemia: Yes Hx Hypertension: Yes - PULMONARY Hx Respiratory Disorders: No - NEUROLOGICAL Hx Neurological Disorder: Yes Other/Comment: Hx craniotomy x SAH - HEENT Hx HEENT Problems: No - RENAL Hx Chronic Kidney Disease: No - ENDOCRINE/METABOLIC Hx Endocrine Disorders: No - HEMATOLOGICAL/ONCOLOGICAL Hx AIDS: No Hx Blood Transfusions: Yes Hx Blood Transfusion Reaction: No Hx Human Immunodeficiency Virus (HIV): No - INTEGUMENTARY Hx Dermatological Problems: No - MUSCULOSKELETAL/RHEUMATOLOGICAL Hx Falls: Yes Hx Fractures: Yes (Left pubic fracture,L shoulder,R ankle) - GASTROINTESTINAL Hx Gastrointestinal Disorders: No - GENITOURINARY/GYNECOLOGICAL Hx Genitourinary Disorders: No - PSYCHIATRIC Hx Anxiety: Yes Hx Depression: Yes Hx Substance Use: No - SURGICAL HISTORY Hx Surgeries: Yes Hx Orthopedic Surgery: Yes (L shoulder, R ankle) Other/Comment: Craniotomy for SAH - ANESTHESIA Hx Anesthesia: Yes Hx Anesthesia Reactions: No Hx Malignant Hyperthermia: No Meds Allergies/Adverse Reactions: Allergies Allergy/AdvReac Type Severity Reaction Status Date / Time seasonal Allergy Mild ITCHING Uncoded 06/27/18 20:21 Physical Exam - Head Exam Head Exam: NORMAL INSPECTION - Eye Exam Eye Exam: Normal appearance - Respiratory Exam Respiratory Exam: Clear to Auscultation Bilateral - Cardiovascular Exam Cardiovascular Exam: REGULAR RHYTHM - Neurological Exam Neurological exam: CN II-XII Intact, Oriented x3 Additional comments: foot drop right Results - Vital Signs Recent Vital Signs: Last Vital Signs Temp 98.5 F 08/05/18 21:56 Pulse 67 08/05/18 21:56 Resp 20 08/05/18 21:56 BP 107/67 08/05/18 21:56 Pulse Ox 98 08/05/18 21:56 - Labs Result Diagrams: 08/03/18 05:55 08/03/18 05:55 Assessment & Plan (1) Fall Status: Acute (2) Pelvic fracture Status: Acute (3) Abnormal liver enzymes Status: Acute (4) Anxiety Status: Acute (5) Foot drop, right Status: Acute (6) HTN (hypertension) Status: Acute - Assessment and Plan (Free Text) Plan: pain meds start phys therapy follow up with physiatry
--- NOTE | 2018-08-05 23:38 | CP.PCM.PN ---
Subjective - Date & Time of Evaluation Date of Evaluation: 08/04/18 Time of Evaluation: 14:00 - Subjective Subjective: Patient is stable still with foot drop Has no other complaints except for recurrent anxiety. Objective - Vital Signs/Intake and Output Vital Signs (last 24 hours): Temp Pulse Resp BP Pulse Ox 98.5 F 67 20 107/67 98 08/05/18 21:56 08/05/18 21:56 08/05/18 21:56 08/05/18 21:56 08/05/18 21:56 - Medications Medications: Current Medications Acetaminophen (Tylenol 325mg Tab) 650 mg PO Q6 PRN PRN Reason: pain 1-3 Albuterol/Ipratropium (Duoneb 3 Mg/0.5 Mg (3 Ml) Ud) 3 ml IH RTID PRN PRN Reason: SOB Alprazolam (Xanax) 0.25 mg PO DAILY [facility] Stop: 08/11/18 09:01 Last Admin: 08/05/18 11:21 Dose: 0.25 mg Amlodipine Besylate (Norvasc) 5 mg PO BID [facility] Last Admin: 08/05/18 17:47 Dose: 5 mg Aspirin (Aspirin) 325 mg PO DAILY [facility] Last Admin: 08/05/18 11:18 Dose: 325 mg Atorvastatin Calcium (Lipitor) 40 mg PO HS [facility] Last Admin: 08/05/18 21:21 Dose: 40 mg Carvedilol (Coreg) 12.5 mg PO Q12 [facility] Last Admin: 08/05/18 21:21 Dose: 12.5 mg Docusate Sodium (Colace) 100 mg PO BID [facility] Last Admin: 08/05/18 17:44 Dose: 100 mg Duloxetine HCl (Cymbalta) 60 mg PO DAILY [facility] Last Admin: 08/05/18 08:39 Dose: 60 mg Ezetimibe (Zetia) 10 mg PO DAILY [facility] Last Admin: 08/05/18 08:42 Dose: 10 mg Enoxaparin Sodium (Lovenox) 40 mg SC DAILY [facility]; Protocol Last Admin: 08/05/18 08:44 Dose: 40 mg Ergocalciferol (Drisdol 50,000 Intl Units Cap) 1 cap PO QWK [facility] Last Admin: 08/03/18 09:26 Dose: 1 cap Ferrous Sulfate (Feosol) 325 mg PO BID [facility] Last Admin: 08/05/18 17:45 Dose: 325 mg Folic Acid (Folic Acid) 1 mg PO DAILY [facility] Last Admin: 08/05/18 08:43 Dose: 1 mg Furosemide (Lasix) 20 mg PO DAILY [facility] Last Admin: 08/05/18 13:13 Dose: 20 mg Gabapentin (Neurontin) 800 mg PO TID [facility] Last Admin: 08/05/18 17:54 Dose: 800 mg Lidocaine (Lidoderm) 1 ea TD DAILY [facility] Last Admin: 08/05/18 11:20 Dose: 1 ea Lidocaine (Lidoderm) 1 ea TD DAILY [facility] Last Admin: 08/05/18 09:00 Dose: Not Given Lisinopril (Zestril) 40 mg PO DAILY [facility] Last Admin: 08/05/18 13:05 Dose: 40 mg Magnesium Oxide (Mag-Ox) 400 mg PO DAILY [facility] Last Admin: 08/05/18 08:45 Dose: 400 mg Methocarbamol (Robaxin) 500 mg PO TID [facility] Last Admin: 08/05/18 17:47 Dose: 500 mg Montelukast Sodium (Singulair) 10 mg PO DAILY [facility] Last Admin: 08/05/18 11:18 Dose: 10 mg Multivitamins/Minerals (Therapeutic-M Tab) 1 tab PO DAILY [facility] Last Admin: 08/05/18 08:40 Dose: 1 tab Oxcarbazepine (Trileptal) 900 mg PO DAILY [facility] Last Admin: 08/05/18 08:46 Dose: 900 mg Oxycodone HCl (Oxycontin Extended Release Tab) 20 mg PO Q12 [facility] Last Admin: 08/05/18 21:20 Dose: 20 mg Oxycodone/Acetaminophen (Percocet 5/325 Mg Tab) 1 tab PO Q4 PRN PRN Reason: Pain, moderate (4-7) Stop: 08/08/18 23:25 Oxycodone/Acetaminophen (Percocet 5/325 Mg Tab) 2 tab PO Q4 PRN PRN Reason: Pain, severe (8-10) Stop: 08/08/18 23:26 Pantoprazole Sodium (Protonix Ec Tab) 40 mg PO DAILY [facility] Last Admin: 08/05/18 08:38 Dose: 40 mg Pregabalin (Lyrica) 50 mg PO BID [facility] Last Admin: 08/05/18 17:52 Dose: 50 mg Fluticasone/Salmeterol (Advair Diskus 250/50) 1 puff IH BID [facility] Last Admin: 08/05/18 17:43 Dose: 1 inhaler Thiamine HCl (Vitamin B1 Tab) 100 mg PO DAILY [facility] Last Admin: 08/05/18 08:41 Dose: 100 mg Trazodone HCl (Desyrel) 100 mg PO HS [facility] Last Admin: 08/05/18 22:06 Dose: 100 mg Zolpidem Tartrate (Ambien) 5 mg PO HS PRN PRN Reason: for sleep Last Admin: 08/05/18 22:45 Dose: 5 mg - Labs Labs: 08/03/18 05:55 08/03/18 05:55 PT 11.9 Seconds (9.8-13.1) 08/03/18 05:55 INR 1.0 08/03/18 05:55 - Head Exam Head Exam: NORMAL INSPECTION - Respiratory Exam Respiratory Exam: Clear to Ausculation Bilateral - Cardiovascular Exam Cardiovascular Exam: REGULAR RHYTHM - GI/Abdominal Exam GI & Abdominal Exam: Soft, Normal Bowel Sounds - Neurological Exam Neurological Exam: Awake - Psychiatric Exam Psychiatric exam: Anxious Assessment and Plan (1) Fall Status: Acute (2) Pelvic fracture Status: Acute (3) Abnormal liver enzymes Status: Acute (4) Anxiety Status: Acute (5) Foot drop, right Status: Acute (6) HTN (hypertension) Status: Acute - Assessment and Plan (Free Text) Plan: Cont med Tiffanie meds phys therapy
--- NOTE | 2018-08-05 23:40 | CP.PCM.PN ---
Subjective - Date & Time of Evaluation Date of Evaluation: 08/04/18 Time of Evaluation: 16:25 - Subjective Subjective: Patient is stable Worried about slow improvement of foot drop Objective - Vital Signs/Intake and Output Vital Signs (last 24 hours): Temp Pulse Resp BP Pulse Ox 98.5 F 67 20 107/67 98 08/05/18 21:56 08/05/18 21:56 08/05/18 21:56 08/05/18 21:56 08/05/18 21:56 - Medications Medications: Current Medications Acetaminophen (Tylenol 325mg Tab) 650 mg PO Q6 PRN PRN Reason: pain 1-3 Albuterol/Ipratropium (Duoneb 3 Mg/0.5 Mg (3 Ml) Ud) 3 ml IH RTID PRN PRN Reason: SOB Alprazolam (Xanax) 0.25 mg PO DAILY [facility] Stop: 08/11/18 09:01 Last Admin: 08/05/18 11:21 Dose: 0.25 mg Amlodipine Besylate (Norvasc) 5 mg PO BID [facility] Last Admin: 08/05/18 17:47 Dose: 5 mg Aspirin (Aspirin) 325 mg PO DAILY [facility] Last Admin: 08/05/18 11:18 Dose: 325 mg Atorvastatin Calcium (Lipitor) 40 mg PO HS [facility] Last Admin: 08/05/18 21:21 Dose: 40 mg Carvedilol (Coreg) 12.5 mg PO Q12 [facility] Last Admin: 08/05/18 21:21 Dose: 12.5 mg Docusate Sodium (Colace) 100 mg PO BID [facility] Last Admin: 08/05/18 17:44 Dose: 100 mg Duloxetine HCl (Cymbalta) 60 mg PO DAILY [facility] Last Admin: 08/05/18 08:39 Dose: 60 mg Ezetimibe (Zetia) 10 mg PO DAILY [facility] Last Admin: 08/05/18 08:42 Dose: 10 mg Enoxaparin Sodium (Lovenox) 40 mg SC DAILY [facility]; Protocol Last Admin: 08/05/18 08:44 Dose: 40 mg Ergocalciferol (Drisdol 50,000 Intl Units Cap) 1 cap PO QWK [facility] Last Admin: 08/03/18 09:26 Dose: 1 cap Ferrous Sulfate (Feosol) 325 mg PO BID [facility] Last Admin: 08/05/18 17:45 Dose: 325 mg Folic Acid (Folic Acid) 1 mg PO DAILY [facility] Last Admin: 08/05/18 08:43 Dose: 1 mg Furosemide (Lasix) 20 mg PO DAILY [facility] Last Admin: 08/05/18 13:13 Dose: 20 mg Gabapentin (Neurontin) 800 mg PO TID [facility] Last Admin: 08/05/18 17:54 Dose: 800 mg Lidocaine (Lidoderm) 1 ea TD DAILY [facility] Last Admin: 08/05/18 11:20 Dose: 1 ea Lidocaine (Lidoderm) 1 ea TD DAILY [facility] Last Admin: 08/05/18 09:00 Dose: Not Given Lisinopril (Zestril) 40 mg PO DAILY [facility] Last Admin: 08/05/18 13:05 Dose: 40 mg Magnesium Oxide (Mag-Ox) 400 mg PO DAILY [facility] Last Admin: 08/05/18 08:45 Dose: 400 mg Methocarbamol (Robaxin) 500 mg PO TID [facility] Last Admin: 08/05/18 17:47 Dose: 500 mg Montelukast Sodium (Singulair) 10 mg PO DAILY [facility] Last Admin: 08/05/18 11:18 Dose: 10 mg Multivitamins/Minerals (Therapeutic-M Tab) 1 tab PO DAILY [facility] Last Admin: 08/05/18 08:40 Dose: 1 tab Oxcarbazepine (Trileptal) 900 mg PO DAILY [facility] Last Admin: 08/05/18 08:46 Dose: 900 mg Oxycodone HCl (Oxycontin Extended Release Tab) 20 mg PO Q12 [facility] Last Admin: 08/05/18 21:20 Dose: 20 mg Oxycodone/Acetaminophen (Percocet 5/325 Mg Tab) 1 tab PO Q4 PRN PRN Reason: Pain, moderate (4-7) Stop: 08/08/18 23:25 Oxycodone/Acetaminophen (Percocet 5/325 Mg Tab) 2 tab PO Q4 PRN PRN Reason: Pain, severe (8-10) Stop: 08/08/18 23:26 Pantoprazole Sodium (Protonix Ec Tab) 40 mg PO DAILY [facility] Last Admin: 08/05/18 08:38 Dose: 40 mg Pregabalin (Lyrica) 50 mg PO BID [facility] Last Admin: 08/05/18 17:52 Dose: 50 mg Fluticasone/Salmeterol (Advair Diskus 250/50) 1 puff IH BID [facility] Last Admin: 08/05/18 17:43 Dose: 1 inhaler Thiamine HCl (Vitamin B1 Tab) 100 mg PO DAILY [facility] Last Admin: 08/05/18 08:41 Dose: 100 mg Trazodone HCl (Desyrel) 100 mg PO HS [facility] Last Admin: 08/05/18 22:06 Dose: 100 mg Zolpidem Tartrate (Ambien) 5 mg PO HS PRN PRN Reason: for sleep Last Admin: 08/05/18 22:45 Dose: 5 mg - Labs Labs: 08/03/18 05:55 08/03/18 05:55 PT 11.9 Seconds (9.8-13.1) 08/03/18 05:55 INR 1.0 08/03/18 05:55 - Head Exam Head Exam: NORMAL INSPECTION - Eye Exam Eye Exam: Normal appearance - ENT Exam ENT Exam: Mucous Membranes Moist - Respiratory Exam Respiratory Exam: Clear to Ausculation Bilateral - Cardiovascular Exam Cardiovascular Exam: REGULAR RHYTHM - GI/Abdominal Exam GI & Abdominal Exam: Normal Bowel Sounds Assessment and Plan (1) Fall Status: Acute (2) Pelvic fracture Status: Acute (3) Abnormal liver enzymes Status: Acute (4) Anxiety Status: Acute (5) Foot drop, right Status: Acute (6) HTN (hypertension) Status: Acute - Assessment and Plan (Free Text) Plan: Cont meds cont tx cont pT
[2018-08-06] MEDS: Oxycodone/Acetaminophen 5/325 mg Tab PO PRN ×5 (03:01→23:29)
[2018-08-06] MEDS: oxyCODONE 20 mg ER Tab (oxyCONTIN) PO SCH ×2 (08:20→21:09)
[2018-08-06] MEDS: Fluticasone-Salmeterol 250-50mcg Diskus IH SCH ×2 (08:22→16:31)
[2018-08-06] MEDS: Enoxaparin 40 mg Syringe SC SCH (08:22)
[2018-08-06] MEDS: Lidocaine 5% Patch TD SCH ×2 (08:23→08:27)
[2018-08-06] MEDS: Methocarbamol 500 MG Tab PO SCH ×3 (08:23→16:32)
[2018-08-06] MEDS: Multivitamin With Minerals Tab PO SCH (08:34)
[2018-08-06] MEDS: Pantoprazole 40 mg EC Tab PO SCH (08:35)
[2018-08-06] MEDS: Magnesium Oxide 400 mg Tab UD PO SCH (08:36)
[2018-08-06] MEDS ORDERED: Magnesium Hydroxide Susp 30 ml UD PO PRN (20:37)
--- NOTE | 2018-08-06 23:25 | CP.PCM.PN ---
Subjective - Date & Time of Evaluation Date of Evaluation: 08/06/18 Time of Evaluation: 11:00 - Subjective Subjective: patient seen and examined at bedside. Interim events noted No complaints offered at this time other than right foot weakness denies cp/sob/fever/chills. available diagnostic data reviewed Review of Systems All systems: reviewed and no additional remarkable complaints except mentioned above Objective Vital Signs Stable - Constitutional Appears: Non-toxic, No Acute Distress Head Exam: NORMAL INSPECTION Eye Exam: Normal appearance Respiratory Exam: NORMAL BREATHING PATTERN Cardiovascular Exam: +S1, +S2 GI & Abdominal Exam: Soft Neurological Exam: Alert, Awake Psychiatric exam: Normal Affect, Normal Mood Skin Exam: Normal Color, Warm Assessment and Plan monitor vitals monitor labs Cont meds Cont tx consultants appreciated input inquire of splint, via delivery to home vs hospital rest of plan as ordered Objective - Vital Signs/Intake and Output Vital Signs (last 24 hours): Temp Pulse Resp BP Pulse Ox 98.2 F 67 20 120/67 99 08/06/18 21:49 08/06/18 21:49 08/06/18 21:49 08/06/18 21:49 08/06/18 21:49 - Medications Medications: Current Medications Acetaminophen (Tylenol 325mg Tab) 650 mg PO Q6 PRN PRN Reason: pain 1-3 Albuterol/Ipratropium (Duoneb 3 Mg/0.5 Mg (3 Ml) Ud) 3 ml IH RTID PRN PRN Reason: SOB Alprazolam (Xanax) 0.25 mg PO DAILY [facility] Stop: 08/11/18 09:01 Last Admin: 08/06/18 08:40 Dose: 0.25 mg Amlodipine Besylate (Norvasc) 5 mg PO BID [facility] Last Admin: 08/06/18 18:56 Dose: Not Given Aspirin (Aspirin) 325 mg PO DAILY [facility] Last Admin: 08/06/18 08:40 Dose: 325 mg Atorvastatin Calcium (Lipitor) 40 mg PO HS [facility] Last Admin: 08/06/18 21:09 Dose: 40 mg Carvedilol (Coreg) 12.5 mg PO Q12 [facility] Last Admin: 08/06/18 21:09 Dose: 12.5 mg Docusate Sodium (Colace) 100 mg PO BID [facility] Last Admin: 08/06/18 16:31 Dose: 100 mg Duloxetine HCl (Cymbalta) 60 mg PO DAILY [facility] Last Admin: 08/06/18 08:36 Dose: 60 mg Ezetimibe (Zetia) 10 mg PO DAILY [facility] Last Admin: 08/06/18 08:34 Dose: 10 mg Enoxaparin Sodium (Lovenox) 40 mg SC DAILY [facility]; Protocol Last Admin: 08/06/18 08:22 Dose: 40 mg Ergocalciferol (Drisdol 50,000 Intl Units Cap) 1 cap PO QWK [facility] Last Admin: 08/03/18 09:26 Dose: 1 cap Ferrous Sulfate (Feosol) 325 mg PO BID [facility] Last Admin: 08/06/18 16:30 Dose: 325 mg Folic Acid (Folic Acid) 1 mg PO DAILY [facility] Last Admin: 08/06/18 08:32 Dose: 1 mg Furosemide (Lasix) 20 mg PO DAILY [facility] Last Admin: 08/06/18 08:27 Dose: 20 mg Gabapentin (Neurontin) 800 mg PO TID [facility] Last Admin: 08/06/18 16:30 Dose: 800 mg Lidocaine (Lidoderm) 1 ea TD DAILY [facility] Last Admin: 08/06/18 08:23 Dose: 1 ea Lidocaine (Lidoderm) 1 ea TD DAILY [facility] Last Admin: 08/06/18 08:27 Dose: 1 ea Lisinopril (Zestril) 40 mg PO DAILY [facility] Last Admin: 08/06/18 08:38 Dose: Not Given Magnesium Hydroxide (Milk Of Magnesia) 30 ml PO DAILY PRN PRN Reason: Constipation Last Admin: 08/06/18 21:10 Dose: 30 ml Magnesium Oxide (Mag-Ox) 400 mg PO DAILY [facility] Last Admin: 08/06/18 08:36 Dose: 400 mg Methocarbamol (Robaxin) 500 mg PO TID [facility] Last Admin: 08/06/18 16:32 Dose: 500 mg Montelukast Sodium (Singulair) 10 mg PO DAILY [facility] Last Admin: 08/06/18 08:33 Dose: 10 mg Multivitamins/Minerals (Therapeutic-M Tab) 1 tab PO DAILY [facility] Last Admin: 08/06/18 08:34 Dose: 1 tab Oxcarbazepine (Trileptal) 900 mg PO DAILY [facility] Last Admin: 08/06/18 08:31 Dose: 900 mg Oxycodone HCl (Oxycontin Extended Release Tab) 20 mg PO Q12 [facility] Last Admin: 08/06/18 21:09 Dose: 20 mg Oxycodone/Acetaminophen (Percocet 5/325 Mg Tab) 1 tab PO Q4 PRN PRN Reason: Pain, moderate (4-7) Stop: 08/08/18 23:25 Oxycodone/Acetaminophen (Percocet 5/325 Mg Tab) 2 tab PO Q4 PRN PRN Reason: Pain, severe (8-10) Stop: 08/08/18 23:26 Last Admin: 08/06/18 16:29 Dose: 2 tab Pantoprazole Sodium (Protonix Ec Tab) 40 mg PO DAILY [facility] Last Admin: 08/06/18 08:35 Dose: 40 mg Pregabalin (Lyrica) 50 mg PO BID [facility] Last Admin: 08/06/18 16:33 Dose: 50 mg Fluticasone/Salmeterol (Advair Diskus 250/50) 1 puff IH BID [facility] Last Admin: 08/06/18 16:31 Dose: 1 inhaler Thiamine HCl (Vitamin B1 Tab) 100 mg PO DAILY [facility] Last Admin: 08/06/18 08:35 Dose: 100 mg Trazodone HCl (Desyrel) 100 mg PO HS [facility] Last Admin: 08/06/18 21:09 Dose: 100 mg Zolpidem Tartrate (Ambien) 5 mg PO HS PRN PRN Reason: for sleep Last Admin: 08/05/18 22:45 Dose: 5 mg - Labs Labs: 08/03/18 05:55 08/03/18 05:55 PT 11.9 Seconds (9.8-13.1) 08/03/18 05:55 INR 1.0 08/03/18 05:55
[2018-08-07] MEDS: Oxycodone/Acetaminophen 5/325 mg Tab PO PRN ×4 (05:08→22:07)
[2018-08-07] MEDS: Fluticasone-Salmeterol 250-50mcg Diskus IH SCH ×2 (09:35→16:40)
[2018-08-07] MEDS: Multivitamin With Minerals Tab PO SCH (09:36)
[2018-08-07] MEDS: Pantoprazole 40 mg EC Tab PO SCH (09:37)
[2018-08-07] MEDS: Enoxaparin 40 mg Syringe SC SCH (09:38)
[2018-08-07] MEDS: Methocarbamol 500 MG Tab PO SCH ×3 (09:38→16:41)
[2018-08-07] MEDS: Magnesium Oxide 400 mg Tab UD PO SCH (09:40)
[2018-08-07] MEDS: Lidocaine 5% Patch TD SCH ×2 (09:45→09:46)
[2018-08-07] MEDS: oxyCODONE 20 mg ER Tab (oxyCONTIN) PO SCH ×2 (16:41→21:26)
[2018-08-08] MEDS: Oxycodone/Acetaminophen 5/325 mg Tab PO PRN ×5 (02:16→20:42)
[2018-08-08] MEDS: oxyCODONE 20 mg ER Tab (oxyCONTIN) PO SCH ×2 (09:20→22:01)
[2018-08-08] MEDS: Enoxaparin 40 mg Syringe SC SCH (09:21)
[2018-08-08] MEDS: Methocarbamol 500 MG Tab PO SCH ×3 (09:21→16:39)
[2018-08-08] MEDS: Fluticasone-Salmeterol 250-50mcg Diskus IH SCH ×3 (09:21→20:42)
[2018-08-08] MEDS: Lidocaine 5% Patch TD SCH ×2 (09:24)
[2018-08-08] MEDS: Magnesium Oxide 400 mg Tab UD PO SCH (09:25)
[2018-08-08] MEDS: Multivitamin With Minerals Tab PO SCH (09:25)
[2018-08-08] MEDS: Pantoprazole 40 mg EC Tab PO SCH (09:26)
[2018-08-08] MEDS: POLYETHYLENE GLYCOL 3350 17 GM/Dose PACKET PO SCH (09:40)
[2018-08-08] MEDS ORDERED: Fluticasone-Salmeterol 250-50mcg Diskus IH SCH (21:00)
--- NOTE | 2018-08-09 01:38 | CP.PCM.PN ---
Subjective - Date & Time of Evaluation Date of Evaluation: 08/08/18 Time of Evaluation: 10:30 - Subjective Subjective: Pt seen and assessed at bedside. No new changes, reports chronic pain in the lower back and legs, as well as a mild right foot drop. Subjective Review of Systems: Reviewed and unremarkable other than chronic pain in the lower back, mild right foot drop, and weakness. Objective Vital Signs Stable Appears: Non-toxic, No Acute Distress. Head Exam: NORMAL INSPECTION, normocephalic. Eye Exam: Normal appearance, EOMI, PERRLA. Respiratory Exam: NORMAL BREATHING PATTERN, breath sounds clear to auscultation. Cardiovascular Exam: +S1, +S2. RRR. GI & Abdominal Exam: Soft, non-tender, non-distended. Musculoskeletal Exam: Right foot drop observed. Generalized weakness observed. Neurological Exam: Alert, Awake, Oriented x3. Psychiatric exam: Normal Affect, Normal Mood Skin Exam: Normal, Warm, Dry. Assessment/Impression/Plan: -Pain mgmt consult input appreciated. -Continue current tx. -Continue PT/OT to improve strength. -Right foot drop noted; although pt reports being able to dorsiflex to a greater degree. -For discharge on Monday. -f/u pain mgmt post-discharge. Objective - Vital Signs/Intake and Output Vital Signs (last 24 hours): Temp Pulse Resp BP Pulse Ox 98.8 F 78 20 125/72 97 08/08/18 21:16 08/08/18 22:00 08/08/18 21:16 08/08/18 22:00 08/08/18 21:16 - Medications Medications: Current Medications Acetaminophen (Tylenol 325mg Tab) 650 mg PO Q6 PRN PRN Reason: pain 1-3 Albuterol/Ipratropium (Duoneb 3 Mg/0.5 Mg (3 Ml) Ud) 3 ml IH RTID PRN PRN Reason: SOB Alprazolam (Xanax) 0.25 mg PO DAILY [facility] Stop: 08/11/18 09:01 Last Admin: 08/08/18 09:29 Dose: 0.25 mg Amlodipine Besylate (Norvasc) 5 mg PO BID [facility] Last Admin: 08/08/18 17:44 Dose: Not Given Aspirin (Aspirin) 325 mg PO DAILY [facility] Last Admin: 08/08/18 09:23 Dose: 325 mg Atorvastatin Calcium (Lipitor) 40 mg PO HS [facility] Last Admin: 08/08/18 22:02 Dose: 40 mg Carvedilol (Coreg) 12.5 mg PO Q12 [facility] Last Admin: 08/08/18 22:00 Dose: 12.5 mg Docusate Sodium (Colace) 100 mg PO BID [facility] Last Admin: 08/08/18 16:38 Dose: 100 mg Duloxetine HCl (Cymbalta) 60 mg PO DAILY [facility] Last Admin: 08/08/18 09:23 Dose: 60 mg Ezetimibe (Zetia) 10 mg PO DAILY [facility] Last Admin: 08/08/18 09:22 Dose: 10 mg Enoxaparin Sodium (Lovenox) 40 mg SC DAILY [facility]; Protocol Last Admin: 08/08/18 09:21 Dose: 40 mg Ergocalciferol (Drisdol 50,000 Intl Units Cap) 1 cap PO QWK [facility] Last Admin: 08/03/18 09:26 Dose: 1 cap Ferrous Sulfate (Feosol) 325 mg PO BID [facility] Last Admin: 08/08/18 16:39 Dose: 325 mg Folic Acid (Folic Acid) 1 mg PO DAILY [facility] Last Admin: 08/08/18 09:22 Dose: 1 mg Furosemide (Lasix) 20 mg PO DAILY [facility] Last Admin: 08/08/18 09:23 Dose: 20 mg Gabapentin (Neurontin) 800 mg PO TID [facility] Last Admin: 08/08/18 16:38 Dose: 800 mg Lidocaine (Lidoderm) 1 ea TD DAILY [facility] Last Admin: 08/08/18 09:24 Dose: 1 ea Lidocaine (Lidoderm) 1 ea TD DAILY [facility] Last Admin: 08/08/18 09:24 Dose: 1 ea Lisinopril (Zestril) 40 mg PO DAILY [facility] Last Admin: 08/08/18 09:27 Dose: Not Given Magnesium Hydroxide (Milk Of Magnesia) 30 ml PO DAILY PRN PRN Reason: Constipation Last Admin: 08/06/18 21:10 Dose: 30 ml Magnesium Oxide (Mag-Ox) 400 mg PO DAILY [facility] Last Admin: 08/08/18 09:25 Dose: 400 mg Methocarbamol (Robaxin) 500 mg PO TID [facility] Last Admin: 08/08/18 16:39 Dose: 500 mg Montelukast Sodium (Singulair) 10 mg PO DAILY [facility] Last Admin: 08/08/18 09:25 Dose: 10 mg Multivitamins/Minerals (Therapeutic-M Tab) 1 tab PO DAILY [facility] Last Admin: 08/08/18 09:25 Dose: 1 tab Oxcarbazepine (Trileptal) 900 mg PO DAILY [facility] Last Admin: 08/08/18 09:26 Dose: 900 mg Oxycodone HCl (Oxycontin Extended Release Tab) 20 mg PO Q12 [facility] Last Admin: 08/08/18 22:01 Dose: 20 mg Pantoprazole Sodium (Protonix Ec Tab) 40 mg PO DAILY [facility] Last Admin: 08/08/18 09:26 Dose: 40 mg Polyethylene Glycol (Miralax) 17 gm PO DAILY [facility] Last Admin: 08/08/18 09:40 Dose: 17 gm Pregabalin (Lyrica) 50 mg PO BID [facility] Last Admin: 08/08/18 16:39 Dose: 50 mg Fluticasone/Salmeterol (Advair Diskus 250/50) 1 puff IH Q12 [facility] Last Admin: 08/08/18 20:42 Dose: Not Given Thiamine HCl (Vitamin B1 Tab) 100 mg PO DAILY [facility] Last Admin: 08/08/18 09:26 Dose: 100 mg Trazodone HCl (Desyrel) 100 mg PO HS [facility] Last Admin: 08/08/18 22:01 Dose: 100 mg Zolpidem Tartrate (Ambien) 5 mg PO HS PRN PRN Reason: for sleep Last Admin: 08/08/18 22:18 Dose: 5 mg - Labs Labs: 08/03/18 05:55 08/03/18 05:55 PT 11.9 Seconds (9.8-13.1) 08/03/18 05:55 INR 1.0 08/03/18 05:55 Assessment and Plan (1) Chronic back pain Status: Acute (2) Foot drop, right Status: Acute
[2018-08-09] MEDS: Oxycodone/Acetaminophen 5/325 mg Tab PO PRN ×5 (03:23→21:16)
[2018-08-09] MEDS: Fluticasone-Salmeterol 250-50mcg Diskus IH SCH ×2 (08:50→21:16)
[2018-08-09] MEDS: oxyCODONE 20 mg ER Tab (oxyCONTIN) PO SCH ×2 (08:50→21:58)
[2018-08-09] MEDS: Enoxaparin 40 mg Syringe SC SCH (08:51)
[2018-08-09] MEDS: POLYETHYLENE GLYCOL 3350 17 GM/Dose PACKET PO SCH (08:51)
[2018-08-09] MEDS: Methocarbamol 500 MG Tab PO SCH ×3 (08:51→16:21)
[2018-08-09] MEDS: Ergocalciferol 50,000 Intl Units Cap PO SCH (08:52)
[2018-08-09] MEDS: Magnesium Oxide 400 mg Tab UD PO SCH (08:54)
[2018-08-09] MEDS: Lidocaine 5% Patch TD SCH ×2 (08:54)
[2018-08-09] MEDS: Pantoprazole 40 mg EC Tab PO SCH (08:55)
[2018-08-09] MEDS: Multivitamin With Minerals Tab PO SCH (08:55)
[2018-08-10] MEDS: Oxycodone/Acetaminophen 5/325 mg Tab PO PRN ×5 (02:51→23:45)
[2018-08-10] MEDS: Fluticasone-Salmeterol 250-50mcg Diskus IH SCH ×2 (08:41→21:33)
[2018-08-10] MEDS: Enoxaparin 40 mg Syringe SC SCH (08:45)
[2018-08-10] MEDS: Lidocaine 5% Patch TD SCH ×2 (08:45)
[2018-08-10] MEDS: Magnesium Oxide 400 mg Tab UD PO SCH (08:46)
[2018-08-10] MEDS: POLYETHYLENE GLYCOL 3350 17 GM/Dose PACKET PO SCH ×2 (08:46→09:05)
[2018-08-10] MEDS: Pantoprazole 40 mg EC Tab PO SCH (08:47)
[2018-08-10] MEDS: Methocarbamol 500 MG Tab PO SCH ×3 (08:47→17:08)
[2018-08-10] MEDS: Multivitamin With Minerals Tab PO SCH (08:48)
[2018-08-10] MEDS: oxyCODONE 20 mg ER Tab (oxyCONTIN) PO SCH ×2 (08:53→21:36)
--- NOTE | 2018-08-10 11:49 | CP.PCM.CON ---
History of Present Illness - History of Present Illness History of Present Illness: Dr Bear PMR consultation on Mikel Villa, born 1960 who had been admitted to [facility] after he suffered multiple closed pubic fractures after a fall. Non-operative treatment. Has right lumbar radicular pain and pelvic pain. He developed a right foot drop and this was not felt to be secondary to a spinal issue but rather the fracture itself. He is stable now and set for d/c home. I will not alter his pain medications. He has history of pain seeking behaviour and ETOH abuse Review of Systems - Constitutional Constitutional: absent: Chills - EENT Eyes: absent: Change in Vision Ears: absent: Ear Discharge, Ear Pain Nose/Mouth/Throat: absent: Nasal Congestion - Cardiovascular Cardiovascular: absent: Chest Pain - Respiratory Respiratory: absent: Cough, Dyspnea, Hemoptysis - Gastrointestinal Gastrointestinal: absent: Constipation, Cramping - Integumentary Integumentary: absent: Bleeding Lesions, Swelling - Neurological Neurological: Weakness (right foot/ankle). absent: Abnormal Movements Past Patient History - Infectious Disease Hx of Infectious Diseases: None - Past Medical History & Family History Past Medical History?: Yes - Past Social History Smoking Status: Light Smoker < 10 Cigarettes Daily Alcohol: > 2 Drinks/Day Drugs: Denies Home Situation {Lives}: Alone - CARDIAC Hx Hypercholesterolemia: Yes Hx Hypertension: Yes - PULMONARY Hx Respiratory Disorders: No - NEUROLOGICAL Hx Neurological Disorder: Yes Other/Comment: Hx craniotomy x SAH - HEENT Hx HEENT Problems: No - RENAL Hx Chronic Kidney Disease: No - ENDOCRINE/METABOLIC Hx Endocrine Disorders: No - HEMATOLOGICAL/ONCOLOGICAL Hx AIDS: No Hx Blood Transfusions: Yes Hx Blood Transfusion Reaction: No Hx Human Immunodeficiency Virus (HIV): No - INTEGUMENTARY Hx Dermatological Problems: No - MUSCULOSKELETAL/RHEUMATOLOGICAL Hx Falls: Yes Hx Fractures: Yes (Left pubic fracture,L shoulder,R ankle) - GASTROINTESTINAL Hx Gastrointestinal Disorders: No - GENITOURINARY/GYNECOLOGICAL Hx Genitourinary Disorders: No - PSYCHIATRIC Hx Anxiety: Yes Hx Depression: Yes Hx Substance Use: No - SURGICAL HISTORY Hx Surgeries: Yes Hx Orthopedic Surgery: Yes (L shoulder, R ankle) Other/Comment: Craniotomy for SAH - ANESTHESIA Hx Anesthesia: Yes Hx Anesthesia Reactions: No Hx Malignant Hyperthermia: No Meds Allergies/Adverse Reactions: Allergies Allergy/AdvReac Type Severity Reaction Status Date / Time seasonal Allergy Mild ITCHING Uncoded 06/27/18 20:21 - Medications Medications: Current Medications Acetaminophen (Tylenol 325mg Tab) 650 mg PO Q6 PRN PRN Reason: pain 1-3 Albuterol/Ipratropium (Duoneb 3 Mg/0.5 Mg (3 Ml) Ud) 3 ml IH RTID PRN PRN Reason: SOB Alprazolam (Xanax) 0.25 mg PO DAILY [facility] Stop: 08/11/18 09:01 Last Admin: 08/09/18 08:50 Dose: 0.25 mg Amlodipine Besylate (Norvasc) 5 mg PO BID [facility] Last Admin: 08/09/18 17:20 Dose: 5 mg Aspirin (Aspirin) 325 mg PO DAILY [facility] Last Admin: 08/10/18 08:42 Dose: 325 mg Atorvastatin Calcium (Lipitor) 40 mg PO HS [facility] Last Admin: 08/09/18 21:18 Dose: 40 mg Carvedilol (Coreg) 12.5 mg PO Q12 [facility] Last Admin: 08/10/18 08:42 Dose: 12.5 mg Docusate Sodium (Colace) 100 mg PO BID [facility] Last Admin: 08/10/18 08:42 Dose: 100 mg Duloxetine HCl (Cymbalta) 60 mg PO DAILY [facility] Last Admin: 08/10/18 08:43 Dose: 60 mg Ezetimibe (Zetia) 10 mg PO DAILY [facility] Last Admin: 08/10/18 08:49 Dose: 10 mg Enoxaparin Sodium (Lovenox) 40 mg SC DAILY [facility]; Protocol Last Admin: 08/10/18 08:45 Dose: 40 mg Ergocalciferol (Drisdol 50,000 Intl Units Cap) 1 cap PO QWK [facility] Last Admin: 08/03/18 09:26 Dose: 1 cap Ferrous Sulfate (Feosol) 325 mg PO BID [facility] Last Admin: 08/10/18 08:43 Dose: 325 mg Folic Acid (Folic Acid) 1 mg PO DAILY [facility] Last Admin: 08/10/18 08:44 Dose: 1 mg Furosemide (Lasix) 20 mg PO DAILY [facility] Last Admin: 08/10/18 08:44 Dose: 20 mg Gabapentin (Neurontin) 800 mg PO TID [facility] Last Admin: 08/10/18 08:46 Dose: 800 mg Lidocaine (Lidoderm) 1 ea TD DAILY [facility] Last Admin: 08/10/18 08:45 Dose: 1 ea Lidocaine (Lidoderm) 1 ea TD DAILY [facility] Last Admin: 08/10/18 08:45 Dose: 1 ea Lisinopril (Zestril) 40 mg PO DAILY [facility] Last Admin: 08/09/18 08:53 Dose: Not Given Magnesium Hydroxide (Milk Of Magnesia) 30 ml PO DAILY PRN PRN Reason: Constipation Last Admin: 08/06/18 21:10 Dose: 30 ml Magnesium Oxide (Mag-Ox) 400 mg PO DAILY [facility] Last Admin: 08/10/18 08:46 Dose: 400 mg Methocarbamol (Robaxin) 500 mg PO TID [facility] Last Admin: 08/10/18 08:47 Dose: 500 mg Montelukast Sodium (Singulair) 10 mg PO DAILY [facility] Last Admin: 08/10/18 08:47 Dose: 10 mg Multivitamins/Minerals (Therapeutic-M Tab) 1 tab PO DAILY [facility] Last Admin: 08/10/18 08:48 Dose: 1 tab Oxcarbazepine (Trileptal) 900 mg PO DAILY [facility] Last Admin: 08/10/18 08:48 Dose: 900 mg Oxycodone HCl (Oxycontin Extended Release Tab) 20 mg PO Q12 [facility] Last Admin: 08/10/18 08:53 Dose: 20 mg Oxycodone/Acetaminophen (Percocet 5/325 Mg Tab) 2 tab PO Q4 PRN PRN Reason: Pain, severe (8-10) Stop: 08/12/18 08:47 Last Admin: 08/10/18 07:58 Dose: 2 tab Pantoprazole Sodium (Protonix Ec Tab) 40 mg PO DAILY [facility] Last Admin: 08/10/18 08:47 Dose: 40 mg Polyethylene Glycol (Miralax) 17 gm PO DAILY [facility] Last Admin: 08/10/18 09:05 Dose: Not Given Pregabalin (Lyrica) 50 mg PO BID [facility] Last Admin: 08/10/18 08:53 Dose: 50 mg Fluticasone/Salmeterol (Advair Diskus 250/50) 1 puff IH Q12 [facility] Last Admin: 08/10/18 08:41 Dose: 1 puff Thiamine HCl (Vitamin B1 Tab) 100 mg PO DAILY [facility] Last Admin: 08/10/18 08:49 Dose: 100 mg Trazodone HCl (Desyrel) 100 mg PO HS [facility] Last Admin: 08/09/18 21:59 Dose: 100 mg Zolpidem Tartrate (Ambien) 5 mg PO HS PRN PRN Reason: for sleep Last Admin: 08/09/18 22:57 Dose: 5 mg Physical Exam - Constitutional Appears: Well, Non-toxic, No Acute Distress - Head Exam Head Exam: ATRAUMATIC, NORMAL INSPECTION, NORMOCEPHALIC - Eye Exam Eye Exam: EOMI - ENT Exam ENT Exam: Mucous Membranes Moist - Respiratory Exam Respiratory Exam: NORMAL BREATHING PATTERN - Cardiovascular Exam Cardiovascular Exam: REGULAR RHYTHM - GI/Abdominal Exam GI & Abdominal Exam: absent: Distended - Extremities Exam Extremities exam: Negative for: calf tenderness - Neurological Exam Neurological exam: Alert, CN II-XII Intact, Oriented x3 - Psychiatric Exam Psychiatric exam: Normal Affect, Normal Mood - Skin Skin Exam: Warm (right ankle/foot with trace movement now which is improved from no movement last month) Results - Vital Signs Recent Vital Signs: Last Vital Signs Temp 97.7 F 08/10/18 08:18 Pulse 68 08/10/18 08:42 Resp 20 08/10/18 08:18 BP 113/72 08/10/18 08:44 Pulse Ox 97 08/10/18 08:18 - Labs Result Diagrams: 08/03/18 05:55 08/03/18 05:55 Assessment & Plan - Assessment and Plan (Free Text) Assessment: PT/OT to continue to help increase functional independence Pain: controlled Vascular: no evidence of DVT GI: No evidence of constipation or diarrhea Patient continues to be an excellent TCU rehabilitation candidate and will have continued focused PT, OT and recreational therapy to help facilitate a safe and appropriate d/c plan
--- NOTE | 2018-08-10 14:47 | CP.PCM.PN ---
Subjective - Date & Time of Evaluation Date of Evaluation: 08/09/18 Time of Evaluation: 11:00 - Subjective Subjective: patient seen and examined at bedside. Interim events noted No complaints offered at this time other than right foot weakness, mild impro vement noted, able to wiggle toes denies cp/sob/fever/chills. available diagnostic data reviewed Review of Systems All systems: reviewed and no additional remarkable complaints except mentioned above Objective Vital Signs Stable - Constitutional Appears: Non-toxic, No Acute Distress Head Exam: NORMAL INSPECTION Eye Exam: Normal appearance Respiratory Exam: NORMAL BREATHING PATTERN Cardiovascular Exam: +S1, +S2 GI & Abdominal Exam: Soft Neurological Exam: Alert, Awake Psychiatric exam: Normal Affect, Normal Mood Skin Exam: Normal Color, Warm Assessment and Plan monitor vitals monitor labs Cont meds Cont tx consultants appreciated input pending splint and pain mangement consultations dispo planning rest of plan as ordered
[2018-08-11] MEDS: Oxycodone/Acetaminophen 5/325 mg Tab PO PRN ×2 (03:45→09:09)
[2018-08-11] MEDS: oxyCODONE 20 mg ER Tab (oxyCONTIN) PO SCH (08:15)
[2018-08-11] MEDS: Enoxaparin 40 mg Syringe SC SCH (08:16)
[2018-08-11] MEDS: Fluticasone-Salmeterol 250-50mcg Diskus IH SCH (08:16)
[2018-08-11] MEDS: Multivitamin With Minerals Tab PO SCH (08:17)
[2018-08-11] MEDS: Pantoprazole 40 mg EC Tab PO SCH (08:18)
[2018-08-11] MEDS: Ergocalciferol 50,000 Intl Units Cap PO SCH (08:19)
[2018-08-11] MEDS: Lidocaine 5% Patch TD SCH ×2 (08:20→12:45)
[2018-08-11] MEDS: Magnesium Oxide 400 mg Tab UD PO SCH (08:21)
[2018-08-11] MEDS: Methocarbamol 500 MG Tab PO SCH (08:21)
[2018-08-11 08:23] VITALS: BP 104/68; PULSE 71
[2018-08-11 12:09] VITALS: RESP 18; TEMP 98; O2SAT 96
[2018-08-11] MEDS: POLYETHYLENE GLYCOL 3350 17 GM/Dose PACKET PO SCH (12:47)
== END 2018-08-11 13:05 | disposition home health service (06) | DRG 561 ==
LOC: H.TCU 22:08
PROVIDERS: ADMIT Family Medicine; ATTEND Family Medicine
PROC: F07M6FZ Therapeutic Exercise Treatment of Musculoskeletal System - Whole Body using Assistive, Adaptive, Supportive or Protective Equipment (ICD-10-PCS; principal; 2018-08-02)
PROC: F08Z4FZ Home Management Treatment using Assistive, Adaptive, Supportive or Protective Equipment (ICD-10-PCS; 2018-08-02)
DX: S32.10XD Unspecified fracture of sacrum, subsequent encounter for fracture with routine healing (principal); W19.XXXD Unspecified fall, subsequent encounter; E78.00 Pure hypercholesterolemia, unspecified; E78.5 Hyperlipidemia, unspecified; F41.9 Anxiety disorder, unspecified; G89.29 Other chronic pain; I10 Essential (primary) hypertension; M21.371 Foot drop, right foot; Y92.009 Unspecified place in unspecified non-institutional (private) residence as the place of occurrence of the external cause; F17.200 Nicotine dependence, unspecified, uncomplicated; F10.10 Alcohol abuse, uncomplicated; F32.9 Major depressive disorder, single episode, unspecified; Z86.73 Personal history of transient ischemic attack (TIA), and cerebral infarction without residual deficits; Z87.81 Personal history of (healed) traumatic fracture; R74.8 Abnormal levels of other serum enzymes